=== PATIENT | male | born 1950 | race Caucasian/White ===

== ENCOUNTER 2018-09-05 06:10 | Observation (INO) | payer MEDICARE ==
[~2018-09-05] VITALS: Ht 180.3 cm; Wt 93.9 kg
--- NOTE | 2018-09-05 06:23 | ERD ---
ER Documentation Chief Complaint Chief Complaint BIB RA FROM HOME FOR CP AND HYPERTENSION HPI 67-year-old male with history of diabetes, hypertension, hyperlipidemia, anemia and anxiety but noncompliant with medical follow-up or medications presents the ED via rescue ambulance complaining of generalized weakness and chest pain. Patient states that over the last month he has been experiencing worsening, generalized weakness to the point where he has difficulty getting out of bed or even walking as well as episodes of unprovoked, moderate, achy left-sided chest pain that radiates to his neck and left arm accompanied by shortness of breath and nausea nausea but no vomiting or diaphoresis. This morning after awakening had an episode of chest pain and activated 911. Paramedics administered aspirin and sublingual and the pain resolved. Denies headache, visual changes, focal weakness or numbness. Denies URI symptoms, cough or hemoptysis. No leg pain or swelling. No abdominal pain or low back pain. Admits to sniffing and emotional stress recently and anxiety but denies depression SI/HI. Also reports recent unintentional weight loss of approximately 50 pounds over the last year and a half. Denies night sweats, fevers or chills. ROS All systems reviewed and are negative except as per history of present illness. Allergies Allergies: Coded Allergies: No Known Allergy (Unverified , 09/05/18) PMhx/Soc Reviewed in chart. As per HPI. History of Surgery: Yes (Knee surgery) Anesthesia Reaction: Yes Hx Neurological Disorder: No Hx Respiratory Disorders: No Hx Cardiac Disorders: No Hx Psychiatric Problems: Yes Hx Miscellaneous Medical Probl: Yes (Diabetes, hyperlipidemia) Hx Alcohol Use: No Hx Substance Use: No Hx Tobacco Use: No FmHx Father: Prostate cancer. Mother: "Heart problems". Physical Exam Vitals Vital Signs Date Temp Pulse Resp B/P (MAP) Pulse Ox O2 O2 Flow FiO2 Time Delivery Rate 09/05/18 78 16 176/98 100 Room Air 07:56 (124) 09/05/18 98.7 85 20 227/116 100 06:17 (153) Physical Exam Const: Alert, anxious, moderate distress Head: Atraumatic Eyes: Pupils equal react to light, extraocular movements are intact. Normal Conjunctiva ENT: Normal External Ears, Nose and Mouth. Neck: Full range of motion. No JVD. Carotids are 2+ bilateral without bruits. No thyroid goiter. No meningismus. Resp: Breath sounds are equal and clear to auscultation bilaterally. No rales rhonchi or wheezes. Cardio: Regular rate and rhythm, no murmurs Chest Wall: No tenderness, ecchymosis or bruising. Abd: Soft, non tender, non distended. No rebound or guarding. No masses. Normal bowel sounds Skin: No petechiae or rashes Back: No midline or flank tenderness Ext: No cyanosis, or edema Neur: Awake and alert. Cranial nerves II through XII are grossly intact. Motor and sensory equal bilaterally. Plantar reflexes are downgoing. Unable to stand or ambulate without assistance. Psych: Patient appears anxious and depressed. Denies SI/HI. Result Diagram: 09/05/1864609/05/1847 Results 24 hrs Laboratory Tests Test 09/05/18 06:40 09/05/18 06:47 09/05/18 07:39 Bedside Glucose 145 mg/dL White Blood Count 6.2 10^3/ul Red Blood Count 5.34 10^6/ul Hemoglobin 12.4 g/dl Hematocrit 41.0 % Mean Corpuscular Volume 76.8 fl Mean Corpuscular Hemoglobin 23.2 pg Mean Corpuscular 30.2 g/dl Hemoglobin Concent Red Cell Distribution Width 20.4 % Platelet Count 280 10^3/UL Mean Platelet Volume 10.5 fl Immature Granulocytes % 0.500 % Neutrophils % 66.1 % Lymphocytes % 20.5 % Monocytes % 8.9 % Eosinophils % 3.2 % Basophils % 0.8 % Nucleated Red Blood Cells % 0.0 /100WBC Immature Granulocytes # 0.030 10^3/ul Neutrophils # 4.1 10^3/ul Lymphocytes # 1.3 10^3/ul Monocytes # 0.6 10^3/ul Eosinophils # 0.2 10^3/ul Basophils # 0.1 10^3/ul Nucleated Red Blood Cells # 0.0 10^3/ul Sodium Level 144 mmol/L Potassium Level 3.7 mmol/L Chloride Level 106 mmol/L Carbon Dioxide Level 28 mmol/L Anion Gap 10 Blood Urea Nitrogen 24 mg/dl Creatinine 1.07 mg/dl Est Glomerular Filtrat > 60 mL/min Rate mL/min Glucose Level 111 mg/dl Calcium Level 9.1 mg/dl Troponin I 0.015 ng/ml Urine Color STRAW Urine Clarity CLEAR Urine pH 7.0 Urine Specific [place] 1.013 Urine Ketones NEGATIVE mg/dL Urine Nitrite NEGATIVE mg/dL Urine Bilirubin NEGATIVE mg/dL Urine Urobilinogen NEGATIVE mg/dL Urine Leukocyte Esterase NEGATIVE Antony/ul Urine Microscopic RBC 1 /HPF Urine Microscopic WBC 0 /HPF Urine Bacteria FEW /HPF Urine Hemoglobin NEGATIVE mg/dL Urine Glucose NEGATIVE mg/dL Urine Total Protein 2+ mg/dl Current Medications Medications Dose Sig/Allison Start Time Status Last (Trade) Ordered Route PRN Stop Time Admin Dose Reason Admin 1 inch ONCE STAT 09/05/18 DC 09/05/18 Nitroglycerin TD 06:37 09/05/18 07:02 06:39 (Nitroglyceri n 2% Oint) 650 mg ONCE ONCE 09/05/18 DC 09/05/18 Acetaminophen PO 08:00 09/05/18 07:48 (Tylenol 08:01 Tab) Procedures/MDM DOCUMENTS REVIEWED: ED nurse, no prior records LAB INTERPRETATION: Mild anemia. Elevated BUN normal creatinine. Troponin: 0.015 EKG: Time: 06:38. This rhythm. Ventricular rate 70. No ectopy. Normal TN and QRS. T wave inversions in 2, 3, aVF, 1, V5 and V6. No acute ST elevation or depression. My Interpretation IMAGING: PROCEDURE: XR Chest. CLINICAL INDICATION: Chest pain TECHNIQUE: Single portable view of the chest was obtained COMPARISON: None FINDINGS: The heart is enlarged. The lungs are clear. There is mild elevation of the right diaphragm. There is no pleural effusion or pneumothorax. RPTAT: AA IMPRESSION: Mild Cardiomegaly. .Narendra Sahni MD, MD Date Time Electronically viewed and signed by .Narendra Sahni MD, on 09/05/2018 07:26 .S/ MEDICAL DECISION MAKIN-year-old male with history of diabetes, hypertension, hyperlipidemia, anemia and anxiety but noncompliant with medical follow-up or medications presents the ED via rescue ambulance complaining of generalized weakness and chest pain. CBC to evaluate for anemia, leukocytosis and thrombocytopenia reveals borderline anemia. Chemistry significant for mildly elevated BUN with normal creatinine consistent with dehydration but no electrolyte abnormalities, acidosis or significant hyperglycemia. EKG is unremarkable for acute ischemic changes or dysrhythmia. Chest x-ray reveals cardiomegaly but no congestive heart failure or pneumonia. CT of the brain to evaluate for ischemia, hemorrhage, hydrocephalus and mass [ ]. Accelerated hypertension improved with transdermal nitroglycerin. Heart score: 5. Gen eralized weakness of uncertain etiology in a broad differential is considered. An underlying supratentorial process is considered. Admit to telemetry for further evaluation and management. PATIENT CARE TRANSITIONED: Time: 08:25, [ ]. Counseled patient regarding diagnosis, diagnostic results and plan for admission. Departure Diagnosis: Primary Impression: Chest pain with moderate risk for cardiac etiology Additional Impressions: Weakness Accelerated hypertension Condition: Serious TRINIDAD MONTELONGO MD September 05, 2018 06:23
[2018-09-05] MEDS ORDERED: NITROGLYCERIN 2% 1 GM OINT PKT TD STA (06:37)
[2018-09-05] MEDS ORDERED: ACETAMINOPHEN 325 MG TAB PO ONE (08:00)
[2018-09-05] MEDS ORDERED: LACTATED RINGER'S 500 ML IV ONE (08:20)
[2018-09-05] MEDS ORDERED: ONDANSETRON 4 MG INJ IV PRN ×2 (09:00→12:00)
[2018-09-05] MEDS ORDERED: ACETAMINOPHEN 325 MG TAB PO PRN ×2 (09:00→12:00)
[2018-09-05] MEDS ORDERED: LORAZEPAM 2 MG INJ IV ONE ×2 (09:30→12:30)
[2018-09-05] MEDS ORDERED: NACL 0.9% 3 ML SYG IV SCH (12:00)
[2018-09-05] MEDS: INSULIN ASPART [NOVOLOG] 3 ML PEN SC SCH ×3 (12:00→20:21)
[2018-09-05] MEDS ORDERED: NITROGLYCERIN (SL) 0.4 MG TAB SL PRN (12:00)
--- NOTE | 2018-09-05 12:26 | HP ---
Date/Time of Note Date/Time of Note DATE: 09/05/18 TIME: 12:10 Assessment/Plan VTE Prophylaxis SCD applied (from Nsg): Yes Pharmacological prophylaxis: LMWH Lines/Catheters IV Catheter Type (from Nrsg): Saline Lock Assessment/Plan Hospital Course SUBJECTIVE: Seen and evaluated patient in ER room 6. Currently no chest pain. OBJECTIVE: Vital signs-see below PHYSICAL EXAM: Constitutional: Adequately built,not in acute distress. HEENT: Head atraumatic and normocephalic. Eyes: Extraocular muscles intact. Anicteric sclerae. Pupils equal bilaterally, reactive to light. NECK: Supple without lymph node. CHEST: Clear and good breath sounds equally. No wheezing. No rhonchi. HEART: S1, S2. Regular rate and rhythm. ABDOMEN: Soft/non tender with no rebound tenderness. Bowel sounds were present. EXTREMITIES: No cyanosis, clubbing or edema. NEUROLOGIC: Alert and oriented x3. No focal deficit. No sensory deficit. PSYCHOSOCIAL: +Anxious. good mood. INTEGUMENTARY: No open wounds. ASSESSMENT AND PLAN: 67-year-old male with hx of depression,htn,dm2,hyperlipidemia, her w/chest pain, who has been feeling depressed lately and took him off antidepressants himself, stopped taking his medications, under tremendous work-related stress, here with chest pain also noted to have poorly managed blood pressure... Chest pain, rule out acute coronary syndrome. -Serial cardiac markers, EKG, cardiology consult in light of high risk com orbidities -Aspirin, PRN NTG, PRN morphine -Telemetry Hypertensive emergency 2/2 poorly managed blood pressure -Now stable -Start beta-blockers -TTE History of dm2 -off tx -Obtain A1c and treat accordingly -Carbohydrate controlled diet Dyslipidemia -Obtain lipid panel. -Start Lipitor Mild anemia with microcytic indicis -Stable H&H. Obtain iron panel and treat accordingly Depression -Patient himself took him off abruptly from antidepressant which he does not remember the name. -Inpatient psychiatric consult in a.m. as his depression needs to be attended seriously to get him back on track with his compliance/mood instability. Obesity with BMI 30.9 -Lifestyle changes/modification advised. Obtain A1c and lipid panel in a.m. DVT prophylaxis: Lovenox PUD prophylaxis: Pepcid CODE STATUS: Full code Diet: Carbohydrate controlled/low-cholesterol diet. Rest of the management depend on hospital course. Approximately 60 m spent on this history and physical. Patient was seen in collaboration with Dr. Bolanos. Result Diagram: 09/05/18 0647 09/05/18 0647 Results 24hrs Laboratory Tests Test 09/05/18 06:40 09/05/18 06:47 09/05/18 07:39 Bedside Glucose 145 White Blood Count 6.2 Red Blood Count 5.34 Hemoglobin 12.4 L Hematocrit 41.0 L Mean Corpuscular Volume 76.8 L Mean Corpuscular Hemoglobin 23.2 L Mean Corpuscular Hemoglobin Concent 30.2 L Red Cell Distribution Width 20.4 H Platelet Count 280 Mean Platelet Volume 10.5 H Immature Granulocytes % 0.500 H Neutrophils % 66.1 Lymphocytes % 20.5 Monocytes % 8.9 Eosinophils % 3.2 Basophils % 0.8 Nucleated Red Blood Cells % 0.0 Immature Granulocytes # 0.030 Neutrophils # 4.1 Lymphocytes # 1.3 Monocytes # 0.6 Eosinophils # 0.2 Basophils # 0.1 Nucleated Red Blood Cells # 0.0 Sodium Level 144 Potassium Level 3.7 Chloride Level 106 Carbon Dioxide Level 28 Anion Gap 10 Blood Urea Nitrogen 24 H Creatinine 1.07 Est Glomerular Filtrat Rate mL/min > 60 Glucose Level 111 Calcium Level 9.1 Troponin I 0.015 Urine Color STRAW Urine Clarity CLEAR Urine pH 7.0 Urine Specific [place] 1.013 Urine Ketones NEGATIVE Urine Nitrite NEGATIVE Urine Bilirubin NEGATIVE Urine Urobilinogen NEGATIVE Urine Leukocyte Esterase NEGATIVE Urine Microscopic RBC 1 Urine Microscopic WBC 0 Urine Bacteria FEW A Urine Hemoglobin NEGATIVE Urine Glucose NEGATIVE Urine Total Protein 2+ H HPI/ROS Admit Date/Time Admit Date/Time Hx of Present Illness This is a very pleasant 67-year-old male who was previously diagnosed with hypertension, depression,dm2, hyperlipidemia, was brought in by ambulance for chest pain with radiation to left arm followed by shortness of breath, nausea, diaphoresis started this morning after he woke up from bed. Apparently, patient has been under tremendous work-related stress and has been feeling depressed lately and took him off antidepressants himself, also stopped seeing his pcp and taking his medications for underlying hypertension. According to patient, he was taken off diabetes medication as his blood sugar was controlled with latest test. Patient denied palpitation, loss of consciousness, dizziness, fever, chills, vomiting, diarrhea, numbness, tingling, speech difficulties, vision changes, or other constitutional symptoms. Patient has been under tremendous stress and he also abruptly stopped taking his depression medication and he is also unsure the name of the medication. In the emergency room, initial labs unremarkable except for mild microcytic indicis. EKG showed normal sinus rhythm with T wave inversion in multiple leads. There was no acute ST elevation or depression. Patient was given aspirin by ambulance. In the ER, he received a dose of IV Ativan as patient was anxious. ROS A 12 point review of system was assessed and is negative other than what is mentioned in HPI. PMH/Family/Social Past Medical History See HPI Medications Current Medications Ondansetron HCl (Zofran Inj) 4 mg ER BRIDGE PRN IV NAUSEA/VOMITING; Start 09/05/18 at 09:00; Stop 09/06/18 at 08:59 Acetaminophen (Tylenol Tab) 650 mg ER BRIDGE PRN PO .MILD PAIN 1-3 OR TEMP; Start 09/05/18 at 09:00; Stop 09/06/18 at 08:59 Coded Allergies: No Known Allergy (Unverified , 09/05/18) Past Surgical History See HPI Social History Denied history of alcohol, smoking or illicit drug use. Smoking Status: Never smoker Exam/Review of Systems Vital Signs Vitals Vital Signs Date Temp Pulse Resp B/P (MAP) Pulse Ox O2 O2 Flow FiO2 Time Delivery Rate 09/05/18 78 16 176/98 100 Room Air 07:56 (124) 09/05/18 98.7 06:17 CHETNA RAMÍREZ NP September 05, 2018 12:20
[2018-09-05] MEDS: METOPROLOL 25 MG TAB PO SCH ×2 (12:51→20:16)
[2018-09-05] MEDS ORDERED: DEXTROSE 50% 50 ML SYRINGE IV PRN ×2 (13:00)
[2018-09-05] MEDS ORDERED: GLUCOSE GEL 15 GRAM TUBE BUCCAL PRN (13:00)
[2018-09-05] MEDS ORDERED: GLUCAGON 1 MG INJ IM PRN (13:00)
[2018-09-05] MEDS ORDERED: GLUCOSE GEL 15 GRAM TUBE PO PRN ×2 (13:00)
[2018-09-05] MEDS: HYDROCODONE/APAP (5/325) TAB PO PRN ×2 (16:15→21:19)
[2018-09-05 18:50] VITALS: BP 183/88; PULSE 58; RESP 20
[2018-09-05 18:51] VITALS: PULSE 59
[2018-09-05] MEDS: hydrALAzine 20 MG INJ IV PRN (19:04)
[2018-09-05 19:30] VITALS: Ht 180.3 cm; Wt 93.9 kg
[2018-09-05 20:00] VITALS: BP 168/82; PULSE 60; RESP 20
[2018-09-05 20:04] VITALS: PULSE 67
[2018-09-05] MEDS: BENAZEPRIL 10 MG TAB PO SCH (20:13)
[2018-09-05] MEDS: FAMOTIDINE 20 MG TAB PO SCH (20:14)
[2018-09-05] MEDS: ATORVASTATIN 80 MG TAB PO SCH (20:15)
--- NOTE | 2018-09-05 20:41 | CONS ---
DATE OF ADMISSION: 09/05/2018 DATE OF CONSULTATION: 09/05/2018 TYPE OF CONSULTATION: Cardiology. REASON FOR CONSULTATION: Chest pain, assess for acute coronary syndrome. REQUESTING PHYSICIAN: Yue Ramírez NP, from the hospitalist service. HISTORY OF PRESENT ILLNESS: Mr. Fang is a very pleasant 67-year-old male with a history of hyperte nsion, diabetes mellitus, dyslipidemia, depression, who states he was at home, sitting on his bed, be miguel to notice chest tightness with diaphoresis and mild shortness of breath. The patient subsequentl y called paramedics. The patient was brought here to the emergency department. Upon arrival, temper ature was 98.7, blood pressure was markedly elevated at 227/116, pulse 85, respiratory rate 20, satti ng 100%. The patient's labs were notable for a sodium of 144, potassium 3.7, creatinine 1.0, BUN of 24, troponin negative, UA negative. The patient underwent a chest x-ray revealing mild cardiomegaly but clear lungs and head CT revealing no intracranial hemorrhage, mass effect or midline shift with m ild generalized atrophy. The patient's electrocardiogram revealed normal sinus rhythm, rate of 70, n ormal axis, normal intervals with inferolateral T-wave inversions. The patient subsequently has been treated with dose of Ativan, sublingual nitroglycerin, Tylenol and now awaits admit to the floor. PAST MEDICAL HISTORY: As above in HPI. MEDICATIONS CURRENTLY IN HOSPITAL: 1. Lovenox 40 mg subcutaneously daily. 2. Aspirin 81 mg daily. 3. Pepcid 20 mg q.12. 4. Lipitor 80 mg at bedtime. 5. Metoprolol 25 mg p.o. b.i.d. 6. Zofran p.r.n. 7. Tylenol p.r.n. 8. Dorothy p.r.n. 9. Insulin sliding scale. ALLERGIES: NO KNOWN DRUG ALLERGIES. SOCIAL HISTORY: No current tobacco, EtOH or illicit drug use. FAMILY HISTORY: No history of sudden cardiac or early CAD. REVIEW OF SYSTEMS: As above in HPI. CONSTITUTIONAL: No fevers, chills. PULMONARY: No current shortness of breath. CARDIOVASCULAR: Chest pain. GASTROINTESTINAL: No vomiting. GENITOURINARY: No hematuria. MUSCULOSKELETAL: Degenerative joint disease. PSYCHIATRIC: Positive for depression. NEUROLOGIC: No documented history of CVA. ENDOCRINE: Diabetes mellitus. PHYSICAL EXAMINATION: VITAL SIGNS: Temperature of 98.7, blood pressure 145/84, pulse 77, respiratory rate 18, satting 96%. GENERAL: The patient is alert, awake, in no acute distress. NECK: JVP approximately is 8 to 9 cm of water. CHEST: Fair air movement throughout. HEART: Bradycardic, regular rhythm, normal S1, S2, I/ systolic murmur, nondisplaced PMI. ABDOMEN: Positive bowel sounds, soft. EXTREMITIES: No significant pitting edema, 1+ pulses bilateral posterior tibial. LABORATORIES: As above in HPI. Since admit the patient's second troponin is negative with 2 negativ e troponins. IMAGING STUDIES: As above in HPI. No further imaging studies for my review at this time. ELECTROCARDIOGRAM: As above in HPI. No further electrocardiograms for my review at this time. IMPRESSION: 1. Chest pain, assess for acute coronary syndrome. 2. Abnormal electrocardiogram with inferior and lateral T-wave inversions. 3. Hypertension. 4. Dyslipidemia. 5. Diabetes mellitus. 6. Depression. RECOMMENDATIONS: 1. At this time, we would admit the patient to telemetry monitoring to follow rhythm and rate contro l closely. 2. Continue the patient's aspirin for prophylaxis against cardiovascular events. 3. We would continue the patient's current statin, check fasting lipid panel and adjust accordingly. 4. Continue patient's beta suri at this time with possible need for additional antihypertensives. 5. We will give the patient sublingual nitroglycerin for recurrent episodes of chest pain. 6. Complete the patient's rule out for myocardial infarction to ensure the patient's chest pains wer e not due to acute coronary syndrome such as acute myocardial infarction. 7. Check a 2D echo for this patient's ejection fraction, wall motion, rule any major valve abnormali ties and if patient does rule out for myocardial infarction given the patient's cardiac risk factors and EKG abnormalities, I believe the patient will benefit from further inpatient risk stratification with cardiac stress test which can be scheduled to take place in the morning. Thank you for allowing me to take part in the care of this patient. I will continue to follow him al lidia very closely with you with further recommendations to be made as the patient progresses through h is inpatient hospital clinical course. Dictated By: RODDY POZO/NTS Conf#: [id number] DID#: [id number] CC: TOSIN KAY MD; YUE RAMÍREZ NP;*End*
[2018-09-05 22:00] VITALS: BP 145/60; PULSE 69
[2018-09-06] VITALS (12 sets, daily range): BP systolic 115–171; BP diastolic 61–92; PULSE 54–72; RESP 16–22
[2018-09-06] MEDS: ACCU-CHEK XX SCH (02:00)
[2018-09-06] MEDS ORDERED: LORAZEPAM 2 MG INJ IV ONE (04:30)
[2018-09-06] MEDS: INSULIN ASPART [NOVOLOG] 3 ML PEN SC SCH ×4 (07:55→21:00)
[2018-09-06] MEDS: ASPIRIN 81 MG TAB PO SCH (08:30)
[2018-09-06] MEDS: METOPROLOL 25 MG TAB PO SCH ×2 (08:30→21:06)
[2018-09-06] MEDS: FAMOTIDINE 20 MG TAB PO SCH ×2 (08:30→21:07)
[2018-09-06] MEDS: BENAZEPRIL 10 MG TAB PO SCH ×2 (08:31→21:07)
[2018-09-06] MEDS: ENOXAPARIN 40 MG/0.4 ML SYG SC SCH (08:32)
--- NOTE | 2018-09-06 10:54 | PSY ---
Date/Time of Note Date/Time of Note DATE: 09/06/18 TIME: 10:49 Psychiatric Subjective Eval Consent Pt consented to telemedicine: No Subjective Evaluation Patient location: inpatient Chief Complaint: BIB RA FROM HOME FOR CP AND HYPERTENSION History of present illness Patient is a 67-year-old male with history of hypertension, hyperlipidemia, and her w/chest pain, on a [id number] evaluation, patient is tearful, states he has been increasingly anxious and depressed since after his divorce, and also lost his mom and dad, states his life has been lonely and hopeless.. Patient however denies suicidal ideation and contracted for safety. He states his only happiness now is that his children are coming around. Discussed risk and be nefits of about 3 different antidepressants and he verbalized understanding. Patient has agreed to take Cymbalta and Klonopin for anxiety. Past psychiatric history Denies Hospitalization: other Medical history Problems Medical Problems: (1) Accelerated hypertension Status: Acute (2) Chest pain with moderate risk for cardiac etiology Status: Acute (3) Weakness Status: Acute Allergies: Coded Allergies: No Known Allergy (Unverified , 09/05/18) Substance Abuse Substance abuse history: No Prior substance abuse treatmen: No Social History Marital status: DPA/Conservatorship: No Psychiatric Objective Eval Review of Systems: Review of Systems: Not Applicable Physical Examination: Sleep: Adequate Appetite: Decreased Energy: Decreased Interest: Decreased Mental Status Examination: Appearance: Groomed Eye Contact: Fair Psychomotor Activity: Normal Behavior: Cooperative Speech: Clear, Soft AFFECT: Flat Mood: Depressed Though Process: Linear Orientation: x4 Insight: Mild Attention Span: Distractible Laboratory Results Laboratory Tests Test 09/05/18 06:40 09/05/18 06:47 09/05/18 07:39 09/05/18 13:42 Bedside Glucose 145 mg/dL White Blood Count 6.2 10^3/ul Red Blood Count 5.34 10^6/ul Hemoglobin 12.4 g/dl Hematocrit 41.0 % Mean Corpuscular 76.8 fl Volume Mean Corpuscular 23.2 pg Hemoglobin Mean Corpuscular 30.2 g/dl Hemoglobin Concen t Red Cell 20.4 % Distribution Width Platelet Count 280 10^3/UL Mean Platelet 10.5 fl Volume Immature 0.500 % Granulocytes % Neutrophils % 66.1 % Lymphocytes % 20.5 % Monocytes % 8.9 % Eosinophils % 3.2 % Basophils % 0.8 % Nucleated Red 0.0 /100WBC Blood Cells % Immature 0.030 10^3/ul Granulocytes # Neutrophils # 4.1 10^3/ul Lymphocytes # 1.3 10^3/ul Monocytes # 0.6 10^3/ul Eosinophils # 0.2 10^3/ul Basophils # 0.1 10^3/ul Nucleated Red 0.0 10^3/ul Blood Cells # Sodium Level 144 mmol/L Potassium Level 3.7 mmol/L Chloride Level 106 mmol/L Carbon Dioxide 28 mmol/L Level Anion Gap 10 Blood Urea 24 mg/dl Nitrogen Creatinine 1.07 mg/dl Est Glomerular > 60 mL/min Filtrat Rate mL/min Glucose Level 111 mg/dl Calcium Level 9.1 mg/dl Troponin I 0.015 ng/ml Urine Color STRAW Urine Clarity CLEAR Urine pH 7.0 Urine Specific 1.013 Max Urine Ketones NEGATIVE mg/dL Urine Nitrite NEGATIVE mg/dL Urine Bilirubin NEGATIVE mg/dL Urine NEGATIVE mg/dL Urobilinogen Urine Leukocyte NEGATIVE Antony/ul Esterase Urine Microscopic 1 /HPF RBC Urine Microscopic 0 /HPF WBC Urine Bacteria FEW /HPF Urine Hemoglobin NEGATIVE mg/dL Urine Glucose NEGATIVE mg/dL Urine Total 2+ mg/dl Protein Ferritin 9.5 ng/ml Test 09/05/18 13:43 09/05/18 13:53 09/05/18 18:46 09/05/18 20:01 Iron Level 31 ug/dl Total Iron 356 ug/dl Binding Capacity Percent Iron 9 % SAT Saturation Creatine Kinase 64 IU/L Creatine Kinase 5.2 Index Creatinine Kinase 3.33 ng/ml MB (Mass) Troponin I 0.013 ng/ml Bedside Glucose 120 mg/dL 124 mg/dL 100 mg/dL Test 09/05/18 21:00 09/06/18 04:02 09/06/18 05:57 09/06/18 08:05 Creatine Kinase 60 IU/L Creatine Kinase 5.2 Index Creatinine Kinase 3.09 ng/ml MB (Mass) Troponin I < 0.012 ng/ml Bedside Glucose 106 mg/dL 107 mg/dL White Blood Count 8.0 10^3/ul Red Blood Count 4.77 10^6/ul Hemoglobin 11.2 g/dl Hematocrit 36.4 % Mean Corpuscular 76.3 fl Volume Mean Corpuscular 23.5 pg Hemoglobin Mean Corpuscular 30.8 g/dl Hemoglobin Concen t Red Cell 20.9 % Distribution Width Platelet Count 253 10^3/UL Mean Platelet 10.2 fl Volume Immature 0.500 % Granulocytes % Neutrophils % 69.0 % Lymphocytes % 17.1 % Monocytes % 8.0 % Eosinophils % 4.6 % Basophils % 0.8 % Nucleated Red 0.0 /100WBC Blood Cells % Immature 0.040 10^3/ul Granulocytes # Neutrophils # 5.5 10^3/ul Lymphocytes # 1.4 10^3/ul Monocytes # 0.6 10^3/ul Eosinophils # 0.4 10^3/ul Basophils # 0.1 10^3/ul Nucleated Red 0.0 10^3/ul Blood Cells # Sodium Level 144 mmol/L Potassium Level 3.9 mmol/L Chloride Level 110 mmol/L Carbon Dioxide 26 mmol/L Level Anion Gap 8 Blood Urea 36 mg/dl Nitrogen Creatinine 1.19 mg/dl Est Glomerular > 60 mL/min Filtrat Rate mL/min Glucose Level 94 mg/dl Hemoglobin A1c 5.6 % Calcium Level 8.7 mg/dl Phosphorus Level 5.0 mg/dl Magnesium Level 1.9 mg/dl Total Bilirubin 0.2 mg/dl Direct Bilirubin 0.00 mg/dl Indirect 0.2 mg/dl Bilirubin Aspartate Amino 16 IU/L Transf (AST/SGOT) Alanine 20 IU/L Aminotransferase (ALT/SGPT) Alkaline 69 IU/L Phosphatase Total Protein 5.7 g/dl Albumin 3.3 g/dl Globulin 2.40 g/dl Albumin/Globulin 1.37 Ratio Triglycerides 84 mg/dl Level Cholesterol Level 123 mg/dl LDL Cholesterol, 77 mg/dl Calculated HDL Cholesterol 29 mg/dl Cholesterol/HDL 4.2 RATIO Ratio Thyroid 2.930 MIU/L Stimulating Hormone (TSH) Assessment and Plan Assessment/Diagnosis Diagnosis Major depressive disorder severe recurrent without psychosis Recommendation/Plan Medication Management Cymbalta 30 mg daily and Klonopin 0.5 mg twice daily as needed Multiple antipsychotics: No Discharge Disposition: Other Legal Status: Voluntary (Does not meet criteria for 5150 hold) BARBARA MELENDREZ NP September 06, 2018 10:54
[2018-09-06] MEDS ORDERED: REGADENOSON 0.4 MG/5 ML SYG ONE (12:17)
--- NOTE | 2018-09-06 12:49 | PN ---
Date/Time of Note Date/Time of Note DATE: 09/06/18 TIME: 12:45 Assessment/Plan VTE Prophylaxis Risk score (from [facility])>0 risk: 2 SCD applied (from [facility]): No SCD contraindicated: low risk/ambulating Pharmacological prophylaxis: heparin Pharm contraindication: low risk/ambulating Lines/Catheters IV Catheter Type (from [facility]): Saline Lock Assessment/Plan Problems: (1) Chest pain with moderate risk for cardiac etiology Status: Acute Comment: He has had negative cardiac enzymes and is being worked up. I concur with taking a more careful approach in him to make sure there is not active coronary disease. See cardiology consult (2) Accelerated hypertension Status: Acute Comment: Much better control using combination beta-blockade, and PATITO inhibitor. (3) Iron deficiency anemia Status: Chronic Comment: Evidence weight loss this will need an outpatient work-up once we got the cardiac issues addressed Qualifiers: Iron deficiency anemia type: unspecified iron deficiency Qualified Codes: D50.9 - Iron deficiency anemia, unspecified (4) Abnormal finding on urinalysis Status: Acute Comment: Repeat urinalysis (5) Diabetes mellitus type 2 in nonobese Status: Chronic Comment: Patient has an A1c of 5.6. I am not sure this is actually a correct diagnosis on the record and as such I believe that this gentleman is not diabetic (6) Hyperlipidemia Status: Chronic Comment: Full dose statin therapy Qualifiers: Hyperlipidemia type: pure hypercholesterolemia Qualified Codes: E78.00 - Pure hypercholesterolemia, unspecified (7) Noncompliance with medications Status: Chronic Comment: Attempt to make sure that he has adequate connection. He is going to need a primary care physician as an outpatient (8) Abnormal weight loss Status: Acute Comment: Will need outpatient work-up (9) Recurrent major depressive disorder Status: Chronic Comment: Please see psychiatric consultation note Qualifiers: Active/Remission status: currently active Major depression episode severity: unspecified Qualified Codes: F33.9 - Major depressive disorder, re current, unspecified Result Diagram: 09/06/18 0557 09/06/18 0557 Results 24hrs Laboratory Tests Test 09/05/18 13:42 09/05/18 13:43 09/05/18 13:53 09/05/18 18:46 Ferritin 9.5 L Iron Level 31 L Total Iron Binding 356 Capacity Percent Iron Saturation 9 L Creatine Kinase 64 Creatine Kinase Index 5.2 Creatinine Kinase MB 3.33 H (Mass) Troponin I 0.013 Bedside Glucose 120 124 Test 09/05/18 20:01 09/05/18 21:00 09/06/18 04:02 09/06/18 05:57 Bedside Glucose 100 106 Creatine Kinase 60 Creatine Kinase Index 5.2 Creatinine Kinase MB 3.09 H (Mass) Troponin I < 0.012 White Blood Count 8.0 # Red Blood Count 4.77 Hemoglobin 11.2 L Hematocrit 36.4 L Mean Corpuscular Volume 76.3 L Mean Corpuscular 23.5 L Hemoglobin Mean Corpuscular 30.8 L Hemoglobin Concent Red Cell Distribution 20.9 H Width Platelet Count 253 Mean Platelet Volume 10.2 Immature Granulocytes % 0.500 H Neutrophils % 69.0 Lymphocytes % 17.1 Monocytes % 8.0 Eosinophils % 4.6 Basophils % 0.8 Nucleated Red Blood 0.0 Cells % Immature Granulocytes # 0.040 H Neutrophils # 5.5 Lymphocytes # 1.4 Monocytes # 0.6 Eosinophils # 0.4 Basophils # 0.1 Nucleated Red Blood 0.0 Cells # Sodium Level 144 Potassium Level 3.9 Chloride Level 110 Carbon Dioxide Level 26 Anion Gap 8 Blood Urea Nitrogen 36 #H Creatinine 1.19 Est Glomerular Filtrat > 60 Rate mL/min Glucose Level 94 Hemoglobin A1c 5.6 Calcium Level 8.7 Phosphorus Level 5.0 H Magnesium Level 1.9 Total Bilirubin 0.2 Direct Bilirubin 0.00 Indirect Bilirubin 0.2 Aspartate Amino 16 Transf (AST/SGOT) Alanine 20 Aminotransferase (ALT/SG PT) Alkaline Phosphatase 69 Total Protein 5.7 L Albumin 3.3 Globulin 2.40 Albumin/Globulin Ratio 1.37 Triglycerides Level 84 Cholesterol Level 123 LDL Cholesterol, 77 Calculated HDL Cholesterol 29 L Cholesterol/HDL Ratio 4.2 Thyroid Stimulating 2.930 Hormone (TSH) Test 09/06/18 08:05 Bedside Glucose 107 Subjective 24 Hr Interval Summary Free Text/Dictation No complaints Constitutional: no complaints Respiratory: no complaints Cardiovascular: no complaints Exam/Review of Systems Exam Vitals Vital Signs Date Temp Pulse Resp B/P (MAP) Pulse Ox O2 O2 Flow FiO2 Time Delivery Rate 09/06/18 61 12:05 09/06/18 98.3 18 152/74 98 Room Air 07:25 (100) Intake and Output 09/05/18 09/05/18 09/06/18 1515:00 23:00 07:00 IntakeIntake Total 500 ml 550 ml OutputOutput Total 700 ml BalanceBalance 500 ml -150 ml Constitutional: alert Respiratory: clear to auscultation, normal air movement Cardiovascular: regular rate and rhythm, nl pulses Results Results 24hrs Laboratory Tests Test 09/05/18 13:42 09/05/18 13:43 09/05/18 13:53 09/05/18 18:46 Ferritin 9.5 L Iron Level 31 L Total Iron Binding 356 Capacity Percent Iron Saturation 9 L Creatine Kinase 64 Creatine Kinase Index 5.2 Creatinine Kinase MB 3.33 H (Mass) Troponin I 0.013 Bedside Glucose 120 124 Test 09/05/18 20:01 09/05/18 21:00 09/06/18 04:02 09/06/18 05:57 Bedside Glucose 100 106 Creatine Kinase 60 Creatine Kinase Index 5.2 Creatinine Kinase MB 3.09 H (Mass) Troponin I < 0.012 White Blood Count 8.0 # Red Blood Count 4.77 Hemoglobin 11.2 L Hematocrit 36.4 L Mean Corpuscular Volume 76.3 L Mean Corpuscular 23.5 L Hemoglobin Mean Corpuscular 30.8 L Hemoglobin Concent Red Cell Distribution 20.9 H Width Platelet Count 253 Mean Platelet Volume 10.2 Immature Granulocytes % 0.500 H Neutrophils % 69.0 Lymphocytes % 17.1 Monocytes % 8.0 Eosinophils % 4.6 Basophils % 0.8 Nucleated Red Blood 0.0 Cells % Immature Granulocytes # 0.040 H Neutrophils # 5.5 Lymphocytes # 1.4 Monocytes # 0.6 Eosinophils # 0.4 Basophils # 0.1 Nucleated Red Blood 0.0 Cells # Sodium Level 144 Potassium Level 3.9 Chloride Level 110 Carbon Dioxide Level 26 Anion Gap 8 Blood Urea Nitrogen 36 #H Creatinine 1.19 Est Glomerular Filtrat > 60 Rate mL/min Glucose Level 94 Hemoglobin A1c 5.6 Calcium Level 8.7 Phosphorus Level 5.0 H Magnesium Level 1.9 Total Bilirubin 0.2 Direct Bilirubin 0.00 Indirect Bilirubin 0.2 Aspartate Amino 16 Transf (AST/SGOT) Alanine 20 Aminotransferase (ALT/SG PT) Alkaline Phosphatase 69 Total Protein 5.7 L Albumin 3.3 Globulin 2.40 Albumin/Globulin Ratio 1.37 Triglycerides Level 84 Cholesterol Level 123 LDL Cholesterol, 77 Calculated HDL Cholesterol 29 L Cholesterol/HDL Ratio 4.2 Thyroid Stimulating 2.930 Hormone (TSH) Test 09/06/18 08:05 Bedside Glucose 107 Medications Medication Current Medications IV Flush (NS 3 ml) 3 ml PER PROTOCOL IV ; Start 09/05/18 at 12:00 Ondansetron HCl (Zofran Inj) 4 mg Q6H PRN IV NAUSEA/VOMITING; Start 09/05/18 at 12:00 Acetaminophen (Tylenol Tab) 650 mg Q6H PRN PO .PAIN 1-3 OR TEMP Last administered on 09/05/18 20:15; Admin Dose 650 MG; Start 09/05/18 at 12:00 Acetaminophen/ Hydrocodone Bitart ([place] (5/325)) 1 tab Q6H PRN PO .MOD PAIN 4- 6 Last administered on 09/05/18 21:19; Admin Dose 1 TAB; Start 09/05/18 at 12:00 Famotidine (Pepcid) 20 mg Q12 PO Last administered on 09/06/18 08:30; Admin Dose 20 MG; Start 09/05/18 at 21:00 Enoxaparin Sodium (Lovenox) 40 mg DAILY SC Last administered on 09/06/18 08:32; Admin Dose 40 MG; Start 09/06/18 at 09:00 Diagnostic Test (Pha) (Accu-Chek) 1 ea 02 XX ; Start 09/06/18 at 02:00 Insulin Aspart (Novolog Insulin Pen) NOVOLOG *MILD* ALGORITHM WITH MEALS BEDTIME SC ; Start 09/05/18 at 12:00 Aspirin (Aspirin) 81 mg DAILY PO Last administered on 09/06/18 08:30; Admin Dose 81 MG; Start 09/06/18 at 09:00 Atorvastatin Calcium (Lipitor) 80 mg HS PO Last administered on 09/05/18 20:15; Admin Dose 80 MG; Start 09/05/18 at 21:00 Metoprolol Tartrate (Lopressor) 25 mg BID PO Last administered on 09/06/18 08:30; Admin Dose 25 MG; Start 09/05/18 at 12:30 Hydralazine HCl (Apresoline) 10 mg Q6H PRN IV sbp>160 Last administered on 09/05/18at 19:04; Admin Dose 10 MG; Start 09/05/18 at 12:00 Nitroglycerin (Nitroglycerin (Sl Tab) 0.4 Mg) 1 tab Q5M PRN SL ANGINA; Start 09/05/18 at 12:00 Miscellaneous Information 1 ea NOTE XX ; Start 09/05/18 at 13:00 Glucose (Glutose) 15 gm Q15M PRN PO DECREASED GLUCOSE; Start 09/05/18 at 13:00 Glucose (Glutose) 22.5 gm Q15M PRN PO DECREASED GLUCOSE; Start 09/05/18 at 13:00 Dextrose (D50w Syringe) 25 ml Q15M PRN IV DECREASED GLUCOSE; Start 09/05/18 at 13:00 Dextrose (D50w Syringe) 50 ml Q15M PRN IV DECREASED GLUCOSE; Start 09/05/18 at 13:00 Glucagon (Glucagen) 1 mg Q15M PRN IM DECREASED GLUCOSE; Start 09/05/18 at 13:00 Glucose (Glutose) 15 gm Q15M PRN BUCCAL DECREASED GLUCOSE; Start 09/05/18 at 13:00 Benazepril HCl (Lotensin) 10 mg BID PO Last administered on 09/06/18at 08:31; Admin Dose 10 MG; Start 09/05/18 at 21:00 Duloxetine HCl (Cymbalta) 30 mg DAILY PO ; Start 09/06/18 at 11:00 Docusate Sodium/ Ferrous Fumarate (Dino-Sequels) 1 tab DAILY PO ; Start 09/06/18 at 13:00; Stop 10/06/18 at 12:59; Status UNV Ascorbic Acid (Vitamin C) 500 mg DAILY PO ; Start 09/06/18 at 13:00; Stop 10/06/18 at 12:59; Status UNV REBECCA POTTS MD September 06, 2018 12:49
--- NOTE | 2018-09-06 13:09 | CONS ---
Assessment/Plan Assessment/Plan Hospital Course (Demo Recall) IMPRESSION: 1. Chest pain, assess for acute coronary syndrome.-neg trop x 3. 2. Abnormal electrocardiogram with inferior and lateral T-wave inversions. 3. Hypertension. 4. Dyslipidemia. 5. Diabetes mellitus. 6. Depression. Recc; -Tele -Contineu BB/ACEI and f/u BP after taking -Continue asa/statin -Will f/u echo -lexiscan stress test today Consultation Date/Type/Reason Admit Date/Time September 05, 2018 at 11:13 Initial Consult Date 09/05/18 Type of Consult Cardiology Reason for Consultation chest pain Requesting Provider: TOSIN KAY Date/Time of Note DATE: 09/06/18 TIME: 13:06 Exam/Review of Systems Vital Signs Vitals Vital Signs Date Temp Pulse Resp B/P (MAP) Pulse Ox O2 O2 Flow FiO2 Time Delivery Rate 09/06/18 61 12:05 09/06/18 98.3 18 152/74 98 Room Air 07:25 (100) Intake and Output 09/05/18 09/05/18 09/06/18 1515:00 23:00 07:00 IntakeIntake Total 500 ml 550 ml OutputOutput Total 700 ml BalanceBalance 500 ml -150 ml Exam Exam Review of Systems: CONSTITUTIONAL: No fevers, chills. PULMONARY: No sob CARDIOVASCULAR: No chest pain/palpitations GASTROINTESTINAL: No nausea/vomiting. GENITOURINARY: No hematuria/dysuria. MUSCULOSKELETAL: No myagias/arthalgias. PSYCHIATRIC: The patient denies depression. NEUROLOGIC: No weakness Constitutional: alert Psych: no complaints Head: normocephalic ENMT: mucosa pink and moist Neck: supple, jvd (9 cm water) Respiratory: clear to auscultation Cardiovascular: regular rate and rhythm Gastrointestinal: soft, non-tender Musculoskeletal: muscle tone (normal) Extremities: edema (none) Neurological: other (No focal deficits) Labs Result Diagram: 09/06/18 0557 09/06/18 0557 Results 24hrs Laboratory Tests Test 09/05/18 13:42 09/05/18 13:43 09/05/18 13:53 09/05/18 18:46 Ferritin 9.5 L Iron Level 31 L Total Iron Binding 356 Capacity Percent Iron Saturation 9 L Creatine Kinase 64 Creatine Kinase Index 5.2 Creatinine Kinase MB 3.33 H (Mass) Troponin I 0.013 Bedside Glucose 120 124 Test 09/05/18 20:01 09/05/18 21:00 09/06/18 04:02 09/06/18 05:57 Bedside Glucose 100 106 Creatine Kinase 60 Creatine Kinase Index 5.2 Creatinine Kinase MB 3.09 H (Mass) Troponin I < 0.012 White Blood Count 8.0 # Red Blood Count 4.77 Hemoglobin 11.2 L Hematocrit 36.4 L Mean Corpuscular Volume 76.3 L Mean Corpuscular 23.5 L Hemoglobin Mean Corpuscular 30.8 L Hemoglobin Concent Red Cell Distribution 20.9 H Width Platelet Count 253 Mean Platelet Volume 10.2 Immature Granulocytes % 0.500 H Neutrophils % 69.0 Lymphocytes % 17.1 Monocytes % 8.0 Eosinophils % 4.6 Basophils % 0.8 Nucleated Red Blood 0.0 Cells % Immature Granulocytes # 0.040 H Neutrophils # 5.5 Lymphocytes # 1.4 Monocytes # 0.6 Eosinophils # 0.4 Basophils # 0.1 Nucleated Red Blood 0.0 Cells # Sodium Level 144 Potassium Level 3.9 Chloride Level 110 Carbon Dioxide Level 26 Anion Gap 8 Blood Urea Nitrogen 36 #H Creatinine 1.19 Est Glomerular Filtrat > 60 Rate mL/min Glucose Level 94 Hemoglobin A1c 5.6 Calcium Level 8.7 Phosphorus Level 5.0 H Magnesium Level 1.9 Total Bilirubin 0.2 Direct Bilirubin 0.00 Indirect Bilirubin 0.2 Aspartate Amino 16 Transf (AST/SGOT) Alanine 20 Aminotransferase (ALT/SG PT) Alkaline Phosphatase 69 Total Protein 5.7 L Albumin 3.3 Globulin 2.40 Albumin/Globulin Ratio 1.37 Triglycerides Level 84 Cholesterol Level 123 LDL Cholesterol, 77 Calculated HDL Cholesterol 29 L Cholesterol/HDL Ratio 4.2 Thyroid Stimulating 2.930 Hormone (TSH) Test 09/06/18 08:05 Bedside Glucose 107 Medications Medications Current Medications IV Flush (NS 3 ml) 3 ml PER PROTOCOL IV ; Start 09/05/18 at 12:00 Ondansetron HCl (Zofran Inj) 4 mg Q6H PRN IV NAUSEA/VOMITING; Start 09/05/18 at 12:00 Acetaminophen (Tylenol Tab) 650 mg Q6H PRN PO .PAIN 1-3 OR TEMP Last administered on 09/05/18at 20:15; Admin Dose 650 MG; Start 09/05/18 at 12:00 Acetaminophen/ Hydrocodone Bitart ([place] (5/325)) 1 tab Q6H PRN PO .MOD PAIN 4- 6 Last administered on 09/05/18at 21:19; Admin Dose 1 TAB; Start 09/05/18 at 12:00 Famotidine (Pepcid) 20 mg Q12 PO Last administered on 09/06/18at 08:30; Admin Dose 20 MG; Start 09/05/18 at 21:00 Enoxaparin Sodium (Lovenox) 40 mg DAILY SC Last administered on 09/06/18at 08:32; Admin Dose 40 MG; Start 09/06/18 at 09:00 Diagnostic Test (Pha) (Accu-Chek) 1 ea 02 XX ; Start 09/06/18 at 02:00 Insulin Aspart (Novolog Insulin Pen) NOVOLOG *MILD* ALGORITHM WITH MEALS BEDTIME SC ; Start 09/05/18 at 12:00 Aspirin (Aspirin) 81 mg DAILY PO Last administered on 09/06/18at 08:30; Admin Dose 81 MG; Start 09/06/18 at 09:00 Atorvastatin Calcium (Lipitor) 80 mg HS PO Last administered on 09/05/18at 20:15; Admin Dose 80 MG; Start 09/05/18 at 21:00 Hydralazine HCl (Apresoline) 10 mg Q6H PRN IV sbp>160 Last administered on 09/05/18at 19:04; Admin Dose 10 MG; Start 09/05/18 at 12:00 Nitroglycerin (Nitroglycerin (Sl Tab) 0.4 Mg) 1 tab Q5M PRN SL ANGINA; Start 09/05/18 at 12:00 Miscellaneous Information 1 ea NOTE XX ; Start 09/05/18 at 13:00 Glucose (Glutose) 15 gm Q15M PRN PO DECREASED GLUCOSE; Start 09/05/18 at 13:00 Glucose (Glutose) 22.5 gm Q15M PRN PO DECREASED GLUCOSE; Start 09/05/18 at 13:00 Dextrose (D50w Syringe) 25 ml Q15M PRN IV DECREASED GLUCOSE; Start 09/05/18 at 13:00 Dextrose (D50w Syringe) 50 ml Q15M PRN IV DECREASED GLUCOSE; Start 09/05/18 at 13:00 Glucagon (Glucagen) 1 mg Q15M PRN IM DECREASED GLUCOSE; Start 09/05/18 at 13:00 Glucose (Glutose) 15 gm Q15M PRN BUCCAL DECREASED GLUCOSE; Start 09/05/18 at 13:00 Duloxetine HCl (Cymbalta) 30 mg DAILY PO ; Start 09/06/18 at 11:00 Docusate Sodium/ Ferrous Fumarate (Dino-Sequels) 1 tab DAILY PO ; Start 09/06/18 at 13:00; Stop 10/06/18 at 12:59 Ascorbic Acid (Vitamin C) 500 mg DAILY PO ; Start 09/06/18 at 13:00; Stop 10/06/18 at 12:59 Benazepril HCl (Lotensin) 20 mg BID PO ; Start 09/06/18 at 21:00 Metoprolol Tartrate (Lopressor) 50 mg BID PO ; Start 09/06/18 at 21:00 Iohexol ((Gastrografin therapeutic equivalent)) 900 ml GIVE PRIOR TO CT ONCE PO ; Start 09/06/18 at 15:00; Stop 09/06/18 at 15:01 RODDY OLSEN September 06, 2018 13:09
[2018-09-06] MEDS: HYDROCODONE/APAP (5/325) TAB PO PRN ×2 (14:22→16:13)
[2018-09-06] MEDS: DULOXETINE 30 MG CAP DR PO SCH (14:44)
[2018-09-06] MEDS ORDERED: IOHEXOL 14.3 MG(I)/ML (ADULT) BTL PO ONE (15:00)
--- NOTE | 2018-09-06 15:57 | CONS ---
DATE OF ADMISSION: 09/05/2018 DATE OF CONSULTATION: 09/06/2018 LEXISCAN CARDIOLITE STRESS TEST TYPE OF CONSULTATION: Pulmonary. REASON FOR STRESS TESTING: Chest pain, assess for ischemia. BASELINE VITAL SIGNS ON ELECTROCARDIOGRAM: Pulse 59, blood pressure 203/95. Electrocardiogram revea led sinus rhythm at a rate of 63 with normal axis, normal intervals with inferior and lateral T-wave inversions. PROCEDURE: The patient underwent standard Lexiscan infusion protocol for 10 seconds followed by radi otracer. The patient's test was stopped to completion of protocol. Maximal achieved blood pressure during the test 171/85. Maximum heart rate during the test 83. ECG FINDINGS: The patient did not develop any new Lexiscan-induced ST or T-wave changes from baselin e abnormalities, no documented PVCs. SYMPTOMS: The patient had no chest pain or shortness breath during stress testing. IMPRESSION: 1. No Lexiscan-induced ST or T-wave changes from baseline abnormalities diagnostic of ischemia. 2. No complaints of chest pain or shortness of breath during stress testing. 3. No documented premature ventricular contractions during stress test. 4. Report of nuclear images to follow in separate dictation. Dictated By: RODDY POZO/ELDON Conf#: [id number] DID#: [id number] CC: TOSIN KAY MD;*EndCC*
[2018-09-06] MEDS: FERROUS FUMARATE (SR) TAB PO SCH (17:05)
[2018-09-06] MEDS: ASCORBIC ACID 500 MG TAB PO SCH (17:05)
--- NOTE | 2018-09-06 18:42 | RADRPT ---
Echocardiogram Report Patient Name: Morro OLSON ID: [id number] : 1950 (67y 9m)Study Date: 09/05/2018 12:23:16 PM Gender: MAccession #: [id number] Tech: Damon Francisco [facility] Location: [facility]- Ref.Physician: CHETNA RAMÍREZ Height(Cm): BSA: Weight(Kg): Quality: AdequateAccount #: Procedures: Echocardiographic Report: Transthoracic echocardiogram with complete 2D, M-Mode, and doppler examination. Indications: Chest Pain, and Hypertension. Measurements: 2D/M Mode Doppler Measurement Value Normal Range Measurement Value Normal Range LVIDd 2D 5.2 [ 4.2 - 5.8 ] cm AV Mean Micky 1.2 [ 70.0 - 90.0 ] cm/sec LVIDs 2D 3.5 [ 2.5 - 4.0 ] cm AV Mean PG 6.0 [ 2.0 - 4.0 ] mmHg LVPWd 2D 1.4 [ 0.6 - 1.0 ] cm AV Peak Micky 1.5 [ 100.0 - 170.0 ] cm/sec IVSd 2D 1.8 [ 0.6 - 1.0 ] cm AV Peak PG 9.0 [ 2.0 - 9.0 ] mmHg EDV 2D 131.0 [ 62.0 - 150.0 ] ml AV VTI 27.9 cm ESV 2D 49.5 [ 21.0 - 61.0 ] ml LVOT Peak Micky 1.1 [ 70.0 - 110.0 ] cm/sec EF 2D 62.2 [ 52.0 - 72.0 ] percent LVOT Peak PG 5.0 [ 2.0 - 6.0 ] mmHg LVOT Diam 2.1 [ 2.3 - 2.9 ] cm MV E Peak Micky 0.5 [ 60.0 - 130.0 ] cm/sec MV A Peak Micky 1.1 [ 100.0 - 120.0 ] cm/sec MV E/A 0.5 [ 0.8 - 1.5 ] ratio MV Decel Time 208 [ 104 - 258 ] msec Lat E` Micky 0.0 [ 10.0 - 15.0 ] cm/sec Lateral E/E` 11.8 [ 1.0 - 2.0 ] ratio Med E` Micky 0.0 cm/sec MV E/A 0.5 [ 0.8 - 1.5 ] ratio PV Peak Micky 0.8 [ 40.0 - 80.0 ] cm/sec PV Peak PG 3.0 mmHg RA Pressure 3.0 mmHg Findings: Left Ventricle: Normal left ventricular systolic function. Normal left ventricular cavity size. Moderate asymmetric septal hypertrophy. Ejection fraction is visually estimated at 55-60 %. Tissue Doppler/Mitral Doppler indices are consistent with impaired relaxation (Stage I diastolic dysfunction). Right Ventricle: Normal right ventricular size. Normal right ventricular systolic function. Left Atrium: There is mild enlargement of left atrium. Right Atrium: The right atrium is normal in size. Mitral Valve: Mild mitral leaflet calcification. Mild mitral annular calcification. Trace mitral regurgitation. Aortic Valve: Mild aortic stenosis. Aortic valve Max velocity 2.32 m/sec. Max PG 21.60 mmHg. Mean PG 11.00 mmHg. Aortic valve area 1.72 cm2. Aortic cusps appear moderately calcified. Tricuspid Valve: Normal appearance of the tricuspid valve. There is trace tricuspid regurgitation. Pulmonic Valve: Normal pulmonic valve appearance. There is trace pulmonic regurgitation. Pericardium: Normal pericardium with no significant pericardial effusion. Aorta: Normal aortic root. IVC: Normal size and normal respiratory collapse consistent with normal right atrial pressure. Conclusions: Normal left ventricular systolic function. Normal left ventricular cavity size. Moderate asymmetric septal hypertrophy. Ejection fraction is visually estimated at 55-60 %. Tissue Doppler/Mitral Doppler indices are consistent with impaired relaxation (Stage I diastolic dysfunction). ). There is mild enlargement of left atrium. Mild mitral leaflet calcification. Mild mitral annular calcification. Trace mitral regurgitation. Mild aortic stenosis. Aortic valve Max velocity 2.32 m/sec. Max PG 21.60 mmHg. Mean PG 11.00 mmHg. Aortic valve area 1.72 cm2. Aortic cusps appear moderately calcified. Normal appearance of the tricuspid valve. There is trace tricuspid regurgitation. Electronically Signed By: Teodoro Lujan 2018-09-06 18:41:14 PDT
[2018-09-06] MEDS: ATORVASTATIN 80 MG TAB PO SCH (21:06)
[2018-09-07] VITALS (8 sets, daily range): BP systolic 135–171; BP diastolic 65–89; PULSE 55–70; RESP 16–18
[2018-09-07] MEDS: ACCU-CHEK XX SCH (02:00)
[2018-09-07] MEDS: hydrALAzine 20 MG INJ IV PRN (02:13)
[2018-09-07] MEDS: INSULIN ASPART [NOVOLOG] 3 ML PEN SC SCH ×2 (07:55→11:47)
[2018-09-07] MEDS: DULOXETINE 30 MG CAP DR PO SCH (08:32)
[2018-09-07] MEDS: ASCORBIC ACID 500 MG TAB PO SCH (08:32)
[2018-09-07] MEDS: FAMOTIDINE 20 MG TAB PO SCH (08:32)
[2018-09-07] MEDS: ASPIRIN 81 MG TAB PO SCH (08:32)
[2018-09-07] MEDS: METOPROLOL 25 MG TAB PO SCH (08:32)
[2018-09-07] MEDS: BENAZEPRIL 10 MG TAB PO SCH (08:33)
[2018-09-07] MEDS: HYDROCODONE/APAP (5/325) TAB PO PRN (08:36)
[2018-09-07] MEDS: FERROUS FUMARATE (SR) TAB PO SCH (08:59)
[2018-09-07] MEDS: ENOXAPARIN 40 MG/0.4 ML SYG SC SCH (08:59)
--- NOTE | 2018-09-07 12:08 | DS ---
Date/Time of Note Date/Time of Note DATE: 09/07/18 TIME: 12:04 Discharge Summary Admission/Discharge Info Admit Date/Time September 05, 2018 at 11:13 Discharge Date/Time September 07, 2018 Discharge Diagnosis Chest pain; diabetes mellitus type 2; essential hypertension; hyperlipidemia; abnormal urinalysis; iron deficiency anemia; recurrent major depressive disorder; diastolic dysfunction grade 1 Patient Condition: Good Consults Cardiology-Dr. Lujan Procedures Nuclear medicine Lexiscan IMPRESSION: 1. The type and distribution of the scintigraphic abnormalities are most consistent with a small size partially reversible perfusion defect in the inferolateral wall. 2. Mild hypokinesis of the left ventricle. 3. The left ventricle ejection fraction at stress is 49%. Echocardiogram Conclusions: Normal left ventricular systolic function. Normal left ventricular cavity size. Moderate asymmetric septal hypertrophy. Ejection fraction is visually estimated at 55-60 %. Tissue Doppler/Mitral Doppler indices are consistent with impaired relaxation (Stage I diastolic dysfunction). ). There is mild enlargement of left atrium. Mild mitral leaflet calcification. Mild mitral annular calcification. Trace mitral regurgitation. Mild aortic stenosis. Aortic valve Max velocity 2.32 m/sec. Max PG 21.60 mmHg. Mean PG 11.00 mmHg. Aortic valve area 1.72 cm2. Aortic cusps appear moderately calcified. Normal appearance of the tricuspid valve. There is trace tricuspid regurgitation. Hx of Present Illness HPI 67-year-old male with history of diabetes, hypertension, hyperlipidemia, anemia and anxiety but noncompliant with medical follow-up or medications presents the ED via rescue ambulance complaining of generalized weakness and chest pain. Patient states that over the last month he has been experiencing worsening, generalized weakness to the point where he has difficulty getting out of bed or even walking as well as episodes of unprovoked, moderate, achy left-sided chest pain that radiates to his neck and left arm accompanied by shortness of breath and nausea nausea but no vomiting or diaphoresis. This morning after awakening had an episode of chest pain and activated 911. Paramedics administered aspirin and sublingual and the pain resolved. Denies headache, visual changes, focal weakness or numbness. Denies URI symptoms, cough or hemoptysis. No leg pain or swelling. No abdominal pain or low back pain. Admits to sniffing and emotional stress recently and anxiety but denies depression SI/HI. Also reports recent unintentional weight loss of approximately 50 pounds over the last year and a half. Denies night sweats, fevers or chills. Hx of Present Illness This is a very pleasant 67-year-old male who was previously diagnosed with hypertension, depression,dm2, hyperlipidemia, was brought in by ambulance for chest pain with radiation to left arm followed by shortness of breath, nausea, diaphoresis started this morning after he woke up from bed. Apparently, patient has been under tremendous work-related stress and has been feeling depressed lately and took him off antidepressants himself, also stopped seeing his pcp and taking his medications for underlying hypertension. According to patient, he was taken off diabetes medication as his blood sugar was controlled with latest test. Patient denied palpitation, loss of consciousness, dizziness, fever, chills, vomiting, diarrhea, numbness, tingling, speech difficulties, vision changes, or other constitutional symptoms. Patient has been under tremendous stress and he also abruptly stopped taking his depression medication and he is also unsure the name of the medication. In the emergency room, initial labs unremarkable except for mild microcytic indicis. EKG showed normal sinus rhythm with T wave inversion in multiple leads. There was no acute ST elevation or depression. Patient was given aspirin by ambulance. In the ER, he received a dose of IV Ativan as patient was anxious. HISTORY OF PRESENT ILLNESS: Mr. Fang is a very pleasant 67-year-old male with a history of hypertension, diabetes mellitus, dyslipidemia, depression, who states he was at home, sitting on his bed, began to notice chest tightness with diaphoresis and mild shortness of breath. The patient subsequently called paramedics. The patient was brought here to the emergency department. Upon arrival, temperature was 98.7, blood pressure was markedly elevated at 227/116, pulse 85, respiratory rate 20, satting 100%. The patient's labs were notable for a sodium of 144, potassium 3.7, creatinine 1.0, BUN of 24, troponin ne gative, UA negative. The patient underwent a chest x-ray revealing mild cardiomegaly but clear lungs and head CT revealing no intracranial hemorrhage, mass effect or midline shift with mild generalized atrophy. The patient's electrocardiogram revealed normal sinus rhythm, rate of 70, normal axis, normal intervals with inferolateral T-wave inversions. The patient subsequently has been treated with dose of Ativan, sublingual nitroglycerin, Tylenol and now awaits admit to the floor. Hospital Course Sean 67-year-old male admitted with chest pain. His troponins were negative and he underwent cardiac stress testing with Lexiscan which was fortunately unrevealing. As such he is now in a position where he is stable for discharge. He will need to follow-up with his repeat urinalysis because of the low-grade proteinuria, and also for evaluation of the iron deficiency anemia plus ongoing medical care for diabetes hypertension hyperlipidemia. Home Meds No Active Prescriptions or Reported Meds Follow-up Plan Primary care physician within 2 to 3 weeks Primary Care Provider Care Physician No Primary Time spent on discharge: > 30 minutes Pending Labs Laboratory Tests Test 09/06/18 14:32 09/06/18 17:08 09/06/18 21:09 09/07/18 08:12 Bedside 89 99 109 141 Glucose mg/dL (70-220) mg/dL (70-220) mg/dL (70-220) mg/dL (70-220) Test 09/07/18 11:39 Bedside 105 Glucose mg/dL (70-220) REBECCA POTTS MD September 07, 2018 12:08
--- NOTE | 2018-09-07 12:09 | PDOCDIS ---
Discharge Instructions DIAGNOSIS Discharge Diagnosis Chest pain; diabetes mellitus type 2; essential hypertension; hyperlipidemia; abnormal urinalysis; iron deficiency anemia; recurrent major depressive disorder; diastolic dysfunction grade 1 CONDITION [id number] Patient Condition: [id number] Good HOME CARE INSTRUCTIONS: Lu Special Diet: [id number] Diabetic diet ACTIVITY: [id number] Activity Restrictions: [id number] No Restrictions FOLLOW UP/APPOINTMENTS Follow-up Plan Primary care physician within 2 to 3 weeks REBECCA POTTS MD September 07, 2018 12:09
[2018-09-07] MEDS ORDERED: ASPI-831 PO (12:11)
[2018-09-07] MEDS ORDERED: ATOR-2 PO (12:11)
[2018-09-07] MEDS ORDERED: FERR1TAB14 PO (12:11)
[2018-09-07] MEDS ORDERED: METO-448 PO (12:11)
[2018-09-07] MEDS ORDERED: DULO30CA45 PO (12:11)
[2018-09-07] MEDS ORDERED: BENA10TA4 PO (12:11)
== END 2018-09-07 14:30 | disposition home or self-care (01) ==
LOC: E/R 06:10 → TEL 11:13
PROVIDERS: ADMIT Family Medicine; ATTEND Family Medicine
DX: R07.9 Chest pain, unspecified (principal); E11.9 Type 2 diabetes mellitus without complications; I10 Essential (primary) hypertension; E78.5 Hyperlipidemia, unspecified; D50.9 Iron deficiency anemia, unspecified; F33.9 Major depressive disorder, recurrent, unspecified; R94.31 Abnormal electrocardiogram [ECG] [EKG]; Z91.14 Patient's other noncompliance with medication regimen; E66.9 Obesity, unspecified; Z68.30 Body mass index [BMI] 30.0-30.9, adult
CPT/HCPCS: 36415; 70450; 71045; 78452; 80048; 80053; 80061; 81001; 82550; 82553; 82728; 82962; 83036; 83540; 83735; 84100; 84443; 84484; 85025; 86803; 87340; 93005; 93017; 93306; 99285; A9500; A9505; G0378; J0360; J1650; J2060; J2405; J2785; J7120; Q9967; J1815

== ENCOUNTER 2018-09-16 05:39 | Inpatient (IN) | payer MEDICARE ==
[~2018-09-16] VITALS: Ht 172.7 cm; Wt 84.5 kg
[~2018-09-16 05:39] MED LIST: ASPI-831 PO; ATOR-2 PO; BENA10TA4 PO; DULO30CA45 PO; FERR1TAB14 PO; METO-448 PO
[2018-09-16] MEDS ORDERED: BENA20TA4 PO (06:40)
[2018-09-16] MEDS ORDERED: NITR0.4T39 SL (06:41)
[2018-09-16] MEDS ORDERED: BACL10TA PO (06:41)
[2018-09-16] MEDS ORDERED: BUSP10TA2 PO (06:42)
[2018-09-16] MEDS ORDERED: BENAZEPRIL 20 MG TAB PO ONE (10:00)
--- NOTE | 2018-09-16 10:38 | ERD ---
ER Documentation Chief Complaint Chief Complaint BIB RA FOR CP, GIVEN 2 NITROS, TOOK 3 NITRO AT HOME, NO CP UPON ARRIVAL HPI This is a 67-year-old male who is here for chest pain. He is just admitted to the hospital on September 05 of this year for chest pain and underwent a nuclear medicine Lexiscan stress test which showed: The type and distribution of the scintigraphic abnormalities are most consistent with a small size partially re versible perfusion defect in the inferolateral wall. The patient says he woke up this morning around 1 AM and took 2 nitroglycerin without any relief and he waited to see if his pain would get better and did not so he called EMS and came in with them. Currently has no pain. He said he has some chest pressure with some shortness of breath. Says he does have anxiety and is not sure if it is that or not. Currently is pain-free ROS All systems reviewed and are negative except as per history of present illness. Medications Home Meds Active Scripts Duloxetine Hcl* (Cymbalta*) 30 Mg Capsule.dr, 30 MG PO DAILY for 30 Days, #30 CAP Prov:REBECCA POTTS MD 09/07/18 Aspirin (Aspirin) 81 Mg Chew, 81 MG PO DAILY for 30 Days, #30 TAB 1 Refill Prov:REBECCA POTTS MD 09/07/18 Metoprolol Tartrate* (Lopressor*) 25 Mg Tab, 50 MG PO BID for 30 Days, #60 TAB 1 Refill Prov:REBECCA POTTS MD 09/07/18 Atorvastatin* (Atorvastatin*) 80 Mg Tablet, 80 MG PO HS for 30 Days, #30 TAB 1 Refill Prov:REBECCA POTTS MD 09/07/18 Ferrous Fumarate/Ascorbic Acid (Dino-Sequels 65-25 mg Caplet) 1 Each Tablet.er, 1 TAB PO DAILY for 30 Days, #30 TAB Prov:REBECCA POTTS MD 09/07/18 Reported Medications Buspirone Hcl* (Buspirone Hcl*) 10 Mg Tab, 10 MG PO BID, TAB 09/16/18 Baclofen* (Baclofen*) 10 Mg Tablet, 10 MG PO TID, TAB 09/16/18 Nitroglycerin* (Nitrostat*) 0.4 Mg Tab.subl, 0.4 MG SL Q5MIN PRN for CHEST PAIN, BOTTLE 09/16/18 Benazepril Hcl* (Benazepril Hcl*) 20 Mg Tablet, 20 MG PO DAILY, #30 TAB 09/16/18 Discontinued Scripts Benazepril Hcl* (Benazepril Hcl*) 10 Mg Tablet, 20 MG PO BID for 30 Days, #30 TAB 1 Refill Prov:REBECCA POTTS MD 09/07/18 Allergies Allergies: Coded Allergies: No Known Allergy (Unverified , 09/16/18) PMhx/Soc History of Surgery: Yes (KNEE SX) Anesthesia Reaction: No Hx Neurological Disorder: No Hx Respiratory Disorders: No Hx Cardiac Disorders: Yes (HTN, HLD) Hx Psychiatric Problems: Yes (DEPRESSION) Hx Miscellaneous Medical Probl: Yes (DM) Hx Alcohol Use: No Hx Substance Use: No Hx Tobacco Use: No Smoking Status: Never smoker FmHx Family History: No coronary disease Physical Exam Vitals Vital Signs Date Temp Pulse Resp B/P (MAP) Pulse Ox O2 O2 Flow FiO2 Time Delivery Rate 09/16/18 75 18 158/71 100 Room Air 07:35 (100) 09/16/18 98.7 60 19 156/82 100 05:41 (106) Physical Exam Const: Well-developed, well-nourished Head: Atraumatic, normocephalic Eyes: Normal Conjunctiva, PERRLA, EOMI, normal sclera, no nystagmus ENT: Normal External Ears, Nose and Mouth, moist mucus membranes. Neck: Full range of motion. No meningismus, no lymphadenopathy. Resp: Clear to auscultation bilaterally, no wheezing, rhonchi, rales Cardio: Regular rate and rhythm, no murmurs, S1 S2 present Abd: Soft, non tender x 4, non distended. Normal bowel sounds, no guarding or rebound, no pulsitile abdominal masses or bruits Skin: No petechiae or rashes, no ecchymosis , no maculopapular rash Back: No midline or flank tenderness Ext: No cyanosis, or edema, FROM x 4, normal inspection, neurovascularly intact x 4 Neur: Awake and alert, STR 5/5 x 4, sensation intact x 4, no focal findings, cerebellum intact Psych: Normal Mood and Affect Result Diagram: 09/16/18 0546 09/16/18 0546 Results 24 hrs Laboratory Tests Test 09/16/18 05:46 09/16/18 08:19 09/16/18 08:45 White Blood Count 7.7 10^3/ul Red Blood Count 4.77 10^6/ul Hemoglobin 11.4 g/dl Hematocrit 36.7 % Mean Corpuscular Volume 76.9 fl Mean Corpuscular Hemoglobin 23.9 pg Mean Corpuscular 31.1 g/dl Hemoglobin Concent Red Cell Distribution Width 18.9 % Platelet Count 229 10^3/UL Mean Platelet Volume 11.3 fl Immature Granulocytes % 0.400 % Neutrophils % 73.6 % Lymphocytes % 13.9 % Monocytes % 9.5 % Eosinophils % 2.2 % Basophils % 0.4 % Nucleated Red Blood Cells % 0.0 /100WBC Immature Granulocytes # 0.030 10^3/ul Neutrophils # 5.6 10^3/ul Lymphocytes # 1.1 10^3/ul Monocytes # 0.7 10^3/ul Eosinophils # 0.2 10^3/ul Basophils # 0.0 10^3/ul Nucleated Red Blood Cells # 0.0 10^3/ul Sodium Level 141 mmol/L Potassium Level 3.7 mmol/L Chloride Level 107 mmol/L Carbon Dioxide Level 25 mmol/L Anion Gap 9 Blood Urea Nitrogen 24 mg/dl Creatinine 1.14 mg/dl Est Glomerular Filtrat > 60 mL/min Rate mL/min Glucose Level 104 mg/dl Calcium Level 9.0 mg/dl Total Bilirubin 0.4 mg/dl Direct Bilirubin 0.00 mg/dl Indirect Bilirubin 0.4 mg/dl Aspartate Amino 17 IU/L Transf (AST/SGOT) Alanine 26 IU/L Aminotransferase (ALT/SGPT) Alkaline Phosphatase 105 IU/L Total Protein 6.2 g/dl Albumin 3.6 g/dl Globulin 2.60 g/dl Albumin/Globulin Ratio 1.38 Troponin I 0.015 ng/ml Urine Color YELLOW Urine Clarity CLEAR Urine pH 5.0 Urine Specific [place] 1.015 Urine Ketones TRACE mg/dL Urine Nitrite NEGATIVE mg/dL Urine Bilirubin NEGATIVE mg/dL Urine Urobilinogen NEGATIVE mg/dL Urine Leukocyte Esterase NEGATIVE Antony/ul Urine Microscopic RBC 0 /HPF Urine Microscopic WBC 1 /HPF Urine Hemoglobin NEGATIVE mg/dL Urine Glucose NEGATIVE mg/dL Urine Total Protein 2+ mg/dl Current Medications Medications Dose Sig/Allison Start Time Status Last (Trade) Ordered Route PRN Stop Time Admin Dose Reason Admin Benazepril 20 mg ONCE ONCE 09/16/18 DC 09/16/18 HCl PO 10:00 09:57 (Lotensin) 09/16/18 10:01 Procedures/MDM Patient: TENISHA OLSON : 1950 Age: 67 Sex: M MR #: [id number] DOS: 09/16/18 0640 Ordering MD: ROSA DESHPANDE DO Location: E/R Room/Bed: PROCEDURE: XR Chest. CLINICAL INDICATION: Chest pain TECHNIQUE: A single AP view of the chest was obtained. COMPARISON: DR NG 09/05/2018 FINDINGS: Lung volumes are low with compressive changes and crowding of the central pulmonary vascular markings with bibasilar atelectasis . No focal airspace opacity, pleural effusion or pneumothorax is seen. The cardiomediastinal silhouette is mildly enlarged. Calcifications are seen within the aortic arch. The osseous structures are unremarkable. IMPRESSION: 1. Low lung volumes with compressive changes. No significant interval change. 2. Mild cardiomegaly and aortic atherosclerosis. RPTAT: HH .Mackenzie Stevenson MD, MD Date Time Electronically viewed and signed by .Mackenzie Stevenson MD, MD on 09/16/2018 07:43 .G/ CC: ROSA DESHPANDE DO [id number] EKG: Rate/Rhythm: Sinus bradycardia with inverted lateral T waves QRS, ST, QT: NORMAL [place], QRS, QT] Impression: [Abnormal EKG Spoke with Dr. Lujan of cardiology. The patient has some evidence of small vessel disease in the coronaries so he will need to get an angiogram to rule out the need for a stent or not. Will admit to panel Departure Diagnosis: Primary Impression: Chest pain Chest pain type: unspecified Qualified Codes: R07.9 - Chest pain, unspecified Condition: Stable ROSA DESHPANDE DO September 16, 2018 10:38
[2018-09-16] MEDS ORDERED: SOD CHLORIDE 0.9% 1,000 ML IV SCH (11:02)
[2018-09-16] MEDS ORDERED: ONDANSETRON 4 MG INJ IV PRN (11:30)
[2018-09-16] MEDS ORDERED: ACETAMINOPHEN 325 MG TAB PO PRN (11:30)
[2018-09-16] MEDS ORDERED: NITROGLYCERIN (SL) 0.4 MG TAB SL PRN (14:00)
[2018-09-16] MEDS ORDERED: NACL 0.9% 3 ML SYG IV SCH (15:00)
--- NOTE | 2018-09-16 15:35 | CONS ---
DATE OF ADMISSION: 09/16/2018 DATE OF CONSULTATION: 09/16/2018 TYPE OF CONSULTATION: Cardiology. REASON FOR CONSULTATION: Chest pain, assess for acute coronary syndrome. REQUESTING PHYSICIAN: Jessica Yap DO, from emergency department. HISTORY OF PRESENT ILLNESS: Mr. Fang is a very pleasant 67-year-old male with history of hypertens ion, diabetes mellitus, dyslipidemia, depression, who was recently admitted to [facility] for substernal chest pain on 09/05/2018. During that time, the patient underwent troponin ser ially assessed which was negative x3, ruling him out for acute myocardial infarction and then a 2D ec ho that revealed an EF preserved at 55%. The patient underwent a cardiac stress test which revealed EF of 49% with partially reversible defect in inferior and lateral martin. The patient was placed on medical therapy and discharged to outpatient followup. The patient now represents with complaints of substernal chest once again pressure-like, occurring at rest and radiating to his arm. The patient states that he has been under significant stress. PAST MEDICAL HISTORY: As above in HPI. MEDICATIONS PRIOR TO ADMIT: 1. Atorvastatin 80 mg at bedtime. 2. Benazepril 10 mg daily. 3. Metoprolol 50 mg p.o. b.i.d. 4. Sublingual nitroglycerin p.r.n. 5. Aspirin 81 mg daily. 6. Buspirone 10 mg b.i.d. 7. Cymbalta 30 mg daily. 8. Baclofen 10 mg t.i.d. ALLERGIES: NO KNOWN DRUG ALLERGIES. SOCIAL HISTORY: No current tobacco, ETOH or illicit drug use. FAMILY HISTORY: No history of sudden cardiac or early CAD. REVIEW OF SYSTEMS: As above in HPI. CONSTITUTIONAL: No fevers, chills. PULMONARY: No current shortness of breath. CARDIOVASCULAR: Intermittent chest pain. GASTROINTESTINAL: No vomiting. GENITOURINARY: No hematuria. MUSCULOSKELETAL: Degenerative joint disease. PSYCHIATRIC: Positive depression. NEUROLOGIC: No documented history of CVA. ENDOCRINE: Diabetes mellitus. PHYSICAL EXAMINATION: VITAL SIGNS: Temperature of 98.7, blood pressure most recently 135/65, pulse 58, respiratory rate 16 , satting 98%. GENERAL: The patient is alert, awake, complaining intermittent chest pain. NECK: JVP is approximately 8 to 9 cm of water. CHEST: Fair air movement throughout. HEART: Bradycardic, regular rhythm, normal S1, S2, I/ systolic murmur, nondisplaced PMI. ABDOMEN: Positive bowel sounds, soft. EXTREMITIES: No edema, 1+ pulses bilateral posterior tibial. LABORATORY DATA: As above in HPI with most recently from today, white blood cell count 7.7, hemoglob in 11.4, platelet count 229. Sodium 141, potassium 3.7, creatinine 1.1, BUN 24. Troponin negative. IMAGING STUDIES: Chest x-ray from today revealing low lung volumes, compressive changes. IMPRESSION: 1. Chest pain, assess for acute coronary syndrome. 2. Hypertension, elevated. 3. Dyslipidemia. 4. Diabetes mellitus. 5. Depression. 6. History of abnormal cardiac stress test with partially reversible inferolateral defect. RECOMMENDATIONS: 1. At this time, we would admit the patient to telemetry monitoring to follow rhythm and rate contro l closely. 2. We would complete the patient's rule out for myocardial infarction to ensure the patient's chest pain was not due to acute coronary syndrome such as acute myocardial infarction. 3. We would resume the patient's baseline atorvastatin and benazepril following blood pressure close ly as well as beta suri as tolerated. 4. We will give patient sublingual nitroglycerin for recurrent episodes of chest pain. 5. Check a fasting lipid panel and adjust statin as necessary. 6. We would check serial EKGs, assess for ongoing changes, EKG in the morning, EKG for any complaint s of chest pain or change in rhythm and given the patient's recently abnormal stress test and now rec urrent, admit to hospital for chest pain. We will consider a direct cardiac catheterization during t his hospitalization for ongoing chest pain. Thank you for allowing me to take part in the care of this patient. I will continue to follow him ve ry closely with you with further recommendations to be made as the patient progresses through his [facility] clinical course. Dictated By: RODDY POZO/ELDON Conf#: [id number] DID#: [id number] CC: BARTOLO STREETER MD;*EndCC*
[2018-09-16] MEDS: METOPROLOL 25 MG TAB PO SCH (15:54)
[2018-09-16] MEDS: AMLODIPINE 5 MG TAB PO SCH (17:06)
--- NOTE | 2018-09-16 17:07 | HP ---
Date/Time of Note Date/Time of Note DATE: 09/16/18 TIME: 17:04 Assessment/Plan VTE Prophylaxis Pharmacological prophylaxis: heparin Assessment/Plan Hospital Course 67 yo male with hypertension presents with chest pain syndrome - Cycle troponins to rule out TX - consideration of LHC per Dr Lujan - Aspirin, statin, BB, PATITO-I Hypertension; - Add amlodipine Result Diagram: 09/16/18 0546 09/16/18 0546 Results 24hrs Laboratory Tests Test 09/16/18 05:46 09/16/18 08:19 09/16/18 08:45 White Blood Count 7.7 Red Blood Count 4.77 Hemoglobin 11.4 L Hematocrit 36.7 L Mean Corpuscular Volume 76.9 L Mean Corpuscular Hemoglobin 23.9 L Mean Corpuscular Hemoglobin Concent 31.1 L Red Cell Distribution Width 18.9 H Platelet Count 229 Mean Platelet Volume 11.3 H Immature Granulocytes % 0.400 Neutrophils % 73.6 Lymphocytes % 13.9 L Monocytes % 9.5 Eosinophils % 2.2 Basophils % 0.4 Nucleated Red Blood Cells % 0.0 Immature Granulocytes # 0.030 Neutrophils # 5.6 Lymphocytes # 1.1 Monocytes # 0.7 Eosinophils # 0.2 Basophils # 0.0 Nucleated Red Blood Cells # 0.0 Sodium Level 141 Potassium Level 3.7 Chloride Level 107 Carbon Dioxide Level 25 Anion Gap 9 Blood Urea Nitrogen 24 H Creatinine 1.14 Est Glomerular Filtrat Rate mL/min > 60 Glucose Level 104 Calcium Level 9.0 Total Bilirubin 0.4 Direct Bilirubin 0.00 Indirect Bilirubin 0.4 Aspartate Amino Transf (AST/SGOT) 17 Alanine Aminotransferase (ALT/SGPT) 26 Alkaline Phosphatase 105 Total Protein 6.2 Albumin 3.6 Globulin 2.60 Albumin/Globulin Ratio 1.38 Troponin I 0.015 Urine Color YELLOW Urine Clarity CLEAR Urine pH 5.0 Urine Specific [place] 1.015 Urine Ketones TRACE A Urine Nitrite NEGATIVE Urine Bilirubin NEGATIVE Urine Urobilinogen NEGATIVE Urine Leukocyte Esterase NEGATIVE Urine Microscopic RBC 0 Urine Microscopic WBC 1 Urine Hemoglobin NEGATIVE Urine Glucose NEGATIVE Urine Total Protein 2+ H HPI/ROS Admit Date/Time Admit Date/Time Hx of Present Illness 67 yo male with hypertension who presents with CP Recently presented with same complaint a few days ago. Had NST with mildly reversible perfusion defect. Conservative management pursued and patient was discharged on medical therapy. Unable to get pills. Today had episode of CP and SOB. Symptoms resolved after a few minutes. Currently feels very well. Lots of stress in his life he says ROS Constitutional: no complaints, improved Eyes: no complaints ENT: no complaints Respiratory: no complaints Cardiovascular: no complaints Gastrointestinal: no complaints Genitourinary: no complaints Musculoskeletal: no complaints Skin: no complaints Neurologic: no complaints Endocrine: no complaints Lymphatic: no complaints Psychological: no complaints, nl mood/affect Immunologic: no complaints PMH/Family/Social Past Medical History Medical History: no pertinent history Medications Current Medications Ondansetron HCl (Zofran Inj) 4 mg ER BRIDGE PRN IV NAUSEA/VOMITING; Start 09/16/18 at 11:30; Stop 09/17/18 at 11:29 Acetaminophen (Tylenol Tab) 650 mg ER BRIDGE PRN PO .MILD PAIN 1-3 OR TEMP; Start 09/16/18 at 11:30; Stop 09/17/18 at 11:29 Atorvastatin Calcium (Lipitor) 80 mg HS PO ; Start 09/16/18 at 21:00 Benazepril HCl (Lotensin) 20 mg DAILY PO ; Start 09/17/18 at 09:00 Metoprolol Tartrate (Lopressor) 50 mg BID PO Last administered on 09/16/18at 15:54; Admin Dose 50 MG; Start 09/16/18 at 16:00 Nitroglycerin (Nitroglycerin (Sl Tab) 0.4 Mg) 1 tab Q5M PRN SL ANGINA; Start 09/16/18 at 14:00 Diazepam (Valium) 5 mg OC ONCE PO ; Start 09/17/18 at 08:00; Stop 09/17/18 at 08:01 Diphenhydramine HCl (Benadryl) 50 mg OC ONCE PO ; Start 09/17/18 at 08:00; Stop 09/17/18 at 08:01 IV Flush (NS 3 ml) 3 ml PER PROTOCOL IV ; Start 09/16/18 at 15:00 Acetaminophen/ Hydrocodone Bitart ([place] (5/325)) 2 tab Q6H PRN PO .SEVERE PAIN 7-10; Start 09/16/18 at 15:00 Heparin Sodium (Porcine) (Heparin (5000 Units/1ml)) 5,000 unit Q12 SC ; Start 09/16/18 at 21:00 Aspirin (Aspirin) 81 mg DAILY PO ; Start 09/17/18 at 09:00 Amlodipine Besylate (Norvasc) 5 mg DAILY PO ; Start 09/16/18 at 16:30 Coded Allergies: No Known Allergy (Unverified , 09/16/18) Past Surgical History Past Surgical Hx: no surgical history Family History Significant Family History: no pertinent family hx Social History Alcohol Use: none Smoking Status: Never smoker Drug Use: none Exam/Review of Systems Vital Signs Vitals Vital Signs Date Temp Pulse Resp B/P (MAP) Pulse Ox O2 O2 Flow FiO2 Time Delivery Rate 09/16/18 83 20 184/93 100 Room Air 15:22 (123) 09/16/18 98.7 05:41 Exam Constitutional: alert, oriented, well developed Psych: no complaints, nl mood/affect Head: normocephalic, atraumatic Eyes: nl conjunctiva, EOMI, nl lids, nl sclera, PERRL ENMT: nl external ears & nose, nl lips & teeth, nl nasal mucosa & septum Neck: supple, non-tender Respiratory: clear to auscultation, normal air movement Cardiovascular: regular rate and rhythm, nl pulses Gastrointestinal: soft, nl liver, spleen, non-tender Musculoskeletal: nl extremities to inspection Extremities: normal pulses Neurological: RN HEDIS II-XII intact, nl mental status, nl speech, nl strength Skin: nl turgor; No rash or lesions Lymph: nl lymph nodes BARTOLO STREETER MD September 16, 2018 17:07
[2018-09-16 19:56] VITALS: Ht 172.7 cm; Wt 84.5 kg
[2018-09-16 20:00] VITALS: PULSE 57
[2018-09-16 20:30] VITALS: BP 166/77; PULSE 54; RESP 20
[2018-09-16] MEDS: ATORVASTATIN 80 MG TAB PO SCH (20:51)
[2018-09-16] MEDS: HEPARIN 5,000 UNIT/1 ML VIAL SC SCH (20:57)
[2018-09-16 21:47] VITALS: BP 157/67; PULSE 58
[2018-09-16] MEDS: HYDROCODONE/APAP (5/325) TAB PO PRN (22:02)
[2018-09-16] MEDS ORDERED: hydrALAzine 20 MG INJ IV PRN (22:30)
[2018-09-16 23:33] VITALS: BP 123/59; PULSE 55; RESP 18
[2018-09-17] VITALS (35 sets, daily range): BP systolic 129–176; BP diastolic 61–89; PULSE 42–60; RESP 9–25
[2018-09-17] MEDS: METOPROLOL 25 MG TAB PO SCH ×3 (00:30→21:00)
[2018-09-17] MEDS ORDERED: ONDANSETRON 4 MG INJ IV PRN ×2 (03:00→12:00)
[2018-09-17] MEDS ORDERED: LORAZEPAM 1 MG TAB PO ONE (03:00)
[2018-09-17] MEDS: HYDROCODONE/APAP (5/325) TAB PO PRN (05:39)
[2018-09-17] MEDS ORDERED: DIAZEPAM 5 MG TAB PO ONE (08:00)
[2018-09-17] MEDS ORDERED: DIPHENHYDRAMINE 50 MG CAP PO ONE (08:00)
[2018-09-17] MEDS: HEPARIN 5,000 UNIT/1 ML VIAL SC SCH ×2 (09:00→21:00)
[2018-09-17] MEDS: ASPIRIN 81 MG TAB PO SCH (09:07)
[2018-09-17] MEDS: BENAZEPRIL 20 MG TAB PO SCH (09:07)
[2018-09-17] MEDS: AMLODIPINE 5 MG TAB PO SCH (09:08)
[2018-09-17] MEDS ORDERED: DIPHENHYDRAMINE 50 MG INJ ONE (10:34)
[2018-09-17] MEDS ORDERED: IODIXANOL LOCM 100 ML BTL ONE ×4 (10:35→11:37)
[2018-09-17] MEDS ORDERED: NITROGLYCERIN (IC) 100 MCG/ML INJ ONE (10:35)
[2018-09-17] MEDS ORDERED: VERAPAMIL 5 MG INJ ONE (10:35)
[2018-09-17] MEDS ORDERED: HEPARIN 1000 UNITS/ML 10 ML INJ ONE (10:35)
[2018-09-17] MEDS ORDERED: LIDOCAINE 1% (MDV) 20 ML INJ ONE (10:36)
[2018-09-17] MEDS ORDERED: FENTAnyl 50 MCG/ML VIAL ONE (10:38)
[2018-09-17] MEDS ORDERED: SOD CHLORIDE 0.9% 500 ML ONE (10:41)
[2018-09-17] MEDS ORDERED: IOHEXOL 350MG/ML 50 ML BTL ONE (10:59)
[2018-09-17] MEDS ORDERED: BIVALIRUDIN 250MG /NS 50 ML 50 ML IVPB ONE (11:10)
[2018-09-17] MEDS ORDERED: TICAGRELOR 90 MG TABLET ONE (11:44)
[2018-09-17] MEDS ORDERED: SOD CHLORIDE 0.9% 1,000 ML IV SCH (11:59)
--- NOTE | 2018-09-17 11:59 | SIPON ---
Date/Time of Note Date/Time of Note DATE: 09/17/18 TIME: 11:58 Operative Report Preoperative Diagnosis 1.angina Postoperative Diagnosis 1.obstructive cad s/p stent x 3 Operation/Procedure Performed 1/[facility] 2.PTCA/stent x 1 to LAD, x 1 to OM, x1 to LCX Surgeon see signature line engineering inspection assistant 1.Saurabh Anesthesia: moderate sedation Estimated blood loss: minimal Transfusion Required none Specimen none Grafts/Implants none Complications none RODDY OLSEN September 17, 2018 11:59
[2018-09-17] MEDS ORDERED: ZOLPIDEM 5 MG TAB PO PRN (12:00)
[2018-09-17] MEDS ORDERED: AL HYDROX/MG HYDROX/SIMETH 30 ML CUP PO PRN (12:00)
--- NOTE | 2018-09-17 12:06 | CONS ---
Assessment/Plan Assessment/Plan Hospital Course (Demo Recall) IMPRESSION: 1. Chest pain, assess for acute coronary syndrome. 2. Hypertension, elevated. 3. Dyslipidemia. 4. Diabetes mellitus. 5. Depression. 6. History of abnormal cardiac stress test with partially reversible inferolateral defect. Recc: -Tele -continue asa/statin -Continue BB/NOrvasc/ACEI -LHC with possible PTCA/stent today Consultation Date/Type/Reason Admit Date/Time September 16, 2018 at 11:02 Initial Consult Date 09/16/18 Type of Consult Cardiology Reason for Consultation angina Requesting Provider: BARTOLO STREETER MD Date/Time of Note DATE: 09/17/18 TIME: 12:04 Exam/Review of Systems Vital Signs Vitals Vital Signs Date Temp Pulse Resp B/P (MAP) Pulse Ox O2 O2 Flow FiO2 Time Delivery Rate 09/17/18 56 08:16 09/17/18 98.7 18 163/77 96 07:21 (105) 09/16/18 Room Air 19:27 Intake and Output 09/16/18 09/16/18 09/17/18 1515:00 23:00 07:00 IntakeIntake Total 400 ml OutputOutput Total 500 ml BalanceBalance -100 ml Exam Exam Review of Systems: CONSTITUTIONAL: No fevers, chills. PULMONARY: No sob CARDIOVASCULAR:ongoing chest pain GASTROINTESTINAL: No nausea/vomiting. GENITOURINARY: No hematuria/dysuria. MUSCULOSKELETAL: No myagias/arthalgias. PSYCHIATRIC: The patient denies depression. NEUROLOGIC: No weakness Constitutional: alert Psych: no complaints Head: normocephalic ENMT: mucosa pink and moist Neck: supple, jvd (9 cm water) Respiratory: diminished breath sounds Cardiovascular: regular rate and rhythm Gastrointestinal: soft, non-tender Musculoskeletal: muscle tone (normal) Extremities: edema (none) Neurological: other (No focal deficits) Labs Result Diagram: 09/17/18 0557 09/17/18 0557 Results 24hrs Laboratory Tests Test 09/16/18 17:12 09/17/18 05:57 Troponin I < 0.012 0.013 White Blood Count 6.8 Red Blood Count 4.57 L Hemoglobin 10.9 L Hematocrit 35.7 L Mean Corpuscular Volume 78.1 L Mean Corpuscular Hemoglobin 23.9 L Mean Corpuscular Hemoglobin Concent 30.5 L Red Cell Distribution Width 19.7 H Platelet Count 248 Mean Platelet Volume 11.5 H Immature Granulocytes % 0.400 Neutrophils % 64.4 Lymphocytes % 22.1 Monocytes % 9.1 Eosinophils % 3.4 Basophils % 0.6 Nucleated Red Blood Cells % 0.0 Immature Granulocytes # 0.030 Neutrophils # 4.4 Lymphocytes # 1.5 Monocytes # 0.6 Eosinophils # 0.2 Basophils # 0.0 Nucleated Red Blood Cells # 0.0 Prothrombin Time 13.7 Prothrombin Time Ratio 1.1 INR International Normalized Ratio 1.04 Sodium Level 145 H Potassium Level 3.9 Chloride Level 112 H Carbon Dioxide Level 24 Anion Gap 9 Blood Urea Nitrogen 31 H Creatinine 1.18 Est Glomerular Filtrat Rate mL/min > 60 Glucose Level 100 Hemoglobin A1c 5.5 Calcium Level 8.4 Iron Level 14 L Total Iron Binding Capacity 307 Percent Iron Saturation 5 L Ferritin 12.4 Total Bilirubin 0.3 Direct Bilirubin 0.00 Indirect Bilirubin 0.3 Aspartate Amino Transf (AST/SGOT) 15 Alanine Aminotransferase (ALT/SGPT) 25 Alkaline Phosphatase 103 Total Protein 6.3 Albumin 3.4 Globulin 2.90 Albumin/Globulin Ratio 1.17 Triglycerides Level 66 Cholesterol Level 80 L LDL Cholesterol, Calculated 35 HDL Cholesterol 32 Cholesterol/HDL Ratio 2.5 Medications Medications Current Medications Atorvastatin Calcium (Lipitor) 80 mg HS PO Last administered on 09/16/18at 20:51; Admin Dose 80 MG; Start 09/16/18 at 21:00 Benazepril HCl (Lotensin) 20 mg DAILY PO Last administered on 09/17/18at 09:07; Admin Dose 20 MG; Start 09/17/18 at 09:00 Metoprolol Tartrate (Lopressor) 50 mg BID PO Last administered on 09/17/18at 09:10; Admin Dose 50 MG; Start 09/16/18 at 16:00 Nitroglycerin (Nitroglycerin (Sl Tab) 0.4 Mg) 1 tab Q5M PRN SL ANGINA; Start 09/16/18 at 14:00 IV Flush (NS 3 ml) 3 ml PER PROTOCOL IV ; Start 09/16/18 at 15:00 Acetaminophen/ Hydrocodone Bitart ([place] (5/325)) 2 tab Q6H PRN PO .SEVERE PAIN 7-10 Last administered on 09/17/18at 05:39; Admin Dose 2 TAB; Start 09/16/18 at 15:00 Heparin Sodium (Porcine) (Heparin (5000 Units/1ml)) 5,000 unit Q12 SC Last administered on 09/16/18at 20:57; Admin Dose 5,000 UNIT; Start 09/16/18 at 21:00 Aspirin (Aspirin) 81 mg DAILY PO Last administered on 09/17/18at 09:07; Admin Dose 81 MG; Start 09/17/18 at 09:00 Amlodipine Besylate (Norvasc) 5 mg DAILY PO Last administered on 09/17/18at 09: 08; Admin Dose 5 MG; Start 09/16/18 at 16:30 Hydralazine HCl (Apresoline) 10 mg Q4H PRN IV ELEVATED BLOOD PRESSURE; Start 09/16/18 at 22:30 Ondansetron HCl (Zofran Inj) 4 mg Q4H PRN IV NAUSEA AND/OR VOMITING; Start 09/17/18 at 03:00 RODDY OLSEN September 17, 2018 12:06
--- NOTE | 2018-09-17 13:19 | PN ---
Date/Time of Note Date/Time of Note DATE: 09/17/18 TIME: 13:14 Assessment/Plan VTE Prophylaxis Risk score (from Ns)>0 risk: 3 SCD applied (from Ns): Yes Pharmacological prophylaxis: heparin Lines/Catheters IV Catheter Type (from [facility] [place] Assessment/Plan Assessment/Plan 1. CAD, s/p PTCA/stents at LAD, OM, and LCX on 09/17/2018, follow up with cardiology. 2. Hypertension, uncontrolled, increase norvasc 3. Dyslipidemia. on lipitor 4. Microcytic anemia, iron deficiency, iron supplement 5. DVT prophylaxis: heparin Result Diagram: 09/17/18 0557 09/17/18 0557 Results 24hrs Laboratory Tests Test 09/16/18 17:12 09/17/18 05:57 Troponin I < 0.012 0.013 White Blood Count 6.8 Red Blood Count 4.57 L Hemoglobin 10.9 L Hematocrit 35.7 L Mean Corpuscular Volume 78.1 L Mean Corpuscular Hemoglobin 23.9 L Mean Corpuscular Hemoglobin Concent 30.5 L Red Cell Distribution Width 19.7 H Platelet Count 248 Mean Platelet Volume 11.5 H Immature Granulocytes % 0.400 Neutrophils % 64.4 Lymphocytes % 22.1 Monocytes % 9.1 Eosinophils % 3.4 Basophils % 0.6 Nucleated Red Blood Cells % 0.0 Immature Granulocytes # 0.030 Neutrophils # 4.4 Lymphocytes # 1.5 Monocytes # 0.6 Eosinophils # 0.2 Basophils # 0.0 Nucleated Red Blood Cells # 0.0 Prothrombin Time 13.7 Prothrombin Time Ratio 1.1 INR International Normalized Ratio 1.04 Sodium Level 145 H Potassium Level 3.9 Chloride Level 112 H Carbon Dioxide Level 24 Anion Gap 9 Blood Urea Nitrogen 31 H Creatinine 1.18 Est Glomerular Filtrat Rate mL/min > 60 Glucose Level 100 Hemoglobin A1c 5.5 Calcium Level 8.4 Iron Level 14 L Total Iron Binding Capacity 307 Percent Iron Saturation 5 L Ferritin 12.4 Total Bilirubin 0.3 Direct Bilirubin 0.00 Indirect Bilirubin 0.3 Aspartate Amino Transf (AST/SGOT) 15 Alanine Aminotransferase (ALT/SGPT) 25 Alkaline Phosphatase 103 Total Protein 6.3 Albumin 3.4 Globulin 2.90 Albumin/Globulin Ratio 1.17 Triglycerides Level 66 Cholesterol Level 80 L LDL Cholesterol, Calculated 35 HDL Cholesterol 32 Cholesterol/HDL Ratio 2.5 Subjective 24 Hr Interval Summary Free Text/Dictation seen in recovery no chest pain or shortness of breath Exam/Review of Systems Exam Vitals Vital Signs Date Temp Pulse Resp B/P (MAP) Pulse Ox O2 O2 Flow FiO2 Time Delivery Rate 09/17/18 56 08:16 09/17/18 98.7 18 163/77 96 07:21 (105) 09/16/18 Room Air 19:27 Intake and Output 09/16/18 09/16/18 09/17/18 1515:00 23:00 07:00 IntakeIntake Total 400 ml OutputOutput Total 500 ml BalanceBalance -100 ml Constitutional: alert, oriented, well developed Psych: no complaints, nl mood/affect Head: normocephalic, atraumatic Eyes: nl conjunctiva, EOMI, nl lids ENMT: nl external ears & nose, nl lips & teeth, nl nasal mucosa & septum Neck: supple, non-tender Respiratory: clear to auscultation, normal air movement; No congested cough, No crackles/rales, No diminished breath sounds, No intercostal retraction, No labored breathing, No respirations, No tactile fremitus, No wheezing, No other Cardiovascular: regular rate and rhythm, nl pulses; No bruits, No diastolic murmur, No edema, No gallop, No irregular rhythm, No jugular venous distention (JVD), No murmurs/extra sounds, No rub, No systolic murmur, No S3, No S4, No other Gastrointestinal: soft, nl liver, spleen, non-tender Musculoskeletal: nl extremities to inspection Extremities: normal pulses; No calf tenderness, No cyanosis, No clubbing, No edema, No pitting pedal edema, No palpable cord, No tenderness, No other Neurological: IP LITIGATION PARALEGAL II-XII intact, nl mental status, nl speech, nl strength Results Results 24hrs Laboratory Tests Test 09/16/18 17:12 09/17/18 05:57 Troponin I < 0.012 0.013 White Blood Count 6.8 Red Blood Count 4.57 L Hemoglobin 10.9 L Hematocrit 35.7 L Mean Corpuscular Volume 78.1 L Mean Corpuscular Hemoglobin 23.9 L Mean Corpuscular Hemoglobin Concent 30.5 L Red Cell Distribution Width 19.7 H Platelet Count 248 Mean Platelet Volume 11.5 H Immature Granulocytes % 0.400 Neutrophils % 64.4 Lymphocytes % 22.1 Monocytes % 9.1 Eosinophils % 3.4 Basophils % 0.6 Nucleated Red Blood Cells % 0.0 Immature Granulocytes # 0.030 Neutrophils # 4.4 Lymphocytes # 1.5 Monocytes # 0.6 Eosinophils # 0.2 Basophils # 0.0 Nucleated Red Blood Cells # 0.0 Prothrombin Time 13.7 Prothrombin Time Ratio 1.1 INR International Normalized Ratio 1.04 Sodium Level 145 H Potassium Level 3.9 Chloride Level 112 H Carbon Dioxide Level 24 Anion Gap 9 Blood Urea Nitrogen 31 H Creatinine 1.18 Est Glomerular Filtrat Rate mL/min > 60 Glucose Level 100 Hemoglobin A1c 5.5 Calcium Level 8.4 Iron Level 14 L Total Iron Binding Capacity 307 Percent Iron Saturation 5 L Ferritin 12.4 Total Bilirubin 0.3 Direct Bilirubin 0.00 Indirect Bilirubin 0.3 Aspartate Amino Transf (AST/SGOT) 15 Alanine Aminotransferase (ALT/SGPT) 25 Alkaline Phosphatase 103 Total Protein 6.3 Albumin 3.4 Globulin 2.90 Albumin/Globulin Ratio 1.17 Triglycerides Level 66 Cholesterol Level 80 L LDL Cholesterol, Calculated 35 HDL Cholesterol 32 Cholesterol/HDL Ratio 2.5 Medications Medication Current Medications Atorvastatin Calcium (Lipitor) 80 mg HS PO Last administered on 09/16/18at 20:51; Admin Dose 80 MG; Start 09/16/18 at 21:00 Benazepril HCl (Lotensin) 20 mg DAILY PO Last administered on 09/17/18at 09:07; Admin Dose 20 MG; Start 09/17/18 at 09:00 Metoprolol Tartrate (Lopressor) 50 mg BID PO Last administered on 09/17/18at 09:10; Admin Dose 50 MG; Start 09/16/18 at 16:00 Nitroglycerin (Nitroglycerin (Sl Tab) 0.4 Mg) 1 tab Q5M PRN SL ANGINA; Start 09/16/18 at 14:00 IV Flush (NS 3 ml) 3 ml PER PROTOCOL IV ; Start 09/16/18 at 15:00 Acetaminophen/ Hydrocodone Bitart ([place] (5/325)) 2 tab Q6H PRN PO .SEVERE PAIN 7-10 Last administered on 09/17/18at 05:39; Admin Dose 2 TAB; Start 09/16/18 at 15:00 Heparin Sodium (Porcine) (Heparin (5000 Units/1ml)) 5,000 unit Q12 SC Last administered on 09/16/18at 20:57; Admin Dose 5,000 UNIT; Start 09/16/18 at 21:00 Aspirin (Aspirin) 81 mg DAILY PO Last administered on 09/17/18at 09:07; Admin Dose 81 MG; Start 09/17/18 at 09:00 Amlodipine Besylate (Norvasc) 5 mg DAILY PO Last administered on 09/17/18at 09 :08; Admin Dose 5 MG; Start 09/16/18 at 16:30 Hydralazine HCl (Apresoline) 10 mg Q4H PRN IV ELEVATED BLOOD PRESSURE; Start 09/16/18 at 22:30 Ondansetron HCl (Zofran Inj) 4 mg Q4H PRN IV NAUSEA AND/OR VOMITING; Start 09/17/18 at 03:00 Miscellaneous Information (* Miscellaneous Pharmacy Order) Hold all Metformin ... ONCE XX ; Start 09/17/18 at 12:00; Stop 09/19/18 at 11:59 Acetaminophen (Tylenol Tab) 650 mg Q4H PRN PO PAIN; Start 09/17/18 at 12:00 Oxycodone/ Acetaminophen (Percocet (5/ 325)) 1 tab Q4H PRN PO PAIN; Start 09/17/18 at 12:00 Zolpidem Tartrate (Ambien) 5 mg HS MAY REPEAT X 1 PRN PO INSOMNIA; Start 09/17/18 at 12:00 Al Hydrox/Mg Hydrox/Simethicone (Mag-Al Plus) 30 ml Q4H PRN PO GASTROINTESTINAL UPSET; Start 09/17/18 at 12:00 Ondansetron HCl (Zofran Inj) 4 mg Q4H PRN IV NAUSEA AND/OR VOMITING; Start 09/17/18 at 12:00 Sodium Chloride 1,000 ml @ 75 mls/hr [id number] IV Last administered on 09/17/18at 12:37; Admin Dose 75 MLS/HR; Start 09/17/18 at 11:59; Stop 09/18/18 at 01:18 FINN ACUÑA MD September 17, 2018 13:18
--- NOTE | 2018-09-17 17:23 | RADRPT ---
Echocardiogram Report Patient Name: Morro OLSON ID: [id number] : 1950 (67y 9m)Study Date: 09/17/2018 7:42:48 AM Gender: MAccession #: [id number] Tech: Justin Lopez [facility] Location: 51 Ref.Physician: BARTOLO STREETER Height(Cm): BSA: Weight(Kg): Quality: AdequateOrder Physician: BARTOLO STREETER Account #: Procedures: Echocardiographic Report: Transthoracic echocardiogram with complete 2D, M-Mode, and doppler examination. Indications: NSTEMI. Measurements: 2D/M Mode Doppler Measurement Value Normal Range Measurement Value Normal Range LVIDd 2D 5.0 [ 4.2 - 5.8 ] cm AV Mean Micky 1.4 [ 70.0 - 90.0 ] cm/sec LVIDs 2D 3.1 [ 2.5 - 4.0 ] cm AV Mean PG 11.0 [ 2.0 - 4.0 ] mmHg LVPWd 2D 1.8 [ 0.6 - 1.0 ] cm AV VTI 45.9 cm IVSd 2D 1.6 [ 0.6 - 1.0 ] cm LVOT Mean Micky 0.9 [ 60.0 - 80.0 ] cm/sec AoR Diam 2D 3.3 [ 2.6 - 3.4 ] cm LVOT Mean PG 4.0 [ 1.0 - 3.0 ] mmHg EDV 2D 118.0 [ 62.0 - 150.0 ] ml LVOT Peak Micky 1.4 [ 70.0 - 110.0 ] cm/sec ESV 2D 37.3 [ 21.0 - 61.0 ] ml LVOT Peak PG 8.0 [ 2.0 - 6.0 ] mmHg EF 2D 68.4 [ 52.0 - 72.0 ] percent LVOT VTI 29.5 [ 20.0 - 30.0 ] cm LA Dimen 2D 4.5 [ 3.0 - 4.0 ] cm MV E Peak Micky 0.5 [ 60.0 - 130.0 ] cm/sec MV A Peak Micky 1.1 [ 100.0 - 120.0 ] cm/sec MV E/A 0.5 [ 0.8 - 1.5 ] ratio MV Decel Time 250 [ 104 - 258 ] msec Lat E` Micky 0.1 [ 10.0 - 15.0 ] cm/sec Lateral E/E` 8.6 [ 1.0 - 2.0 ] ratio MV E/A 0.5 [ 0.8 - 1.5 ] ratio TR Peak Micky 2.1 [ 100.0 - 280.0 ] cm/sec TR Peak PG 18.0 mmHg RVSP 21.0 [ 10.0 - 36.0 ] mmHg RA Pressure 3.0 mmHg Findings: Left Ventricle: Normal left ventricular systolic function. Normal left ventricular cavity size. Severe concentric left ventricular hypertrophy. Ejection fraction is visually estimated at 45-50 %. Tissue Doppler/Mitral Doppler indices are consistent with impaired relaxation (Stage I diastolic dysfunction). Right Ventricle: Normal right ventricular size. Normal right ventricular systolic function. Left Atrium: The left atrium is normal in size. Right Atrium: The right atrium is normal in size. Mitral Valve: Normal appearance and function of the mitral valve with trace physiologic regurgitation. Aortic Valve: Normal appearance of the aortic valve. No significant aortic stenosis or insufficiency. Aortic valve Max velocity 2.28 m/sec. Max PG 21.00 mmHg. Mean PG 11.00 mmHg. No aortic regurgitation. Tricuspid Valve: Normal appearance of the tricuspid valve. Estimated peak PA systolic pressure 21 mmHg. There is trace tricuspid regurgitation. Pulmonic Valve: Normal pulmonic valve appearance. Pericardium: Normal pericardium with no significant pericardial effusion. Aorta: Normal aortic root. IVC: Normal size and normal respiratory collapse consistent with normal right atrial pressure. Conclusions: Normal left ventricular systolic function. Normal left ventricular cavity size. Severe concentric left ventricular hypertrophy. Ejection fraction is visually estimated at 45-50 %. Tissue Doppler/Mitral Doppler indices are consistent with impaired relaxation (Stage I diastolic dysfunction). Normal appearance and function of the mitral valve with trace physiologic regurgitation. Normal appearance of the aortic valve. No significant aortic stenosis or insufficiency. Aortic valve Max velocity 2.28 m/sec. Max PG 21.00 mmHg. Mean PG 11.00 mmHg. No aortic regurgitation. Normal appearance of the tricuspid valve. Estimated peak PA systolic pressure 21 mmHg. There is trace tricuspid regurgitation. Electronically Signed By: Teodoro Lujan 2018-09-17 17:23:08 PDT
--- NOTE | 2018-09-17 17:42 | RADRPT ---
Vent Rate: 45 bpm RR Interval: 1348 msec SC Interval: 157 msec QRS Duration: 107 msec QT Interval: 534 msec QTC Interval: 460 msec P-R-T [place]: 32 - -17 - 167 degrees Sinus bradycardia...rate< 50 Probable left atrial enlargement...P >50mS, <-0.10mV V1 LVH with secondary repolarization abnormality vs anterolateral ischemia Electronically Signed By: Tam Luna
--- NOTE | 2018-09-17 17:47 | RADRPT ---
Vent Rate: 57 bpm RR Interval: 1060 msec [place] Interval: 141 msec QRS Duration: 107 msec QT Interval: 473 msec QTC Interval: 459 msec P-R-T [place]: 54 - -18 - 155 degrees Sinus rhythm...normal P axis, V-rate 50- 99 LVH with secondary repolarization abnormality vs anterolateral ischemia Electronically Signed By: Tam Luna
[2018-09-17] MEDS: ACETAMINOPHEN 325 MG TAB PO PRN (17:56)
--- NOTE | 2018-09-17 18:10 | CARRPT ---
DATE OF PROCEDURE: 09/17/2018 TYPE OF PROCEDURES: 1. Left heart catheterization. 2. Coronary angiography. 3. Percutaneous transluminal coronary angioplasty with placement of Synergy drug-eluting stent x1 to obtuse marginal 3.5 x 12 mm. 4. Percutaneous transluminal coronary angioplasty with placement of Synergy drug-eluting stent x1 to the circumflex continuation in the AV groove, 2.5 x 12 mm. 5. Percutaneous transluminal coronary angioplasty with placement of drug-eluting stent x1 to mid dis brad LAD, 3.0 x 12 mm. 6. Moderate conscious sedation. 7. Measurement of left ventricular end diastolic pressure. ATTENDING PHYSICIAN: Roddy Lujan MD REFERRING PHYSICIAN: Jann Michaud MD, from the hospitalist service. INDICATION: Unstable angina. TYPE OF ANESTHESIA: Conscious and local. BRIEF HISTORY AND HOSPITAL COURSE: Mr. Fang is a 67-year-old male with history of hypertension, dy slipidemia, who initially presented with complaints of substernal chest pain. The patient had previo usly undergone a cardiac stress test revealing possible inferolateral ischemia. The patient now repr esents with chest pain and therefore was brought to cardiac catheterization lab in order to assess fo r the possibility of significant obstructive coronary artery disease lending to symptoms of chest ronald n and positive stress test findings. PROCEDURE IN DETAILS: After informed consent was obtained, the patient was brought to the [facility] cardiac catheterization lab where his right radial area was prepped and draped in the usual sterile fashion. A 2% lidocaine was infiltrated to the right radial area in order to achie ve adequate anesthesia. Using the modified Seldinger technique, the radial artery was cannulated and a 6-[place]ib[place] arterial sheath was placed. A 6-[place] JL3.5 catheter was used to cannulate the left shanta n coronary ostium. With contrast injection, multiple views of left coronary arterial system were obt ained. A JL3.5 was removed over a guidewire and JR4 was used to cannulate the right coronary arteria l ostium. With contrast injection, multiple views of the right coronary arterial system were obtaine d. JR4 was removed over a guidewire after additionally used to measure LVEDP and pullback across the aortic valve to assess for significant gradient, which there was not. Subsequently at this time, we moved directly into an interventional procedure. The patient had an ACT checked to assure that the ACT was not after receiving 3000 units of heparin or radial cocktail which was not. The patient ther efore received Angiomax bolus continuous infusion. A Q3 guide was used to cannulate the left main co ronary ostium. A 0.014 balanced weight guidewire was passed distal to the lesion in the obtuse jocelyn nal. The lesion was pretreated with 2.5 x 12 mm balloon up to 14 to 16 atmospheres and then it was s ubsequently stented with 3.0 x 12 mm drug-eluting stent deployed at 12 atmospheres, postdilated with the stent delivery system up to 14 atmospheres and then to 16 atmospheres. Stent delivery system was removed. Followup angiogram was obtained revealing a mild step down distally in-stent, ADRIENNE 3 flow throughout the vessel, no signs of complication including perforation or dissection. Subsequently at this time, the wire was repositioned to be distally down the circumflex vessel, circumflex AV groove and the lesion was pretreated up to 12 atmospheres x2 and was removed, then lesion was stented with a 2.5 x 12 mm drug-eluting stent deployed at 12 atmospheres, postdilated with the stent delivery syst em up to 14 atmospheres. Followup angiogram was obtained revealing excellent deployment of the stent , ADRIENNE 3 flow throughout the vessel, no signs of complication including perforation or dissection. S ubsequently, wire was now pulled back and now repositioned distally in the LAD where the LAD lesion w as pretreated with a 2.0 x 12 balloon and then stented with a 2.5 x 12 mm balloon up to 12 to 14 atmo spheres and then was removed then stented with 3.0 x 12 mm stent and then postdilated with 3.25 x 8 mm Noncompliant balloon up to 16 atmospheres x2. Followup angiogram was obtained revealing excellent deployment of stent, ADRIENNE 3 flow throughout the vessel, no signs of complication including perforati on or dissection. Subsequently at this time, the interventional guide was removed and guidewires wer e removed. The patient was given 180 mg of Brilinta and 325 mg of aspirin. This completed the proce dure. There were no noted complications. FINDINGS: Coronary angiography: Left main is 4 mm, no significant focal stenoses. The circumflex p roximally is a 3.5 mm vessel and then just at the bifurcation with obtuse marginal circumflex AV groo ve, there is a 90% to 95% stenosis. The obtuse marginal bifurcates half way to the circumflex and si zable vessel 3.5 mm with a mid body focal 80% to 90% stenosis. The LAD proximally is a 3 mm vessel a nd in its proximal portion has a tubular stenosis of approximately 40% to 50% and it is free of focal stenosis until it reaches the mid distal portion where there is a focal 90% stenosis. There is a pr oximal branching diagonal, 2 mm vessel with a tubular 50% stenosis in the proximal portion. There ex ists a ramus branch, sub 2 mm vessel with no significant focal stenoses. The right coronary artery p roximally is a 3.5 mm vessel and free of any significant focal stenoses until reach the posterolatera l branch which then has a hazy appearing 80% stenosis and there is a PDA which is a 2.5 mm vessel has mild luminal irregularities up to 20% to 30%. Measurement of left ventricular end-diastolic pressure of 12. No significant aortic stenosis by grad ient. TOTAL FLUOROSCOPY TIME: 12.8 minutes. TOTAL CONTRAST: 330 mL. IMPRESSION: 1. Multivessel obstructive coronary artery disease status post successful PTCA and stent placement x 3 (x1 to obtuse marginal, x1 to the circumflex continuation AV groove and x1 to mid distal LAD) all s uccessfully. 2. Normal left heart filling pressures. 3. No significant aortic stenosis by gradient. RECOMMENDATIONS: In light of procedure findings at this time, we would: 1. Maintain patient on aspirin 81 mg 1 tab p.o. daily indefinitely. 2. Maintain patient on Brilinta 90 mg 1 tab p.o. b.i.d. for at least 6 months. 3. The patient will be brought back for a staged procedure to intervene upon the posterolateral bran ch and right coronary artery. 4. The patient will be admitted to telemetry for post-cath observation and continued management of h is presenting symptoms. Dictated By: RODDY POZO/ELDON Conf#: [id number] DID#: [id number] CC: FINN ACUÑA MD; JANN MICHAUD MD;*EndCC*
[2018-09-17] MEDS: ATORVASTATIN 80 MG TAB PO SCH (21:59)
[2018-09-18] VITALS (28 sets, daily range): BP systolic 110–178; BP diastolic 56–116; PULSE 46–81; RESP 16–29
[2018-09-18] MEDS: LORAZEPAM 0.5 MG TAB PO PRN ×2 (01:50→20:48)
[2018-09-18] MEDS: ACETAMINOPHEN 325 MG TAB PO PRN (01:53)
[2018-09-18] MEDS: METOPROLOL 25 MG TAB PO SCH ×2 (04:13→20:47)
[2018-09-18] MEDS ORDERED: IODIXANOL LOCM 100 ML BTL ONE ×2 (09:06→10:36)
[2018-09-18] MEDS ORDERED: IOHEXOL 350MG/ML 50 ML BTL ONE (09:06)
[2018-09-18] MEDS ORDERED: LIDOCAINE 1% (MDV) 20 ML INJ ONE (09:06)
[2018-09-18] MEDS ORDERED: NITROGLYCERIN (IC) 100 MCG/ML INJ ONE (09:07)
[2018-09-18] MEDS ORDERED: VERAPAMIL 5 MG INJ ONE (09:07)
[2018-09-18] MEDS ORDERED: DIPHENHYDRAMINE 50 MG INJ ONE (09:10)
[2018-09-18] MEDS ORDERED: FENTAnyl 50 MCG/ML VIAL ONE (09:33)
[2018-09-18] MEDS ORDERED: MIDAZOLAM 1 MG/ML 2 ML INJ ONE (09:33)
[2018-09-18] MEDS ORDERED: BIVALIRUDIN 250MG /NS 50 ML 50 ML IVPB ONE (10:36)
[2018-09-18] MEDS ORDERED: TICAGRELOR 90 MG TABLET ONE (10:46)
[2018-09-18] MEDS ORDERED: ASPIRIN 81 MG TAB ONE (10:46)
--- NOTE | 2018-09-18 10:53 | CONS ---
Assessment/Plan Assessment/Plan Hospital Course (Demo Recall) IMPRESSION: 1. Chest pain, assess for acute coronary syndrome. POD#1 s/p PTCA stent x 2 to LCX and x1 to LAD 2. Hypertension, elevated. 3. Dyslipidemia. 4. Diabetes mellitus. 5. Depression. 6. History of abnormal cardiac stress test with partially reversible inferolateral defect. Recc: -Tele -continue asa/statin -Continue BB/NOrvasc/ACEI -Continue asa/brilnta -Staged procedure today to intervene upon RCA/PLB Consultation Date/Type/Reason Admit Date/Time September 18, 2018 at 07:47 Initial Consult Date 09/16/18 Type of Consult Cardiology Reason for Consultation chest pain Requesting Provider: BARTOLO STREETER MD Date/Time of Note DATE: 09/18/18 TIME: 10:51 Exam/Review of Systems Vital Signs Vitals Vital Signs Date Temp Pulse Resp B/P (MAP) Pulse Ox O2 O2 Flow FiO2 Time Delivery Rate 09/18/18 98.6 57 22 164/79 96 Room Air 08:14 (107) Intake and Output 09/17/18 09/17/18 09/18/18 1414:59 22:59 06:59 IntakeIntake Total 400 ml OutputOutput Total 175 ml 275 ml BalanceBalance -175 ml 125 ml Exam Exam Review of Systems: CONSTITUTIONAL: No fevers, chills. PULMONARY: No sob CARDIOVASCULAR:intermittent chest pain GASTROINTESTINAL: No nausea/vomiting. GENITOURINARY: No hematuria/dysuria. MUSCULOSKELETAL: No myagias/arthalgias. PSYCHIATRIC: The patient denies depression. NEUROLOGIC: No weakness Constitutional: alert Psych: no complaints Head: normocephalic ENMT: mucosa pink and moist Neck: supple, jvd (9 cm water) Respiratory: clear to auscultation Cardiovascular: regular rate and rhythm Gastrointestinal: soft, non-tender Musculoskeletal: muscle tone (normal) Extremities: edema (none) Neurological: other (No focal deficits) Labs Result Diagram: 09/18/18 0643 09/18/18 0643 Results 24hrs Laboratory Tests Test 09/18/18 06:43 White Blood Count 9.1 # Red Blood Count 4.38 L Hemoglobin 10.8 L Hematocrit 34.7 L Mean Corpuscular Volume 79.2 L Mean Corpuscular Hemoglobin 24.7 L Mean Corpuscular Hemoglobin Concent 31.1 L Red Cell Distribution Width 19.6 H Platelet Count 233 Mean Platelet Volume 11.8 H Immature Granulocytes % 0.300 Neutrophils % 71.9 Lymphocytes % 15.1 Monocytes % 8.6 Eosinophils % 3.6 Basophils % 0.5 Nucleated Red Blood Cells % 0.0 Immature Granulocytes # 0.030 Neutrophils # 6.6 Lymphocytes # 1.4 Monocytes # 0.8 Eosinophils # 0.3 Basophils # 0.1 Nucleated Red Blood Cells # 0.0 Sodium Level 144 Potassium Level 3.8 Chloride Level 112 H Carbon Dioxide Level 24 Anion Gap 8 Blood Urea Nitrogen 31 H Creatinine 1.12 Est Glomerular Filtrat Rate mL/min > 60 Glucose Level 91 Calcium Level 8.5 Medications Medications Current Medications Atorvastatin Calcium (Lipitor) 80 mg HS PO Last administered on 09/17/18 21:59; Admin Dose 80 MG; Start 09/16/18 at 21:00 Benazepril HCl (Lotensin) 20 mg DAILY PO Last administered on 09/17/18 09:07; Admin Dose 20 MG; Start 09/17/18 at 09:00 Metoprolol Tartrate (Lopressor) 50 mg BID PO Last administered on 09/18/18 04:13; Admin Dose 50 MG; Start 09/16/18 at 16:00 Nitroglycerin (Nitroglycerin (Sl Tab) 0.4 Mg) 1 tab Q5M PRN SL ANGINA; Start 09/16/18 at 14:00 IV Flush (NS 3 ml) 3 ml PER PROTOCOL IV ; Start 09/16/18 at 15:00 Acetaminophen/ Hydrocodone Bitart ([place] (5/325)) 2 tab Q6H PRN PO .SEVERE PAIN 7-10 Last administered on 09/17/18 05:39; Admin Dose 2 TAB; Start 09/16/18 at 15:00 Heparin Sodium (Porcine) (Heparin (5000 Units/1ml)) 5,000 unit Q12 SC Last administered on 09/16/18 20:57; Admin Dose 5,000 UNIT; Start 09/16/18 at 21:00 Aspirin (Aspirin) 81 mg DAILY PO Last administered on 09/17/18 09:07; Admin Dose 81 MG; Start 09/17/18 at 09:00 Hydralazine HCl (Apresoline) 10 mg Q4H PRN IV ELEVATED BLOOD PRESSURE; Start 09/16/18 at 22:30 Ondansetron HCl (Zofran Inj) 4 mg Q4H PRN IV NAUSEA AND/OR VOMITING; Start 09/17/18 at 03:00 Miscellaneous Information (* Miscellaneous Pharmacy Order) Hold all Metformin ... ONCE XX ; Start 09/17/18 at 12:00; Stop 09/19/18 at 11:59 Acetaminophen (Tylenol Tab) 650 mg Q4H PRN PO PAIN Last administered on 09/18/18at 01:53; Admin Dose 650 MG; Start 09/17/18 at 12:00 Oxycodone/ Acetaminophen (Percocet (5/ 325)) 1 tab Q4H PRN PO PAIN; Start 09/17/18 at 12:00 Zolpidem Tartrate (Ambien) 5 mg HS MAY REPEAT X 1 PRN PO INSOMNIA; Start 09/17/18 at 12:00 Al Hydrox/Mg Hydrox/Simethicone (Mag-Al Plus) 30 ml Q4H PRN PO GASTROINTESTINAL UPSET; Start 09/17/18 at 12:00 Ondansetron HCl (Zofran Inj) 4 mg Q4H PRN IV NAUSEA AND/OR VOMITING; Start 09/17/18 at 12:00 Amlodipine Besylate (Norvasc) 10 mg DAILY PO ; Start 09/18/18 at 09:00 Lorazepam (Ativan) 0.5 mg HS PRN PO ANXIETY Last administered on 09/18/18at 01:50; Admin Dose 0.5 MG; Start 09/18/18 at 01:45 RODDY OLSEN September 18, 2018 10:53
--- NOTE | 2018-09-18 10:57 | SIPON ---
Date/Time of Note Date/Time of Note DATE: 09/18/18 TIME: 10:54 Operative Report Preoperative Diagnosis 1.chest pain 2.abnl mpi Postoperative Diagnosis 1.obstructive cad s/p stent x 3 to PLB/RCA Operation/Procedure Performed 1.LHC 2.PTCA/stent x 3 to PLB/RCA Surgeon see signature line physical therapist assistant 1.Saurabh Anesthesia: moderate sedation Estimated blood loss: minimal Transfusion Required none Specimen none Grafts/Implants none Complications none RODDY OLSEN September 18, 2018 10:57
[2018-09-18] MEDS ORDERED: AL HYDROX/MG HYDROX/SIMETH 30 ML CUP PO PRN (11:00)
[2018-09-18] MEDS ORDERED: ONDANSETRON 4 MG INJ IV PRN (11:00)
[2018-09-18] MEDS ORDERED: ACETAMINOPHEN 325 MG TAB PO PRN (11:00)
[2018-09-18] MEDS ORDERED: OXYCODONE/ACETAMINOPHEN (5/325) TAB PO PRN (11:00)
[2018-09-18] MEDS ORDERED: ZOLPIDEM 5 MG TAB PO PRN (11:00)
[2018-09-18] MEDS: HEPARIN 5,000 UNIT/1 ML VIAL SC SCH ×2 (11:50→20:51)
--- NOTE | 2018-09-18 12:53 | PN ---
Date/Time of Note Date/Time of Note DATE: 09/18/18 TIME: 12:48 Assessment/Plan VTE Prophylaxis Risk score (from Ns)>0 risk: 4 SCD applied (from Ns): Yes Pharmacological prophylaxis: heparin Lines/Catheters IV C[facility]ter Type (from [facility] Peripheral IV Urinary Cath still in place: No Assessment/Plan Assessment/Plan 1. CAD, s/p PTCA/stents at LAD, OM, and LCX on 09/17/2018, s/p RCA stentx3 on 09/18/2018, stable, follow up with cardiology. 2. Hypertension, uncontrolled, increase norvasc 3. Dyslipidemia. on lipitor 4. Microcytic anemia, iron deficiency, iron supplement, outpatient work up 5. DVT prophylaxis: heparin Result Diagram: 09/18/18 0643 09/18/18 0643 Results 24hrs Laboratory Tests Test 09/18/18 06:43 White Blood Count 9.1 # Red Blood Count 4.38 L Hemoglobin 10.8 L Hematocrit 34.7 L Mean Corpuscular Volume 79.2 L Mean Corpuscular Hemoglobin 24.7 L Mean Corpuscular Hemoglobin Concent 31.1 L Red Cell Distribution Width 19.6 H Platelet Count 233 Mean Platelet Volume 11.8 H Immature Granulocytes % 0.300 Neutrophils % 71.9 Lymphocytes % 15.1 Monocytes % 8.6 Eosinophils % 3.6 Basophils % 0.5 Nucleated Red Blood Cells % 0.0 Immature Granulocytes # 0.030 Neutrophils # 6.6 Lymphocytes # 1.4 Monocytes # 0.8 Eosinophils # 0.3 Basophils # 0.1 Nucleated Red Blood Cells # 0.0 Sodium Level 144 Potassium Level 3.8 Chloride Level 112 H Carbon Dioxide Level 24 Anion Gap 8 Blood Urea Nitrogen 31 H Creatinine 1.12 Est Glomerular Filtrat Rate mL/min > 60 Glucose Level 91 Calcium Level 8.5 Subjective 24 Hr Interval Summary Free Text/Dictation no chest pain or shortness of breath Exam/Review of Systems Exam Vitals Vital Signs Date Temp Pulse Resp B/P (MAP) Pulse Ox O2 O2 Flow FiO2 Time Delivery Rate 09/18/18 68 12:24 09/18/18 167/75 99 Room Air 12:19 (105) 09/18/18 98.6 08:14 Intake and Output 09/17/18 09/17/18 09/18/18 1414:59 22:59 06:59 IntakeIntake Total 400 ml OutputOutput Total 175 ml 275 ml BalanceBalance -175 ml 125 ml Constitutional: alert, oriented, well developed Psych: no complaints, nl mood/affect Head: normocephalic, atraumatic Eyes: nl conjunctiva, EOMI, nl lids ENMT: nl external ears & nose, nl lips & teeth, nl nasal mucosa & septum Neck: supple, non-tender Respiratory: clear to auscultation, normal air movement; No congested cough, No crackles/rales, No diminished breath sounds, No intercostal retraction, No labored breathing, No respirations, No tactile fremitus, No wheezing, No other Cardiovascular: regular rate and rhythm, nl pulses; No bruits, No diastolic murmur, No edema, No gallop, No irregular rhythm, No jugular venous distention (JVD), No murmurs/extra sounds, No rub, No systolic murmur, No S3, No S4, No other Gastrointestinal: soft, nl liver, spleen, non-tender Musculoskeletal: nl extremities to inspection Extremities: normal pulses; No calf tenderness, No cyanosis, No clubbing, No edema, No pitting pedal edema, No palpable cord, No tenderness, No other 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, nl mental status, nl speech, nl strength Skin: nl turgor Results Results 24hrs Laboratory Tests Test 09/18/18 06:43 White Blood Count 9.1 # Red Blood Count 4.38 L Hemoglobin 10.8 L Hematocrit 34.7 L Mean Corpuscular Volume 79.2 L Mean Corpuscular Hemoglobin 24.7 L Mean Corpuscular Hemoglobin Concent 31.1 L Red Cell Distribution Width 19.6 H Platelet Count 233 Mean Platelet Volume 11.8 H Immature Granulocytes % 0.300 Neutrophils % 71.9 Lymphocytes % 15.1 Monocytes % 8.6 Eosinophils % 3.6 Basophils % 0.5 Nucleated Red Blood Cells % 0.0 Immature Granulocytes # 0.030 Neutrophils # 6.6 Lymphocytes # 1.4 Monocytes # 0.8 Eosinophils # 0.3 Basophils # 0.1 Nucleated Red Blood Cells # 0.0 Sodium Level 144 Potassium Level 3.8 Chloride Level 112 H Carbon Dioxide Level 24 Anion Gap 8 Blood Urea Nitrogen 31 H Creatinine 1.12 Est Glomerular Filtrat Rate mL/min > 60 Glucose Level 91 Calcium Level 8.5 Medications Medication Current Medications Atorvastatin Calcium (Lipitor) 80 mg HS PO Last administered on 09/17/18at 21:59; Admin Dose 80 MG; Start 09/16/18 at 21:00 Benazepril HCl (Lotensin) 20 mg DAILY PO Last administered on 09/17/18at 09:07; Admin Dose 20 MG; Start 09/17/18 at 09:00 Metoprolol Tartrate (Lopressor) 50 mg BID PO Last administered on 09/18/18at 04:13; Admin Dose 50 MG; Start 09/16/18 at 16:00 Nitroglycerin (Nitroglycerin (Sl Tab) 0.4 Mg) 1 tab Q5M PRN SL ANGINA; Start 09/16/18 at 14:00 IV Flush (NS 3 ml) 3 ml PER PROTOCOL IV ; Start 09/16/18 at 15:00 Acetaminophen/ Hydrocodone Bitart ([place] (5/325)) 2 tab Q6H PRN PO .SEVERE PAIN 7-10 Last administered on 09/17/18at 05:39; Admin Dose 2 TAB; Start 09/16/18 at 15:00 Heparin Sodium (Porcine) (Heparin (5000 Units/1ml)) 5,000 unit Q12 SC Last administered on 09/16/18at 20:57; Admin Dose 5,000 UNIT; Start 09/16/18 at 21:00 Aspirin (Aspirin) 81 mg DAILY PO Last administered on 09/17/18at 09:07; Admin Dose 81 MG; Start 09/17/18 at 09:00 Hydralazine HCl (Apresoline) 10 mg Q4H PRN IV ELEVATED BLOOD PRESSURE; Start 09/16/18 at 22:30 Acetaminophen (Tylenol Tab) 650 mg Q4H PRN PO PAIN Last administered on 09/18/18at 01:53; Admin Dose 650 MG; Start 09/17/18 at 12:00 Oxycodone/ Acetaminophen (Percocet (5/ 325)) 1 tab Q4H PRN PO PAIN; Start 09/17/18 at 12:00 Zolpidem Tartrate (Ambien) 5 mg HS MAY REPEAT X 1 PRN PO INSOMNIA; Start 09/17/18 at 12:00 Al Hydrox/Mg Hydrox/Simethicone (Mag-Al Plus) 30 ml Q4H PRN PO GASTROINTESTINAL UPSET; Start 09/17/18 at 12:00 Ondansetron HCl (Zofran Inj) 4 mg Q4H PRN IV NAUSEA AND/OR VOMITING; Start 09/17/18 at 12:00 Amlodipine Besylate (Norvasc) 10 mg DAILY PO ; Start 09/18/18 at 09:00 Lorazepam (Ativan) 0.5 mg HS PRN PO ANXIETY Last administered on 09/18/18at 01:50; Admin Dose 0.5 MG; Start 09/18/18 at 01:45 Miscellaneous Information (* Miscellaneous Pharmacy Order) Hold all Metformin ... ONCE XX ; Start 09/18/18 at 11:00; Stop 09/20/18 at 10:59 Sodium Chloride 1,000 ml @ 75 mls/hr [id number] IV ; Start 09/18/18 at 10:48; Stop 09/19/18 at 00:07 Ticagrelor (Brilinta) 90 mg BID PO ; Start 09/18/18 at 21:00 FINN ACUÑA MD September 18, 2018 12:53
[2018-09-18] MEDS: BENAZEPRIL 20 MG TAB PO SCH (13:07)
[2018-09-18] MEDS: AMLODIPINE 10 MG TAB PO SCH (13:07)
[2018-09-18] MEDS: ASPIRIN 81 MG TAB PO SCH (13:07)
[2018-09-18] MEDS: SOD CHLORIDE 0.9% 1,000 ML IV SCH ×2 (13:14→16:26)
[2018-09-18] MEDS: HYDROCODONE/APAP (5/325) TAB PO PRN ×2 (13:26→20:49)
--- NOTE | 2018-09-18 15:23 | CARRPT ---
DATE OF PROCEDURE: 09/18/2018 TYPE OF PROCEDURES: 1. Left heart catheterization. 2. Coronary angiography. 3. Percutaneous transluminal coronary angioplasty and replacement of Synergy drug-eluting stents x3 to the right coronary artery posterolateral branch, a 2.5 x 24 mm, 2.5 x 16 mm and 3.0 x 16 mm. 4. Moderate conscious sedation. ATTENDING PHYSICIAN: Roddy Lujan MD REFERRING PHYSICIAN: Jann Michaud MD INDICATION: Chest pain refractory to medical therapy, positive stress test. TYPE OF ANESTHESIA: Conscious and local. BRIEF HISTORY: Mr. Fang is 67-year-old male with history of hypertension, dyslipidemia, coronary a rtery disease, status post RODEO CLOWN and stent placement to LAD and circumflex day prior after finding mult ivessel obstructive coronary artery disease. He now represents for a staged procedure to intervene u reginaldo his right coronary artery. PROCEDURE: After informed consent was obtained, the patient was sent to [facility] cardiac catheterization lab where his right radial area was prepped and draped in sterile fashion, 2% lidocai ne was infiltrated into right radial area to achieve adequate anesthesia. Using the modified [place] er technique, the radial artery was cannulated and a 6-Afghan arterial sheath was placed. A 6-Afghan JL3.5 catheter used to cannulate the right coronary arterial ostium. At this time, the patient recei sepideh Angiomax bolus continuous infusion and had already received a radial cocktail that had verapamil and nitroglycerin, 2.5 and 200 mcg respectively. He also received an Angiomax bolus continuous infus ion, a right guide were used to cannulate the right coronary ostium. A 0.014 balance guidewire was p assed distal into the posterolateral branch. I am not able to pass the significant lesion and left i n place to use as a malina wire, a second Music Critic 50 guidewire was able to be passed distal to the lesio n. So at this time, a 2.0 x 12 mm balloon was used to predilate the high-grade stenoses within the p osterolateral branch up to 12 to 14 atmospheres and removed, and subsequently at this time, a most di stal lesion was stented with a 2.5 x 22 mm drug-eluting stent deployed at 12 atmospheres, postdilated with the stent delivery system at 14 atmospheres. At this time a second stent was added starting ju st proximal to this previously placed stent in the area of high grade stenosis. Once again a 3.0 x 1 6 mm drug-eluting stent was deployed at 12 atmospheres, postdilated with the stent delivery system at 14 atmospheres. Stent balloon was removed. Followup angiogram was obtained revealing excellent dep loyment of the second stent, but there existed disease in between the stent. Subsequently, a third s tent, a 2.5 x 16 mm drug-eluting stent was then overlapped with the distal stent by 1 mm proximal and inflated at 14 atmospheres. Stent balloon was removed to the area and deployed to 14 atmosphe res. Stent delivery balloon was removed. Followup angiogram was obtained revealing excellent result deployment of all 3 stents, ADRIENNE 3 flow throughout the vessel, no signs of complication including pe rforation or dissection. Subsequently, at this time, interventional guide and guidewires were remove d and patient's sheath was removed, a TR band was applied and completed the procedure. There were no noted complications. FINDINGS: Coronary angiography. Right coronary artery proximally is a 3.5 mm vessel and free of sig nificant focal stenoses, until you get to the posterolateral branch just as it bifurcates, has a foca l 80% stenosis and then in its midportion has a 90% stenosis. PTCA AND STENT PLACEMENT: Prior to PTCA and stent placement, the patient had an 80% stenosis followe d by 90% stenosis. Post-PTCA and stent placement, the patient had no residual stenosis, ADRIENNE 3 flow throughout the vessel and no signs of complication including perforation or dissection. TOTAL FLUOROSCOPY TIME: 12.1 minutes. TOTAL CONTRAST: 200 mL. IMPRESSION: Obstructive coronary artery disease involving multiple stents placed in the posterolater al branch, status post successful RODEO CLOWN and stent placement x3 with drug-eluting stent with excellent r esult. RECOMMENDATIONS: In light of procedure findings at this time would: 1. Maintain patient now on a baseline Brilinta 90 mg 1 tab p.o. b.i.d. 2. Continue aspirin 81 mg indefinitely. 3. Maximize medical management. 4. Aggressive risk factor reduction. 5. The patient will be readmitted to the telemetry floor for post-catheterization, T-max consistent with probable discharge the following day. Dictated By: RODDY POZO/ELDON Conf#: [id number] DID#: [id number] CC: JANN MICHAUD MD;*[facility]*
[2018-09-18] MEDS: ATORVASTATIN 80 MG TAB PO SCH (20:41)
[2018-09-18] MEDS: TICAGRELOR 90 MG TABLET PO SCH (21:01)
[2018-09-19] VITALS (14 sets, daily range): BP systolic 134–168; BP diastolic 68–80; PULSE 49–71; RESP 18–22
[2018-09-19] MEDS: ACETAMINOPHEN 325 MG TAB PO PRN ×2 (00:17→05:36)
[2018-09-19] MEDS: LORAZEPAM 0.5 MG TAB PO PRN ×2 (05:47→20:29)
[2018-09-19] MEDS: HYDROCODONE/APAP (5/325) TAB PO PRN ×2 (05:47→17:20)
[2018-09-19] MEDS: AMLODIPINE 10 MG TAB PO SCH (08:20)
[2018-09-19] MEDS: BENAZEPRIL 20 MG TAB PO SCH (08:21)
[2018-09-19] MEDS: ASPIRIN 81 MG TAB PO SCH (08:21)
[2018-09-19] MEDS: FERROUS SULFATE (EC) 325 MG TAB PO SCH (08:31)
[2018-09-19] MEDS: TICAGRELOR 90 MG TABLET PO SCH ×2 (08:44→20:33)
[2018-09-19] MEDS: HEPARIN 5,000 UNIT/1 ML VIAL SC SCH ×2 (08:44→20:55)
[2018-09-19] MEDS: METOPROLOL 25 MG TAB PO SCH ×2 (09:00→20:32)
--- NOTE | 2018-09-19 12:43 | RADRPT ---
Vent Rate: 53 bpm RR Interval: 1136 msec [place] Interval: 142 msec QRS Duration: 102 msec QT Interval: 481 msec QTC Interval: 451 msec P-R-T [place]: 22 - -17 - 175 degrees Sinus rhythm...normal P axis, V-rate 50- 99 Probable LVH with secondary repol abnrm...multiple LVH criteria Electronically Signed By: Tam Luna
--- NOTE | 2018-09-19 12:46 | RADRPT ---
Vent Rate: 54 bpm RR Interval: 1108 msec [place] Interval: 145 msec QRS Duration: 108 msec QT Interval: 465 msec QTC Interval: 442 msec P-R-T [place]: 27 - -16 - 193 degrees Sinus rhythm...normal P axis, V-rate 50- 99 Probable LVH with secondary repol abnrm...multiple LVH criteria Electronically Signed By: Tam Luna
--- NOTE | 2018-09-19 13:13 | CONS ---
Assessment/Plan Assessment/Plan Hospital Course (Demo Recall) IMPRESSION: 1. Chest pain, assess for acute coronary syndrome.Now post-op s/p PTCA stent x 2 to LCX and x1 to LAD and X 3 to RCA all with excellent result 2. Hypertension, elevated. 3. Dyslipidemia. 4. Diabetes mellitus. 5. Depression. 6. History of abnormal cardiac stress test with partially reversible inferolateral defect. Recc: -Tele -continue statin -Continue BB/NOrvasc/ACEI -Continue asa/brilnta -ok for d/c planning today with outoatient f/u 2-3 weeks with myself and given card for info to contact me Consultation Date/Type/Reason Admit Date/Time September 18, 2018 at 07:47 Initial Consult Date 09/16/18 Type of Consult Cardiology Reason for Consultation angina Requesting Provider: BARTOLO STREETER MD Date/Time of Note DATE: 09/19/18 TIME: 13:09 Exam/Review of Systems Vital Signs Vitals Vital Signs Date Temp Pulse Resp B/P (MAP) Pulse Ox O2 O2 Flow FiO2 Time Delivery Rate 09/19/18 98.5 64 22 145/68 96 Room Air 12:12 (93) Intake and Output 09/18/18 09/18/18 09/19/18 1515:00 23:00 07:00 IntakeIntake Total 840 ml OutputOutput Total 350 ml BalanceBalance 490 ml Exam Exam Review of Systems: CONSTITUTIONAL: No fevers, chills. PULMONARY: No sob CARDIOVASCULAR:no chest pain/palpitations GASTROINTESTINAL: No nausea/vomiting. GENITOURINARY: No hematuria/dysuria. MUSCULOSKELETAL: No myagias/arthalgias. PSYCHIATRIC: The patient denies depression. NEUROLOGIC: No weakness Constitutional: alert Psych: no complaints Head: normocephalic ENMT: mucosa pink and moist Neck: supple, jvd (9 cm water) Respiratory: diminished breath sounds (at bases/B) Cardiovascular: regular rate and rhythm Gastrointestinal: soft, non-tender Musculoskeletal: muscle tone Extremities: edema (none) Neurological: other (No focal deficits) Labs Result Diagram: 09/19/18 0538 09/19/18 0538 Results 24hrs Laboratory Tests Test 09/18/18 20:58 09/19/18 05:38 Bedside Glucose 160 White Blood Count 9.5 Red Blood Count 4.30 L Hemoglobin 10.6 L Hematocrit 33.8 L Mean Corpuscular Volume 78.6 L Mean Corpuscular Hemoglobin 24.7 L Mean Corpuscular Hemoglobin Concent 31.4 L Red Cell Distribution Width 19.4 H Platelet Count 229 Mean Platelet Volume 11.4 H Immature Granulocytes % 0.300 Neutrophils % 70.8 Lymphocytes % 13.2 L Monocytes % 9.8 Eosinophils % 5.5 Basophils % 0.4 Nucleated Red Blood Cells % 0.0 Immature Granulocytes # 0.030 Neutrophils # 6.7 Lymphocytes # 1.3 Monocytes # 0.9 Eosinophils # 0.5 Basophils # 0.0 Nucleated Red Blood Cells # 0.0 Sodium Level 142 Potassium Level 3.7 Chloride Level 111 H Carbon Dioxide Level 24 Anion Gap 7 Blood Urea Nitrogen 31 H Creatinine 1.19 Est Glomerular Filtrat Rate mL/min > 60 Glucose Level 100 Calcium Level 8.6 Medications Medications Current Medications Atorvastatin Calcium (Lipitor) 80 mg HS PO Last administered on 09/18/18 20:41; Admin Dose 80 MG; Start 09/16/18 at 21:00 Benazepril HCl (Lotensin) 20 mg DAILY PO Last administered on 09/19/18 08:21; Admin Dose 20 MG; Start 09/17/18 at 09:00 Metoprolol Tartrate (Lopressor) 50 mg BID PO Last administered on 09/18/18 20:47; Admin Dose 50 MG; Start 09/16/18 at 16:00 Nitroglycerin (Nitroglycerin (Sl Tab) 0.4 Mg) 1 tab Q5M PRN SL ANGINA; Start 09/16/18 at 14:00 IV Flush (NS 3 ml) 3 ml PER PROTOCOL IV ; Start 09/16/18 at 15:00 Acetaminophen/ Hydrocodone Bitart ([place] (5/325)) 2 tab Q6H PRN PO .SEVERE PAIN 7-10 Last administered on 09/19/18 05:47; Admin Dose 2 TAB; Start 09/16/18 at 15:00 Heparin Sodium (Porcine) (Heparin (5000 Units/1ml)) 5,000 unit Q12 SC Last administered on 09/19/18 08:44; Admin Dose 5,000 UNIT; Start 09/16/18 at 21:00 Aspirin (Aspirin) 81 mg DAILY PO Last administered on 5/17/19at 08:21; Admin Dose 81 MG; Start 09/17/18 at 09:00 Hydralazine HCl (Apresoline) 10 mg Q4H PRN IV ELEVATED BLOOD PRESSURE; Start 09/16/18 at 22:30 Acetaminophen (Tylenol Tab) 650 mg Q4H PRN PO PAIN Last administered on 09/19/18at 00:17; Admin Dose 650 MG; Start 09/17/18 at 12:00 Oxycodone/ Acetaminophen (Percocet (5/ 325)) 1 tab Q4H PRN PO PAIN; Start 09/17/18 at 12:00 Zolpidem Tartrate (Ambien) 5 mg HS MAY REPEAT X 1 PRN PO INSOMNIA; Start 09/17/18 at 12:00 Al Hydrox/Mg Hydrox/Simethicone (Mag-Al Plus) 30 ml Q4H PRN PO GASTROINTESTINAL UPSET; Start 09/17/18 at 12:00 Ondansetron HCl (Zofran Inj) 4 mg Q4H PRN IV NAUSEA AND/OR VOMITING; Start 09/17/18 at 12:00 Amlodipine Besylate (Norvasc) 10 mg DAILY PO Last administered on 09/19/18at 08:20; Admin Dose 10 MG; Start 09/18/18 at 09:00 Lorazepam (Ativan) 0.5 mg HS PRN PO ANXIETY Last administered on 09/19/18at 05:47; Admin Dose 0.5 MG; Start 09/18/18 at 01:45 Miscellaneous Information (* Miscellaneous Pharmacy Order) Hold all Metformin ... ONCE XX ; Start 09/18/18 at 11:00; Stop 09/20/18 at 10:59 Ticagrelor (Brilinta) 90 mg BID PO Last administered on 09/19/18at 08:44; Admin Dose 90 MG; Start 09/18/18 at 21:00 Ferrous Sulfate (Ferrous Sulfate (Ec)) 325 mg DAILY PO Last administered on 09/19/18at 08:31; Admin Dose 325 MG; Start 09/19/18 at 09:00 RODDY OLSEN September 19, 2018 13:13
--- NOTE | 2018-09-19 14:52 | RADRPT ---
Vent Rate: 57 bpm RR Interval: 0 msec [place] Interval: 134 msec QRS Duration: 94 msec QT Interval: 466 msec QTC Interval: 453 msec P-R-T [place]: 26 - -15 - 147 degrees Sinus bradycardia Minimal voltage criteria for LVH, may be normal variant T wave abnormality, consider inferolateral ischemia Abnormal ECG Electronically Signed By: [facility]
--- NOTE | 2018-09-19 14:52 | RADRPT ---
Vent Rate: 55 bpm RR Interval: 0 msec [place] Interval: 134 msec QRS Duration: 96 msec QT Interval: 480 msec QTC Interval: 459 msec P-R-T [place]: 57 - -17 - [address] & T wave abnormality, consider inferolateral ischemia Abnormal ECG Electronically Signed By: [facility]
--- NOTE | 2018-09-19 17:04 | PN ---
Date/Time of Note Date/Time of Note DATE: 09/19/18 TIME: 16:59 Assessment/Plan VTE Prophylaxis Risk score (from Ns)>0 risk: 4 SCD applied (from Ns): Yes Pharmacological prophylaxis: other Lines/Catheters IV Catheter Type (from Nrs): Peripheral IV Urinary Cath still in place: No Assessment/Plan Assessment/Plan 1. CAD, s/p PTCA/stents at LAD, OM, and LCX on 09/17/2018, s/p RCA stentx3 on 09/18/2018 - patient is doing well and states hes feeling significantly better - feeling unsteady on his feet and discussed working with PT prior to discharge home 2. Hypertension - continue current medications 3. Dyslipidemia - continue on lipitor 4. Microcytic anemia - iron deficient. will need to continue iron supplements as outpatient 5. Disposition - Cleared by Cardiology for discharge - Awaiting physical therapy recommendations to assess for any home needs Result Diagram: 09/19/18 0538 09/19/18 0538 Results 24hrs Laboratory Tests Test 09/18/18 20:58 09/19/18 05:38 Bedside Glucose 160 White Blood Count 9.5 Red Blood Count 4.30 L Hemoglobin 10.6 L Hematocrit 33.8 L Mean Corpuscular Volume 78.6 L Mean Corpuscular Hemoglobin 24.7 L Mean Corpuscular Hemoglobin Concent 31.4 L Red Cell Distribution Width 19.4 H Platelet Count 229 Mean Platelet Volume 11.4 H Immature Granulocytes % 0.300 Neutrophils % 70.8 Lymphocytes % 13.2 L Monocytes % 9.8 Eosinophils % 5.5 Basophils % 0.4 Nucleated Red Blood Cells % 0.0 Immature Granulocytes # 0.030 Neutrophils # 6.7 Lymphocytes # 1.3 Monocytes # 0.9 Eosinophils # 0.5 Basophils # 0.0 Nucleated Red Blood Cells # 0.0 Sodium Level 142 Potassium Level 3.7 Chloride Level 111 H Carbon Dioxide Level 24 Anion Gap 7 Blood Urea Nitrogen 31 H Creatinine 1.19 Est Glomerular Filtrat Rate mL/min > 60 Glucose Level 100 Calcium Level 8.6 Subjective 24 Hr Interval Summary Free Text/Dictation Patient denies any acute issues but does admit to feeling unsteady with ambula tion. No acute overnight events. Exam/Review of Systems Exam Vitals Vital Signs Date Temp Pulse Resp B/P (MAP) Pulse Ox O2 O2 Flow FiO2 Time Delivery Rate 09/19/18 71 16:16 09/19/18 96.2 22 168/76 96 Room Air 15:44 (106) Intake and Output 09/18/18 09/18/18 09/19/18 1414:59 22:59 06:59 IntakeIntake Total 840 ml OutputOutput Total 350 ml BalanceBalance 490 ml Exam General: Patient is a pleasant male, no acute distress Neck: Supple Lungs: Clear breath sounds bilaterally, no wheezing or rhonchi Heart: Normal S1-S2, Regular rhythm and rate. No murmur, S3, or S4 Abdomen: Soft , nontender, nondistended , bowel sounds are present. No guarding no rebound tenderness Extremities: Normal to inspection, no edema no cyanosis. Neurologic: Normal mental status, speech normal, cranial nerves II through XII are intact, motor and sensory are intact, no focal weakness Skin: no rashes or lesions appreciated Results Results 24hrs Laboratory Tests Test 09/18/18 20:58 09/19/18 05:38 Bedside Glucose 160 White Blood Count 9.5 Red Blood Count 4.30 L Hemoglobin 10.6 L Hematocrit 33.8 L Mean Corpuscular Volume 78.6 L Mean Corpuscular Hemoglobin 24.7 L Mean Corpuscular Hemoglobin Concent 31.4 L Red Cell Distribution Width 19.4 H Platelet Count 229 Mean Platelet Volume 11.4 H Immature Granulocytes % 0.300 Neutrophils % 70.8 Lymphocytes % 13.2 L Monocytes % 9.8 Eosinophils % 5.5 Basophils % 0.4 Nucleated Red Blood Cells % 0.0 Immature Granulocytes # 0.030 Neutrophils # 6.7 Lymphocytes # 1.3 Monocytes # 0.9 Eosinophils # 0.5 Basophils # 0.0 Nucleated Red Blood Cells # 0.0 Sodium Level 142 Potassium Level 3.7 Chloride Level 111 H Carbon Dioxide Level 24 Anion Gap 7 Blood Urea Nitrogen 31 H Creatinine 1.19 Est Glomerular Filtrat Rate mL/min > 60 Glucose Level 100 Calcium Level 8.6 Medications Medication Current Medications Atorvastatin Calcium (Lipitor) 80 mg HS PO Last administered on 09/18/18at 20:41; Admin Dose 80 MG; Start 09/16/18 at 21:00 Benazepril HCl (Lotensin) 20 mg DAILY PO Last administered on 09/19/18at 08:21; Admin Dose 20 MG; Start 09/17/18 at 09:00 Metoprolol Tartrate (Lopressor) 50 mg BID PO Last administered on 09/19/18at 09:00; Admin Dose 50 MG; Start 09/16/18 at 16:00 Nitroglycerin (Nitroglycerin (Sl Tab) 0.4 Mg) 1 tab Q5M PRN SL ANGINA; Start 09/16/18 at 14:00 IV Flush (NS 3 ml) 3 ml PER PROTOCOL IV ; Start 09/16/18 at 15:00 Acetaminophen/ Hydrocodone Bitart ([place] (5/325)) 2 tab Q6H PRN PO .SEVERE PAIN 7-10 Last administered on 09/19/18at 05:47; Admin Dose 2 TAB; Start 09/16/18 at 15:00 Heparin Sodium (Porcine) (Heparin (5000 Units/1ml)) 5,000 unit Q12 SC Last administered on 09/19/18at 08:44; Admin Dose 5,000 UNIT; Start 09/16/18 at 21:00 Aspirin (Aspirin) 81 mg DAILY PO Last administered on 09/19/18at 08:21; Admin Dose 81 MG; Start 09/17/18 at 09:00 Hydralazine HCl (Apresoline) 10 mg Q4H PRN IV ELEVATED BLOOD PRESSURE; Start 09/16/18 at 22:30 Acetaminophen (Tylenol Tab) 650 mg Q4H PRN PO PAIN Last administered on 09/19at 00:17; Admin Dose 650 MG; Start 09/17/18 at 12:00 Oxycodone/ Acetaminophen (Percocet (5/ 325)) 1 tab Q4H PRN PO PAIN; Start 09/17/18 at 12:00 Zolpidem Tartrate (Ambien) 5 mg HS MAY REPEAT X 1 PRN PO INSOMNIA; Start 09/17/18 at 12:00 Al Hydrox/Mg Hydrox/Simethicone (Mag-Al Plus) 30 ml Q4H PRN PO GASTROINTESTINAL UPSET; Start 09/17/18 at 12:00 Ondansetron HCl (Zofran Inj) 4 mg Q4H PRN IV NAUSEA AND/OR VOMITING; Start 09/17/18 at 12:00 Amlodipine Besylate (Norvasc) 10 mg DAILY PO Last administered on 09/19/18at 08:20; Admin Dose 10 MG; Start 09/18/18 at 09:00 Lorazepam (Ativan) 0.5 mg HS PRN PO ANXIETY Last administered on 09/19/18at 05:47; Admin Dose 0.5 MG; Start 09/18/18 at 01:45 Miscellaneous Information (* Miscellaneous Pharmacy Order) Hold all Metformin ... ONCE XX ; Start 09/18/18 at 11:00; Stop 09/20/18 at 10:59 Ticagrelor (Brilinta) 90 mg BID PO Last administered on 09/19/18at 08:44; Admin Dose 90 MG; Start 09/18/18 at 21:00 Ferrous Sulfate (Ferrous Sulfate (Ec)) 325 mg DAILY PO Last administered on 09/19/18at 08:31; Admin Dose 325 MG; Start 09/19/18 at 09:00 CHRISTINE HERRERA MD September 19, 2018 17:04
[2018-09-19] MEDS: ATORVASTATIN 80 MG TAB PO SCH (20:27)
[2018-09-19] MEDS: OXYCODONE/ACETAMINOPHEN (5/325) TAB PO PRN (20:53)
[2018-09-20] VITALS (15 sets, daily range): BP systolic 126–208; BP diastolic 60–96; PULSE 47–92; RESP 16–18
[2018-09-20] MEDS: HYDROCODONE/APAP (5/325) TAB PO PRN (02:07)
[2018-09-20] MEDS: OXYCODONE/ACETAMINOPHEN (5/325) TAB PO PRN (04:04)
[2018-09-20] MEDS ORDERED: LORAZEPAM 0.5 MG TAB PO ONE (06:30)
[2018-09-20] MEDS: FERROUS SULFATE (EC) 325 MG TAB PO SCH (09:16)
[2018-09-20] MEDS: ASPIRIN 81 MG TAB PO SCH (09:17)
[2018-09-20] MEDS: METOPROLOL 25 MG TAB PO SCH ×2 (09:18→21:18)
[2018-09-20] MEDS: BENAZEPRIL 20 MG TAB PO SCH (09:19)
[2018-09-20] MEDS: AMLODIPINE 10 MG TAB PO SCH (09:19)
[2018-09-20] MEDS: HEPARIN 5,000 UNIT/1 ML VIAL SC SCH ×2 (09:45→21:29)
[2018-09-20] MEDS: TICAGRELOR 90 MG TABLET PO SCH ×2 (09:45→21:29)
[2018-09-20] MEDS ORDERED: TICA90TA PO (10:07)
[2018-09-20] MEDS ORDERED: DULO30CA45 PO (10:07)
[2018-09-20] MEDS ORDERED: ATOR-2 PO (10:07)
[2018-09-20] MEDS ORDERED: METO-448 PO (10:07)
[2018-09-20] MEDS ORDERED: AMLO-147 PO (10:07)
[2018-09-20] MEDS ORDERED: ASPI-831 PO (10:07)
[2018-09-20] MEDS ORDERED: BENA20TA4 PO (10:07)
--- NOTE | 2018-09-20 10:24 | PN ---
Date/Time of Note Date/Time of Note DATE: 09/20/18 TIME: 10:22 Assessment/Plan VTE Prophylaxis Risk score (from Ns)>0 risk: 4 SCD applied (from Ns): Yes Pharmacological prophylaxis: NA/contraindicated Pharm contraindication: low risk/ambulating Lines/Catheters IV Catheter Type (from [facility]): Peripheral IV Urinary Cath still in place: No Assessment/Plan Assessment/Plan 1. CAD, s/p PTCA/stents at LAD, OM, and LCX on 09/17/2018, s/p RCA stentx3 on 09/18/2018 - patient is doing well and discussed following up with Cardiology in 2-3 weeks. Continue current medications 2. Hypertension - continue current medications 3. Dyslipidemia - continue on lipitor 4. Microcytic anemia - iron deficient. will need to continue iron supplements as outpatient 5. Disposition - Medically stable for discharge home Result Diagram: 09/19/1853709/19/18537 Subjective 24 Hr Interval Summary Free Text/Dictation Patient is doing well and denies any acute issues. No overnight events. Denies any chest pain or shortness of breath. Exam/Review of Systems Exam Vitals Vital Signs Date Temp Pulse Resp B/P (MAP) Pulse Ox O2 O2 Flow FiO2 Time Delivery Rate 09/20/18 61 08:34 09/20/18 98.7 18 168/79 Room Air 07:39 (108) 09/20/18 94 04:44 Intake and Output 09/19/18 09/19/18 09/20/18 1414:59 22:59 06:59 IntakeIntake Total 240 ml 800 ml 300 ml OutputOutput Total 250 ml 800 ml 525 ml BalanceBalance -10 ml 0 ml -225 ml Exam General: Patient is a pleasant male, no acute distress Neck: Supple Lungs: Clear breath sounds bilaterally, no wheezing or rhonchi Heart: Normal S1-S2, Regular rhythm and rate. No murmur, S3, or S4 Abdomen: Soft , nontender, nondistended , bowel sounds are present. No guarding no rebound tenderness Extremities: Normal to inspection, no edema no cyanosis. Skin: no rashes or lesions appreciated Medications Medication Current Medications Atorvastatin Calcium (Lipitor) 80 mg HS PO Last administered on 09/19/18at 20:27; Admin Dose 80 MG; Start 09/16/18 at 21:00 Benazepril HCl (Lotensin) 20 mg DAILY PO Last administered on 09/20/18 09:19; Admin Dose 20 MG; Start 09/17/18 at 09:00 Metoprolol Tartrate (Lopressor) 50 mg BID PO Last administered on 09/20/18at 09:18; Admin Dose 50 MG; Start 09/16/18 at 16:00 Nitroglycerin (Nitroglycerin (Sl Tab) 0.4 Mg) 1 tab Q5M PRN SL ANGINA; Start 09/16/18 at 14:00 IV Flush (NS 3 ml) 3 ml PER PROTOCOL IV ; Start 09/16/18 at 15:00 Acetaminophen/ Hydrocodone Bitart ([place] (5/325)) 2 tab Q6H PRN PO .SEVERE PAIN 7-10 Last administered on 09/20/18at 02:07; Admin Dose 2 TAB; Start 09/16/18 at 15:00 Heparin Sodium (Porcine) (Heparin (5000 Units/1ml)) 5,000 unit Q12 SC Last administered on 09/20/18at 09:45; Admin Dose 5,000 UNIT; Start 09/16/18 at 21:00 Aspirin (Aspirin) 81 mg DAILY PO Last administered on 09/20/18at 09:17; Admin Dose 81 MG; Start 09/17/18 at 09:00 Hydralazine HCl (Apresoline) 10 mg Q4H PRN IV ELEVATED BLOOD PRESSURE; Start 09/16/18 at 22:30 Acetaminophen (Tylenol Tab) 650 mg Q4H PRN PO PAIN Last administered on 09/19/18at 00:17; Admin Dose 650 MG; Start 09/17/18 at 12:00 Oxycodone/ Acetaminophen (Percocet (5/ 325)) 1 tab Q4H PRN PO PAIN Last administered on 09/20/18at 04:04; Admin Dose 1 TAB; Start 09/17/18 at 12:00 Zolpidem Tartrate (Ambien) 5 mg HS MAY REPEAT X 1 PRN PO INSOMNIA; Start 09/17/18 at 12:00 Al Hydrox/Mg Hydrox/Simethicone (Mag-Al Plus) 30 ml Q4H PRN PO GASTROINTESTINAL UPSET; Start 09/17/18 at 12:00 Ondansetron HCl (Zofran Inj) 4 mg Q4H PRN IV NAUSEA AND/OR VOMITING; Start 09/17/18 at 12:00 Amlodipine Besylate (Norvasc) 10 mg DAILY PO Last administered on 09/20/18at 09:19; Admin Dose 10 MG; Start 09/18/18 at 09:00 Lorazepam (Ativan) 0.5 mg HS PRN PO ANXIETY Last administered on 09/19/18at 20:29; Admin Dose 0.5 MG; Start 09/18/18 at 01:45 Miscellaneous Information (* Miscellaneous Pharmacy Order) Hold all Metformin ... ONCE XX ; Start 09/18/18 at 11:00; Stop 09/20/18 at 10:59 Ticagrelor (Brilinta) 90 mg BID PO Last administered on 09/20/18at 09:45; Admin Dose 90 MG; Start 09/18/18 at 21:00 Ferrous Sulfate (Ferrous Sulfate (Ec)) 325 mg DAILY PO Last administered on 09/20/18at 09:16; Admin Dose 325 MG; Start 09/19/18 at 09:00 Buspirone HCl (Buspar) 10 mg BID PO ; Start 09/20/18 at 11:00 Duloxetine HCl (Cymbalta) 30 mg DAILY PO ; Start 09/20/18 at 10:30 CHRISTINE HERRERA MD September 20, 2018 10:24
--- NOTE | 2018-09-20 10:27 | PDOCDIS ---
Discharge Instructions DIAGNOSIS Discharge Diagnosis 1. CAD, s/p PTCA/stents at LAD, OM, and LCX on 09/17/2018, s/p RCA stentx3 on 09/18/2018 2. Hypertension 3. Dyslipidemia 4. Microcytic anemia CONDITION [id number] Patient Condition: [id number] Stable HOME CARE INSTRUCTIONS: [id number] Diet Instructions: Digag1f Low Fat /Cholesterol ACTIVITY: [id number] Activity Restrictions: [id number] No Restrictions FOLLOW UP/APPOINTMENTS Follow-up Plan 1. Follow up with your primary care physician in 1-2 weeks 2. Follow up with Dr. Lujan in 2-3 weeks and continue all medications as prescribed 3. You will need to continue on 2 blood thinners. If you experiencing any cuts that will not stop bleeding or any head injury, it is important to go to your closest emergency department for evaluation 4. Continue physical therapy as tolerated and healthy diet 5. If experiencing any concerning symptoms, please come back to the emergency department REFERRALS Other Referrals Teodoro Lujan MD Specialty: Interventional Cardiology Office Address [address] [place] [id number] Office CHRISTINE HERRERA MD September 20, 2018 10:26
[2018-09-20] MEDS: DULOXETINE 30 MG CAP DR PO SCH (11:55)
[2018-09-20] MEDS: BUSPIRONE 10 MG TAB PO SCH ×2 (11:55→21:17)
--- NOTE | 2018-09-20 13:53 | CONS ---
Consult Date/Type/Reason Admit Date/Time September 18, 2018 at 07:47 Initial Consult Date Requesting Provider: BARTOLO STREETER MD Date/Time of Note DATE: 09/20/18 TIME: 13:50 Subjective Pt tolerated PCI well -today while ambulating felt dizzy and high BP - no CP now - site looks well - will r/o CA and follow - will monitor for another day for safety. ROS: No fever, no chills, no nausea, no vomiting, no diarrhea/constipation + Dizzy, transient No recent weight changes No chest pain, no PND, no orthopnea No dizziness, blurred vision No thirst, no heat or cold intolerance Objective Vitals Vital Signs Date Temp Pulse Resp B/P (MAP) Pulse Ox O2 O2 Flow FiO2 Time Delivery Rate 09/20/18 65 12:50 09/20/18 98.7 16 160/76 98 Room Air 11:49 (104) Intake and Output 09/19/18 09/19/18 09/20/18 1515:00 23:00 07:00 IntakeIntake Total 240 ml 800 ml 300 ml OutputOutput Total 250 ml 800 ml 525 ml BalanceBalance -10 ml 0 ml -225 ml Exam General: WN/WD/NAD, AOx 3 HEENT: Unicetric/atraumatic/EOMI (follow commands) NECK: JVD elevated, no thyromegaly Lymph: no lymphadenopathy HEART: regular with no S3, II/ systolic murmur at apex LUNGS: Coarse sounds ABD: soft, NT, ND, +BS : Intact Neuro: non focal SKIN: chronic changes EXT: trace edema, R UE site looks well, good pulses Results/Medications Result Diagram: 09/19/18 0538 09/19/18 0538 Home Meds Active Scripts Amlodipine Besylate* (Amlodipine Besylate*) 10 Mg Tablet, 10 MG PO DAILY for 30 Days, #30 TAB Prov:CHRISTINE HERRERA MD 09/20/18 Ticagrelor* (Brilinta*) 90 Mg Tablet, 90 MG PO BID for 30 Days, #60 TAB 1 Refill Prov:CHRISTINE HERRERA MD 09/20/18 Benazepril Hcl* (Benazepril Hcl*) 20 Mg Tablet, 20 MG PO DAILY for 30 Days, #30 TAB Prov:CHRISTINE HERRERA MD 09/20/18 Duloxetine Hcl* (Cymbalta*) 30 Mg Capsule.dr, 30 MG PO DAILY for 30 Days, #30 CAP Prov:CHRISTINE HERRERA MD 09/20/18 Aspirin (Aspirin) 81 Mg Chew, 81 MG PO DAILY for 30 Days, #30 TAB 1 Refill Prov:CHRISTINE HERRERA MD 09/20/18 Metoprolol Tartrate* (Lopressor*) 25 Mg Tab, 50 MG PO BID for 30 Days, #60 TAB 1 Refill Prov:CHRISTINE HERRERA MD 09/20/18 Atorvastatin* (Atorvastatin*) 80 Mg Tablet, 80 MG PO HS for 30 Days, #30 TAB 1 Refill Prov:CHRISTINE HERRERA MD 09/20/18 Ferrous Fumarate/Ascorbic Acid (Dino-Sequels 65-25 mg Caplet) 1 Each Tablet.er, 1 TAB PO DAILY for 30 Days, #30 TAB Prov:REBECCA POTTS MD 09/07/18 Reported Medications Buspirone Hcl* (Buspirone Hcl*) 10 Mg Tab, 10 MG PO BID, TAB 09/16/18 Nitroglycerin* (Nitrostat*) 0.4 Mg Tab.subl, 0.4 MG SL Q5MIN PRN for CHEST PAIN, BOTTLE 09/16/18 Discontinued Reported Medications Baclofen* (Baclofen*) 10 Mg Tablet, 10 MG PO TID, TAB 09/16/18 Discontinued Scripts Benazepril Hcl* (Benazepril Hcl*) 10 Mg Tablet, 20 MG PO BID for 30 Days, #30 TAB 1 Refill Prov:REBECCA POTTS MD 09/07/18 Medications Current Medications Atorvastatin Calcium (Lipitor) 80 mg HS PO Last administered on 09/19/18at 20:27; Admin Dose 80 MG; Start 09/16/18 at 21:00 Benazepril HCl (Lotensin) 20 mg DAILY PO Last administered on 09/20/18at 09:19; Admin Dose 20 MG; Start 09/17/18 at 09:00 Metoprolol Tartrate (Lopressor) 50 mg BID PO Last administered on 09/20/18at 09:18; Admin Dose 50 MG; Start 09/16/18 at 16:00 Nitroglycerin (Nitroglycerin (Sl Tab) 0.4 Mg) 1 tab Q5M PRN SL ANGINA; Start 09/16/18 at 14:00 IV Flush (NS 3 ml) 3 ml PER PROTOCOL IV ; Start 09/16/18 at 15:00 Acetaminophen/ Hydrocodone Bitart ([place] (5/325)) 2 tab Q6H PRN PO .SEVERE PAIN 7-10 Last administered on 09/20/18at 02:07; Admin Dose 2 TAB; Start 09/16/18 at 15:00 Heparin Sodium (Porcine) (Heparin (5000 Units/1ml)) 5,000 unit Q12 SC Last administered on 09/20/18at 09:45; Admin Dose 5,000 UNIT; Start 09/16/18 at 21:00 Aspirin (Aspirin) 81 mg DAILY PO Last administered on 09/20/18 09:17; Admin Dose 81 MG; Start 09/17/18 at 09:00 Hydralazine HCl (Apresoline) 10 mg Q4H PRN IV ELEVATED BLOOD PRESSURE; Start 09/16/18 at 22:30 Acetaminophen (Tylenol Tab) 650 mg Q4H PRN PO PAIN Last administered on at 00:17; Admin Dose 650 MG; Start 09/17/18 at 12:00 Oxycodone/ Acetaminophen (Percocet (5/ 325)) 1 tab Q4H PRN PO PAIN Last administered on 09/20/18at 04:04; Admin Dose 1 TAB; Start 09/17/18 at 12:00 Zolpidem Tartrate (Ambien) 5 mg HS MAY REPEAT X 1 PRN PO INSOMNIA; Start 09/17/18 at 12:00 Al Hydrox/Mg Hydrox/Simethicone (Mag-Al Plus) 30 ml Q4H PRN PO GASTROINTESTINAL UPSET; Start 09/17/18 at 12:00 Ondansetron HCl (Zofran Inj) 4 mg Q4H PRN IV NAUSEA AND/OR VOMITING; Start 09/17/18 at 12:00 Amlodipine Besylate (Norvasc) 10 mg DAILY PO Last administered on 09/20/18at 09:19; Admin Dose 10 MG; Start 09/18/18 at 09:00 Lorazepam (Ativan) 0.5 mg HS PRN PO ANXIETY Last administered on 09/19/18at 20:29; Admin Dose 0.5 MG; Start 09/18/18 at 01:45 Ticagrelor (Brilinta) 90 mg BID PO Last administered on 09/20/18 09:45; Admin Dose 90 MG; Start 09/18/18 at 21:00 Ferrous Sulfate (Ferrous Sulfate (Ec)) 325 mg DAILY PO Last administered on 09/20/18 09:16; Admin Dose 325 MG; Start 09/19/18 at 09:00 Buspirone HCl (Buspar) 10 mg BID PO Last administered on 09/20/18 11:55; Admin Dose 10 MG; Start 09/20/18 at 11:00 Duloxetine HCl (Cymbalta) 30 mg DAILY PO Last administered on 09/20/18 11:55; Admin Dose 30 MG; Start 09/20/18 at 10:30 Assessment/Plan Hospital Course (Demo Recall) 1. Chest pain, assess for acute coronary syndrome.Now post-op s/p PTCA stent x 2 to LCX and x1 to LAD and X 3 to RCA all with excellent result - no CP now - will Rx clinically. 2. Hypertension, elevated - BP was well Rx - after episode of dizziness, BP up - will allow for now. 3. Dyslipidemia. 4. Diabetes mellitus - on meds, keep euglycemic. 5. Depression rx now. 6. History of abnormal cardiac stress test with partially reversible inferolateral defect. 7. Dizziness - transient - con;t o follow tele x 24 hrs and r/o CA. LIV DARLING MD September 20, 2018 13:53
[2018-09-20] MEDS: LORAZEPAM 0.5 MG TAB PO PRN (19:43)
[2018-09-20] MEDS: ATORVASTATIN 80 MG TAB PO SCH (21:17)
[2018-09-21] VITALS (7 sets, daily range): BP systolic 143–158; BP diastolic 67–75; PULSE 54–71; RESP 18–20
[2018-09-21] MEDS: DULOXETINE 30 MG CAP DR PO SCH (08:34)
[2018-09-21] MEDS: ASPIRIN 81 MG TAB PO SCH (08:34)
[2018-09-21] MEDS: BUSPIRONE 10 MG TAB PO SCH (08:34)
[2018-09-21] MEDS: FERROUS SULFATE (EC) 325 MG TAB PO SCH (08:34)
[2018-09-21] MEDS: BENAZEPRIL 20 MG TAB PO SCH (08:34)
[2018-09-21] MEDS: METOPROLOL 25 MG TAB PO SCH (08:35)
[2018-09-21] MEDS: AMLODIPINE 10 MG TAB PO SCH (08:35)
[2018-09-21] MEDS: TICAGRELOR 90 MG TABLET PO SCH (09:21)
[2018-09-21] MEDS: HEPARIN 5,000 UNIT/1 ML VIAL SC SCH (09:22)
[2018-09-21] MEDS ORDERED: BENAZEPRIL 10 MG TAB PO ONE (10:00)
[2018-09-21] MEDS ORDERED: BENA40TA56 PO (11:51)
[2018-09-21] MEDS ORDERED: METO25TA4 PO (11:51)
--- NOTE | 2018-09-21 11:56 | PDOCDIS ---
Discharge Instructions DIAGNOSIS Discharge Diagnosis 1. CAD, s/p PTCA/stents at LAD, OM, and LCX on 09/17/2018, s/p RCA stentx3 on 09/18/2018 2. Hypertension 3. Dyslipidemia 4. Microcytic anemia CONDITION [id number] Patient Condition: [id number] Stable HOME CARE INSTRUCTIONS: [id number] Diet Instructions: [id number] Low Fat /Cholesterol ACTIVITY: [id number] Activity Restrictions: [id number] No Restrictions FOLLOW UP/APPOINTMENTS Follow-up Plan 1. Follow up with your primary care physician in 1-2 weeks 2. Follow up with Dr. Lujan in 2-3 weeks and continue all medications as prescribed. Your Metoprolol dose was decreased to 25 mg twice a day and Benazepril increased to 40mg daily. 3. You will need to continue on 2 blood thinners. If you experiencing any cuts that will not stop bleeding or any head injury, it is important to go to your closest emergency department for evaluation 4. Continue physical therapy as tolerated and healthy diet 5. If experiencing any concerning symptoms, please come back to the emergency department CHRISTINE HERRERA MD September 21, 2018 11:56
--- NOTE | 2018-09-21 11:59 | CONS ---
Consult Date/Type/Reason Admit Date/Time September 18, 2018 at 07:47 Initial Consult Date Requesting Provider: BARTOLO STREETER MD Date/Time of Note DATE: 09/21/18 TIME: 11:58 Subjective No acute events - pt doing better overall- no CP - able to ambulate without symptoms - dispo planned.l ROS: No fever, no chills, no nausea, no vomiting, no diarrhea/constipation No recent weight changes No chest pain, no PND, no orthopnea No dizziness, blurred vision No thirst, no heat or cold intolerance Objective Vitals Vital Signs Date Temp Pulse Resp B/P (MAP) Pulse Ox O2 O2 Flow FiO2 Time Delivery Rate 09/21/18 98.7 62 18 158/75 98 Room Air 11:47 (102) Intake and Output 09/20/18 09/20/18 09/21/18 1515:00 23:00 07:00 IntakeIntake Total 900 ml OutputOutput Total 500 ml BalanceBalance 400 ml Exam General: WN/WD/NAD, AOx 3 HEENT: Unicetric/atraumatic/EOMI (follow commands) NECK: JVD elevated, no thyromegaly Lymph: no lymphadenopathy HEART: regular with no S3, II/ systolic murmur at apex LUNGS: Coarse sounds ABD: soft, NT, ND, +BS : Intact Neuro: non focal SKIN: chronic changes EXT: trace edema, LHC site with good pulse - no hematoma Results/Medications Result Diagram: 09/21/18 0542 09/21/18 0542 Results 24 hrs Laboratory Tests Test 09/20/18 14:54 09/20/18 19:13 09/21/18 01:18 09/21/18 05:42 Creatine Kinase 39 37 40 34 Creatine Kinase 4.4 4.6 3.1 3.9 Index Creatinine Kinase MB 1.73 1.69 1.23 1.33 (Mass) Troponin I 0.470 *H 0.424 *H 0.446 *H 0.408 *H White Blood Count 7.1 # Red Blood Count 4.54 L Hemoglobin 11.1 L Hematocrit 35.3 L Mean Corpuscular 77.8 L Volume Mean Corpuscular 24.4 L Hemoglobin Mean Corpuscular 31.4 L Hemoglobin Concent Red Cell 19.3 H Distribution Width Platelet Count 270 Mean Platelet Volume 11.1 H Immature 0.300 Granulocytes % Neutrophils % 72.5 Lymphocytes % 12.5 L Monocytes % 8.9 Eosinophils % 5.4 Basophils % 0.4 Nucleated Red Blood 0.0 Cells % Immature 0.020 Granulocytes # Neutrophils # 5.1 Lymphocytes # 0.9 Monocytes # 0.6 Eosinophils # 0.4 Basophils # 0.0 Nucleated Red Blood 0.0 Cells # Sodium Level 144 Potassium Level 4.0 Chloride Level 111 H Carbon Dioxide Level 23 Anion Gap 10 Blood Urea Nitrogen 29 H Creatinine 1.00 Glucose Level 116 Calcium Level 8.8 Phosphorus Level 3.5 Magnesium Level 1.9 Albumin 3.2 L Test 09/21/18 11:06 Creatine Kinase 42 Creatine Kinase Pending Index Creatinine Kinase MB Pending (Mass) Troponin I Pending Home Meds Active Scripts Benazepril Hcl* (Benazepril Hcl*) 40 Mg Tablet, 40 MG PO DAILY for 30 Days, #30 TAB Prov:CHRISTINE HERRERA MD 09/21/18 Metoprolol Tartrate* (Lopressor*) 25 Mg Tablet, 25 MG PO BID for 30 Days, #60 TAB Prov:CHRISTINE HERRERA MD 09/21/18 Amlodipine Besylate* (Amlodipine Besylate*) 10 Mg Tablet, 10 MG PO DAILY for 30 Days, #30 TAB Prov:CHRISTINE HERRERA MD 09/20/18 Ticagrelor* (Brilinta*) 90 Mg Tablet, 90 MG PO BID for 30 Days, #60 TAB 1 Refill Prov:CHRISTINE HERRERA MD 09/20/18 Duloxetine Hcl* (Cymbalta*) 30 Mg Capsule.dr, 30 MG PO DAILY for 30 Days, #30 CA P Prov:CHRISTINE HERRERA MD 09/20/18 Aspirin (Aspirin) 81 Mg Chew, 81 MG PO DAILY for 30 Days, #30 TAB 1 Refill Prov:CHRISTINE HERRERA MD 09/20/18 Atorvastatin* (Atorvastatin*) 80 Mg Tablet, 80 MG PO HS for 30 Days, #30 TAB 1 Refill Prov:CHRISTINE HERRERA MD 09/20/18 Ferrous Fumarate/Ascorbic Acid (Dino-Sequels 65-25 mg Caplet) 1 Each Tablet.er, 1 TAB PO DAILY for 30 Days, #30 TAB Prov:REBECCA POTTS MD 09/07/18 Reported Medications Buspirone Hcl* (Buspirone Hcl*) 10 Mg Tab, 10 MG PO BID, TAB 09/16/18 Nitroglycerin* (Nitrostat*) 0.4 Mg Tab.subl, 0.4 MG SL Q5MIN PRN for CHEST PAIN, BOTTLE 09/16/18 Discontinued Reported Medications Baclofen* (Baclofen*) 10 Mg Tablet, 10 MG PO TID, TAB 09/16/18 Discontinued Scripts Benazepril Hcl* (Benazepril Hcl*) 20 Mg Tablet, 20 MG PO DAILY for 30 Days, #30 TAB Prov:CHRISTINE HERRERA MD 09/20/18 Metoprolol Tartrate* (Lopressor*) 25 Mg Tab, 50 MG PO BID for 30 Days, #60 TAB 1 Refill Prov:REBECCA POTTS MD 09/07/18 Benazepril Hcl* (Benazepril Hcl*) 10 Mg Tablet, 20 MG PO BID for 30 Days, #30 TAB 1 Refill Prov:REBECCA POTTS MD 09/07/18 Medications Current Medications Atorvastatin Calcium (Lipitor) 80 mg HS PO Last administered on 09/20/18at 21:17; Admin Dose 80 MG; Start 09/16/18 at 21:00 Nitroglycerin (Nitroglycerin (Sl Tab) 0.4 Mg) 1 tab Q5M PRN SL ANGINA; Start 09/16/18 at 14:00 IV Flush (NS 3 ml) 3 ml PER PROTOCOL IV ; Start 09/16/18 at 15:00 Acetaminophen/ Hydrocodone Bitart ([place] (5/325)) 2 tab Q6H PRN PO .SEVERE PAIN 7-10 Last administered on 09/20/18at 02:07; Admin Dose 2 TAB; Start 09/16/18 at 15:00 Heparin Sodium (Porcine) (Heparin (5000 Units/1ml)) 5,000 unit Q12 SC Last administered on 09/21/18at 09:22; Admin Dose 5,000 UNIT; Start 09/16/18 at 21:00 Aspirin (Aspirin) 81 mg DAILY PO Last administered on 09/21/18at 08:34; Admin Dose 81 MG; Start 09/17/18 at 09:00 Hydralazine HCl (Apresoline) 10 mg Q4H PRN IV ELEVATED BLOOD PRESSURE Last administered on 09/20/18at 13:52; Admin Dose 10 MG; Start 09/16/18 at 22:30 Acetaminophen (Tylenol Tab) 650 mg Q4H PRN PO PAIN Last administered on 09/19/18at 00:17; Admin Dose 650 MG; Start 09/17/18 at 12:00 Oxycodone/ Acetaminophen (Percocet (5/ 325)) 1 tab Q4H PRN PO PAIN Last administered on 09/20/18at 04:04; Admin Dose 1 TAB; Start 09/17/18 at 12:00 Zolpidem Tartrate (Ambien) 5 mg HS MAY REPEAT X 1 PRN PO INSOMNIA; Start 09/17/18 at 12:00 Al Hydrox/Mg Hydrox/Simethicone (Mag-Al Plus) 30 ml Q4H PRN PO GASTROINTESTINAL UPSET; Start 09/17/18 at 12:00 Ondansetron HCl (Zofran Inj) 4 mg Q4H PRN IV NAUSEA AND/OR VOMITING; Start 09/17/18 at 12:00 Amlodipine Besylate (Norvasc) 10 mg DAILY PO Last administered on 09/21/18 08:35; Admin Dose 10 MG; Start 09/18/18 at 09:00 Lorazepam (Ativan) 0.5 mg HS PRN PO ANXIETY Last administered on 09/20/18 19:43; Admin Dose 0.5 MG; Start 09/18/18 at 01:45 Ticagrelor (Brilinta) 90 mg BID PO Last administered on 09/21/18 09:21; Admin Dose 90 MG; Start 09/18/18 at 21:00 Ferrous Sulfate (Ferrous Sulfate (Ec)) 325 mg DAILY PO Last administered on 09/21/18 08:34; Admin Dose 325 MG; Start 09/19/18 at 09:00 Buspirone HCl (Buspar) 10 mg BID PO Last administered on 09/21/18 08:34; Admin Dose 10 MG; Start 09/20/18 at 11:00 Duloxetine HCl (Cymbalta) 30 mg DAILY PO Last administered on 09/21/18 08:34; Admin Dose 30 MG; Start 09/20/18 at 10:30 Metoprolol Tartrate (Lopressor) 25 mg BID PO Last administered on 09/21/18 08:35; Admin Dose 25 MG; Start 09/20/18 at 21:00 Benazepril HCl (Lotensin) 30 mg DAILY PO ; Start 09/22/18 at 09:00 Assessment/Plan Hospital Course (Demo Recall) 1. Chest pain, assess for acute coronary syndrome.Now post-op s/p PTCA stent x 2 to LCX and x1 to LAD and X 3 to RCA all with excellent result - no CP now - will Rx clinically. No new Sx now. 2. Hypertension, elevated - BP was well Rx - after episode of dizziness, BP up - will allow for now. Mildly elevatred - con't Med rx 3. Dyslipidemia. 4. Diabetes mellitus - on meds, keep euglycemic. 5. Depression rx now. 6. History of abnormal cardiac stress test with partially reversible in ferolateral defect. 7. Dizziness - transient - con;t o follow tele x 24 hrs and r/o GA. Resolved - able to ambulate - outpt f/up planned. LIV DARLING MD September 21, 2018 11:59
--- NOTE | 2018-09-21 15:19 | DS ---
Date/Time of Note Date/Time of Note DATE: 09/21/18 TIME: 15:15 Discharge Summary Admission/Discharge Info Admit Date/Time September 18, 2018 at 07:47 Discharge Date/Time September 21, 2018 at 13:50 Discharge Diagnosis 1. CAD, s/p PTCA/stents at LAD, OM, and LCX on 09/17/2018, s/p RCA stentx3 on 09/18/2018 2. Hypertension 3. Dyslipidemia 4. Microcytic anemia Patient Condition: Stable Consults Cardiology- Dr. Lujan/Nicci Procedures DATE: 09/17/18 TIME: 11:58 Operative Report Preoperative Diagnosis 1.angina Postoperative Diagnosis 1.obstructive cad s/p stent x 3 Operation/Procedure Performed 1/[facility] 2.PTCA/stent x 1 to LAD, x 1 to OM, x1 to LCX Date/Time of Note Date/Time of Note DATE: 09/18/18 TIME: 10:54 Operative Report Preoperative Diagnosis 1.chest pain 2.abnl mpi Postoperative Diagnosis 1.obstructive cad s/p stent x 3 to PLB/RCA Operation/Procedure Performed 1.[facility] 2.PTCA/stent x 3 to PLB/RCA Hx of Present Illness 67 yo male with hypertension who presents with CP Recently presented with same complaint a few days ago. Had NST with mildly reversible perfusion defect. Conservative management pursued and patient was discharged on medical therapy. Unable to get pills. Today had episode of CP and SOB. Symptoms resolved after a few minutes. Currently feels very well. Lots of stress in his life he says Hospital Course Patient was admitted and evaluated by Cardiology. He was taken for cardiac angiogram with PCI. He has stents placed at LAD, OM, and LCX on 09/17/2018 and s/p RCA stentx3 on 09/18/2018. Patient was started on DAPT and BP medications continued. Patients presenting symptoms improved and PT was ordered to assess for any home needs. Patient was experiencing dizziness and elevated BP with ambulation. His BP medications were adjusted with improvement in overall condition. He was cleared from Cardiology standpoint for discharge and was discharged home in good condition with instructions to follow up with Cardiology as outpatient. Home Meds Active Scripts Benazepril Hcl* (Benazepril Hcl*) 40 Mg Tablet, 40 MG PO DAILY for 30 Days, #30 TAB Prov:CHRISTINE HERRERA MD 09/21/18 Metoprolol Tartrate* (Lopressor*) 25 Mg Tablet, 25 MG PO BID for 30 Days, #60 TAB Prov:CHRISTINE HERRERA MD 09/21/18 Amlodipine Besylate* (Amlodipine Besylate*) 10 Mg Tablet, 10 MG PO DAILY for 30 Days, #30 TAB Prov:CHRISTINE HERRERA MD 09/20/18 Ticagrelor* (Brilinta*) 90 Mg Tablet, 90 MG PO BID for 30 Days, #60 TAB 1 Refill Prov:CHRISTINE HERRERA MD 09/20/18 Duloxetine Hcl* (Cymbalta*) 30 Mg Capsule.dr, 30 MG PO DAILY for 30 Days, #30 CAP Prov:CHRISTINE HERRERA MD 09/20/18 Aspirin (Aspirin) 81 Mg Chew, 81 MG PO DAILY for 30 Days, #30 TAB 1 Refill Prov:CHRISTINE HERRERA MD 09/20/18 Atorvastatin* (Atorvastatin*) 80 Mg Tablet, 80 MG PO HS for 30 Days, #30 TAB 1 Refill Prov:CHRISTINE HERRERA MD 09/20/18 Ferrous Fumarate/Ascorbic Acid (Dino-Sequels 65-25 mg Caplet) 1 Each Tablet.er, 1 TAB PO DAILY for 30 Days, #30 TAB Prov:REBECCA POTTS MD 09/07/18 Reported Medications Buspirone Hcl* (Buspirone Hcl*) 10 Mg Tab, 10 MG PO BID, TAB 09/16/18 Nitroglycerin* (Nitrostat*) 0.4 Mg Tab.subl, 0.4 MG SL Q5MIN PRN for CHEST PAIN, BOTTLE 09/16/18 Discontinued Reported Medications Baclofen* (Baclofen*) 10 Mg Tablet, 10 MG PO TID, TAB 09/16/18 Discontinued Scripts Benazepril Hcl* (Benazepril Hcl*) 20 Mg Tablet, 20 MG PO DAILY for 30 Days, #30 TAB Prov:CHRISTINE HERRERA MD 09/20/18 Metoprolol Tartrate* (Lopressor*) 25 Mg Tab, 50 MG PO BID for 30 Days, #60 TAB 1 Refill Prov:REBECCA POTTS MD 09/07/18 Benazepril Hcl* (Benazepril Hcl*) 10 Mg Tablet, 20 MG PO BID for 30 Days, #30 TAB 1 Refill Prov:REBECCA POTTS MD 09/07/18 Follow-up Plan 1. Follow up with your primary care physician in 1-2 weeks 2. Follow up with Dr. Lujan in 2-3 weeks and continue all medications as prescribed. Your Metoprolol dose was decreased to 25 mg twice a day and Benazepril increased to 40mg daily. 3. You will need to continue on 2 blood thinners. If you experiencing any cuts that will not stop bleeding or any head injury, it is important to go to your closest emergency department for evaluation 4. Continue physical therapy as tolerated and healthy diet 5. If experiencing any concerning symptoms, please come back to the emergency department Primary Care Provider Care Physician No Primary Time spent on discharge: > 30 minutes Pending Labs Laboratory Tests Test 09/20/18 19:13 09/21/18 01:18 09/21/18 05:42 09/21/18 11:06 Creatine 37 40 34 42 Kinase IU/L (23-200) IU/L (23-200) IU/L (23-200) IU/L (23-200) Creatine Kinase 4.6 3.1 3.9 3.5 Index Creatinine 1.69 1.23 1.33 1.49 Kinase MB ng/ml (0.0-2.4) ng/ml (0.0-2.4 ng/ml (0.0-2.4 ng/ml (0.0-2.4 (Mass) ) ) ) Troponin I 0.424 0.446 0.408 0.335 ng/ml (0.000-0. ng/ml (0.000-0 ng/ml (0.000-0 ng/ml (0.000-0 120) .120) .120) .120) White Blood 7.1 Count 10^3/ul (4.8-1 0.8) Red Blood 4.54 Count 10^6/ul (4.70- 6.10) Hemoglobin 11.1 g/dl (14.0-18. 0) Hematocrit 35.3 % (42.0-52.0) Mean 77.8 Corpuscular fl (82.0-101.0 Volume ) Mean 24.4 Corpuscular pg (29.0-33.0) Hemoglobin Mean 31.4 Corpuscular g/dl (32.0-37. Hemoglobin Conc 0) ent Red Cell 19.3 Distribution % (11.5-14.5) Width Platelet Count 270 10^3/UL (140-4 15) Mean Platelet 11.1 Volume fl (7.4-10.4) Immature 0.300 Granulocytes % % (0.001-0.429 ) Neutrophils % 72.5 % (39.0-77.0) Lymphocytes % 12.5 % (15.0-51.0) Monocytes % 8.9 % (0.0-11.0) Eosinophils % 5.4 % (0.0-7.0) Basophils % 0.4 % (0.0-2.0) Nucleated Red 0.0 Blood Cells % /100WBC (0.0-0 .0) Immature 0.020 Granulocytes # 10^3/ul (0.0-0 .031) Neutrophils # 5.1 10^3/ul (1.6-7 .5) Lymphocytes # 0.9 10^3/ul (0.8-2 .9) Monocytes # 0.6 10^3/ul (0.3-0 .9) Eosinophils # 0.4 10^3/ul (0.0-0 .5) Basophils # 0.0 10^3/ul (0.0-0 .1) Nucleated Red 0.0 Blood Cells # 10^3/ul (0.0-0 .0) Sodium Level 144 mmol/L (135-14 4) Potassium 4.0 Level mmol/L (3.5-5. 1) Chloride Level 111 mmol/L (97-110 ) Carbon Dioxide 23 Level mmol/L (21-31) Anion Gap 10 (5-13) Blood Urea 29 Nitrogen mg/dl (7-20) Creatinine 1.00 mg/dl (0.61-1. 24) Glucose Level 116 mg/dl (70-220) Calcium Level 8.8 mg/dl (8.4-10. 2) Phosphorus 3.5 Level mg/dl (2.5-4.9 ) Magnesium 1.9 Level mg/dl (1.7-2.5 ) Albumin 3.2 g/dl (3.3-4.9) CHRISTINE HERRERA MD September 21, 2018 15:19
[2018-09-22] MEDS ORDERED: BENAZEPRIL 10 MG TAB PO SCH (09:00)
== END 2018-09-21 13:50 | disposition home or self-care (01) | DRG 246 ==
LOC: E/R 05:39 → TEL 11:02 → SUATTDRO 14:31 → TEL 19:28 → OBSVTOIN 09-18 07:47 → TEL 09-19 16:15
PROVIDERS: ADMIT Internal Medicine; ATTEND Internal Medicine
PROC: 4A023N7 Measurement of Cardiac Sampling and Pressure, Left Heart, Percutaneous Approach (ICD-10-PCS; 2018-09-17)
PROC: B211YZZ Fluoroscopy of Multiple Coronary Arteries using Other Contrast (ICD-10-PCS; 2018-09-17)
PROC: 027236Z Dilation of Coronary Artery, Three Arteries with Three Drug-eluting Intraluminal Devices, Percutaneous Approach (ICD-10-PCS; principal; 2018-09-17 14:00)
PROC: 027036Z Dilation of Coronary Artery, One Artery with Three Drug-eluting Intraluminal Devices, Percutaneous Approach (ICD-10-PCS; 2018-09-18)
PROC: B210YZZ Fluoroscopy of Single Coronary Artery using Other Contrast (ICD-10-PCS; 2018-09-18)
DX: I25.119 Atherosclerotic heart disease of native coronary artery with unspecified angina pectoris (principal); I10 Essential (primary) hypertension; E11.9 Type 2 diabetes mellitus without complications; E78.5 Hyperlipidemia, unspecified; F32.9 Major depressive disorder, single episode, unspecified; D50.9 Iron deficiency anemia, unspecified
CPT/HCPCS: 36415; 71045; 80048; 80053; 80061; 80069; 81001; 82550; 82553; 82728; 82962; 83036; 83540; 83735; 84484; 85025; 85610; 87081; 93005; 93306; 93454; 93458; 97116; 97161; G0378; C1725; C1874; C1887; C9600; C9601; J0360; J0583; J1200; J1644; J2250; J2405; J3010; J7030; J7040; Q9967

== ENCOUNTER 2018-09-26 08:36 | Inpatient (IN) | payer MEDICARE ==
[~2018-09-26] VITALS: Ht 172.7 cm; Wt 93.8 kg
[~2018-09-26 08:36] MED LIST changes: +AMLO-147 PO; -BENA10TA4 PO; +BENA40TA56 PO; +BUSP10TA2 PO; -METO-448 PO; +METO25TA4 PO; +NITR0.4T39 SL; +TICA90TA PO
[2018-09-26] MEDS ORDERED: PANTOPRAZOLE IV 80 MG in SOD CHLORIDE 0.9% 100 ML IVPB STA (09:29)
--- NOTE | 2018-09-26 09:50 | ERD ---
ER Documentation Chief Complaint Chief Complaint BIBA FOR CHEST PAIN RADIATES TO BACK.ONSET LAST NIGHT.+STENT HPI 67-year-old male presents by paramedics complaining of generalized weakness and pain. Patient was recently hospitalized for a PTCA/stenting. He returned home and has been home over the last few days. While home, he states that he has been having generalized weakness with nonspecific discomfort. This is progressed over the course of the last few days and then this morning, he began having worsening chest pain. The chest pain was nonspecific, non-provoked and radiated towards his back. He then called the paramedics. I have reviewed the filtrose crusher pre-hospital care. Pre-hospital vital signs were reviewed. Pre-hospital diagnostic tests were reviewed. Upon arrival, patient is complaining of nonspecific discomfort some generalized weakness. He is unable to rate the severity of the pain but states it is get ting worse. He reports no melena or hematochezia. He reports no abdominal pain. ROS All systems reviewed and are negative except as per history of present illness. Medications Home Meds Active Scripts Benazepril Hcl* (Benazepril Hcl*) 40 Mg Tablet, 40 MG PO DAILY for 30 Days, #30 TAB Prov:CHRISTINE HERRERA MD 09/21/18 Metoprolol Tartrate* (Lopressor*) 25 Mg Tablet, 25 MG PO BID for 30 Days, #60 TAB Prov:CHRISTINE HERRERA MD 09/21/18 Amlodipine Besylate* (Amlodipine Besylate*) 10 Mg Tablet, 10 MG PO DAILY for 30 Days, #30 TAB Prov:CHRISTINE HERRERA MD 09/20/18 Ticagrelor* (Brilinta*) 90 Mg Tablet, 90 MG PO BID for 30 Days, #60 TAB 1 Refill Prov:CHRISTINE HERRERA MD 09/20/18 Duloxetine Hcl* (Cymbalta*) 30 Mg Capsule.dr, 30 MG PO DAILY for 30 Days, #30 CAP Prov:CHRISTINE HERRERA MD 09/20/18 Aspirin (Aspirin) 81 Mg Chew, 81 MG PO DAILY for 30 Days, #30 TAB 1 Refill Prov:CHRISTINE HERRERA MD 09/20/18 Atorvastatin* (Atorvastatin*) 80 Mg Tablet, 80 MG PO HS for 30 Days, #30 TAB 1 Refill Prov:CHRISTINE HERRERA MD 09/20/18 Ferrous Fumarate/Ascorbic Acid (Dino-Sequels 65-25 mg Caplet) 1 Each Tablet.er, 1 TAB PO DAILY for 30 Days, #30 TAB Prov:REBECCA POTTS MD 09/07/18 Reported Medications Buspirone Hcl* (Buspirone Hcl*) 10 Mg Tab, 10 MG PO BID, TAB 09/16/18 Nitroglycerin* (Nitrostat*) 0.4 Mg Tab.subl, 0.4 MG SL Q5MIN PRN for CHEST PAIN, BOTTLE 09/16/18 Discontinued Reported Medications Baclofen* (Baclofen*) 10 Mg Tablet, 10 MG PO TID, TAB 09/16/18 Discontinued Scripts Benazepril Hcl* (Benazepril Hcl*) 20 Mg Tablet, 20 MG PO DAILY for 30 Days, #30 TAB Prov:CHRISTINE HERRERA MD 09/20/18 Metoprolol Tartrate* (Lopressor*) 25 Mg Tab, 50 MG PO BID for 30 Days, #60 TAB 1 Refill Prov:REBECCA POTTS MD 09/07/18 Allergies Allergies: Coded Allergies: No Known Allergy (Unverified , 09/16/18) PMhx/Soc History of Surgery: Yes (Knee Sx) Anesthesia Reaction: No Hx Neurological Disorder: No Hx Respiratory Disorders: No Hx Cardiac Disorders: Yes Hx Psychiatric Problems: Yes Hx Miscellaneous Medical Probl: Yes (HTN , CAD , ANEMIA) Hx Alcohol Use: No Hx Substance Use: No Hx Tobacco Use: No Smoking Status: Never smoker FmHx Noncontributory for chief complaint Physical Exam Vitals Vital Signs Date Temp Pulse Resp B/P (MAP) Pulse Ox O2 O2 Flow FiO2 Time Delivery Rate 09/26/18 Nasal 2 09:08 Cannula 09/26/18 98.1 51 18 121/55 100 09:08 (77) Physical Exam GENERAL: Pale, ill-appearing male HEENT: Pupils equal, round, and reactive to light. EOMI. There is no scleral icterus. NECK: C-spine is soft and supple, there is no meningismus. There is no cervical lymphadenopathy. LUNGS: Clear to auscultation bilaterally. There are no rales, wheezes or rhonchi. HEART: Regular rate and rhythm, no murmurs, clicks, rubs or gallops. ABDOMEN: Soft, non-tender, non-distended. There are bowel sounds in all four quadrants. No rebound or guarding. EXTREMITIES: There is no peripheral cyanosis or edema. No focal swelling or erythema. NEURO: The patient moves all four extremities with 5/5 strength. Cranial nerves II - XII are intact. Normal gait. Alert and oriented SKIN: There is no apparent rash or petechiae. Pallor is noted HEME/LYMPHATIC: There is no evidence of excessive bruising or lymphedema. PSYCHIATRIC: The patient does not appear anxious or depressed. Result Diagram: 09/26/18907 Results 24 hrs Laboratory Tests Test 09/26/18 09:08 White Blood Count 9.5 10^3/ul Red Blood Count 2.07 10^6/ul Hemoglobin 5.2 g/dl Hematocrit 16.7 % Mean Corpuscular Volume 80.7 fl Mean Corpuscular Hemoglobin 25.1 pg Mean Corpuscular Hemoglobin Concent 31.1 g/dl Red Cell Distribution Width 19.5 % Platelet Count 393 10^3/UL Mean Platelet Volume 11.8 fl Immature Granulocytes % 2.200 % Neutrophils % 71.6 % Lymphocytes % 16.7 % Monocytes % 7.6 % Eosinophils % 1.3 % Basophils % 0.6 % Nucleated Red Blood Cells % 0.0 /100WBC Immature Granulocytes # 0.210 10^3/ul Neutrophils # 6.8 10^3/ul Lymphocytes # 1.6 10^3/ul Monocytes # 0.7 10^3/ul Eosinophils # 0.1 10^3/ul Basophils # 0.1 10^3/ul Nucleated Red Blood Cells # 0.0 10^3/ul Pathologist Review (Hematology) YES Current Medications Medications Dose Sig/Allison Start Time Status Last (Trade) Ordered Route PRN Stop Time Admin Dose Reason Admin Pantoprazole 100 ml @ ONCE STAT 09/26/18 DC 80 mg/Sodium 400 mls/hr IVPB 09:29 Chloride 09/26/18 09:43 Procedures/MDM Patient was taken to a room, seen and evaluated. Comfort measures were initiated. Diagnostic tests were ordered and reviewed. 3 LEAD RHYTHM STRIP: Normal sinus rhythm without ectopy EK lead EKG reviewed by myself: Normal Sinus Rhythm Normal [place] and intervals No ST elevation. There are T wave inversions laterally. Impression: Abnormal EKG concerning for lateral ischemia Repeat EKG interpreted by myself: Normal Sinus Rhythm Normal Roosevelt and intervals No ST elevation. There are T wave inversions laterally. Impression: Abnormal EKG concerning for lateral ischemia, unchanged from prior EKG RADIOLOGY: Reviewed with the radiologist CONSULTATION: Hospitalist was notified for admission Dr. Grajeda, who was the treating fireproof door maker was notified REEVALUATION: 0945: Initial diagnostic tests were appreciated and transfusion order was initiated. Patient remained him dynamically stable. MEDICAL DECISION MAKIN-year-old male presents with chest pain after recent cardiac stenting in the setting of a severe anemia. At this point, given his use of anticoagulants on the recent stenting, I am concerned about an occult GI bleed with now demand ischemia. Patient will require admission to the hospital for transfusion as well as cardiac monitoring. He appears high risk at this time given his severe anemia, need for emergent transfusion as well as concerns for cardiac ischemia. Anticoagulation is difficult with this patient given his recent stenting as well as transfusion requiring anemia. CRITICAL CARE: Time:>35 minutes Patient has a significant chance of clinical deterioration Treatments/Evaluations: Close monitoring and treatment of unstable vital signs, cardiorespiratory, and neurologic status, while maintaining tight balance of fluid, respiratory, and cardiac interventions. Departure Diagnosis: Primary Impression: Severe anemia Additional Impression: Coronary artery disease Condition: Serious [facility] September 26, 2018 09:50
[2018-09-26] MEDS ORDERED: AMOX1TAB10 PO (10:47)
[2018-09-26] MEDS ORDERED: DULO30CA45 PO (10:48)
[2018-09-26] MEDS ORDERED: METO-429 PO (10:48)
[2018-09-26] MEDS ORDERED: BACL10TA PO (10:49)
[2018-09-26] MEDS ORDERED: NITROGLYCERIN (SL) 0.4 MG TAB SL PRN (13:30)
[2018-09-26] MEDS ORDERED: NACL 0.9% 3 ML SYG IV SCH (17:30)
[2018-09-26 19:31] VITALS: PULSE 63
[2018-09-26 19:58] VITALS: PULSE 60
[2018-09-26 20:00] VITALS: BP 150/67; PULSE 65; RESP 20
[2018-09-26] MEDS: SOD CHLORIDE 0.9% 1,000 ML IV SCH (20:10)
[2018-09-26 21:14] VITALS: Ht 172.7 cm; Wt 93.8 kg
[2018-09-26] MEDS ORDERED: LORAZEPAM 2 MG INJ IV ONE (22:30)
[2018-09-26] MEDS: PANTOPRAZOLE IV 80 MG in SOD CHLORIDE 0.9% 100 ML IV SCH (23:10)
[2018-09-26 23:57] VITALS: BP 122/59; PULSE 61; RESP 20
[2018-09-27] VITALS (12 sets, daily range): BP systolic 136–159; BP diastolic 65–75; PULSE 57–150; RESP 20–22
[2018-09-27] MEDS ORDERED: LORAZEPAM 2 MG INJ IV ONE ×2 (05:30→22:00)
[2018-09-27] MEDS: SOD CHLORIDE 0.9% 1,000 ML IV SCH ×2 (05:56→13:11)
[2018-09-27] MEDS: PANTOPRAZOLE IV 80 MG in SOD CHLORIDE 0.9% 100 ML IV SCH ×2 (06:59→18:00)
[2018-09-27] MEDS: ONDANSETRON 4 MG INJ IV PRN (08:22)
[2018-09-27] MEDS: morphine 2 MG INJ IV PRN (08:23)
[2018-09-27] MEDS ORDERED: SOD CHLORIDE 0.9% 250 ML IV* ONE (08:58)
--- NOTE | 2018-09-27 12:41 | HP ---
Date/Time of Note Date/Time of Note DATE: 09/27/18 TIME: 12:35 Assessment/Plan VTE Prophylaxis Risk score (from [facility])>0 risk: 3 SCD applied (from [facility]): Yes Pharmacological prophylaxis: NA/contraindicated Pharm contraindication: bleeding Lines/Catheters IV Catheter Type (from [facility]): Peripheral IV Assessment/Plan Hospital Course 1. Symptomatic anemia secondary to acute blood loss from GI bleed Patient with recent PCI last week started on antiplatelet agents, patient with reports of melena and found to be severely anemic Hold aspirin and Plavix Transfuse 2 units of packed red blood cells Protonix drip GI consultation obtained 2. History of coronary disease status post recent PCI multiple stents placed Hold aspirin and Plavix, cardiology aware 3. Dyslipidemia Hold statin 4. Hypertension-BP stable Hold home meds Prophylaxis: SCDs Result Diagram: 09/27/1848 09/27/18 0548 Results 24hrs Laboratory Tests Test 09/26/18 15:21 09/26/18 22:17 09/27/18 05:48 Creatine Kinase 84 80 Creatine Kinase Index 3.9 4.0 Creatinine Kinase MB (Mass) 3.31 H 3.21 H Troponin I 0.025 0.027 White Blood Count 7.2 # Red Blood Count 2.48 L Hemoglobin 6.7 #*L Hematocrit 20.8 #L Mean Corpuscular Volume 83.9 Mean Corpuscular Hemoglobin 27.0 L Mean Corpuscular Hemoglobin Concent 32.2 Red Cell Distribution Width 17.2 H Platelet Count 286 # Mean Platelet Volume 11.0 H Immature Granulocytes % 3.200 H Neutrophils % Segmented Neutrophils % (Manual) 63 Lymphocytes % Lymphocytes % (Manual) 29 Monocytes % Monocytes % (Manual) 7 Eosinophils % Eosinophils % (Manual) 1 Basophils % Nucleated Red Blood Cells % 0.0 Immature Granulocytes # 0.230 H Neutrophils # Lymphocytes (Manual) 2.0 Lymphocytes # Monocytes # Monocytes # (Manual) 0.5 Eosinophils # Basophils # Nucleated Red Blood Cells # Platelet Estimate NORMAL Giant Platelets 1 H Polychromasia 3+ Poikilocytosis 1+ Anisocytosis 2+ Microcytosis 1+ Macrocytosis 1+ Sodium Level 144 Potassium Level 3.7 Chloride Level 118 H Carbon Dioxide Level 21 Anion Gap 5 Blood Urea Nitrogen 59 #H Creatinine 1.50 H Est Glomerular Filtrat Rate mL/min 47 L Glucose Level 96 # Hemoglobin A1c 6.1 H Calcium Level 8.1 L Phosphorus Level 3.6 Magnesium Level 2.2 Iron Level 14 L Total Iron Binding Capacity 316 Percent Iron Saturation 4 L Triglycerides Level 130 Cholesterol Level 72 L LDL Cholesterol, Calculated 26 HDL Cholesterol 20 L Cholesterol/HDL Ratio 3.6 HPI/ROS Admit Date/Time Admit Date/Time September 26, 2018 at 09:45 Hx of Present Illness Patient is a 67-year-old male with a history of hypertension, microcytic anemia, dyslipidemia and coronary artery disease with recent hospitalization and PCI with multiple stents placed in the LAD, OM and left circumflex as well as 3 stents placed in RCA. Patient was started on aspirin and Plavix and discharged stable condition. Patient now returns with lightheadedness that he reports having begun the day after his discharge. Patient does endorse dark in stool, patient denies any excessive NSAID use but did use ibuprofen one time. Patient denies any history of GI bleed, in the ER patient was noted to be severely anemic with hemoglobin of 5.2 and was transfused 2 units of packed red blood cells. Patient denies any abdominal pain or any other acute issues. ROS Constitutional: no complaints, improved Eyes: no complaints ENT: no complaints Respiratory: no complaints Cardiovascular: no complaints Gastrointestinal: blood Genitourinary: no complaints Musculoskeletal: no complaints Skin: no complaints Neurologic: no complaints Endocrine: no complaints Lymphatic: no complaints Psychological: no complaints, nl mood/affect Immunologic: no complaints PMH/Family/Social Past Medical History 1. CAD, s/p PTCA/stents at LAD, OM, and LCX on 09/17/2018, s/p RCA stentx3 on 09/18/2018 2. Hypertension 3. Dyslipidemia 4. Microcytic anemia Medications Current Medications Nitroglycerin (Nitroglycerin (Sl Tab) 0.4 Mg) 1 tab Q5M PRN SL ANGINA; Start 09/26/18 at 13:30 Sodium Chloride 1,000 ml @ 100 mls/hr Q10H IV Last administered on 09/27/18at 05:56; Admin Dose 100 MLS/HR; Start 09/26/18 at 17:11 IV Flush (NS 3 ml) 3 ml PER PROTOCOL IV ; Start 09/26/18 at 17:30 Ondansetron HCl (Zofran Inj) 4 mg Q6H PRN IV NAUSEA/VOMITING Last administered on 09/27/18at 08:22; Admin Dose 4 MG; Start 09/26/18 at 17:30 Morphine Sulfate (morphine) 2 mg Q4H PRN IV .SEVERE PAIN 7-10 Last administered on 09/27/18at 08:23; Admin Dose 2 MG; Start 09/26/18 at 17:30 Pantoprazole 80 mg/Sodium Chloride 100 ml @ 10 mls/hr Q10H IV Last administere d on 09/27/18at 06:59; Admin Dose 10 MLS/HR; Start 09/26/18 at 22:00 Ferric Sodium Gluconate Complex 125 mg/Sodium Chloride 100 ml @ 100 mls/hr DAILY@1300 IVPB ; Start 09/27/18 at 13:00; Stop 09/29/18 at 13:59 Coded Allergies: No Known Allergy (Unverified , 09/26/18) Family History Significant Family History: no pertinent family hx Social History Alcohol Use: rarely Smoking Status: Never smoker Drug Use: none Exam/Review of Systems Vital Signs Vitals Vital Signs Date Temp Pulse Resp B/P (MAP) Pulse Ox O2 O2 Flow FiO2 Time Delivery Rate 09/27/18 97.6 67 22 136/65 96 Room Air 11:30 (88) Nasal Cannula 09/27/18 2.0 07:30 Intake and Output 09/26/18 09/26/18 09/27/18 1515:00 23:00 07:00 IntakeIntake Total 0 ml OutputOutput Total 400 ml BalanceBalance -400 ml Exam Constitutional: alert, oriented Respiratory: clear to auscultation Cardiovascular: regular rate and rhythm Gastrointestinal: soft; No distended Musculoskeletal: nl extremities to inspection ADORE SHAH September 27, 2018 12:40
--- NOTE | 2018-09-27 13:00 | PN ---
Date/Time of Note Date/Time of Note DATE: 09/27/18 TIME: 12:54 Assessment/Plan VTE Prophylaxis Risk score (from [facility] [place])>0 risk: 3 SCD applied (from [facility] [place]): Yes Pharmacological prophylaxis: NA/contraindicated Pharm contraindication: bleeding Lines/Catheters IV Catheter Type (from [facility]): Peripheral IV Assessment/Plan Hospital Course 1. Symptomatic anemia secondary to acute blood loss from GI bleed Patient with recent PCI last week started on antiplatelet agents, patient with reports of melena and found to be severely anemic Hold aspirin and Plavix Transfused 2 units of packed red blood cells Patient with persistent anemia, transfuse another 2 units Protonix drip GI consultation obtained 2. History of coronary disease status post recent PCI multiple stents placed Hold aspirin and Plavix, cardiology aware 3. Dyslipidemia Hold statin 4. Hypertension-BP stable Hold home meds Prophylaxis: SCDs Result Diagram: 09/27/18 0548 09/27/18 0548 Results 24hrs Laboratory Tests Test 09/26/18 15:21 09/26/18 22:17 09/27/18 05:48 Creatine Kinase 84 80 Creatine Kinase Index 3.9 4.0 Creatinine Kinase MB (Mass) 3.31 H 3.21 H Troponin I 0.025 0.027 White Blood Count 7.2 # Red Blood Count 2.48 L Hemoglobin 6.7 #*L Hematocrit 20.8 #L Mean Corpuscular Volume 83.9 Mean Corpuscular Hemoglobin 27.0 L Mean Corpuscular Hemoglobin Concent 32.2 Red Cell Distribution Width 17.2 H Platelet Count 286 # Mean Platelet Volume 11.0 H Immature Granulocytes % 3.200 H Neutrophils % Segmented Neutrophils % (Manual) 63 Lymphocytes % Lymphocytes % (Manual) 29 Monocytes % Monocytes % (Manual) 7 Eosinophils % Eosinophils % (Manual) 1 Basophils % Nucleated Red Blood Cells % 0.0 Immature Granulocytes # 0.230 H Neutrophils # Lymphocytes (Manual) 2.0 Lymphocytes # Monocytes # Monocytes # (Manual) 0.5 Eosinophils # Basophils # Nucleated Red Blood Cells # Platelet Estimate NORMAL Giant Platelets 1 H Polychromasia 3+ Poikilocytosis 1+ Anisocytosis 2+ Microcytosis 1+ Macrocytosis 1+ Sodium Level 144 Potassium Level 3.7 Chloride Level 118 H Carbon Dioxide Level 21 Anion Gap 5 Blood Urea Nitrogen 59 #H Creatinine 1.50 H Est Glomerular Filtrat Rate mL/min 47 L Glucose Level 96 # Hemoglobin A1c 6.1 H Calcium Level 8.1 L Phosphorus Level 3.6 Magnesium Level 2.2 Iron Level 14 L Total Iron Binding Capacity 316 Percent Iron Saturation 4 L Triglycerides Level 130 Cholesterol Level 72 L LDL Cholesterol, Calculated 26 HDL Cholesterol 20 L Cholesterol/HDL Ratio 3.6 Subjective 24 Hr Interval Summary Constitutional: no complaints Exam/Review of Systems Exam Vitals Vital Signs Date Temp Pulse Resp B/P (MAP) Pulse Ox O2 O2 Flow FiO2 Time Delivery Rate 09/27/18 97.6 67 22 136/65 96 Room Air 11:30 (88) Nasal Cannula 09/27/18 2.0 07:30 Intake and Output 09/26/18 09/26/18 09/27/18 1515:00 23:00 07:00 IntakeIntake Total 0 ml OutputOutput Total 400 ml BalanceBalance -400 ml Constitutional: alert, oriented Respiratory: clear to auscultation Cardiovascular: regular rate and rhythm Gastrointestinal: soft; No distended Musculoskeletal: nl extremities to inspection Results Results 24hrs Laboratory Tests Test 09/26/18 15:21 09/26/18 22:17 09/27/18 05:48 Creatine Kinase 84 80 Creatine Kinase Index 3.9 4.0 Creatinine Kinase MB (Mass) 3.31 H 3.21 H Troponin I 0.025 0.027 White Blood Count 7.2 # Red Blood Count 2.48 L Hemoglobin 6.7 #*L Hematocrit 20.8 #L Mean Corpuscular Volume 83.9 Mean Corpuscular Hemoglobin 27.0 L Mean Corpuscular Hemoglobin Concent 32.2 Red Cell Distribution Width 17.2 H Platelet Count 286 # Mean Platelet Volume 11.0 H Immature Granulocytes % 3.200 H Neutrophils % Segmented Neutrophils % (Manual) 63 Lymphocytes % Lymphocytes % (Manual) 29 Monocytes % Monocytes % (Manual) 7 Eosinophils % Eosinophils % (Manual) 1 Basophils % Nucleated Red Blood Cells % 0.0 Immature Granulocytes # 0.230 H Neutrophils # Lymphocytes (Manual) 2.0 Lymphocytes # Monocytes # Monocytes # (Manual) 0.5 Eosinophils # Basophils # Nucleated Red Blood Cells # Platelet Estimate NORMAL Giant Platelets 1 H Polychromasia 3+ Poikilocytosis 1+ Anisocytosis 2+ Microcytosis 1+ Macrocytosis 1+ Sodium Level 144 Potassium Level 3.7 Chloride Level 118 H Carbon Dioxide Level 21 Anion Gap 5 Blood Urea Nitrogen 59 #H Creatinine 1.50 H Est Glomerular Filtrat Rate mL/min 47 L Glucose Level 96 # Hemoglobin A1c 6.1 H Calcium Level 8.1 L Phosphorus Level 3.6 Magnesium Level 2.2 Iron Level 14 L Total Iron Binding Capacity 316 Percent Iron Saturation 4 L Triglycerides Level 130 Cholesterol Level 72 L LDL Cholesterol, Calculated 26 HDL Cholesterol 20 L Cholesterol/HDL Ratio 3.6 Medications Medication Current Medications Nitroglycerin (Nitroglycerin (Sl Tab) 0.4 Mg) 1 tab Q5M PRN SL ANGINA; Start 09/26/18 at 13:30 Sodium Chloride 1,000 ml @ 100 mls/hr Q10H IV Last administered on 09/27/18at 05:56; Admin Dose 100 MLS/HR; Start 09/26/18 at 17:11 IV Flush (NS 3 ml) 3 ml PER PROTOCOL IV ; Start 09/26/18 at 17:30 Ondansetron HCl (Zofran Inj) 4 mg Q6H PRN IV NAUSEA/VOMITING Last administered on 09/27/18at 08:22; Admin Dose 4 MG; Start 09/26/18 at 17:30 Morphine Sulfate (morphine) 2 mg Q4H PRN IV .SEVERE PAIN 7-10 Last administered on 09/27/18at 08:23; Admin Dose 2 MG; Start 09/26/18 at 17:30 Pantoprazole 80 mg/Sodium Chloride 100 ml @ 10 mls/hr Q10H IV Last administered on 09/27/18at 06:59; Admin Dose 10 MLS/HR; Start 09/26/18 at 22:00 Ferric Sodium Gluconate Complex 125 mg/Sodium Chloride 100 ml @ 100 mls/hr DAILY@1300 IVPB ; Start 09/27/18 at 13:00; Stop 09/29/18 at 13:59 ADORE SHAH September 27, 2018 13:00
--- NOTE | 2018-09-27 13:45 | CONS ---
Assessment/Plan Assessment/Plan Hospital Course (Demo Recall) Summary Assessment and Plan: Assessment: Microcytic anemia Remote history of melena Coronary artery disease -Status post recent PCI with stent placement, multiple -Aspirin and Plavix currently on hold HTN Dyslipidemia History of DM- currently being treated with diet Renal [id number] per medical team Plan: Clear liquid diet Continue PPI gtt x24 hrs Plan for endoscopic evaluation in the near future Will obtain Cardiac clearance given recent stent placement Endoscopy - risks/benefits/alternatives/indications of procedure and sedation/anesthesia discussed with patient who states understanding and gives informed consent to proceed. Monitor for overt signs of GI bleed, continue to monitor H/H transfuse as needed Patient seen in collaboration with Dr. Barksdale CC: BEE BARKSDALE ; Consultation Date/Type/Reason Admit Date/Time September 26, 2018 at 09:45 Date of Consultation: September 27, 2018 Type of Consult GI Reason for Consultation Melena/Anemia Date/Time of Note DATE: 09/27/18 TIME: 13:16 Hx of Present Illness This is a 67-year-old male with past medical history of hypertension, dyslipidemia, CAD status post PCI with stent placement x1 week ago, diabetes currently controlled with diet. Who states post PCI and stent placement patient did have x2 episodes of black tarry stool after discharge while he was at home. He denies further episodes of overt signs of GI bleed but became progressively fatigued with generalized weakness. Patient presented to the hospital about 1 week after PCI and stent placement for weakness and fatigue with laboratory work-up patient noted to have microcytic anemia, severe he status post blood transfuse and with appropriate response increased from 5.2-6.8. 2 more units have been ordered. Patient states he is never had an upper endoscopy and his last colonoscopy was over 10 years ago is unclear of results. He denies unintentional weight loss, hematochezia, abdominal pain, nausea, or vomiting. Discussed plan for possible EGD and/or colonoscopy likely Saturday or Saturday given recent use of Plavix and aspirin (currently on hold). He verbalized understanding requested to his daughter I spoke to his daughter Stacie all questions answered discussed plan of care she verbalized understanding and also is agreeable. Review of Systems: A 12 system, review was conducted and is negative except as noted in the HPI or here. Past Medical History Home Meds Active Scripts Benazepril Hcl* (Benazepril Hcl*) 40 Mg Tablet, 40 MG PO DAILY for 30 Days, #30 TAB Prov:CHRISTINE HERRERA MD 09/21/18 Amlodipine Besylate* (Amlodipine Besylate*) 10 Mg Tablet, 10 MG PO DAILY for 30 Days, #30 TAB Prov:CHRISTINE HERRERA MD 09/20/18 Ticagrelor* (Brilinta*) 90 Mg Tablet, 90 MG PO BID for 30 Days, #60 TAB 1 Refill Prov:CHRISTINE HERRERA MD 09/20/18 Aspirin (Aspirin) 81 Mg Chew, 81 MG PO DAILY for 30 Days, #30 TAB 1 Refill Prov:CHRISTINE HERRERA MD 09/20/18 Atorvastatin* (Atorvastatin*) 80 Mg Tablet, 80 MG PO HS for 30 Days, #30 TAB 1 Refill Prov:CHRISTINE HERRERA MD 09/20/18 Reported Medications Baclofen* (Baclofen*) 10 Mg Tablet, 10 MG PO TID PRN for MUSCLE SPASMS, TAB 09/26/18 Duloxetine Hcl* (Cymbalta*) 30 Mg Capsule.dr, 30 MG PO BID, CAP 09/26/18 Metoprolol Tartrate* (Lopressor*) 50 Mg Tab, 50 MG PO BID, #60 TAB 09/26/18 Amoxicillin/Potassium Clav (Amox-Clav 875-125 mg Tablet) 875-125 mg Tab, 1 TAB PO BID, #20 TAB PT STARTED ON 09-22-18 FOR 7 DAYS 09/26/18 Buspirone Hcl* (Buspirone Hcl*) 10 Mg Tab, 10 MG PO BID, TAB 09/16/18 Nitroglycerin* (Nitrostat*) 0.4 Mg Tab.subl, 0.4 MG SL Q5MIN PRN for CHEST PAIN, BOTTLE 09/16/18 Discontinued Reported Medications Baclofen* (Baclofen*) 10 Mg Tablet, 10 MG PO TID, TAB 09/16/18 Discontinued Scripts Metoprolol Tartrate* (Lopressor*) 25 Mg Tablet, 25 MG PO BID for 30 Days, #60 TAB Prov:CHRISTINE HERRERA MD 09/21/18 Duloxetine Hcl* (Cymbalta*) 30 Mg Capsule.dr, 30 MG PO DAILY for 30 Days, #30 CAP Prov:CHRISTINE HERRERA MD 09/20/18 Ferrous Fumarate/Ascorbic Acid (Dino-Sequels 65-25 mg Caplet) 1 Each Tablet.er, 1 TAB PO DAILY for 30 Days, #30 TAB Prov:RBEECCA POTTS MD 09/07/18 Benazepril Hcl* (Benazepril Hcl*) 20 Mg Tablet, 20 MG PO DAILY for 30 Days, #30 TAB Prov:CHRISTINE HERRERA MD 09/20/18 Metoprolol Tartrate* (Lopressor*) 25 Mg Tab, 50 MG PO BID for 30 Days, #60 TAB 1 Refill Prov:REBECCA POTTS MD 09/07/18 Medications Current Medications Nitroglycerin (Nitroglycerin (Sl Tab) 0.4 Mg) 1 tab Q5M PRN SL ANGINA; Start 09/26/18 at 13:30 Sodium Chloride 1,000 ml @ 100 mls/hr Q10H IV Last administered on 09/27/18at 05:56; Admin Dose 100 MLS/HR; Start 09/26/18 at 17:11 IV Flush (NS 3 ml) 3 ml PER PROTOCOL IV ; Start 09/26/18 at 17:30 Ondansetron HCl (Zofran Inj) 4 mg Q6H PRN IV NAUSEA/VOMITING Last administered on 09/27/18at 08:22; Admin Dose 4 MG; Start 09/26/18 at 17:30 Morphine Sulfate (morphine) 2 mg Q4H PRN IV .SEVERE PAIN 7-10 Last administered on 09/27/18at 08:23; Admin Dose 2 MG; Start 09/26/18 at 17:30 Pantoprazole 80 mg/Sodium Chloride 100 ml @ 10 mls/hr Q10H IV Last administered on 09/27/18at 06:59; Admin Dose 10 MLS/HR; Start 09/26/18 at 22:00 Ferric Sodium Gluconate Complex 125 mg/Sodium Chloride 100 ml @ 100 mls/hr DAILY@1300 IVPB ; Start 09/27/18 at 13:00; Stop 09/29/18 at 13:59 Allergies: Coded Allergies: No Known Allergy (Unverified , 09/26/18) Social History Alcohol Use: rarely Smoking Status: Never smoker Drug Use: none Exam/Review of Systems Exam Vitals Vital Signs Date Temp Pulse Resp B/P (MAP) Pulse Ox O2 O2 Flow FiO2 Time Delivery Rate 09/27/18 97.6 67 22 136/65 96 Room Air 11:30 (88) Nasal Cannula 09/27/18 2.0 07:30 Intake and Output 09/26/18 09/26/18 09/27/18 1515:00 23:00 07:00 IntakeIntake Total 0 ml OutputOutput Total 400 ml BalanceBalance -400 ml Exam PHYSICAL EXAMINATION: GENERAL: Alert & oriented x 3, in no acute distress SKIN: No lesions HEAD: Normocephalic, atraumatic, no tenderness. EYES: Pupils equal reactive to light and accommodation, no discharge. EARS/NOSE AND THROAT: Ears normal, nose normal. NECK: Supple, no masses. CHEST: Inspection within normal limits. CARDIOVASCULAR: Heart: Regular rate and rhythm RESPIRATORY: Lungs clear to auscultation no rubs GASTROINTESTINAL AND LIVER: Abdomen: Soft, non tenderness, non-distended, no hernias, no masses, no organomegaly, no ascites, no guarding, no rebound tenderness, normoactive bowel sounds. Rectal: Deferred. EXTREMITIES: No cyanosis, clubbing or edema. Results Result Diagram: 09/27/18 0548 09/27/18 0548 Results 24hrs Laboratory Tests Test 09/26/18 15:21 09/26/18 22:17 09/27/18 05:48 Creatine Kinase 84 80 Creatine Kinase Index 3.9 4.0 Creatinine Kinase MB (Mass) 3.31 H 3.21 H Troponin I 0.025 0.027 White Blood Count 7.2 # Red Blood Count 2.48 L Hemoglobin 6.7 #*L Hematocrit 20.8 #L Mean Corpuscular Volume 83.9 Mean Corpuscular Hemoglobin 27.0 L Mean Corpuscular Hemoglobin Concent 32.2 Red Cell Distribution Width 17.2 H Platelet Count 286 # Mean Platelet Volume 11.0 H Immature Granulocytes % 3.200 H Neutrophils % Segmented Neutrophils % (Manual) 63 Lymphocytes % Lymphocytes % (Manual) 29 Monocytes % Monocytes % (Manual) 7 Eosinophils % Eosinophils % (Manual) 1 Basophils % Nucleated Red Blood Cells % 0.0 Immature Granulocytes # 0.230 H Neutrophils # Lymphocytes (Manual) 2.0 Lymphocytes # Monocytes # Monocytes # (Manual) 0.5 Eosinophils # Basophils # Nucleated Red Blood Cells # Platelet Estimate NORMAL Giant Platelets 1 H Polychromasia 3+ Poikilocytosis 1+ Anisocytosis 2+ Microcytosis 1+ Macrocytosis 1+ Sodium Level 144 Potassium Level 3.7 Chloride Level 118 H Carbon Dioxide Level 21 Anion Gap 5 Blood Urea Nitrogen 59 #H Creatinine 1.50 H Est Glomerular Filtrat Rate mL/min 47 L Glucose Level 96 # Hemoglobin A1c 6.1 H Calcium Level 8.1 L Phosphorus Level 3.6 Magnesium Level 2.2 Iron Level 14 L Total Iron Binding Capacity 316 Percent Iron Saturation 4 L Triglycerides Level 130 Cholesterol Level 72 L LDL Cholesterol, Calculated 26 HDL Cholesterol 20 L Cholesterol/HDL Ratio 3.6 Medications Medication Current Medications Nitroglycerin (Nitroglycerin (Sl Tab) 0.4 Mg) 1 tab Q5M PRN SL ANGINA; Start 09/26/18 at 13:30 Sodium Chloride 1,000 ml @ 100 mls/hr Q10H IV Last administered on 09/27/18at 05:56; Admin Dose 100 MLS/HR; Start 09/26/18 at 17:11 IV Flush (NS 3 ml) 3 ml PER PROTOCOL IV ; Start 09/26/18 at 17:30 Ondansetron HCl (Zofran Inj) 4 mg Q6H PRN IV NAUSEA/VOMITING Last administered on 09/27/18 08:22; Admin Dose 4 MG; Start 09/26/18 at 17:30 Morphine Sulfate (morphine) 2 mg Q4H PRN IV .SEVERE PAIN 7-10 Last administered on 09/27/18at 08:23; Admin Dose 2 MG; Start 09/26/18 at 17:30 Pantoprazole 80 mg/Sodium Chloride 100 ml @ 10 mls/hr Q10H IV Last administered on 09/27/18at 06:59; Admin Dose 10 MLS/HR; Start 09/26/18 at 22:00 Ferric Sodium Gluconate Complex 125 mg/Sodium Chloride 100 ml @ 100 mls/hr DAILY@1300 IVPB ; Start 09/27/18 at 13:00; Stop 09/29/18 at 13:59 OSCAR PIERCE September 27, 2018 13:26
--- NOTE | 2018-09-27 16:31 | CONS ---
Assessment/Plan Assessment/Plan Hospital Course (Demo Recall) IMP: 1. H/o stent to LAD/LCX/RCA with SHERRY 09/17-/09/18-neg trop x 3 2.HTN 3.Cardiomyopathy-EF 45-50 prior to stents 4.Anemia-severe 5.Melena 6.CKD Recc: -Tele -serial ecg's -continue totransfuse PRBC's as necessary -REsume asa/brilinta tori when safe for stent patency given very recent stenting high risk fo stent thrombosis -OK proceed with endoscopy moderate CV risk Consultation Date/Type/Reason Admit Date/Time September 26, 2018 at 09:45 Initial Consult Date 09/27/18 Type of Consult Cardiology Reason for Consultation Chest pain Requesting Provider: ADORE SHAH Date/Time of Note DATE: 09/27/18 TIME: 16:23 Exam/Review of Systems Vital Signs Vitals Vital Signs Date Temp Pulse Resp B/P (MAP) Pulse Ox O2 O2 Flow FiO2 Time Delivery Rate 09/27/18 97.8 74 22 154/70 96 Room Air 15:09 (98) 09/27/18 2.0 07:30 Intake and Output 09/26/18 09/26/18 09/27/18 1515:00 23:00 07:00 IntakeIntake Total 0 ml OutputOutput Total 400 ml BalanceBalance -400 ml Exam Exam Review of Systems: CONSTITUTIONAL: No fevers, chills. PULMONARY: No sob CARDIOVASCULAR: No chest pain/palpitations GASTROINTESTINAL: No nausea/vomiting. GENITOURINARY: No hematuria/dysuria. MUSCULOSKELETAL: No myagias/arthalgias. PSYCHIATRIC: The patient denies depression. NEUROLOGIC: No weakness Constitutional: alert Psych: no complaints Head: normocephalic ENMT: mucosa pink and moist Neck: supple, jvd (9 cm water) Respiratory: diminished breath sounds Cardiovascular: regular rate and rhythm Gastrointestinal: soft, non-tender Musculoskeletal: muscle tone (normal) Extremities: edema (none) Labs Result Diagram: 09/27/18 0548 09/27/18 0548 Results 24hrs Laboratory Tests Test 09/26/18 22:17 09/27/18 05:48 Creatine Kinase 80 Creatine Kinase Index 4.0 Creatinine Kinase MB (Mass) 3.21 H Troponin I 0.027 White Blood Count 7.2 # Red Blood Count 2.48 L Hemoglobin 6.7 #*L Hematocrit 20.8 #L Mean Corpuscular Volume 83.9 Mean Corpuscular Hemoglobin 27.0 L Mean Corpuscular Hemoglobin Concent 32.2 Red Cell Distribution Width 17.2 H Platelet Count 286 # Mean Platelet Volume 11.0 H Immature Granulocytes % 3.200 H Neutrophils % Segmented Neutrophils % (Manual) 63 Lymphocytes % Lymphocytes % (Manual) 29 Monocytes % Monocytes % (Manual) 7 Eosinophils % Eosinophils % (Manual) 1 Basophils % Nucleated Red Blood Cells % 0.0 Immature Granulocytes # 0.230 H Neutrophils # Lymphocytes (Manual) 2.0 Lymphocytes # Monocytes # Monocytes # (Manual) 0.5 Eosinophils # Basophils # Nucleated Red Blood Cells # Platelet Estimate NORMAL Giant Platelets 1 H Polychromasia 3+ Poikilocytosis 1+ Anisocytosis 2+ Microcytosis 1+ Macrocytosis 1+ Sodium Level 144 Potassium Level 3.7 Chloride Level 118 H Carbon Dioxide Level 21 Anion Gap 5 Blood Urea Nitrogen 59 #H Creatinine 1.50 H Est Glomerular Filtrat Rate mL/min 47 L Glucose Level 96 # Hemoglobin A1c 6.1 H Calcium Level 8.1 L Phosphorus Level 3.6 Magnesium Level 2.2 Iron Level 14 L Total Iron Binding Capacity 316 Percent Iron Saturation 4 L Triglycerides Level 130 Cholesterol Level 72 L LDL Cholesterol, Calculated 26 HDL Cholesterol 20 L Cholesterol/HDL Ratio 3.6 Medications Medications Current Medications Nitroglycerin (Nitroglycerin (Sl Tab) 0.4 Mg) 1 tab Q5M PRN SL ANGINA; Start 09/26/18 at 13:30 Sodium Chloride 1,000 ml @ 100 mls/hr Q10H IV Last administered on 09/27/18at 05:56; Admin Dose 100 MLS/HR; Start 09/26/18 at 17:11 IV Flush (NS 3 ml) 3 ml PER PROTOCOL IV ; Start 09/26/18 at 17:30 Ondansetron HCl (Zofran Inj) 4 mg Q6H PRN IV NAUSEA/VOMITING Last administered on 09/27/18at 08:22; Admin Dose 4 MG; Start 09/26/18 at 17:30 Morphine Sulfate (morphine) 2 mg Q4H PRN IV .SEVERE PAIN 7-10 Last administered on 09/27/18at 08:23; Admin Dose 2 MG; Start 09/26/18 at 17:30 Pantoprazole 80 mg/Sodium Chloride 100 ml @ 10 mls/hr Q10H IV Last admini stered on 09/27/18at 06:59; Admin Dose 10 MLS/HR; Start 09/26/18 at 22:00 Ferric Sodium Gluconate Complex 125 mg/Sodium Chloride 100 ml @ 100 mls/hr DAILY@1300 IVPB ; Start 09/27/18 at 13:00; Stop 09/29/18 at 13:59 RODDY OLSEN September 27, 2018 16:31
[2018-09-27] MEDS: SOD FERRIC GLUC COMPLX 125 MG in SOD CHLORIDE 0.9% 100 ML IVPB SCH (18:56)
--- NOTE | 2018-09-27 20:25 | RADRPT ---
Vent Rate: 74 bpm RR Interval: 808 msec VT Interval: 146 msec QRS Duration: 106 msec QT Interval: 402 msec QTC Interval: 447 msec P-R-T [place]: 52 - -15 - 67 degrees Sinus rhythm...normal P axis, V-rate 50- 99 Electronically Signed By: Teodoro Lujan
[2018-09-28] VITALS (9 sets, daily range): BP systolic 138–171; BP diastolic 72–78; PULSE 61–83; RESP 18–22
[2018-09-28] MEDS: SOD CHLORIDE 0.9% 1,000 ML IV SCH ×3 (01:19→20:33)
[2018-09-28] MEDS: PANTOPRAZOLE IV 80 MG in SOD CHLORIDE 0.9% 100 ML IV SCH ×2 (03:53→12:37)
[2018-09-28] MEDS: LORAZEPAM 2 MG INJ IV PRN ×2 (10:14→20:40)
[2018-09-28] MEDS ORDERED: LORAZEPAM 2 MG INJ IV ONE (11:30)
[2018-09-28] MEDS: SOD FERRIC GLUC COMPLX 125 MG in SOD CHLORIDE 0.9% 100 ML IVPB SCH (12:37)
--- NOTE | 2018-09-28 16:15 | CONS ---
Assessment/Plan Assessment/Plan Hospital Course (Demo Recall) IMP: 1. H/o stent to LAD/LCX/RCA with SHERRY 09/17-/09/18-neg trop x 3 2.HTN 3.Cardiomyopathy-EF 45-50 prior to stents 4.Anemia-improved s/p mutiple units of PRBC's 5.Melena 6.Renal failure- improcing with volume resuscitation/transfusions Recc: -Tele -serial ecg's -Transfuse further PRBC's as necessary -REsume asa/brilinta tori when safe for stent patency given very recent stenting high risk fo stent thrombosis which could likely be catastrophic -OK proceed with endoscopy moderate CV risk ? when endoscopy will be done as there is urgency in order ascertain etiology of bleed to allow resumption of antiplatelet agents tori Consultation Date/Type/Reason Admit Date/Time September 26, 2018 at 09:45 Initial Consult Date 09/27/18 Type of Consult Cardiology Reason for Consultation h/o stent Requesting Provider: ADORE SHAH Date/Time of Note DATE: 09/28/18 TIME: 16:12 Exam/Review of Systems Vital Signs Vitals Vital Signs Date Temp Pulse Resp B/P (MAP) Pulse Ox O2 O2 Flow FiO2 Time Delivery Rate 09/28/18 96.8 72 22 167/78 96 Nasal 2.0 15:45 (107) Cannula 09/28/18 27 02:04 Intake and Output 09/27/18 09/27/18 09/28/18 1515:00 23:00 07:00 IntakeIntake Total 2060 ml 1500 ml OutputOutput Total 650 ml 500 ml BalanceBalance 1410 ml 1000 ml Exam Exam Review of Systems: CONSTITUTIONAL: No fevers, chills. PULMONARY: No sob CARDIOVASCULAR: No chest pain/palpitations GASTROINTESTINAL: No nausea/vomiting. GENITOURINARY: No hematuria/dysuria. MUSCULOSKELETAL: No myagias/arthalgias. PSYCHIATRIC: The patient denies depression. NEUROLOGIC: No weakness Constitutional: alert Psych: no complaints Head: normocephalic ENMT: mucosa pink and moist Neck: supple, jvd (9 cm water) Respiratory: clear to auscultation Cardiovascular: regular rate and rhythm Gastrointestinal: soft, non-tender Musculoskeletal: muscle tone (normal) Extremities: edema (none) Labs Result Diagram: 09/28/18 0559 09/28/18 0559 Results 24hrs Laboratory Tests Test 09/28/18 05:59 White Blood Count 7.2 Red Blood Count 3.16 #L Hemoglobin 9.0 #L Hematocrit 27.4 #L Mean Corpuscular Volume 86.7 Mean Corpuscular Hemoglobin 28.5 L Mean Corpuscular Hemoglobin Concent 32.8 Red Cell Distribution Width 16.9 H Platelet Count 300 Mean Platelet Volume 10.7 H Immature Granulocytes % 2.400 H Neutrophils % 64.5 Lymphocytes % 18.7 Monocytes % 9.6 Eosinophils % 3.7 Basophils % 1.1 Nucleated Red Blood Cells % 0.4 H Immature Granulocytes # 0.170 H Neutrophils # 4.7 Lymphocytes # 1.4 Monocytes # 0.7 Eosinophils # 0.3 Basophils # 0.1 Nucleated Red Blood Cells # 0.0 Sodium Level 143 Potassium Level 3.7 Chloride Level 117 H Carbon Dioxide Level 19 L Anion Gap 7 Blood Urea Nitrogen 31 #H Creatinine 1.23 Est Glomerular Filtrat Rate mL/min 59 L Glucose Level 90 Calcium Level 7.8 L Total Bilirubin 0.7 Direct Bilirubin 0.00 Indirect Bilirubin 0.7 Aspartate Amino Transf (AST/SGOT) 16 Alanine Aminotransferase (ALT/SGPT) 37 Alkaline Phosphatase 91 Total Protein 5.4 L Albumin 2.7 L Globulin 2.70 Albumin/Globulin Ratio 1.00 Medications Medications Current Medications Nitroglycerin (Nitroglycerin (Sl Tab) 0.4 Mg) 1 tab Q5M PRN SL ANGINA; Start 09/26/18 at 13:30 Sodium Chloride 1,000 ml @ 100 mls/hr Q10H IV Last administered on 09/28/18at 10:19; Admin Dose 100 MLS/HR; Start 09/26/18 at 17:11 IV Flush (NS 3 ml) 3 ml PER PROTOCOL IV ; Start 09/26/18 at 17:30 Ondansetron HCl (Zofran Inj) 4 mg Q6H PRN IV NAUSEA/VOMITING Last administered on 09/27/18at 08:22; Admin Dose 4 MG; Start 09/26/18 at 17:30 Morphine Sulfate (morphine) 2 mg Q4H PRN IV .SEVERE PAIN 7-10 Last administered on 09/27/18at 08:23; Admin Dose 2 MG; Start 09/26/18 at 17:30 Pantoprazole 80 mg/Sodium Chloride 100 ml @ 10 mls/hr Q10H IV Last administered on 09/28/18at 12:37; Admin Dose 10 MLS/HR; Start 09/26/18 at 22:00 Ferric Sodium Gluconate Complex 125 mg/Sodium Chloride 100 ml @ 100 mls/hr DAILY@1300 IVPB Last administered on 09/28/18at 12:37; Admin Dose 100 MLS/HR; Start 09/27/18 at 13:00; Stop 09/29/18 at 13:59 Lorazepam (Ativan) 1 mg Q8H PRN IV ANXIETY Last administered on 09/28/18at 10:14; Admin Dose 1 MG; Start 09/28/18 at 08:30 RODDY OLSEN September 28, 2018 16:15
--- NOTE | 2018-09-28 16:34 | CONS ---
DATE OF ADMISSION: 09/26/2018 DATE OF CONSULTATION: 09/26/2018 REASON FOR CONSULTATION: Chest pain. History of stents, presented with gastrointestinal bleed, assess management. REQUESTING PHYSICIAN: Dr. Jonelle Olivia from the hospitalist service. HISTORY OF PRESENT ILLNESS: Mr. Fang is a 67-year-old male with a history of hypertension, dyslipidemia, diabetes mellitus, depression, recent [employer] and stent placement to LAD, circ and RCA, all with excellent result on the and then followed on September 18, who now represents with complaints of generalized weakness, palpitations and vague chest pain, generalized fatigue. Upon arrival, temperature of 98.1, blood pressure 121/55, pulse 90, satting 100%. The patient's labs are notable for white count of 9.5, hemoglobin 5.2, MCV of 80.7, platelet count 393. Sodium 144, potassium 4.4, creatinine was 1.67, BUN 90. Troponin negative. The patient's electrocardiogram reveals sinus bradycardia, rate of 48 with normal axis, normal intervals, lateral T-wave inversions, borderline voltage criteria for left ventricular hypertrophy. The patient is undergoing transfusion of packed RBCs at this time, states he took his aspirin and Brilinta this morning, denies ongoing chest pain at this time and is to be admitted to the ICU. PAST MEDICAL HISTORY: As above in HPI. MEDICATIONS PRIOR TO ADMIT: Currently not listed early CAD. MEDICATIONS PRIOR TO LISTIN. Augmentin 1 tab p.o. daily. 2. Brilinta 90 mg b.i.d. 3. Norvasc 10 mg daily. 4. Atorvastatin 80 mg at bedtime. 6. Metoprolol 50 mg b.i.d. 7. Nitroglycerin. 8. Aspirin 81 daily. 9. Buspirone 10 mg b.i.d. 10. Cymbalta 30 mg b.i.d. ALLERGIES: No known drug allergies. SOCIAL HISTORY: No current tobacco, ETOH or illicit drug use. FAMILY HISTORY: No history of sudden cardiac or early CAD. REVIEW OF SYSTEMS: As above in HPI. CONSTITUTIONAL: No fevers, chills. PULMONARY: Generalized shortness of breath, and generalized fatigue. CARDIOVASCULAR: Chest pain. GASTROINTESTINAL: No vomiting. Melena. GENITOURINARY: No hematuria. MUSCULOSKELETAL: Degenerative joint disease. PSYCHIATRIC: Depression. NEUROLOGIC: No documented CVA. PHYSICAL EXAMINATION: VITAL SIGNS: Temperature of 97.7, blood pressure 126/61, pulse is 54, respirations 16, satting 100%. GENERAL: The patient is alert, awake, in no acute distress. NECK: JVP approximately 8 cm of water. CHEST: Fair air movement throughout. HEART: Bradycardic, regular rhythm, normal S1, S2, I/ systolic murmur, nondisplaced PMI. ABDOMEN: Positive bowel sounds, soft. EXTREMITIES: No significant pitting edema, 1+ pulses, bilateral posterior tibial. LABORATORY DATA: As above in HPI. No further labs for my review at this time. IMAGING STUDIES: As above in HPI. No further imaging studies for my review at this time. ECG: As above in HPI. No further electrocardiograms for my review at this time. IMPRESSION: 1. History of percutaneous transluminal coronary angioplasty and stent placement to multiple vessels 09/2015, approximately 8 days prior. 2. Chest pain in the setting of severe anemia. 3. Anemia, severe, with melena by stools over the last 6 to 7 days per patient. 4. Hypertension, well controlled. 5. Bradycardia with stable blood pressure. 6. Acute renal failure. RECOMMENDATIONS: 1. At this time, would admit patient to telemetry or ICU to follow rhythm and rate closely. 2. We will complete the patient's rule out for myocardial infarction to ensure the patient's chest pain is not due to any acute coronary syndrome in the setting of severe anemia. 3. Would attempt to continue the patient's aspirin and Brilinta for severely needed placed stents as possible. 4. Continue the patient's current Norvasc. Would continue the patient on Benazepril as possible. Follow renal function closely. 5. Will decrease the patient's beta suri to half dose 25 b.i.d. given bradycardia and check a TSH to be sure subclinical hyporthyroid is not contributing to bouts of bradyarrhythmias. Continue the patient's high dose statin for now. 6. Transfuse packed RBCs. 7. Pending GI consultation for further evaluation of melena and severe anemia. Thank you for allowing me to take part in the care of this patient. I will continue to follow very closely with you with recommendations to be made as the patient through his inpatient hospital clinical course. Dictated By: RODDY POZO/ELDON Conf#: [id number] DID#: [id number] CC: JONELLE OLIVIA MD;*EndCC* MTDD
--- NOTE | 2018-09-28 18:02 | PN ---
Date/Time of Note Date/Time of Note DATE: 09/28/18 TIME: 17:59 Assessment/Plan VTE Prophylaxis Risk score (from Nsg)>0 risk: 3 SCD applied (from Nsg): Yes Pharmacological prophylaxis: other (scds) Lines/Catheters IV Catheter Type (from Nrs): Peripheral IV Assessment/Plan Hospital Course Summary Assessment and Plan: Assessment: Microcytic anemia- stable post blood transfusion Remote history of melena Coronary artery disease -Status post recent PCI with stent placement, multiple -Aspirin and Plavix currently on hold HTN Dyslipidemia History of DM- currently being treated with diet Renal [id number] per medical team Plan: Per Cardiology "OK proceed with endoscopy moderate CV risk ? when endoscopy will be done as there is urgency in order ascertain etiology of bleed to allow resumption of antiplatelet agents tori" After discussing this case with Dr Arboleda, my supervising physician, we will plan for EGD/colonoscopy Saturday per his instructions Full liquid diet today- clear liquids in am Change PPI to BID Endoscopy - risks/benefits/alternatives/indications of procedure and sedation/anesthesia discussed with patient who states understanding and gives informed consent to proceed. Monitor for overt signs of GI bleed, continue to monitor H/H transfuse as needed Patient seen in collaboration with Dr. Arboleda Subjective: Course reviewed with nursing staff Patient interviewed and examined All labs, imaging and other results reviewed The patient resting in bed, No over signs of GI bleed noted Patient responded appropriately to 2 units PRBC's No overt signs of GI bleed. No c/o n/v or abdominal pain Exam PHYSICAL EXAMINATION: GENERAL: Alert & oriented x 3, in no acute distress SKIN: No lesions HEAD: Normocephalic, atraumatic, no tenderness. EYES: Pupils equal reactive to light and accommodation, no discharge. EARS/NOSE AND THROAT: Ears normal, nose normal. NECK: Supple, no masses. CHEST: Inspection within normal limits. CARDIOVASCULAR: Heart: Regular rate and rhythm RESPIRATORY: Lungs clear to auscultation no rubs GASTROINTESTINAL AND LIVER: Abdomen: Soft, non tenderness, non-distended, no hernias, no masses, no organomegaly, no ascites, no guarding, no rebound tenderness, normoactive bowel sounds. Rectal: Deferred. EXTREMITIES: No cyanosis, clubbing or edema. Result Diagram: 09/28/1859 09/28/1859 Results 24hrs Laboratory Tests Test 09/28/18 05:59 White Blood Count 7.2 Red Blood Count 3.16 #L Hemoglobin 9.0 #L Hematocrit 27.4 #L Mean Corpuscular Volume 86.7 Mean Corpuscular Hemoglobin 28.5 L Mean Corpuscular Hemoglobin Concent 32.8 Red Cell Distribution Width 16.9 H Platelet Count 300 Mean Platelet Volume 10.7 H Immature Granulocytes % 2.400 H Neutrophils % 64.5 Lymphocytes % 18.7 Monocytes % 9.6 Eosinophils % 3.7 Basophils % 1.1 Nucleated Red Blood Cells % 0.4 H Immature Granulocytes # 0.170 H Neutrophils # 4.7 Lymphocytes # 1.4 Monocytes # 0.7 Eosinophils # 0.3 Basophils # 0.1 Nucleated Red Blood Cells # 0.0 Sodium Level 143 Potassium Level 3.7 Chloride Level 117 H Carbon Dioxide Level 19 L Anion Gap 7 Blood Urea Nitrogen 31 #H Creatinine 1.23 Est Glomerular Filtrat Rate mL/min 59 L Glucose Level 90 Calcium Level 7.8 L Total Bilirubin 0.7 Direct Bilirubin 0.00 Indirect Bilirubin 0.7 Aspartate Amino Transf (AST/SGOT) 16 Alanine Aminotransferase (ALT/SGPT) 37 Alkaline Phosphatase 91 Total Protein 5.4 L Albumin 2.7 L Globulin 2.70 Albumin/Globulin Ratio 1.00 Exam/Review of Systems Exam Vitals Vital Signs Date Temp Pulse Resp B/P (MAP) Pulse Ox O2 O2 Flow FiO2 Time Delivery Rate 09/28/18 71 17:08 09/28/18 96.8 22 167/78 96 Nasal 2.0 15:45 (107) Cannula 09/28/18 27 02:04 Intake and Output 09/27/18 09/27/18 09/28/18 1515:00 23:00 07:00 IntakeIntake Total 2060 ml 1500 ml OutputOutput Total 650 ml 500 ml BalanceBalance 1410 ml 1000 ml Results Results 24hrs Laboratory Tests Test 09/28/18 05:59 White Blood Count 7.2 Red Blood Count 3.16 #L Hemoglobin 9.0 #L Hematocrit 27.4 #L Mean Corpuscular Volume 86.7 Mean Corpuscular Hemoglobin 28.5 L Mean Corpuscular Hemoglobin Concent 32.8 Red Cell Distribution Width 16.9 H Platelet Count 300 Mean Platelet Volume 10.7 H Immature Granulocytes % 2.400 H Neutrophils % 64.5 Lymphocytes % 18.7 Monocytes % 9.6 Eosinophils % 3.7 Basophils % 1.1 Nucleated Red Blood Cells % 0.4 H Immature Granulocytes # 0.170 H Neutrophils # 4.7 Lymphocytes # 1.4 Monocytes # 0.7 Eosinophils # 0.3 Basophils # 0.1 Nucleated Red Blood Cells # 0.0 Sodium Level 143 Potassium Level 3.7 Chloride Level 117 H Carbon Dioxide Level 19 L Anion Gap 7 Blood Urea Nitrogen 31 #H Creatinine 1.23 Est Glomerular Filtrat Rate mL/min 59 L Glucose Level 90 Calcium Level 7.8 L Total Bilirubin 0.7 Direct Bilirubin 0.00 Indirect Bilirubin 0.7 Aspartate Amino Transf (AST/SGOT) 16 Alanine Aminotransferase (ALT/SGPT) 37 Alkaline Phosphatase 91 Total Protein 5.4 L Albumin 2.7 L Globulin 2.70 Albumin/Globulin Ratio 1.00 Medications Medication Current Medications Nitroglycerin (Nitroglycerin (Sl Tab) 0.4 Mg) 1 tab Q5M PRN SL ANGINA; Start 09/26/18 at 13:30 Sodium Chloride 1,000 ml @ 100 mls/hr Q10H IV Last administered on 09/28/18at 10:19; Admin Dose 100 MLS/HR; Start 09/26/18 at 17:11 IV Flush (NS 3 ml) 3 ml PER PROTOCOL IV ; Start 09/26/18 at 17:30 Ondansetron HCl (Zofran Inj) 4 mg Q6H PRN IV NAUSEA/VOMITING Last administered on 09/27/18 08:22; Admin Dose 4 MG; Start 09/26/18 at 17:30 Morphine Sulfate (morphine) 2 mg Q4H PRN IV .SEVERE PAIN 7-10 Last administered on 09/27/18at 08:23; Admin Dose 2 MG; Start 09/26/18 at 17:30 Pantoprazole 80 mg/Sodium Chloride 100 ml @ 10 mls/hr Q10H IV Last administered on 09/28/18 12:37; Admin Dose 10 MLS/HR; Start 09/26/18 at 22:00 Ferric Sodium Gluconate Complex 125 mg/Sodium Chloride 100 ml @ 100 mls/hr DAILY@1300 IVPB Last administered on 09/28/18at 12:37; Admin Dose 100 MLS/HR; Start 09/27/18 at 13:00; Stop 09/29/18 at 13:59 Lorazepam (Ativan) 1 mg Q8H PRN IV ANXIETY Last administered on 09/28/18at 10:14; Admin Dose 1 MG; Start 09/28/18 at 08:30 OSCAR PIERCE September 28, 2018 18:02
[2018-09-28] MEDS: PANTOPRAZOLE 40 MG INJ IV SCH (18:10)
--- NOTE | 2018-09-28 18:59 | PN ---
Date/Time of Note Date/Time of Note DATE: 09/28/18 TIME: 18:55 Assessment/Plan VTE Prophylaxis Risk score (from Ns)>0 risk: 3 [place] [facility] [place] Pharmacological prophylaxis: NA/contraindicated Pharm contraindication: bleeding Lines/Catheters IV C[facility] Type (from [facility]): Peripheral IV Assessment/Plan Hospital Course 1. Symptomatic anemia secondary to acute blood loss from GI bleed Patient with recent PCI last week started on antiplatelet agents, patient with reports of melena and found to be severely anemic Hold aspirin and Plavix Status post 4 units of packed red cells, hemoglobin is stable Continue Ferrlecit Protonix 40 mg IV twice daily GI consultation appreciated, EGD in the coming days 2. History of coronary disease status post recent PCI multiple stents placed Hold aspirin and Plavix, cardiology aware Cardiology consultation appreciated 3. Dyslipidemia Hold statin 4. Hypertension-BP stable Hold home meds 5. Anxiety Ativan as needed Prophylaxis: SCDs DC planning: EGD in the coming days Result Diagram: 09/28/18 0559 09/28/18 0559 Results 24hrs Laboratory Tests Test 09/28/18 05:59 White Blood Count 7.2 Red Blood Count 3.16 #L Hemoglobin 9.0 #L Hematocrit 27.4 #L Mean Corpuscular Volume 86.7 Mean Corpuscular Hemoglobin 28.5 L Mean Corpuscular Hemoglobin Concent 32.8 Red Cell Distribution Width 16.9 H Platelet Count 300 Mean Platelet Volume 10.7 H Immature Granulocytes % 2.400 H Neutrophils % 64.5 Lymphocytes % 18.7 Monocytes % 9.6 Eosinophils % 3.7 Basophils % 1.1 Nucleated Red Blood Cells % 0.4 H Immature Granulocytes # 0.170 H Neutrophils # 4.7 Lymphocytes # 1.4 Monocytes # 0.7 Eosinophils # 0.3 Basophils # 0.1 Nucleated Red Blood Cells # 0.0 Sodium Level 143 Potassium Level 3.7 Chloride Level 117 H Carbon Dioxide Level 19 L Anion Gap 7 Blood Urea Nitrogen 31 #H Creatinine 1.23 Est Glomerular Filtrat Rate mL/min 59 L Glucose Level 90 Calcium Level 7.8 L Total Bilirubin 0.7 Direct Bilirubin 0.00 Indirect Bilirubin 0.7 Aspartate Amino Transf (AST/SGOT) 16 Alanine Aminotransferase (ALT/SGPT) 37 Alkaline Phosphatase 91 Total Protein 5.4 L Albumin 2.7 L Globulin 2.70 Albumin/Globulin Ratio 1.00 Subjective 24 Hr Interval Summary Psychological: anxiety Exam/Review of Systems Exam Vitals Vital Signs Date Temp Pulse Resp B/P (MAP) Pulse Ox O2 O2 Flow FiO2 Time Delivery Rate 09/28/18 71 17:08 09/28/18 96.8 22 167/78 96 Nasal 2.0 15:45 (107) Cannula 09/28/18 27 02:04 Intake and Output 09/27/18 09/27/18 09/28/18 1515:00 23:00 07:00 IntakeIntake Total 2060 ml 1500 ml OutputOutput Total 650 ml 500 ml BalanceBalance 1410 ml 1000 ml Constitutional: alert, oriented Respiratory: clear to auscultation Cardiovascular: regular rate and rhythm Gastrointestinal: soft; No distended Musculoskeletal: nl extremities to inspection Results Results 24hrs Laboratory Tests Test 09/28/18 05:59 White Blood Count 7.2 Red Blood Count 3.16 #L Hemoglobin 9.0 #L Hematocrit 27.4 #L Mean Corpuscular Volume 86.7 Mean Corpuscular Hemoglobin 28.5 L Mean Corpuscular Hemoglobin Concent 32.8 Red Cell Distribution Width 16.9 H Platelet Count 300 Mean Platelet Volume 10.7 H Immature Granulocytes % 2.400 H Neutrophils % 64.5 Lymphocytes % 18.7 Monocytes % 9.6 Eosinophils % 3.7 Basophils % 1.1 Nucleated Red Blood Cells % 0.4 H Immature Granulocytes # 0.170 H Neutrophils # 4.7 Lymphocytes # 1.4 Monocytes # 0.7 Eosinophils # 0.3 Basophils # 0.1 Nucleated Red Blood Cells # 0.0 Sodium Level 143 Potassium Level 3.7 Chloride Level 117 H Carbon Dioxide Level 19 L Anion Gap 7 Blood Urea Nitrogen 31 #H Creatinine 1.23 Est Glomerular Filtrat Rate mL/min 59 L Glucose Level 90 Calcium Level 7.8 L Total Bilirubin 0.7 Direct Bilirubin 0.00 Indirect Bilirubin 0.7 Aspartate Amino Transf (AST/SGOT) 16 Alanine Aminotransferase (ALT/SGPT) 37 Alkaline Phosphatase 91 Total Protein 5.4 L Albumin 2.7 L Globulin 2.70 Albumin/Globulin Ratio 1.00 Medications Medication Current Medications Nitroglycerin (Nitroglycerin (Sl Tab) 0.4 Mg) 1 tab Q5M PRN SL ANGINA; Start 09/26/18 at 13:30 Sodium Chloride 1,000 ml @ 100 mls/hr Q10H IV Last administered on 09/28/18 10:19; Admin Dose 100 MLS/HR; Start 09/26/18 at 17:11 IV Flush (NS 3 ml) 3 ml PER PROTOCOL IV ; Start 09/26/18 at 17:30 Ondansetron HCl (Zofran Inj) 4 mg Q6H PRN IV NAUSEA/VOMITING Last administered on 09/27/18 08:22; Admin Dose 4 MG; Start 09/26/18 at 17:30 Morphine Sulfate (morphine) 2 mg Q4H PRN IV .SEVERE PAIN 7-10 Last administered on 09/27/18 08:23; Admin Dose 2 MG; Start 09/26/18 at 17:30 Ferric Sodium Gluconate Complex 125 mg/Sodium Chloride 100 ml @ 100 mls/hr DAILY@1300 IVPB Last administered on 09/28/18 12:37; Admin Dose 100 MLS/HR; Start 09/27/18 at 13:00; Stop 09/29/18 at 13:59 Lorazepam (Ativan) 1 mg Q8H PRN IV ANXIETY Last administered on 09/28/18 10:14; Admin Dose 1 MG; Start 09/28/18 at 08:30 Pantoprazole (Protonix Iv) 40 mg BID@06,18 IV Last administered on 09/28/18 18:10; Admin Dose 40 MG; Start 09/28/18 at 18:00 ADORE SHAH September 28, 2018 18:59
[2018-09-29] VITALS (11 sets, daily range): BP systolic 139–178; BP diastolic 66–81; PULSE 61–96; RESP 18–20
[2018-09-29] MEDS: LORAZEPAM 2 MG INJ IV PRN (04:53)
[2018-09-29] MEDS: SOD CHLORIDE 0.9% 1,000 ML IV SCH (05:27)
[2018-09-29] MEDS: PANTOPRAZOLE 40 MG INJ IV SCH ×2 (05:27→17:52)
[2018-09-29] MEDS ORDERED: hydrALAzine 20 MG INJ IV ONE (06:00)
[2018-09-29] MEDS: DULOXETINE 30 MG CAP DR PO SCH ×2 (09:27→20:32)
[2018-09-29] MEDS ORDERED: BISACODYL (EC) 5 MG TAB PO ONE (10:30)
[2018-09-29] MEDS: BENAZEPRIL 40 MG TAB PO SCH (11:00)
--- NOTE | 2018-09-29 11:59 | PN ---
Date/Time of Note Date/Time of Note DATE: 09/29/18 TIME: 11:57 Assessment/Plan VTE Prophylaxis Risk score (from Ns)>0 risk: 3 SCD applied (from Ns): Yes Pharmacological prophylaxis: other (scds) Lines/Catheters IV Catheter Type (from [email or web address] Peripheral IV Assessment/Plan Hospital Course Summary Assessment and Plan: Assessment: Microcytic anemia- stable post blood transfusion Remote history of melena Coronary artery disease -Status post recent PCI with stent placement, multiple -Aspirin and Plavix currently on hold HTN Dyslipidemia History of DM- currently being treated with diet Renal aqapzrzyvyeyk-ewik-ow per medical team Plan: Per Cardiology "OK proceed with endoscopy moderate CV risk ? when endoscopy will be done as there is urgency in order ascertain etiology of bleed to allow resumption of antiplatelet agents tori" Clear liquid diet today Start prep EGD/Colonoscopy tomorrow Change PPI to BID Monitor for overt signs of GI bleed, continue to monitor H/H transfuse as needed Patient seen in collaboration with Dr. Arboleda Subjective: Course reviewed with nursing staff Patient interviewed and examined All labs, imaging and other results reviewed No over night events. No overt signs of GI bleed Discussed plan- pt agrees. No c/o n/v or abd pain Exam PHYSICAL EXAMINATION: GENERAL: Alert & oriented x 3, in no acute distress SKIN: No lesions HEAD: Normocephalic, atraumatic, no tenderness. EYES: Pupils equal reactive to light and accommodation, no discharge. EARS/NOSE AND THROAT: Ears normal, nose normal. NECK: Supple, no masses. CHEST: Inspection within normal limits. CARDIOVASCULAR: Heart: Regular rate and rhythm RESPIRATORY: Lungs clear to auscultation no rubs GASTROINTESTINAL AND LIVER: Abdomen: Soft, non tenderness, non-distended, no hernias, no masses, no organomegaly, no ascites, no guarding, no rebound tenderness, normoactive bowel sounds. Rectal: Deferred. EXTREMITIES: No cyanosis, clubbing or edema. Result Diagram: 09/29/18 0542 09/29/18 0542 Results 24hrs Laboratory Tests Test 09/28/18 19:01 09/29/18 05:42 Prothrombin Time 15.1 H Prothrombin Time Ratio 1.2 INR International Normalized Ratio 1.18 White Blood Count 6.5 Red Blood Count 3.03 L Hemoglobin 8.6 L Hematocrit 25.9 L Mean Corpuscular Volume 85.5 Mean Corpuscular Hemoglobin 28.4 L Mean Corpuscular Hemoglobin Concent 33.2 Red Cell Distribution Width 17.2 H Platelet Count 316 Mean Platelet Volume 10.5 H Immature Granulocytes % 2.100 H Neutrophils % 64.9 Lymphocytes % 18.3 Monocytes % 9.2 Eosinophils % 4.6 Basophils % 0.9 Nucleated Red Blood Cells % 0.5 H Immature Granulocytes # 0.140 H Neutrophils # 4.2 Lymphocytes # 1.2 Monocytes # 0.6 Eosinophils # 0.3 Basophils # 0.1 Nucleated Red Blood Cells # 0.0 Sodium Level 142 Potassium Level 3.7 Chloride Level 115 H Carbon Dioxide Level 21 Anion Gap 6 Blood Urea Nitrogen 18 # Creatinine 1.20 Est Glomerular Filtrat Rate mL/min > 60 Glucose Level 91 Calcium Level 7.8 L Exam/Review of Systems Exam Vitals Vital Signs Date Temp Pulse Resp B/P (MAP) Pulse Ox O2 O2 Flow FiO2 Time Delivery Rate 09/29/18 98.3 95 20 142/74 97 11:41 (96) 09/29/18 Room Air 04:00 09/29/18 2.0 27 02:33 Intake and Output 09/28/18 09/28/18 09/29/18 1515:00 23:00 07:00 IntakeIntake Total 3080 ml 1600 ml OutputOutput Total 950 ml 850 ml BalanceBalance 2130 ml 750 ml Results Results 24hrs Laboratory Tests Test 09/28/18 19:01 09/29/18 05:42 Prothrombin Time 15.1 H Prothrombin Time Ratio 1.2 INR International Normalized Ratio 1.18 White Blood Count 6.5 Red Blood Count 3.03 L Hemoglobin 8.6 L Hematocrit 25.9 L Mean Corpuscular Volume 85.5 Mean Corpuscular Hemoglobin 28.4 L Mean Corpuscular Hemoglobin Concent 33.2 Red Cell Distribution Width 17.2 H Platelet Count 316 Mean Platelet Volume 10.5 H Immature Granulocytes % 2.100 H Neutrophils % 64.9 Lymphocytes % 18.3 Monocytes % 9.2 Eosinophils % 4.6 Basophils % 0.9 Nucleated Red Blood Cells % 0.5 H Immature Granulocytes # 0.140 H Neutrophils # 4.2 Lymphocytes # 1.2 Monocytes # 0.6 Eosinophils # 0.3 Basophils # 0.1 Nucleated Red Blood Cells # 0.0 Sodium Level 142 Potassium Level 3.7 Chloride Level 115 H Carbon Dioxide Level 21 Anion Gap 6 Blood Urea Nitrogen 18 # Creatinine 1.20 Est Glomerular Filtrat Rate mL/min > 60 Glucose Level 91 Calcium Level 7.8 L Medications Medication Current Medications Nitroglycerin (Nitroglycerin (Sl Tab) 0.4 Mg) 1 tab Q5M PRN SL ANGINA; Start 09/26/18 at 13:30 Sodium Chloride 1,000 ml @ 100 mls/hr Q10H IV Last administered on 09/29/18 05:27; Admin Dose 100 MLS/HR; Start 09/26/18 at 17:11 IV Flush (NS 3 ml) 3 ml PER PROTOCOL IV ; Start 09/26/18 at 17:30 Ondansetron HCl (Zofran Inj) 4 mg Q6H PRN IV NAUSEA/VOMITING Last administered on 09/27/18 08:22; Admin Dose 4 MG; Start 09/26/18 at 17:30 Morphine Sulfate (morphine) 2 mg Q4H PRN IV .SEVERE PAIN 7-10 Last administered on 09/27/18 08:23; Admin Dose 2 MG; Start 09/26/18 at 17:30 Ferric Sodium Gluconate Complex 125 mg/Sodium Chloride 100 ml @ 100 mls/hr DAILY@1300 IVPB Last administered on 09/28/18at 12:37; Admin Dose 100 MLS/HR; Start 09/27/18 at 13:00; Stop 09/29/18 at 13:59 Lorazepam (Ativan) 1 mg Q8H PRN IV ANXIETY Last administered on 09/29/18 04:53; Admin Dose 1 MG; Start 09/28/18 at 08:30 Pantoprazole (Protonix Iv) 40 mg BID@06,18 IV Last administered on 09/29/18 05:27; Admin Dose 40 MG; Start 09/28/18 at 18:00 Duloxetine HCl (Cymbalta) 30 mg BID PO Last administered on 09/29/18 09:27; Admin Dose 30 MG; Start 09/29/18 at 09:30 Benazepril HCl (Lotensin) 40 mg DAILY PO Last administered on 09/29/18at 11:00; Admin Dose 40 MG; Start 09/29/18 at 09:30 Magnesium Citrate (Citroma) 300 ml ONCE ONCE PO ; Start 09/29/18 at 17:30; Stop 09/29/18 at 17:31 Polyethylene Glycol (Miralax) 119 gm ONCE ONCE PO ; Start 09/29/18 at 18:30; Stop 09/29/18 at 18:31 Polyethylene Glycol (Miralax) 119 gm 2ND DOSE (GI PREP) ONCE PO ; Start 09/30/18 at 06:00; Stop 09/30/18 at 06:01 Bisacodyl (Dulcolax) 10 mg 2ND DOSE (GI PREP) ONCE PO ; Start 09/30/18 at 08:00; Stop 09/30/18 at 08:01 OSCAR PIERCE September 29, 2018 11:59
--- NOTE | 2018-09-29 12:31 | CONS ---
Assessment/Plan Assessment/Plan Hospital Course (Demo Recall) IMP: 1. H/o stent to LAD/LCX/RCA with SHERRY 09/17-/09/18-neg trop x 3 2.HTN 3.Cardiomyopathy-EF 45-50 prior to stents 4.Anemia-improved s/p mutiple units of PRBC's 5.Melena 6.Renal failure- improcing with volume resuscitation/transfusions Recc: -Tele -serial ecg's -Transfuse further PRBC's as necessary -REsume asa/brilinta tori when safe for stent patency given very recent stenting high risk fo stent thrombosis which could likely be catastrophic -OK proceed with endoscopy moderate CV risk ? when endoscopy will be done as there is urgency in order ascertain etiology of bleed to allow resumption of antiplatelet agents tori, Still awaiting procedure to be done and am very concerned about maintaining patient off of antiplatelet agents. Patient now cleared for surgery for several days. Consultation Date/Type/Reason Admit Date/Time September 26, 2018 at 09:45 Initial Consult Date 09/27/18 Type of Consult Cardiology Reason for Consultation s/p stent Requesting Provider: ADORE SHAH Date/Time of Note DATE: 09/29/18 TIME: 12:29 Exam/Review of Systems Vital Signs Vitals Vital Signs Date Temp Pulse Resp B/P (MAP) Pulse Ox O2 O2 Flow FiO2 Time Delivery Rate 09/29/18 98.3 95 20 142/74 97 11:41 (96) 09/29/18 Room Air 04:00 09/29/18 2.0 27 02:33 Intake and Output 09/28/18 09/28/18 09/29/18 1515:00 23:00 07:00 IntakeIntake Total 3080 ml 1600 ml OutputOutput Total 950 ml 850 ml BalanceBalance 2130 ml 750 ml Exam Exam Review of Systems: CONSTITUTIONAL: No fevers, chills. PULMONARY: No sob CARDIOVASCULAR: No chest pain/palpitations GASTROINTESTINAL: No nausea/vomiting. GENITOURINARY: No hematuria/dysuria. MUSCULOSKELETAL: No myagias/arthalgias. PSYCHIATRIC: The patient denies depression. NEUROLOGIC: No weakness Constitutional: alert Psych: no complaints Head: normocephalic ENMT: mucosa pink and moist Neck: supple, jvd (9 cm water) Respiratory: diminished breath sounds Cardiovascular: regular rate and rhythm Gastrointestinal: soft, non-tender Musculoskeletal: muscle tone (normal) Extremities: edema (none) Labs Result Diagram: 09/29/18 0542 09/29/18 0542 Results 24hrs Laboratory Tests Test 09/28/18 19:01 09/29/18 05:42 Prothrombin Time 15.1 H Prothrombin Time Ratio 1.2 INR International Normalized Ratio 1.18 White Blood Count 6.5 Red Blood Count 3.03 L Hemoglobin 8.6 L Hematocrit 25.9 L Mean Corpuscular Volume 85.5 Mean Corpuscular Hemoglobin 28.4 L Mean Corpuscular Hemoglobin Concent 33.2 Red Cell Distribution Width 17.2 H Platelet Count 316 Mean Platelet Volume 10.5 H Immature Granulocytes % 2.100 H Neutrophils % 64.9 Lymphocytes % 18.3 Monocytes % 9.2 Eosinophils % 4.6 Basophils % 0.9 Nucleated Red Blood Cells % 0.5 H Immature Granulocytes # 0.140 H Neutrophils # 4.2 Lymphocytes # 1.2 Monocytes # 0.6 Eosinophils # 0.3 Basophils # 0.1 Nucleated Red Blood Cells # 0.0 Sodium Level 142 Potassium Level 3.7 Chloride Level 115 H Carbon Dioxide Level 21 Anion Gap 6 Blood Urea Nitrogen 18 # Creatinine 1.20 Est Glomerular Filtrat Rate mL/min > 60 Glucose Level 91 Calcium Level 7.8 L Medications Medications Current Medications Nitroglycerin (Nitroglycerin (Sl Tab) 0.4 Mg) 1 tab Q5M PRN SL ANGINA; Start 09/26/18 at 13:30 Sodium Chloride 1,000 ml @ 100 mls/hr Q10H IV Last administered on 09/29/18at 05:27; Admin Dose 100 MLS/HR; Start 09/26/18 at 17:11 IV Flush (NS 3 ml) 3 ml PER PROTOCOL IV ; Start 09/26/18 at 17:30 Ondansetron HCl (Zofran Inj) 4 mg Q6H PRN IV NAUSEA/VOMITING Last administered on 09/27/18at 08:22; Admin Dose 4 MG; Start 09/26/18 at 17:30 Morphine Sulfate (morphine) 2 mg Q4H PRN IV .SEVERE PAIN 7-10 Last administered on 09/27/18at 08:23; Admin Dose 2 MG; Start 09/26/18 at 17:30 Ferric Sodium Gluconate Complex 125 mg/Sodium Chloride 100 ml @ 100 mls/hr DAILY@1300 IVPB Last administered on 09/28/18at 12:37; Admin Dose 100 MLS/HR; Start 09/27/18 at 13:00; Stop 09/29/18 at 13:59 Lorazepam (Ativan) 1 mg Q8H PRN IV ANXIETY Last administered on 09/29/18at 04:53; Admin Dose 1 MG; Start 09/28/18 at 08:30 Pantoprazole (Protonix Iv) 40 mg BID@06,18 IV Last administered on 09/29/18at 05:27; Admin Dose 40 MG; Start 09/28/18 at 18:00 Duloxetine HCl (Cymbalta) 30 mg BID PO Last administered on 09/29/18at 09:27; Admin Dose 30 MG; Start 09/29/18 at 09:30 Benazepril HCl (Lotensin) 40 mg DAILY PO Last administered on 09/29/18at 11:00; Admin Dose 40 MG; Start 09/29/18 at 09:30 Magnesium Citrate (Citroma) 300 ml ONCE ONCE PO ; Start 09/29/18 at 17:30; Stop 09/29/18 at 17:31 Polyethylene Glycol (Miralax) 119 gm ONCE ONCE PO ; Start 09/29/18 at 18:30; Stop 09/29/18 at 18:31 Polyethylene Glycol (Miralax) 119 gm 2ND DOSE (GI PREP) ONCE PO ; Start 09/30/18 at 06:00; Stop 09/30/18 at 06:01 Bisacodyl (Dulcolax) 10 mg 2ND DOSE (GI PREP) ONCE PO ; Start 09/30/18 at 08:00; Stop 09/30/18 at 08:01 RODDY OLSEN September 29, 2018 12:31
[2018-09-29] MEDS: SOD FERRIC GLUC COMPLX 125 MG in SOD CHLORIDE 0.9% 100 ML IVPB SCH (12:54)
[2018-09-29] MEDS: HYDROCODONE/APAP (5/325) TAB PO PRN (15:05)
--- NOTE | 2018-09-29 17:24 | PN ---
Date/Time of Note Date/Time of Note DATE: 09/29/18 TIME: 17:16 Assessment/Plan VTE Prophylaxis Risk score (from Ns)>0 risk: 3 SCD applied (from Ns): Yes Pharmacological prophylaxis: heparin Lines/Catheters IV Catheter Type (from Nrs): Peripheral IV Assessment/Plan Hospital Course Well appearing No distress RRR CTAB Soft nt nd wwp no cce A/P: 67 yo male with CAD adn recent PCI presents wtih melena and acute blood loss anemia - Endoscopy per GI - Iron supplmeentation if needed CAD: - Hold DAPT, resume as soon as possible Result Diagram: 09/29/1842 09/29/18 0542 Results 24hrs Laboratory Tests Test 09/28/18 19:01 09/29/18 05:42 Prothrombin Time 15.1 H Prothrombin Time Ratio 1.2 INR International Normalized Ratio 1.18 White Blood Count 6.5 Red Blood Count 3.03 L Hemoglobin 8.6 L Hematocrit 25.9 L Mean Corpuscular Volume 85.5 Mean Corpuscular Hemoglobin 28.4 L Mean Corpuscular Hemoglobin Concent 33.2 Red Cell Distribution Width 17.2 H Platelet Count 316 Mean Platelet Volume 10.5 H Immature Granulocytes % 2.100 H Neutrophils % 64.9 Lymphocytes % 18.3 Monocytes % 9.2 Eosinophils % 4.6 Basophils % 0.9 Nucleated Red Blood Cells % 0.5 H Immature Granulocytes # 0.140 H Neutrophils # 4.2 Lymphocytes # 1.2 Monocytes # 0.6 Eosinophils # 0.3 Basophils # 0.1 Nucleated Red Blood Cells # 0.0 Sodium Level 142 Potassium Level 3.7 Chloride Level 115 H Carbon Dioxide Level 21 Anion Gap 6 Blood Urea Nitrogen 18 # Creatinine 1.20 Est Glomerular Filtrat Rate mL/min > 60 Glucose Level 91 Calcium Level 7.8 L Subjective 24 Hr Interval Summary Free Text/Dictation Having headche No more melena Exam/Review of Systems Exam Vitals Vital Signs Date Temp Pulse Resp B/P (MAP) Pulse Ox O2 O2 Flow FiO2 Time Delivery Rate 09/29/18 79 16:00 09/29/18 98.6 20 156/77 98 15:31 (103) 09/29/18 Room Air 04:00 09/29/18 2.0 27 02:33 Intake and Output 09/28/18 09/28/18 09/29/18 1515:00 23:00 07:00 IntakeIntake Total 3080 ml 1600 ml OutputOutput Total 950 ml 850 ml BalanceBalance 2130 ml 750 ml Results Results 24hrs Laboratory Tests Test 09/28/18 19:01 09/29/18 05:42 Prothrombin Time 15.1 H Prothrombin Time Ratio 1.2 INR International Normalized Ratio 1.18 White Blood Count 6.5 Red Blood Count 3.03 L Hemoglobin 8.6 L Hematocrit 25.9 L Mean Corpuscular Volume 85.5 Mean Corpuscular Hemoglobin 28.4 L Mean Corpuscular Hemoglobin Concent 33.2 Red Cell Distribution Width 17.2 H Platelet Count 316 Mean Platelet Volume 10.5 H Immature Granulocytes % 2.100 H Neutrophils % 64.9 Lymphocytes % 18.3 Monocytes % 9.2 Eosinophils % 4.6 Basophils % 0.9 Nucleated Red Blood Cells % 0.5 H Immature Granulocytes # 0.140 H Neutrophils # 4.2 Lymphocytes # 1.2 Monocytes # 0.6 Eosinophils # 0.3 Basophils # 0.1 Nucleated Red Blood Cells # 0.0 Sodium Level 142 Potassium Level 3.7 Chloride Level 115 H Carbon Dioxide Level 21 Anion Gap 6 Blood Urea Nitrogen 18 # Creatinine 1.20 Est Glomerular Filtrat Rate mL/min > 60 Glucose Level 91 Calcium Level 7.8 L Medications Medication Current Medications Nitroglycerin (Nitroglycerin (Sl Tab) 0.4 Mg) 1 tab Q5M PRN SL ANGINA; Start 09/26/18 at 13:30 IV Flush (NS 3 ml) 3 ml PER PROTOCOL IV ; Start 09/26/18 at 17:30 Ondansetron HCl (Zofran Inj) 4 mg Q6H PRN IV NAUSEA/VOMITING Last administered on 09/27/18at 08:22; Admin Dose 4 MG; Start 09/26/18 at 17:30 Morphine Sulfate (morphine) 2 mg Q4H PRN IV .SEVERE PAIN 7-10 Last administered on 09/27/18at 08:23; Admin Dose 2 MG; Start 09/26/18 at 17:30 Lorazepam (Ativan) 1 mg Q8H PRN IV ANXIETY Last administered on 09/29/18at 04:53; Admin Dose 1 MG; Start 09/28/18 at 08:30 Pantoprazole (Protonix Iv) 40 mg BID@06,18 IV Last administered on 09/29/18at 05:27; Admin Dose 40 MG; Start 09/28/18 at 18:00 Duloxetine HCl (Cymbalta) 30 mg BID PO Last administered on 09/29/18at 09:27; Admin Dose 30 MG; Start 09/29/18 at 09:30 Benazepril HCl (Lotensin) 40 mg DAILY PO Last administered on 09/29/18at 11:00; Admin Dose 40 MG; Start 09/29/18 at 09:30 Magnesium Citrate (Citroma) 300 ml ONCE ONCE PO ; Start 09/29/18 at 17:30; Stop 09/29/18 at 17:31 Polyethylene Glycol (Miralax) 119 gm ONCE ONCE PO ; Start 09/29/18 at 18:30; Stop 09/29/18 at 18:31 Polyethylene Glycol (Miralax) 119 gm 2ND DOSE (GI PREP) ONCE PO ; Start 09/30/18 at 06:00; Stop 09/30/18 at 06:01 Bisacodyl (Dulcolax) 10 mg 2ND DOSE (GI PREP) ONCE PO ; Start 09/30/18 at 08:00; Stop 09/30/18 at 08:01 Acetaminophen/ Hydrocodone Bitart ([place] (5/325)) 1 tab Q6H PRN PO MODERATE PAIN LEVEL 4-6 Last administered on 09/29/18at 15:05; Admin Dose 1 TAB; Start 09/29/18 at 15:[address] MD September 29, 2018 17:24
[2018-09-29] MEDS ORDERED: MAGNESIUM CITRATE 300 ML BTL PO ONE (17:30)
[2018-09-29] MEDS ORDERED: POLYETHYLENE GLYCOL 3350 119 GM POWDER PO ONE (18:30)
[2018-09-30] VITALS (16 sets, daily range): BP systolic 130–176; BP diastolic 63–86; PULSE 65–103; RESP 16–28
[2018-09-30] MEDS: hydrALAzine 20 MG INJ IV PRN (01:03)
[2018-09-30] MEDS: morphine 2 MG INJ IV PRN (02:32)
[2018-09-30] MEDS: PANTOPRAZOLE 40 MG INJ IV SCH ×2 (05:20→19:01)
[2018-09-30] MEDS ORDERED: POLYETHYLENE GLYCOL 3350 119 GM POWDER PO ONE (06:00)
[2018-09-30] MEDS ORDERED: BISACODYL (EC) 5 MG TAB PO ONE (08:00)
[2018-09-30] MEDS: DULOXETINE 30 MG CAP DR PO SCH ×2 (08:45→21:52)
[2018-09-30] MEDS: BENAZEPRIL 40 MG TAB PO SCH (08:45)
--- NOTE | 2018-09-30 09:26 | CONS ---
Consult Date/Type/Reason Admit Date/Time September 26, 2018 at 09:45 Initial Consult Date 09/27/18 Requesting Provider: ADORE SHAH Date/Time of Note DATE: 09/30/18 TIME: 09:24 Subjective NO acute events - no obvious active bleed noted - H/H stable - no CP now. ROS: No fever, no chills, no nausea, no vomiting, no diarrhea/constipation No recent weight changes No chest pain, no PND, no orthopnea - improved fatigue, mild SOB No dizziness, blurred vision No thirst, no heat or cold intolerance Objective Vitals Vital Signs Date Temp Pulse Resp B/P (MAP) Pulse Ox O2 O2 Flow FiO2 Time Delivery Rate 09/30/18 98.5 98 18 160/75 94 07:26 (103) 09/30/18 2.0 06:15 09/29/18 Room Air 04:00 09/29/18 02:33 Intake and Output 09/29/18 09/29/18 09/30/18 1515:00 23:00 07:00 IntakeIntake Total 450 ml 2500 ml OutputOutput Total 900 ml 2200 ml BalanceBalance -450 ml 300 ml Exam General: WN/WD/NAD, AOx 3 HEENT: Unicetric/atraumatic/EOMI (follows commands) NECK: JVD elevated, no thyromegaly Lymph: no lymphadenopathy HEART: regular with no S3, II/ systolic murmur at apex LUNGS: Coarse sounds ABD: soft, NT, ND, +BS : Intact Neuro: non focal SKIN: chronic changes EXT: trace edema Results/Medications Result Diagram: 09/29/18 0542 09/29/18 0542 Home Meds Active Scripts Benazepril Hcl* (Benazepril Hcl*) 40 Mg Tablet, 40 MG PO DAILY for 30 Days, #30 TAB Prov:CHRISTINE HERRERA MD 09/21/18 Amlodipine Besylate* (Amlodipine Besylate*) 10 Mg Tablet, 10 MG PO DAILY for 30 Days, #30 TAB Prov:CHRISTINE HERRERA MD 09/20/18 Ticagrelor* (Brilinta*) 90 Mg Tablet, 90 MG PO BID for 30 Days, #60 TAB 1 Refill Prov:CHRISTINE HERRERA MD 09/20/18 Aspirin (Aspirin) 81 Mg Chew, 81 MG PO DAILY for 30 Days, #30 TAB 1 Refill Prov:CHRISTINE HERRERA MD 09/20/18 Atorvastatin* (Atorvastatin*) 80 Mg Tablet, 80 MG PO HS for 30 Days, #30 TAB 1 Refill Prov:CHRISTINE HERRERA MD 09/20/18 Reported Medications Baclofen* (Baclofen*) 10 Mg Tablet, 10 MG PO TID PRN for MUSCLE SPASMS, TAB 09/26/18 Duloxetine Hcl* (Cymbalta*) 30 Mg Capsule.dr, 30 MG PO BID, CAP 09/26/18 Metoprolol Tartrate* (Lopressor*) 50 Mg Tab, 50 MG PO BID, #60 TAB 09/26/18 Amoxicillin/Potassium Clav (Amox-Clav 875-125 mg Tablet) 875-125 mg Tab, 1 TAB PO BID, #20 TAB PT STARTED ON 09-22-18 FOR 7 DAYS 09/26/18 Buspirone Hcl* (Buspirone Hcl*) 10 Mg Tab, 10 MG PO BID, TAB 09/16/18 Nitroglycerin* (Nitrostat*) 0.4 Mg Tab.subl, 0.4 MG SL Q5MIN PRN for CHEST PAIN, BOTTLE 09/16/18 Discontinued Scripts Metoprolol Tartrate* (Lopressor*) 25 Mg Tablet, 25 MG PO BID for 30 Days, #60 TAB Prov:CHRISTINE HERRERA MD 09/21/18 Duloxetine Hcl* (Cymbalta*) 30 Mg Capsule.dr, 30 MG PO DAILY for 30 Days, #30 CAP Prov:CHRISTINE HERRERA MD 09/20/18 Ferrous Fumarate/Ascorbic Acid (Dino-Sequels 65-25 mg Caplet) 1 Each Tablet.er, 1 TAB PO DAILY for 30 Days, #30 TAB Prov:REBECCA POTTS MD 09/07/18 Medications Current Medications Nitroglycerin (Nitroglycerin (Sl Tab) 0.4 Mg) 1 tab Q5M PRN SL ANGINA; Start 09/26/18 at 13:30 IV Flush (NS 3 ml) 3 ml PER PROTOCOL IV ; Start 09/26/18 at 17:30 Ondansetron HCl (Zofran Inj) 4 mg Q6H PRN IV NAUSEA/VOMITING Last administered on 09/27/18at 08:22; Admin Dose 4 MG; Start 09/26/18 at 17:30 Morphine Sulfate (morphine) 2 mg Q4H PRN IV .SEVERE PAIN 7-10 Last administered on 09/30/18 02:32; Admin Dose 2 MG; Start 09/26/18 at 17:30 Lorazepam (Ativan) 1 mg Q8H PRN IV ANXIETY Last administered on 09/29/18 04:53; Admin Dose 1 MG; Start 09/28/18 at 08:30 Pantoprazole (Protonix Iv) 40 mg BID@06,18 IV Last administered on 09/30/18 05:20; Admin Dose 40 MG; Start 09/28/18 at 18:00 Duloxetine HCl (Cymbalta) 30 mg BID PO Last administered on 09/30/18 08:45; Admin Dose 30 MG; Start 09/29/18 at 09:30 Benazepril HCl (Lotensin) 40 mg DAILY PO Last administered on 09/30/18 08:45; Admin Dose 40 MG; Start 09/29/18 at 09:30 Acetaminophen/ Hydrocodone Bitart ([place] (5/325)) 1 tab Q6H PRN PO MODERATE PAIN LEVEL 4-6 Last administered on 09/29/18 15:05; Admin Dose 1 TAB; Start 09/29/18 at 15:00 Hydralazine HCl (Apresoline) 10 mg Q4H PRN IV bp Last administered on 09/30/18 01:03; Admin Dose 10 MG; Start 09/30/18 at 00:30 Assessment/Plan Hospital Course (Demo Recall) 1. H/o stent to LAD/LCX/RCA with SHERRY 09/17-/09/18-neg trop x 3 - per Dr. Lujan - REsume asa/brilinta tori when safe for stent patency given very recent stenting high risk fo stent thrombosis which could likely be catastrophic - GI to clear. 2.HTN - on high side, will allow for now given recent bleed 3.Cardiomyopathy-EF 45-50 prior to stents - keep euvolemc 4.Anemia-improved s/p mutiple units of PRBC's - will follow , h/H 8.6 now. 5.Melena 6.Renal failure- improcing with volume resuscitation/transfusions LIV DARLING MD September 30, 2018 09:26
[2018-09-30] MEDS: LORAZEPAM 2 MG INJ IV PRN ×2 (14:43→22:18)
--- NOTE | 2018-09-30 16:01 | PN ---
Date/Time of Note Date/Time of Note DATE: 09/30/18 TIME: 15:58 Assessment/Plan VTE Prophylaxis Risk score (from Ns)>0 risk: 2 SCD applied (from Ns): Yes Pharmacological prophylaxis: heparin Lines/Catheters IV Catheter Type (from Nrsg): [place] Assessment/Plan Hospital Course Well appearing No distress RRR CTAB Soft nt nd wwp no cce A/P: 67 yo male with CAD adn recent PCI presents wtih melena and acute blood loss anemia - Endoscopy per GI - Iron supplmeentation if needed - PPI CAD: - Hold DAPT, resume as soon as possible Result Diagram: 09/29/1842 09/29/1842 Subjective 24 Hr Interval Summary Free Text/Dictation No further melena Awaiting endoscopy Exam/Review of Systems Exam Vitals Vital Signs Date Temp Pulse Resp B/P (MAP) Pulse Ox O2 O2 Flow FiO2 Time Delivery Rate 09/30/18 98.9 82 19 160/78 98 15:16 (105) 09/30/18 2.0 06:15 09/29/18 Room Air 04:00 09/29/18 27 02:33 Intake and Output 09/29/18 09/29/18 09/30/18 1515:00 23:00 07:00 IntakeIntake Total 450 ml 2500 ml OutputOutput Total 900 ml 2200 ml BalanceBalance -450 ml 300 ml Medications Medication Current Medications Nitroglycerin (Nitroglycerin (Sl Tab) 0.4 Mg) 1 tab Q5M PRN SL ANGINA; Start 09/26/18 at 13:30 IV Flush (NS 3 ml) 3 ml PER PROTOCOL IV ; Start 09/26/18 at 17:30 Ondansetron HCl (Zofran Inj) 4 mg Q6H PRN IV NAUSEA/VOMITING Last administered on 09/27/18at 08:22; Admin Dose 4 MG; Start 09/26/18 at 17:30 Morphine Sulfate (morphine) 2 mg Q4H PRN IV .SEVERE PAIN 7-10 Last administered on 09/30/18at 02:32; Admin Dose 2 MG; Start 09/26/18 at 17:30 Lorazepam (Ativan) 1 mg Q8H PRN IV ANXIETY Last administered on 09/30/18at 14:43; Admin Dose 1 MG; Start 09/28/18 at 08:30 Pantoprazole (Protonix Iv) 40 mg BID@06,18 IV Last administered on 09/30/18 05:20; Admin Dose 40 MG; Start 09/28/18 at 18:00 Duloxetine HCl (Cymbalta) 30 mg BID PO Last administered on 09/30/18 08:45; Admin Dose 30 MG; Start 09/29/18 at 09:30 Benazepril HCl (Lotensin) 40 mg DAILY PO Last administered on 09/30/18 08:45; Admin Dose 40 MG; Start 09/29/18 at 09:30 Acetaminophen/ Hydrocodone Bitart ([place] (5/325)) 1 tab Q6H PRN PO MODERATE PAIN LEVEL 4-6 Last administered on 09/29/18 15:05; Admin Dose 1 TAB; Start 09/29/18 at 15:00 Hydralazine HCl (Apresoline) 10 mg Q4H PRN IV bp Last administered on 09/30/18 01:03; Admin Dose 10 MG; Start 09/30/18 at 00:[address]REETER MD September 30, 2018 16:01
--- NOTE | 2018-09-30 16:02 | PREAC ---
Date/Time of Note Date/Time of Note DATE: 09/30/18 TIME: 16:00 Anesthesia Eval and Record Evaluation Time Pre-Procedure Interview DATE: 09/30/18 TIME: 16:00 Age 67 Sex male NPO: 8 hrs Preoperative diagnosis Anemia Planned procedure EGD, colonoscopy Past Medical History Past Medical History: Includes Cardio: HTN, Dyslipidemia, CAD, PTCA/Stent GI: Obesity Heme: Anemia Surgery & Anesthesia Issues No known issue Meds Anticoagulation: No Beta Lior within 24 hr: No Reason Beta Lior not given: Pt. not on B-Lior Active Scripts Benazepril Hcl* (Benazepril Hcl*) 40 Mg Tablet, 40 MG PO DAILY for 30 Days, #30 TAB Prov:CHRISTINE HERRERA MD 09/21/18 Amlodipine Besylate* (Amlodipine Besylate*) 10 Mg Tablet, 10 MG PO DAILY for 30 Days, #30 TAB Prov:CHRISTINE HERRERA MD 09/20/18 Ticagrelor* (Brilinta*) 90 Mg Tablet, 90 MG PO BID for 30 Days, #60 TAB 1 Refill Prov:CHRISTINE HERRERA MD 09/20/18 Aspirin (Aspirin) 81 Mg Chew, 81 MG PO DAILY for 30 Days, #30 TAB 1 Refill Prov:CHRISTINE HERRERA MD 09/20/18 Atorvastatin* (Atorvastatin*) 80 Mg Tablet, 80 MG PO HS for 30 Days, #30 TAB 1 Refill Prov:CHRISTINE HERRERA MD 09/20/18 Reported Medications Baclofen* (Baclofen*) 10 Mg Tablet, 10 MG PO TID PRN for MUSCLE SPASMS, TAB 09/26/18 Duloxetine Hcl* (Cymbalta*) 30 Mg Capsule.dr, 30 MG PO BID, CAP 09/26/18 Metoprolol Tartrate* (Lopressor*) 50 Mg Tab, 50 MG PO BID, #60 TAB 09/26/18 Amoxicillin/Potassium Clav (Amox-Clav 875-125 mg Tablet) 875-125 mg Tab, 1 TAB PO BID, #20 TAB PT STARTED ON 09-22-18 FOR 7 DAYS 09/26/18 Buspirone Hcl* (Buspirone Hcl*) 10 Mg Tab, 10 MG PO BID, TAB 09/16/18 Nitroglycerin* (Nitrostat*) 0.4 Mg Tab.subl, 0.4 MG SL Q5MIN PRN for CHEST PAIN, BOTTLE 09/16/18 Discontinued Scripts Metoprolol Tartrate* (Lopressor*) 25 Mg Tablet, 25 MG PO BID for 30 Days, #60 TAB Prov:CHRISTINE HERRERA MD 09/21/18 Duloxetine Hcl* (Cymbalta*) 30 Mg Capsule.dr, 30 MG PO DAILY for 30 Days, #30 CAP Prov:CHRISTINE HERRERA MD 09/20/18 Ferrous Fumarate/Ascorbic Acid (Dino-Sequels 65-25 mg Caplet) 1 Each Tablet.er, 1 TAB PO DAILY for 30 Days, #30 TAB Prov:REBECCA POTTS MD 09/07/18 Current Medications Nitroglycerin (Nitroglycerin (Sl Tab) 0.4 Mg) 1 tab Q5M PRN SL ANGINA; Start 09/26/18 at 13:30 IV Flush (NS 3 ml) 3 ml PER PROTOCOL IV ; Start 09/26/18 at 17:30 Ondansetron HCl (Zofran Inj) 4 mg Q6H PRN IV NAUSEA/VOMITING Last administered on 09/27/18at 08:22; Admin Dose 4 MG; Start 09/26/18 at 17:30 Morphine Sulfate (morphine) 2 mg Q4H PRN IV .SEVERE PAIN 7-10 Last administered on 09/30/18at 02:32; Admin Dose 2 MG; Start 09/26/18 at 17:30 Lorazepam (Ativan) 1 mg Q8H PRN IV ANXIETY Last administered on 09/30/18at 14:43; Admin Dose 1 MG; Start 09/28/18 at 08:30 Pantoprazole (Protonix Iv) 40 mg BID@06,18 IV Last administered on 09/30/18at 05:20; Admin Dose 40 MG; Start 09/28/18 at 18:00 Duloxetine HCl (Cymbalta) 30 mg BID PO Last administered on 09/30/18at 08:45; Admin Dose 30 MG; Start 09/29/18 at 09:30 Benazepril HCl (Lotensin) 40 mg DAILY PO Last administered on 09/30/18at 08:45; Admin Dose 40 MG; Start 09/29/18 at 09:30 Acetaminophen/ Hydrocodone Bitart ([place] (5/325)) 1 tab Q6H PRN PO MODERATE PAIN LEVEL 4-6 Last administered on 09/29/18at 15:05; Admin Dose 1 TAB; Start 09/29/18 at 15:00 Hydralazine HCl (Apresoline) 10 mg Q4H PRN IV bp Last administered on 09/30/18at 01:03; Admin Dose 10 MG; Start 09/30/18 at 00:30 Meds reviewed: Yes Allergies Coded Allergies: No Known Allergy (Unverified , 09/26/18) Allergies Reviewed: Yes Labs/Studies Labs Reviewed: Reviewed by anesthesiologist Result Diagram: 09/29/18 0542 09/29/1842 test: N/A Pre-procedure Exam Last vitals Vital Signs Date Temp Pulse Resp B/P (MAP) Pulse Ox O2 O2 Flow FiO2 Time Delivery Rate 09/30/18 98.9 82 19 160/78 98 15:16 (105) 09/30/18 2.0 06:15 09/29/18 Room Air 04:00 09/29/18 27 02:33 Airway: Adequate mouth opening Mallampati: Mallampati II Teeth: Normal Lung: Normal Heart: Normal ASA Physical Status ASA physical status: 3 Emergency: None Planned Anesthetic General/MAC: MAC Planned Pain Management Parenteral pain med Pre-operative Attestations Prior to commencing anesthesia and surgery, the patient was re-evaluated, there was verification of: *The patient's identity *The results of appropriate recent lab work and preoperative vital signs *The above evaluation not changing prior to induction *Anesthetic plan, risk benefits, alternative and complications discussed with patient/family; questions answered; patient/family understands, accepts and wishes to proceed. SARAH BARAJAS MD September 30, 2018 16:02
[2018-09-30] MEDS ORDERED: PROPOFOL 40 ML ONE (16:41)
--- NOTE | 2018-09-30 17:54 | HPN ---
Date/Time of Note Date/Time of Note DATE: 09/30/18 TIME: 17:54 Interval H&P Admission Note Pt. seen H&P reviewed: No system changes SEMAJ HAYDEN MD September 30, 2018 17:54
--- NOTE | 2018-09-30 19:20 | PAC ---
Date/Time of Note Date/Time of Note DATE: 09/30/18 TIME: 19:20 Post-Anesthesia Notes Post-Anesthesia Note Last documented vital signs Vital Signs Date Temp Pulse Resp B/P (MAP) Pulse Ox O2 O2 Flow FiO2 Time Delivery Rate 09/30/18 76 28 146/75 98 Room Air 18:30 (98) 09/30/18 98.0 17:43 09/30/18 2.0 06:15 09/29/18 27 02:33 Activity: WNL Respiratory function: WNL Cardiovascular function: WNL Mental status: Baseline Pain reasonably controlled: Yes Hydration appropriate: Yes Nausea/Vomiting absent: Yes Comments BT: 98.3 SARAH BARAJAS MD September 30, 2018 19:20
[2018-10-01] VITALS (13 sets, daily range): BP systolic 121–166; BP diastolic 65–81; PULSE 61–90; RESP 18–20
[2018-10-01] MEDS: PANTOPRAZOLE 40 MG INJ IV SCH ×2 (06:03→18:51)
[2018-10-01] MEDS: BENAZEPRIL 40 MG TAB PO SCH (08:07)
[2018-10-01] MEDS: DULOXETINE 30 MG CAP DR PO SCH ×2 (08:07→20:21)
--- NOTE | 2018-10-01 11:19 | PN ---
Date/Time of Note Date/Time of Note DATE: 10/01/18 TIME: 11:16 Assessment/Plan VTE Prophylaxis Risk score (from Nsg)>0 risk: 5 SCD applied (from Ns): No SCD contraindicated: other (scds) Pharmacological prophylaxis: other (scds) Lines/Catheters IV Catheter Type (from [facility]): Peripheral IV Assessment/Plan Hospital Course Summary Assessment and Plan: Assessment: Microcytic anemia- stable post blood transfusion EGD 09/30/2018 Acute duodenal ulcer without hemorrhage or perforation Acute gastritis without bleeding Colonoscopy 09/30/2018 Questionable polyp within the diverticulum in sigmoid colon. Biopsies obtained Diverticulosis of large intestines Hemorrhoids Remote history of melena Coronary artery disease -Status post recent PCI with stent placement, multiple -Aspirin and Plavix currently on hold HTN Dyslipidemia History of DM- currently being treated with diet Renal insufficiency -work-up per medical team Plan: PPI twice a day Avoid aspirin if at all possible Plavix will probably be safe with close monitoring Review pathology and adjust treatment accordingly Follow-up EGD in 8 weeks recommended to assess healing- pt to f/u with GI after discharge. Patient seen in collaboration with Dr. Altamirano Subjective: Course reviewed with nursing staff Patient interviewed and examined All labs, imaging and other results reviewed Pt feels well, no overt signs of GI bleed, HGB stable Discussed results and recommendations with patient, who verbalized understanding. No c/o n/v or abdominal pain. Exam PHYSICAL EXAMINATION: GENERAL: Alert & oriented x 3, in no acute distress SKIN: No lesions HEAD: Normocephalic, atraumatic, no tenderness. EYES: Pupils equal reactive to light and accommodation, no discharge. EARS/NOSE AND THROAT: Ears normal, nose normal. NECK: Supple, no masses. CHEST: Inspection within normal limits. CARDIOVASCULAR: Heart: Regular rate and rhythm RESPIRATORY: Lungs clear to auscultation no rubs GASTROINTESTINAL AND LIVER: Abdomen: Soft, non tenderness, non-distended, no hernias, no masses, no organomegaly, no ascites, no guarding, no rebound tendern ess, normoactive bowel sounds. Rectal: Deferred. EXTREMITIES: No cyanosis, clubbing or edema. Result Diagram: 10/01/18 0731 10/01/18 0731 Results 24hrs Laboratory Tests Test 10/01/18 07:31 White Blood Count 6.1 Red Blood Count 3.29 L Hemoglobin 9.3 L Hematocrit 28.4 L Mean Corpuscular Volume 86.3 Mean Corpuscular Hemoglobin 28.3 L Mean Corpuscular Hemoglobin Concent 32.7 Red Cell Distribution Width 17.7 H Platelet Count 316 Mean Platelet Volume 10.1 Immature Granulocytes % 0.700 H Neutrophils % 66.7 Lymphocytes % 16.8 Monocytes % 8.9 Eosinophils % 5.9 Basophils % 1.0 Nucleated Red Blood Cells % 0.0 Immature Granulocytes # 0.040 H Neutrophils # 4.0 Lymphocytes # 1.0 Monocytes # 0.5 Eosinophils # 0.4 Basophils # 0.1 Nucleated Red Blood Cells # 0.0 Sodium Level 142 Potassium Level 3.3 L Chloride Level 114 H Carbon Dioxide Level 21 Anion Gap 7 Blood Urea Nitrogen 11 Creatinine 1.32 H Est Glomerular Filtrat Rate mL/min 54 L Glucose Level 98 Calcium Level 8.2 L Exam/Review of Systems Exam Vitals Vital Signs Date Temp Pulse Resp B/P (MAP) Pulse Ox O2 O2 Flow FiO2 Time Delivery Rate 10/01/18 98.6 78 18 130/65 95 Room Air 11:07 (86) 10/01/18 2.0 04:41 09/29/18 27 02:33 Intake and Output 09/30/18 09/30/18 10/01/18 1515:00 23:00 07:00 IntakeIntake Total 100 ml 200 ml OutputOutput Total 600 ml 560 ml BalanceBalance -500 ml -360 ml Results Results 24hrs Laboratory Tests Test 10/01/18 07:31 White Blood Count 6.1 Red Blood Count 3.29 L Hemoglobin 9.3 L Hematocrit 28.4 L Mean Corpuscular Volume 86.3 Mean Corpuscular Hemoglobin 28.3 L Mean Corpuscular Hemoglobin Concent 32.7 Red Cell Distribution Width 17.7 H Platelet Count 316 Mean Platelet Volume 10.1 Immature Granulocytes % 0.700 H Neutrophils % 66.7 Lymphocytes % 16.8 Monocytes % 8.9 Eosinophils % 5.9 Basophils % 1.0 Nucleated Red Blood Cells % 0.0 Immature Granulocytes # 0.040 H Neutrophils # 4.0 Lymphocytes # 1.0 Monocytes # 0.5 Eosinophils # 0.4 Basophils # 0.1 Nucleated Red Blood Cells # 0.0 Sodium Level 142 Potassium Level 3.3 L Chloride Level 114 H Carbon Dioxide Level 21 Anion Gap 7 Blood Urea Nitrogen 11 Creatinine 1.32 H Est Glomerular Filtrat Rate mL/min 54 L Glucose Level 98 Calcium Level 8.2 L Medications Medication Current Medications Nitroglycerin (Nitroglycerin (Sl Tab) 0.4 Mg) 1 tab Q5M PRN SL ANGINA; Start 09/26/18 at 13:30 IV Flush (NS 3 ml) 3 ml PER PROTOCOL IV ; Start 09/26/18 at 17:30 Ondansetron HCl (Zofran Inj) 4 mg Q6H PRN IV NAUSEA/VOMITING Last administered on 09/27/18 08:22; Admin Dose 4 MG; Start 09/26/18 at 17:30 Morphine Sulfate (morphine) 2 mg Q4H PRN IV .SEVERE PAIN 7-10 Last administered on 09/30/18 02:32; Admin Dose 2 MG; Start 09/26/18 at 17:30 Lorazepam (Ativan) 1 mg Q8H PRN IV ANXIETY Last administered on 09/30/18 22:18; Admin Dose 1 MG; Start 09/28/18 at 08:30 Pantoprazole (Protonix Iv) 40 mg BID@06,18 IV Last administered on 10/01/18 06:03; Admin Dose 40 MG; Start 09/28/18 at 18:00 Duloxetine HCl (Cymbalta) 30 mg BID PO Last administered on 10/01/18 08:07; Admin Dose 30 MG; Start 09/29/18 at 09:30 Benazepril HCl (Lotensin) 40 mg DAILY PO Last administered on 10/01/18 08:07; Admin Dose 40 MG; Start 09/29/18 at 09:30 Acetaminophen/ Hydrocodone Bitart ([place] (5/325)) 1 tab Q6H PRN PO MODERATE PAIN LEVEL 4-6 Last administered on 09/29/18 15:05; Admin Dose 1 TAB; Start 09/29/18 at 15:00 Hydralazine HCl (Apresoline) 10 mg Q4H PRN IV bp Last administered on 09/30/18 01:03; Admin Dose 10 MG; Start 09/30/18 at 00:30 OSCAR PIERCE October 01, 2018 11:19
[2018-10-01] MEDS ORDERED: PANT40TA4 PO (12:34)
--- NOTE | 2018-10-01 13:34 | PDOCDIS ---
Discharge Instructions DIAGNOSIS Discharge Diagnosis Peptic ulcer disease CONDITION [id number] Patient Condition: [id number] Stable FOLLOW UP/APPOINTMENTS Follow-up Plan Stop taking aspirin for the time being until you see Dr Lujan in clinic. Continue taking Brilinta Avoid taking any medications called NSAIDs (advil, motrin, aleve, ibuprofen, etc) Make an appointment to see GI BARTOLO Mar MD October 01, 2018 12:44
--- NOTE | 2018-10-01 13:39 | PN ---
Date/Time of Note Date/Time of Note DATE: 10/01/18 TIME: 13:38 Assessment/Plan VTE Prophylaxis Risk score (from Ns)>0 risk: 5 SCD applied (from Ns): Yes Pharmacological prophylaxis: NA/contraindicated Pharm contraindication: bleeding Lines/Catheters IV [facility]from [facility] Peripheral IV Central line still needed: Yes Assessment/Plan Hospital Course Well appearing No distress RRR CTAB Soft nt nd wwp no cce A/P: 67 yo male with CAD adn recent PCI presents wtih melena and acute blood loss anemia Peptic ulcer disease: - PPI - Outpatient management per GI - Avoid NSAIDs CAD: - Hold aspirin for now given ulcer and life threatening bleeding, will continue brilinta alone - Further management as outpatient Result Diagram: 10/01/1873010/01/18730 Results 24hrs Laboratory Tests Test 10/01/18 07:31 White Blood Count 6.1 Red Blood Count 3.29 L Hemoglobin 9.3 L Hematocrit 28.4 L Mean Corpuscular Volume 86.3 Mean Corpuscular Hemoglobin 28.3 L Mean Corpuscular Hemoglobin Concent 32.7 Red Cell Distribution Width 17.7 H Platelet Count 316 Mean Platelet Volume 10.1 Immature Granulocytes % 0.700 H Neutrophils % 66.7 Lymphocytes % 16.8 Monocytes % 8.9 Eosinophils % 5.9 Basophils % 1.0 Nucleated Red Blood Cells % 0.0 Immature Granulocytes # 0.040 H Neutrophils # 4.0 Lymphocytes # 1.0 Monocytes # 0.5 Eosinophils # 0.4 Basophils # 0.1 Nucleated Red Blood Cells # 0.0 Sodium Level 142 Potassium Level 3.3 L Chloride Level 114 H Carbon Dioxide Level 21 Anion Gap 7 Blood Urea Nitrogen 11 Creatinine 1.32 H Est Glomerular Filtrat Rate mL/min 54 L Glucose Level 98 Calcium Level 8.2 L Subjective 24 Hr Interval Summary Free Text/Dictation Duodenal ulcer found on EGD, colonic polyp No further bleeding or melena Requests to stay until tomorrow Exam/Review of Systems Exam Vitals Vital Signs Date Temp Pulse Resp B/P (MAP) Pulse Ox O2 O2 Flow FiO2 Time Delivery Rate 10/01/18 75 12:00 10/01/18 98.6 18 130/65 95 Room Air 11:07 (86) 10/01/18 2.0 04:41 09/29/18 27 02:33 Intake and Output 09/30/18 09/30/18 10/01/18 1515:00 23:00 07:00 IntakeIntake Total 100 ml 200 ml OutputOutput Total 600 ml 560 ml BalanceBalance -500 ml -360 ml Results Results 24hrs Laboratory Tests Test 10/01/18 07:31 White Blood Count 6.1 Red Blood Count 3.29 L Hemoglobin 9.3 L Hematocrit 28.4 L Mean Corpuscular Volume 86.3 Mean Corpuscular Hemoglobin 28.3 L Mean Corpuscular Hemoglobin Concent 32.7 Red Cell Distribution Width 17.7 H Platelet Count 316 Mean Platelet Volume 10.1 Immature Granulocytes % 0.700 H Neutrophils % 66.7 Lymphocytes % 16.8 Monocytes % 8.9 Eosinophils % 5.9 Basophils % 1.0 Nucleated Red Blood Cells % 0.0 Immature Granulocytes # 0.040 H Neutrophils # 4.0 Lymphocytes # 1.0 Monocytes # 0.5 Eosinophils # 0.4 Basophils # 0.1 Nucleated Red Blood Cells # 0.0 Sodium Level 142 Potassium Level 3.3 L Chloride Level 114 H Carbon Dioxide Level 21 Anion Gap 7 Blood Urea Nitrogen 11 Creatinine 1.32 H Est Glomerular Filtrat Rate mL/min 54 L Glucose Level 98 Calcium Level 8.2 L Medications Medication Current Medications Nitroglycerin (Nitroglycerin (Sl Tab) 0.4 Mg) 1 tab Q5M PRN SL ANGINA; Start 09/26/18 at 13:30 IV Flush (NS 3 ml) 3 ml PER PROTOCOL IV ; Start 09/26/18 at 17:30 Ondansetron HCl (Zofran Inj) 4 mg Q6H PRN IV NAUSEA/VOMITING Last administered on 09/27/18at 08:22; Admin Dose 4 MG; Start 09/26/18 at 17:30 Morphine Sulfate (morphine) 2 mg Q4H PRN IV .SEVERE PAIN 7-10 Last administered on 09/30/18at 02:32; Admin Dose 2 MG; Start 09/26/18 at 17:30 Lorazepam (Ativan) 1 mg Q8H PRN IV ANXIETY Last administered on 09/30/18 22:18; Admin Dose 1 MG; Start 09/28/18 at 08:30 Pantoprazole (Protonix Iv) 40 mg BID@,18 IV Last administered on 10/01/18at 06:03; Admin Dose 40 MG; Start 09/28/18 at 18:00 Duloxetine HCl (Cymbalta) 30 mg BID PO Last administered on 10/01/18at 08:07; Admin Dose 30 MG; Start 09/29/18 at 09:30 Benazepril HCl (Lotensin) 40 mg DAILY PO Last administered on 10/01/18at 08:07; Admin Dose 40 MG; Start 09/29/18 at 09:30 Acetaminophen/ Hydrocodone Bitart ([place] (5/325)) 1 tab Q6H PRN PO MODERATE PAIN LEVEL 4-6 Last administered on 09/29/18at 15:05; Admin Dose 1 TAB; Start 09/29/18 at 15:00 Hydralazine HCl (Apresoline) 10 mg Q4H PRN IV bp Last administered on 09/30/18at 01:03; Admin Dose 10 MG; Start 09/30/18 at 00:30 Ticagrelor (Brilinta) 90 mg BID PO ; Start 10/01/18 at 21:00; Status BARTOLO WAGNER MD October 01, 2018 13:39
[2018-10-01] MEDS: SOD FERRIC GLUC COMPLX 125 MG in SOD CHLORIDE 0.9% 100 ML IVPB SCH (15:29)
--- NOTE | 2018-10-01 16:36 | CONS ---
Assessment/Plan Assessment/Plan Hospital Course (Demo Recall) IMP: 1. H/o stent to LAD/LCX/RCA with SHERRY 09/17-/09/18-neg trop x 3 2.HTN 3.Cardiomyopathy-EF 45-50 prior to stents 4.Anemia-improved s/p mutiple units of PRBC's 5.Melena- now s/p endoscopy with duodenal ulcer 6.Renal failure- improcing with volume resuscitation/transfusions Recc: -Tele -serial ecg's -Transfuse further PRBC's as necessary -Now resumed on brilinta/follow HGb closely -Continue benazepril Consultation Date/Type/Reason Admit Date/Time September 26, 2018 at 09:45 Initial Consult Date 09/27/18 Type of Consult Cardiology Reason for Consultation h/o stent Requesting Provider: ADORE SHAH Date/Time of Note DATE: 10/01/18 TIME: 16:32 Exam/Review of Systems Vital Signs Vitals Vital Signs Date Temp Pulse Resp B/P (MAP) Pulse Ox O2 O2 Flow FiO2 Time Delivery Rate 10/01/18 98.0 78 18 139/65 97 Room Air 15:49 (89) 10/01/18 2.0 14:29 09/29/18 27 02:33 Intake and Output 09/30/18 09/30/18 10/01/18 1515:00 23:00 07:00 IntakeIntake Total 100 ml 200 ml OutputOutput Total 600 ml 560 ml BalanceBalance -500 ml -360 ml Exam Exam Review of Systems: CONSTITUTIONAL: No fevers, chills. PULMONARY: No sob CARDIOVASCULAR: No chest pain/palpitations GASTROINTESTINAL: No nausea/vomiting. GENITOURINARY: No hematuria/dysuria. MUSCULOSKELETAL: No myagias/arthalgias. PSYCHIATRIC: The patient denies depression. NEUROLOGIC: No weakness Constitutional: alert, oriented Psych: no complaints Head: normocephalic ENMT: mucosa pink and moist Neck: supple, jvd Respiratory: clear to auscultation Cardiovascular: regular rate and rhythm Gastrointestinal: soft, non-tender Musculoskeletal: muscle tone (normal) Extremities: edema (none) Neurological: other (No focal deficits) Labs Result Diagram: 10/01/18 0731 10/01/18 0731 Results 24hrs Laboratory Tests Test 10/01/18 07:31 White Blood Count 6.1 Red Blood Count 3.29 L Hemoglobin 9.3 L Hematocrit 28.4 L Mean Corpuscular Volume 86.3 Mean Corpuscular Hemoglobin 28.3 L Mean Corpuscular Hemoglobin Concent 32.7 Red Cell Distribution Width 17.7 H Platelet Count 316 Mean Platelet Volume 10.1 Immature Granulocytes % 0.700 H Neutrophils % 66.7 Lymphocytes % 16.8 Monocytes % 8.9 Eosinophils % 5.9 Basophils % 1.0 Nucleated Red Blood Cells % 0.0 Immature Granulocytes # 0.040 H Neutrophils # 4.0 Lymphocytes # 1.0 Monocytes # 0.5 Eosinophils # 0.4 Basophils # 0.1 Nucleated Red Blood Cells # 0.0 Sodium Level 142 Potassium Level 3.3 L Chloride Level 114 H Carbon Dioxide Level 21 Anion Gap 7 Blood Urea Nitrogen 11 Creatinine 1.32 H Est Glomerular Filtrat Rate mL/min 54 L Glucose Level 98 Calcium Level 8.2 L Medications Medications Current Medications Nitroglycerin (Nitroglycerin (Sl Tab) 0.4 Mg) 1 tab Q5M PRN SL ANGINA; Start 09/26/18 at 13:30 IV Flush (NS 3 ml) 3 ml PER PROTOCOL IV ; Start 09/26/18 at 17:30 Ondansetron HCl (Zofran Inj) 4 mg Q6H PRN IV NAUSEA/VOMITING Last administered on 09/27/18at 08:22; Admin Dose 4 MG; Start 09/26/18 at 17:30 Morphine Sulfate (morphine) 2 mg Q4H PRN IV .SEVERE PAIN 7-10 Last administered on 09/30/18at 02:32; Admin Dose 2 MG; Start 09/26/18 at 17:30 Lorazepam (Ativan) 1 mg Q8H PRN IV ANXIETY Last administered on 09/30/18at 2 2:18; Admin Dose 1 MG; Start 09/28/18 at 08:30 Pantoprazole (Protonix Iv) 40 mg BID@06,18 IV Last administered on 10/01/18at 06:03; Admin Dose 40 MG; Start 09/28/18 at 18:00 Duloxetine HCl (Cymbalta) 30 mg BID PO Last administered on 10/01/18at 08:07; Admin Dose 30 MG; Start 09/29/18 at 09:30 Benazepril HCl (Lotensin) 40 mg DAILY PO Last administered on 10/01/18at 08:07; Admin Dose 40 MG; Start 09/29/18 at 09:30 Acetaminophen/ Hydrocodone Bitart ([place] (5/325)) 1 tab Q6H PRN PO MODERATE PAIN LEVEL 4-6 Last administered on 09/29/18at 15:05; Admin Dose 1 TAB; Start 09/29/18 at 15:00 Hydralazine HCl (Apresoline) 10 mg Q4H PRN IV bp Last administered on 09/30/18at 01:03; Admin Dose 10 MG; Start 09/30/18 at 00:30 Ticagrelor (Brilinta) 90 mg BID PO ; Start 10/01/18 at 21:00 Ferric Sodium Gluconate Complex 125 mg/Sodium Chloride 100 ml @ 100 mls/hr DAILY@1300 IVPB Last administered on 10/01/18at 15:29; Admin Dose 100 MLS/HR; Start 10/01/18 at 14:00; Stop 10/03/18 at 13:59 RODDY OLSEN October 01, 2018 16:36
[2018-10-01] MEDS: LORAZEPAM 2 MG INJ IV PRN (20:19)
[2018-10-01] MEDS: TICAGRELOR 90 MG TABLET PO SCH (20:25)
[2018-10-01] MEDS ORDERED: AL HYDROX/MG HYDROX/SIMETH 30 ML CUP PO PRN (21:00)
[2018-10-01] MEDS: ONDANSETRON 4 MG INJ IV PRN (21:13)
[2018-10-01] MEDS: morphine 2 MG INJ IV PRN (21:17)
[2018-10-01] MEDS: HYDROCODONE/APAP (5/325) TAB PO PRN (22:25)
[2018-10-02] VITALS (14 sets, daily range): BP systolic 124–178; BP diastolic 70–85; PULSE 69–86; RESP 16–20
[2018-10-02] MEDS: HYDROmorphONE 0.5 MG/0.5 ML SYG IV PRN ×4 (00:43→20:42)
[2018-10-02] MEDS ORDERED: LIDOCAINE/MYLANTA 40 ML BTL PO ONE (03:00)
[2018-10-02] MEDS: morphine 2 MG INJ IV PRN (03:44)
[2018-10-02] MEDS: ONDANSETRON 4 MG INJ IV PRN ×2 (03:49→03:54)
[2018-10-02] MEDS: hydrALAzine 20 MG INJ IV PRN ×2 (03:57→17:18)
[2018-10-02] MEDS: PANTOPRAZOLE 40 MG INJ IV SCH ×2 (06:32→17:19)
[2018-10-02] MEDS: BENAZEPRIL 40 MG TAB PO SCH (09:07)
[2018-10-02] MEDS: DULOXETINE 30 MG CAP DR PO SCH ×2 (09:07→20:35)
--- NOTE | 2018-10-02 09:36 | RADRPT ---
Vent Rate: 80 bpm RR Interval: 752 msec WA Interval: 150 msec QRS Duration: 104 msec QT Interval: 398 msec QTC Interval: 459 msec P-R-T [place]: 69 - -22 - 64 degrees Sinus rhythm...normal Electronically Signed By: Jose Armando Laguna
[2018-10-02] MEDS: TICAGRELOR 90 MG TABLET PO SCH ×2 (10:06→22:54)
[2018-10-02] MEDS: SOD FERRIC GLUC COMPLX 125 MG in SOD CHLORIDE 0.9% 100 ML IVPB SCH (12:38)
--- NOTE | 2018-10-02 13:30 | PN ---
Date/Time of Note Date/Time of Note DATE: 10/02/18 TIME: 13:28 Assessment/Plan VTE Prophylaxis Risk score (from Nsg)>0 risk: 5 SCD applied (from Ns): No SCD contraindicated: other (scds) Pharmacological prophylaxis: other (scds) Lines/Catheters IV Catheter Type (from [facility]): Peripheral IV Urinary Cath still in place: No Assessment/Plan Hospital Course Summary Assessment and Plan: Assessment: Microcytic anemia- stable post blood transfusion EGD 09/30/2018 Acute duodenal ulcer without hemorrhage or perforation Acute gastritis without bleeding BX: Negative for H. Pylori Colonoscopy 09/30/2018 Questionable polyp within the diverticulum in sigmoid colon. Biopsies obtained Diverticulosis of large intestines Hemorrhoids BX: Inflammatory (granulation tissue) polyp. No malignancy is identified. Remote history of melena Coronary artery disease -Status post recent PCI with stent placement, multiple -Aspirin and Plavix currently on hold HTN Dyslipidemia History of DM- currently being treated with diet Renal insufficiency -work-up per medical team Plan: PPI twice a day x4 weeks Avoid aspirin if at all possible Plavix will probably be safe with close monitoring Patient appears stable for out-pt management. GI will sign off but will be available upon reconsult as needed Follow-up EGD in 8 weeks recommended to assess healing- pt to f/u with GI after discharge. Patient seen in collaboration with Dr. Altamirano Subjective: Course reviewed with nursing staff Patient interviewed and examined All labs, imaging and other results reviewed Encourage PO intake, and ambulation as tolerated NO overt signs of GI bleed, HGB stable, pt restarted Brilinta. Possible d/c in am. Exam PHYSICAL EXAMINATION: GENERAL: Alert & oriented x 3, in no acute distress SKIN: No lesions HEAD: Normocephalic, atraumatic, no tenderness. EYES: Pupils equal reactive to light and accommodation, no discharge. EARS/NOSE AND THROAT: Ears normal, nose normal. NECK: Supple, no masses. CHEST: Inspection within normal limits. CARDIOVASCULAR: Heart: Regular rate and rhythm RESPIRATORY: Lungs clear to auscultation no rubs GASTROINTESTINAL AND LIVER: Abdomen: Soft, non tenderness, non-distended, no hernias, no masses, no organomegaly, no ascites, no guarding, no rebound tenderness, normoactive bowel sounds. Rectal: Deferred. EXTREMITIES: No cyanosis, clubbing or edema. Result Diagram: 10/01/18 0731 10/01/18 0731 Results 24hrs Laboratory Tests Test 10/02/18 00:21 10/02/18 07:48 Troponin I 0.042 Lab Scanned Report BLOOD TRANSFUSION Exam/Review of Systems Exam Vitals Vital Signs Date Temp Pulse Resp B/P (MAP) Pulse Ox O2 O2 Flow FiO2 Time Delivery Rate 10/02/18 80 12:00 10/02/18 98.6 18 178/85 98 Room Air 11:02 (116) 10/01/18 2.0 14:29 09/29/18 27 02:33 Intake and Output 10/01/18 10/01/18 10/02/18 1414:59 22:59 06:59 IntakeIntake Total 890 ml 320 ml OutputOutput Total 940 ml 650 ml BalanceBalance -50 ml -330 ml Results Results 24hrs Laboratory Tests Test 10/02/18 00:21 10/02/18 07:48 Troponin I 0.042 Lab Scanned Report BLOOD TRANSFUSION Medications Medication Current Medications Nitroglycerin (Nitroglycerin (Sl Tab) 0.4 Mg) 1 tab Q5M PRN SL ANGINA; Start 09/26/18 at 13:30 IV Flush (NS 3 ml) 3 ml PER PROTOCOL IV ; Start 09/26/18 at 17:30 Ondansetron HCl (Zofran Inj) 4 mg Q6H PRN IV NAUSEA/VOMITING Last administered on 10/02/18at 03:54; Admin Dose 4 MG; Start 09/26/18 at 17:30 Morphine Sulfate (morphine) 2 mg Q4H PRN IV .SEVERE PAIN 7-10 Last administered on 10/02/18at 03:44; Admin Dose 2 MG; Start 09/26/18 at 17:30 Lorazepam (Ativan) 1 mg Q8H PRN IV ANXIETY Last administered on 10/01/18 20:19; Admin Dose 1 MG; Start 09/28/18 at 08:30 Pantoprazole (Protonix Iv) 40 mg BID@06,18 IV Last administered on 10/02/18 06:32; Admin Dose 40 MG; Start 09/28/18 at 18:00 Duloxetine HCl (Cymbalta) 30 mg BID PO Last administered on 10/02/18 09:07; Admin Dose 30 MG; Start 09/29/18 at 09:30 Benazepril HCl (Lotensin) 40 mg DAILY PO Last administered on 10/02/18 09:07; Admin Dose 40 MG; Start 09/29/18 at 09:30 Acetaminophen/ Hydrocodone Bitart ([place] (5/325)) 1 tab Q6H PRN PO MODERATE PAIN LEVEL 4-6 Last administered on 10/01/18 22:25; Admin Dose 1 TAB; Start 09/29/18 at 15:00 Hydralazine HCl (Apresoline) 10 mg Q4H PRN IV bp Last administered on 10/02/18 03:57; Admin Dose 10 MG; Start 09/30/18 at 00:30 Ticagrelor (Brilinta) 90 mg BID PO Last administered on 10/02/18 10:06; Admin Dose 90 MG; Start 10/01/18 at 21:00 Ferric Sodium Gluconate Complex 125 mg/Sodium Chloride 100 ml @ 100 mls/hr DAILY@1300 IVPB Last administered on 10/02/18 12:38; Admin Dose 100 MLS/HR; Start 10/01/18 at 14:00; Stop 10/03/18 at 13:59 Al Hydrox/Mg Hydrox/Simethicone (Mag-Al Plus) 30 ml Q6H PRN PO GASTROINTESTINAL UPSET Last administered on 10/01/18 21:14; Admin Dose 30 ML; Start 10/01/18 at 21:00 Hydromorphone HCl (Dilaudid) 0.5 mg Q4H PRN IV SEVERE PAIN LEVEL 7-10 Last administered on 10/02/18 12:39; Admin Dose 0.5 MG; Start 10/02/18 at 01:00 OSCAR PIERCE October 02, 2018 13:30
--- NOTE | 2018-10-02 14:59 | PN ---
Date/Time of Note Date/Time of Note DATE: 10/02/18 TIME: 14:58 Assessment/Plan VTE Prophylaxis Risk score (from Nsg)>0 risk: 5 SCD applied (from Nsg): Yes Pharmacological prophylaxis: heparin Lines/Catheters IV Catheter Type (from Nrsg): Peripheral IV Urinary Cath still in place: No Assessment/Plan Hospital Course Well appearing No distress RRR CTAB Soft nt nd wwp no cce A/P: 67 yo male with CAD adn recent PCI presents wtih melena and acute blood loss anemia Will monitor one more day given reinitiation on Brilinta and continued abdominal pain Peptic ulcer disease: - PPI - Outpatient management per GI - Avoid NSAIDs CAD: - Hold aspirin for now given ulcer and life threatening bleeding, will continue brilinta alone - Further management as outpatient Result Diagram: 10/01/1873010/01/18730 Results 24hrs Laboratory Tests Test 10/02/18 00:21 10/02/18 07:48 Troponin I 0.042 Lab Scanned Report BLOOD TRANSFUSION Subjective 24 Hr Interval Summary Free Text/Dictation Having abdominal pain. Can't eat. Doesn't want to be discharged. No further bleeding/melena Exam/Review of Systems Exam Vitals Vital Signs Date Temp Pulse Resp B/P (MAP) Pulse Ox O2 O2 Flow FiO2 Time Delivery Rate 10/02/18 80 12:00 10/02/18 98.6 18 178/85 98 Room Air 11:02 (116) 10/01/18 2.0 14:29 09/29/18 27 02:33 Intake and Output 10/01/18 10/01/18 10/02/18 1515:00 23:00 07:00 IntakeIntake Total 890 ml 320 ml OutputOutput Total 940 ml 650 ml BalanceBalance -50 ml -330 ml Results Results 24hrs Laboratory Tests Test 10/02/18 00:21 10/02/18 07:48 Troponin I 0.042 Lab Scanned Report BLOOD TRANSFUSION Medications Medication Current Medications Nitroglycerin (Nitroglycerin (Sl Tab) 0.4 Mg) 1 tab Q5M PRN SL ANGINA; Start 09/26/18 at 13:30 IV Flush (NS 3 ml) 3 ml PER PROTOCOL IV ; Start 09/26/18 at 17:30 Ondansetron HCl (Zofran Inj) 4 mg Q6H PRN IV NAUSEA/VOMITING Last administered on 10/02/18 03:54; Admin Dose 4 MG; Start 09/26/18 at 17:30 Morphine Sulfate (morphine) 2 mg Q4H PRN IV .SEVERE PAIN 7-10 Last administered on 10/02/18 03:44; Admin Dose 2 MG; Start 09/26/18 at 17:30 Lorazepam (Ativan) 1 mg Q8H PRN IV ANXIETY Last administered on 10/01/18 20:19; Admin Dose 1 MG; Start 09/28/18 at 08:30 Pantoprazole (Protonix Iv) 40 mg BID@06,18 IV Last administered on 10/02/18 06:32; Admin Dose 40 MG; Start 09/28/18 at 18:00 Duloxetine HCl (Cymbalta) 30 mg BID PO Last administered on 10/02/18 09:07; Admin Dose 30 MG; Start 09/29/18 at 09:30 Benazepril HCl (Lotensin) 40 mg DAILY PO Last administered on 10/02/18 09:07; Admin Dose 40 MG; Start 09/29/18 at 09:30 Acetaminophen/ Hydrocodone Bitart ([place] (5/325)) 1 tab Q6H PRN PO MODERATE PAIN LEVEL 4-6 Last administered on 10/01/18 22:25; Admin Dose 1 TAB; Start 09/29/18 at 15:00 Hydralazine HCl (Apresoline) 10 mg Q4H PRN IV bp Last administered on 10/02/18 03:57; Admin Dose 10 MG; Start 09/30/18 at 00:30 Ticagrelor (Brilinta) 90 mg BID PO Last administered on 10/02/18 10:06; Admin Dose 90 MG; Start 10/01/18 at 21:00 Ferric Sodium Gluconate Complex 125 mg/Sodium Chloride 100 ml @ 100 mls/hr DAILY@1300 IVPB Last administered on 10/02/18 12:38; Admin Dose 100 MLS/HR; Start 10/01/18 at 14:00; Stop 10/03/18 at 13:59 Al Hydrox/Mg Hydrox/Simethicone (Mag-Al Plus) 30 ml Q6H PRN PO GASTROINTESTINAL UPSET Last administered on 10/01/18 21:14; Admin Dose 30 ML; Start 10/01/18 at 21:00 Hydromorphone HCl (Dilaudid) 0.5 mg Q4H PRN IV SEVERE PAIN LEVEL 7-10 Last a dministered on 10/02/18at 12:39; Admin Dose 0.5 MG; Start 10/02/18 at 01:[address]ER MD October 02, 2018 14:59
[2018-10-02] MEDS: HYDROCODONE/APAP (5/325) TAB PO PRN (17:30)
--- NOTE | 2018-10-02 18:38 | CONS ---
Assessment/Plan Assessment/Plan Hospital Course (Demo Recall) IMP: 1. H/o stent to LAD/LCX/RCA with SHERRY 09/17-/09/18-neg trop x 3 2.HTN 3.Cardiomyopathy-EF 45-50 prior to stents 4.Anemia-improved s/p mutiple units of PRBC's 5.Melena- now s/p endoscopy with duodenal ulcer 6.Renal failure- mild recurrent renal insuff Recc: -Tele -serial ecg's -Transfuse further PRBC's as necessary -Now resumed on brilinta/follow HGb closely wh -Continue benazepril and resume baseline Norvasc/BB Consultation Date/Type/Reason Admit Date/Time September 26, 2018 at 09:45 Initial Consult Date 09/27/18 Type of Consult Cardiology Reason for Consultation chest pain/h/o stent Requesting Provider: ADORE SHAH Date/Time of Note DATE: 10/02/18 TIME: 18:35 Exam/Review of Systems Vital Signs Vitals Vital Signs Date Temp Pulse Resp B/P (MAP) Pulse Ox O2 O2 Flow FiO2 Time Delivery Rate 10/02/18 171/81 17:22 (111) 10/02/18 69 16:00 10/02/18 98.0 18 100 Room Air 15:10 10/01/18 2.0 14:29 09/29/18 27 02:33 Intake and Output 10/01/18 10/01/18 10/02/18 1515:00 23:00 07:00 IntakeIntake Total 890 ml 320 ml OutputOutput Total 940 ml 650 ml BalanceBalance -50 ml -330 ml Exam Exam Review of Systems: CONSTITUTIONAL: No fevers, chills. PULMONARY: No sob CARDIOVASCULAR: No chest pain/palpitations GASTROINTESTINAL: No nausea/vomiting. GENITOURINARY: No hematuria/dysuria. MUSCULOSKELETAL: No myagias/arthalgias. PSYCHIATRIC: The patient denies depression. NEUROLOGIC: No weakness Constitutional: alert Psych: no complaints Head: normocephalic ENMT: mucosa pink and moist Neck: supple, jvd (9 cm water) Respiratory: clear to auscultation Cardiovascular: regular rate and rhythm Gastrointestinal: nl liver, spleen Musculoskeletal: muscle tone (normal) Extremities: edema (none) Neurological: other (No focal deficits) Labs Result Diagram: 10/01/18 0731 10/01/18 0731 Results 24hrs Laboratory Tests Test 10/02/18 00:21 10/02/18 07:48 Troponin I 0.042 Lab Scanned Report BLOOD TRANSFUSION Medications Medications Current Medications Nitroglycerin (Nitroglycerin (Sl Tab) 0.4 Mg) 1 tab Q5M PRN SL ANGINA; Start 09/26/18 at 13:30 IV Flush (NS 3 ml) 3 ml PER PROTOCOL IV ; Start 09/26/18 at 17:30 Ondansetron HCl (Zofran Inj) 4 mg Q6H PRN IV NAUSEA/VOMITING Last administered on 10/02/18 03:54; Admin Dose 4 MG; Start 09/26/18 at 17:30 Morphine Sulfate (morphine) 2 mg Q4H PRN IV .SEVERE PAIN 7-10 Last administered on 10/02/18 03:44; Admin Dose 2 MG; Start 09/26/18 at 17:30 Lorazepam (Ativan) 1 mg Q8H PRN IV ANXIETY Last administered on 10/01/18 20:19; Admin Dose 1 MG; Start 09/28/18 at 08:30 Pantoprazole (Protonix Iv) 40 mg BID@06,18 IV Last administered on 10/02/18 17:19; Admin Dose 40 MG; Start 09/28/18 at 18:00 Duloxetine HCl (Cymbalta) 30 mg BID PO Last administered on 10/02/18 09:07; A dmin Dose 30 MG; Start 09/29/18 at 09:30 Benazepril HCl (Lotensin) 40 mg DAILY PO Last administered on 10/02/18 09:07; Admin Dose 40 MG; Start 09/29/18 at 09:30 Acetaminophen/ Hydrocodone Bitart ([place] (5/325)) 1 tab Q6H PRN PO MODERATE PAIN LEVEL 4-6 Last administered on 10/02/18 17:30; Admin Dose 1 TAB; Start 09/29/18 at 15:00 Hydralazine HCl (Apresoline) 10 mg Q4H PRN IV bp Last administered on 10/02/18 17:18; Admin Dose 10 MG; Start 09/30/18 at 00:30 Ticagrelor (Brilinta) 90 mg BID PO Last administered on 5/30/19at 10:06; Admin Dose 90 MG; Start 10/01/18 at 21:00 Ferric Sodium Gluconate Complex 125 mg/Sodium Chloride 100 ml @ 100 mls/hr DAILY@1300 IVPB Last administered on 10/02/18at 12:38; Admin Dose 100 MLS/HR; Start 10/01/18 at 14:00; Stop 10/03/18 at 13:59 Al Hydrox/Mg Hydrox/Simethicone (Mag-Al Plus) 30 ml Q6H PRN PO GASTROINTESTINAL UPSET Last administered on 10/01/18at 21:14; Admin Dose 30 ML; Start 10/01/18 at 21:00 Hydromorphone HCl (Dilaudid) 0.5 mg Q4H PRN IV SEVERE PAIN LEVEL 7-10 Last administered on 10/02/18at 12:39; Admin Dose 0.5 MG; Start 10/02/18 at 01:00 RODDY OLSEN October 02, 2018 18:38
[2018-10-02] MEDS: AMLODIPINE 10 MG TAB PO SCH (20:35)
[2018-10-03] VITALS (11 sets, daily range): BP systolic 124–146; BP diastolic 58–69; PULSE 64–137; RESP 18–20
[2018-10-03] MEDS: PANTOPRAZOLE 40 MG INJ IV SCH ×2 (07:03→18:28)
[2018-10-03] MEDS: HYDROmorphONE 0.5 MG/0.5 ML SYG IV PRN (07:04)
[2018-10-03] MEDS: DULOXETINE 30 MG CAP DR PO SCH ×2 (08:32→21:50)
[2018-10-03] MEDS: AMLODIPINE 10 MG TAB PO SCH (08:39)
[2018-10-03] MEDS: BENAZEPRIL 40 MG TAB PO SCH (08:40)
[2018-10-03] MEDS: TICAGRELOR 90 MG TABLET PO SCH ×2 (08:42→21:54)
--- NOTE | 2018-10-03 15:19 | DS ---
Date/Time of Note Date/Time of Note DATE: 10/03/18 TIME: 15:18 Discharge Summary Admission/Discharge Info Admit Date/Time September 26, 2018 at 09:45 Discharge Date/Time Discharge Diagnosis Acute blood loss anemia Peptic ulcer disease Patient Condition: Stable Hospital Course 67 yo male with CAD adn recent PCI presents wtih melena and acute blood loss anemia. Started on PPI drip. He was transfused PRBCs. Aspirin and brilinta were held.Underwent endoscopy which showed a duodenal ulcer. He was restarted on brilinta. Aspirin was held. He was given pantoprazole script at discharge. Home Meds Active Scripts Benazepril Hcl* (Benazepril Hcl*) 40 Mg Tablet, 40 MG PO DAILY for 30 Days, #30 TAB Prov:CHRISTINE HERRERA MD 09/21/18 Amlodipine Besylate* (Amlodipine Besylate*) 10 Mg Tablet, 10 MG PO DAILY for 30 Days, #30 TAB Prov:CHRISTINE HERRERA MD 09/20/18 Ticagrelor* (Brilinta*) 90 Mg Tablet, 90 MG PO BID for 30 Days, #60 TAB 1 Refill Prov:CHRISTINE HERRERA MD 09/20/18 Aspirin (Aspirin) 81 Mg Chew, 81 MG PO DAILY for 30 Days, #30 TAB 1 Refill Prov:CHRISTINE HERRERA MD 09/20/18 Atorvastatin* (Atorvastatin*) 80 Mg Tablet, 80 MG PO HS for 30 Days, #30 TAB 1 Refill Prov:CHRISTINE HERRERA MD 09/20/18 Reported Medications Baclofen* (Baclofen*) 10 Mg Tablet, 10 MG PO TID PRN for MUSCLE SPASMS, TAB 09/26/18 Duloxetine Hcl* (Cymbalta*) 30 Mg Capsule.dr, 30 MG PO BID, CAP 09/26/18 Metoprolol Tartrate* (Lopressor*) 50 Mg Tab, 50 MG PO BID, #60 TAB 09/26/18 Amoxicillin/Potassium Clav (Amox-Clav 875-125 mg Tablet) 875-125 mg Tab, 1 TAB PO BID, #20 TAB PT STARTED ON 09-22-18 FOR 7 DAYS 09/26/18 Buspirone Hcl* (Buspirone Hcl*) 10 Mg Tab, 10 MG PO BID, TAB 09/16/18 Nitroglycerin* (Nitrostat*) 0.4 Mg Tab.subl, 0.4 MG SL Q5MIN PRN for CHEST PAIN, BOTTLE 09/16/18 Discontinued Scripts Metoprolol Tartrate* (Lopressor*) 25 Mg Tablet, 25 MG PO BID for 30 Days, #60 TAB Prov:CHRISTINE HERRERA MD 09/21/18 Duloxetine Hcl* (Cymbalta*) 30 Mg Capsule.dr, 30 MG PO DAILY for 30 Days, #30 CAP Prov:CHRISTINE HERRERA MD 09/20/18 Ferrous Fumarate/Ascorbic Acid (Dino-Sequels 65-25 mg Caplet) 1 Each Tablet.er, 1 TAB PO DAILY for 30 Days, #30 TAB Prov:REBECCA POTTS MD 09/07/18 Follow-up Plan Stop taking aspirin for the time being until you see Dr Lujan in clinic. Continue taking Brilinta Avoid taking any medications called NSAIDs (advil, motrin, aleve, ibuprofen, etc) Make an appointment to see GI Dr Altamirano Primary Care Provider Care Physician No Primary Pending Labs Laboratory Tests Test 10/02/18 18:52 White Blood Count 10.4 10^3/ul (4.8-10.8) Red Blood Count 3.52 10^6/ul (4.70-6.10) Hemoglobin 10.1 g/dl (14.0-18.0) Hematocrit 30.8 % (42.0-52.0) Mean Corpuscular Volume 87.5 fl (82.0-101.0) Mean Corpuscular Hemoglobin 28.7 pg (29.0-33.0) Mean Corpuscular Hemoglobin Concent 32.8 g/dl (32.0-37.0) Red Cell Distribution Width 18.5 % (11.5-14.5) Platelet Count 336 10^3/UL (140-415) Mean Platelet Volume 10.0 fl (7.4-10.4) Immature Granulocytes % 0.600 % (0.001-0.429) Neutrophils % 81.9 % (39.0-77.0) Lymphocytes % 5.2 % (15.0-51.0) Monocytes % 9.2 % (0.0-11.0) Eosinophils % 2.7 % (0.0-7.0) Basophils % 0.4 % (0.0-2.0) Nucleated Red Blood Cells % 0.0 /100WBC (0.0-0.0) Immature Granulocytes # 0.060 10^3/ul (0.0-0.031) Neutrophils # 8.5 10^3/ul (1.6-7.5) Lymphocytes # 0.5 10^3/ul (0.8-2.9) Monocytes # 1.0 10^3/ul (0.3-0.9) Eosinophils # 0.3 10^3/ul (0.0-0.5) Basophils # 0.0 10^3/ul (0.0-0.1) Nucleated Red Blood Cells # 0.0 10^3/ul (0.0-0.0) BARTOLO STREETER MD October 03, 2018 15:19
[2018-10-03] MEDS: SOD FERRIC GLUC COMPLX 125 MG in SOD CHLORIDE 0.9% 100 ML IVPB SCH (15:45)
--- NOTE | 2018-10-03 16:09 | CONS ---
Assessment/Plan Assessment/Plan Hospital Course (Demo Recall) IMP: 1. H/o stent to LAD/LCX/RCA with SHERRY 09/17-/09/18-neg trop x 3 2.HTN 3.Cardiomyopathy-EF 45-50 prior to stents 4.Anemia-improved s/p mutiple units of PRBC's 5.Melena- now s/p endoscopy with duodenal ulcer 6.Renal failure- mild recurrent renal insuff Recc: -Tele -serial ecg's -Transfuse further PRBC's as necessary -Now resumed on brilinta/ with stable Hgb -Continue benazepril/norvasc with reasonable BP control Consultation Date/Type/Reason Admit Date/Time September 26, 2018 at 09:45 Initial Consult Date 09/27/18 Type of Consult Cardiology Reason for Consultation h/o stent Requesting Provider: ADORE SHAH Date/Time of Note DATE: 10/03/18 TIME: 16:07 Exam/Review of Systems Vital Signs Vitals Vital Signs Date Temp Pulse Resp B/P (MAP) Pulse Ox O2 O2 Flow FiO2 Time Delivery Rate 10/03/18 98.2 137 18 137/65 98 15:26 (89) 10/03/18 Room Air 03:59 10/01/18 2.0 14:29 Intake and Output 10/02/18 10/02/18 10/03/18 1515:00 23:00 07:00 IntakeIntake Total 750 ml 450 ml OutputOutput Total 850 ml 750 ml BalanceBalance -100 ml -300 ml Exam Exam Review of Systems: CONSTITUTIONAL: No fevers, chills. PULMONARY: No sob CARDIOVASCULAR: No chest pain/palpitations GASTROINTESTINAL: No nausea/vomiting. GENITOURINARY: No hematuria/dysuria. MUSCULOSKELETAL: No myagias/arthalgias. PSYCHIATRIC: The patient denies depression. NEUROLOGIC: No weakness Constitutional: alert, oriented Psych: no complaints Head: normocephalic ENMT: mucosa pink and moist Neck: supple, jvd (8 cm water) Respiratory: clear to auscultation Cardiovascular: regular rate and rhythm Gastrointestinal: soft, non-tender Musculoskeletal: muscle tone (normAL) Extremities: edema (NONE) Neurological: other (No focal deficits) Labs Result Diagram: 10/02/18 1852 10/01/18 0731 Results 24hrs Laboratory Tests Test 10/02/18 18:52 White Blood Count 10.4 # Red Blood Count 3.52 L Hemoglobin 10.1 L Hematocrit 30.8 L Mean Corpuscular Volume 87.5 Mean Corpuscular Hemoglobin 28.7 L Mean Corpuscular Hemoglobin Concent 32.8 Red Cell Distribution Width 18.5 H Platelet Count 336 Mean Platelet Volume 10.0 Immature Granulocytes % 0.600 H Neutrophils % 81.9 H Lymphocytes % 5.2 L Monocytes % 9.2 Eosinophils % 2.7 Basophils % 0.4 Nucleated Red Blood Cells % 0.0 Immature Granulocytes # 0.060 H Neutrophils # 8.5 H Lymphocytes # 0.5 L Monocytes # 1.0 H Eosinophils # 0.3 Basophils # 0.0 Nucleated Red Blood Cells # 0.0 Medications Medications Current Medications Nitroglycerin (Nitroglycerin (Sl Tab) 0.4 Mg) 1 tab Q5M PRN SL ANGINA; Start 09/26/18 at 13:30 IV Flush (NS 3 ml) 3 ml PER PROTOCOL IV ; Start 09/26/18 at 17:30 Ondansetron HCl (Zofran Inj) 4 mg Q6H PRN IV NAUSEA/VOMITING Last administered on 10/02/18at 03:54; Admin Dose 4 MG; Start 09/26/18 at 17:30 Morphine Sulfate (morphine) 2 mg Q4H PRN IV .SEVERE PAIN 7-10 Last administered on 10/02/18at 03:44; Admin Dose 2 MG; Start 09/26/18 at 17:30 Lorazepam (Ativan) 1 mg Q8H PRN IV ANXIETY Last administered on 10/01/18 20:19; Admin Dose 1 MG; Start 09/28/18 at 08:30 Pantoprazole (Protonix Iv) 40 mg BID@06,18 IV Last administered on 10/03/18 07:03; Admin Dose 40 MG; Start 09/28/18 at 18:00 Duloxetine HCl (Cymbalta) 30 mg BID PO Last administered on 10/03/18 08:32; Admin Dose 30 MG; Start 09/29/18 at 09:30 Benazepril HCl (Lotensin) 40 mg DAILY PO Last administered on 10/03/18at 08:40; Admin Dose 40 MG; Start 09/29/18 at 09:30 Acetaminophen/ Hydrocodone Bitart ([place] (5/325)) 1 tab Q6H PRN PO MODERATE PAIN LEVEL 4-6 Last administered on 10/02/18 17:30; Admin Dose 1 TAB; Start 09/29/18 at 15:00 Hydralazine HCl (Apresoline) 10 mg Q4H PRN IV bp Last administered on 10/02/18 17:18; Admin Dose 10 MG; Start 09/30/18 at 00:30 Ticagrelor (Brilinta) 90 mg BID PO Last administered on 10/03/18 08:42; Admin Dose 90 MG; Start 10/01/18 at 21:00 Al Hydrox/Mg Hydrox/Simethicone (Mag-Al Plus) 30 ml Q6H PRN PO GASTROINTESTINAL UPSET Last administered on 10/01/18 21:14; Admin Dose 30 ML; Start 10/01/18 at 21:00 Hydromorphone HCl (Dilaudid) 0.5 mg Q4H PRN IV SEVERE PAIN LEVEL 7-10 Last administered on 10/03/18 07:04; Admin Dose 0.5 MG; Start 10/02/18 at 01:00 Amlodipine Besylate (Norvasc) 10 mg DAILY PO Last administered on 10/03/18 08:39; Admin Dose 10 MG; Start 10/02/18 at 21:00 RODDY OLSEN October 03, 2018 16:09
[2018-10-03] MEDS ORDERED: POTASSIUM CHLORIDE (SR) 20 MEQ TAB PO ONE (22:11)
[2018-10-03] MEDS: hydrALAzine 20 MG INJ IV PRN (23:57)
[2018-10-04] VITALS (7 sets, daily range): BP systolic 117–166; BP diastolic 52–73; PULSE 78–103; RESP 18–19
[2018-10-04] MEDS: PANTOPRAZOLE 40 MG INJ IV SCH (05:44)
[2018-10-04] MEDS: AMLODIPINE 10 MG TAB PO SCH (08:52)
[2018-10-04] MEDS: DULOXETINE 30 MG CAP DR PO SCH (08:52)
[2018-10-04] MEDS: BENAZEPRIL 40 MG TAB PO SCH (08:53)
[2018-10-04] MEDS: TICAGRELOR 90 MG TABLET PO SCH (08:59)
--- NOTE | 2018-10-04 11:58 | CONS ---
Consult Date/Type/Reason Admit Date/Time September 26, 2018 at 09:45 Initial Consult Date 09/27/18 Requesting Provider: ADORE SHAH Date/Time of Note DATE: 10/04/18 TIME: 11:55 Subjective NO acute events - H/H stable - Brilinta resumed. ROS: No fever, no chills, no nausea, no vomiting, no diarrhea/constipation No recent weight changes No chest pain, no PND, no orthopnea No dizziness, blurred vision No thirst, no heat or cold intolerance Objective Vitals Vital Signs Date Temp Pulse Resp B/P (MAP) Pulse Ox O2 O2 Flow FiO2 Time Delivery Rate 10/04/18 98.4 95 19 131/57 94 11:12 (81) 10/03/18 Room Air 03:59 10/01/18 2.0 14:29 Intake and Output 10/03/18 10/03/18 10/04/18 1515:00 23:00 07:00 IntakeIntake Total 1050 ml 300 ml OutputOutput Total 2050 ml 600 ml BalanceBalance -1000 ml -300 ml Exam General: WN/WD/NAD, AOx 3 HEENT: Unicetric/atraumatic/EOMI (follows commands) NECK: JVD elevated, no thyromegaly Lymph: no lymphadenopathy HEART: regular with no S3, II/ systolic murmur at apex LUNGS: Coarse sounds ABD: soft, NT, ND, +BS : Intact Neuro: non focal SKIN: chronic changes EXT: trace edema Results/Medications Result Diagram: 10/02/18 1852 10/01/18 0731 Home Meds Active Scripts Pantoprazole* (Pantoprazole*) 40 Mg Tablet.dr, 40 MG PO BID for 60 Days, #120 TAB 3 Refills Prov:BARTOLO STREETER MD 10/01/18 Benazepril Hcl* (Benazepril Hcl*) 40 Mg Tablet, 40 MG PO DAILY for 30 Days, #30 TAB Prov:CHRISTINE HERRERA MD 09/21/18 Amlodipine Besylate* (Amlodipine Besylate*) 10 Mg Tablet, 10 MG PO DAILY for 30 Days, #30 TAB Prov:CHRISTINE HERRERA MD 09/20/18 Ticagrelor* (Brilinta*) 90 Mg Tablet, 90 MG PO BID for 30 Days, #60 TAB 1 Refill Prov:CHRISTINE HERRERA MD 09/20/18 Atorvastatin* (Atorvastatin*) 80 Mg Tablet, 80 MG PO HS for 30 Days, #30 TAB 1 Refill Prov:CHRISTINE HERRERA MD 09/20/18 Reported Medications Duloxetine Hcl* (Cymbalta*) 30 Mg Capsule.dr, 30 MG PO BID, CAP 09/26/18 Metoprolol Tartrate* (Lopressor*) 50 Mg Tab, 50 MG PO BID, #60 TAB 09/26/18 Buspirone Hcl* (Buspirone Hcl*) 10 Mg Tab, 10 MG PO BID, TAB 09/16/18 Nitroglycerin* (Nitrostat*) 0.4 Mg Tab.subl, 0.4 MG SL Q5MIN PRN for CHEST PAIN, BOTTLE 09/16/18 Discontinued Reported Medications Baclofen* (Baclofen*) 10 Mg Tablet, 10 MG PO TID PRN for MUSCLE SPASMS, TAB 09/26/18 Amoxicillin/Potassium Clav (Amox-Clav 875-125 mg Tablet) 875-125 mg Tab, 1 TAB PO BID, #20 TAB PT STARTED ON 09-22-18 FOR 7 DAYS 09/26/18 Discontinued Scripts Aspirin (Aspirin) 81 Mg Chew, 81 MG PO DAILY for 30 Days, #30 TAB 1 Refill Prov:CHRISTINE HERRERA MD 09/20/18 Medications Current Medications Nitroglycerin (Nitroglycerin (Sl Tab) 0.4 Mg) 1 tab Q5M PRN SL ANGINA; Start 09/26/18 at 13:30 IV Flush (NS 3 ml) 3 ml PER PROTOCOL IV ; Start 09/26/18 at 17:30 Ondansetron HCl (Zofran Inj) 4 mg Q6H PRN IV NAUSEA/VOMITING Last administered on 10/02/18at 03:54; Admin Dose 4 MG; Start 09/26/18 at 17:30 Morphine Sulfate (morphine) 2 mg Q4H PRN IV .SEVERE PAIN 7-10 Last administered on 10/02/18at 03:44; Admin Dose 2 MG; Start 09/26/18 at 17:30 Lorazepam (Ativan) 1 mg Q8H PRN IV ANXIETY Last administered on 10/01/18at 20:19; Admin Dose 1 MG; Start 09/28/18 at 08:30 Pantoprazole (Protonix Iv) 40 mg BID@06,18 IV Last administered on 10/04/18 05:44; Admin Dose 40 MG; Start 09/28/18 at 18:00 Duloxetine HCl (Cymbalta) 30 mg BID PO Last administered on 10/04/18 08:52; Admin Dose 30 MG; Start 09/29/18 at 09:30 Benazepril HCl (Lotensin) 40 mg DAILY PO Last administered on 10/04/18 08:53; Admin Dose 40 MG; Start 09/29/18 at 09:30 Acetaminophen/ Hydrocodone Bitart ([place] (5/325)) 1 tab Q6H PRN PO MODERATE PAIN LEVEL 4-6 Last administered on 10/02/18 17:30; Admin Dose 1 TAB; Start 09/29/18 at 15:00 Hydralazine HCl (Apresoline) 10 mg Q4H PRN IV bp Last administered on 10/03/18 23:57; Admin Dose 10 MG; Start 09/30/18 at 00:30 Ticagrelor (Brilinta) 90 mg BID PO Last administered on 10/04/18 08:59; Admin Dose 90 MG; Start 10/01/18 at 21:00 Al Hydrox/Mg Hydrox/Simethicone (Mag-Al Plus) 30 ml Q6H PRN PO GASTROINTESTINAL UPSET Last administered on 10/01/18 21:14; Admin Dose 30 ML; Start 10/01/18 at 21:00 Hydromorphone HCl (Dilaudid) 0.5 mg Q4H PRN IV SEVERE PAIN LEVEL 7-10 Last administered on 10/03/18 07:04; Admin Dose 0.5 MG; Start 10/02/18 at 01:00 Amlodipine Besylate (Norvasc) 10 mg DAILY PO Last administered on 10/04/18 08:52; Admin Dose 10 MG; Start 10/02/18 at 21:00 Assessment/Plan Hospital Course (Demo Recall) 1. H/o stent to LAD/LCX/RCA with SHERRY 09/17-/09/18-neg trop x 3 - per Dr. Lujan - given very recent stenting high risk fo stent thrombosis which could likely be catastrophic - GI to clear. now brilinta resumed - H/H stable. 2.HTN - on high side, will allow for now given recent bleed - well controlled. 3.Cardiomyopathy-EF 45-50 prior to stents - keep euvolemc - euvolkemic by exam. 4.Anemia-improved s/p mutiple units of PRBC's - will follow , h/H 10.1 now - no active bleeding. 5.Melena - GI follows. 6.Renal failure- improving with volume resuscitation/transfusions - CXR 1.32 - avoid nephrotoxic meds. LIV DARLING MD Oct 04, 2018 11:57
== END 2018-10-04 14:04 | disposition home or self-care (01) | DRG 812 ==
LOC: E/R 08:36 → TEL 09:45 → EDBEDREQSVC 16:41
PROVIDERS: ADMIT Internal Medicine; ATTEND Internal Medicine
PROC: 30233N1 Transfusion of Nonautologous Red Blood Cells into Peripheral Vein, Percutaneous Approach (ICD-10-PCS; 2018-09-26)
PROC: 0DB68ZX Excision of Stomach, Via Natural or Artificial Opening Endoscopic, Diagnostic (ICD-10-PCS; principal; 2018-09-30 16:30)
PROC: 0DBN8ZX Excision of Sigmoid Colon, Via Natural or Artificial Opening Endoscopic, Diagnostic (ICD-10-PCS; 2018-09-30 16:30)
DX: D62 Acute posthemorrhagic anemia (principal); N17.9 Acute kidney failure, unspecified; K26.3 Acute duodenal ulcer without hemorrhage or perforation; K92.1 Melena; I42.9 Cardiomyopathy, unspecified; R00.1 Bradycardia, unspecified; K29.00 Acute gastritis without bleeding; K57.30 Diverticulosis of large intestine without perforation or abscess without bleeding; K27.9 Peptic ulcer, site unspecified, unspecified as acute or chronic, without hemorrhage or perforation; Z95.5 Presence of coronary angioplasty implant and graft; I10 Essential (primary) hypertension; R07.9 Chest pain, unspecified; K64.8 Other hemorrhoids
CPT/HCPCS: 36415; 36430; 71045; 80048; 80053; 80061; 82550; 82553; 83036; 83540; 83735; 84100; 84484; 85025; 85610; 86850; 86900; 86901; 86920; 87081; 88305; 88312; 93005; 97116; 97162; C9113; J0360; J1170; J2060; J2270; J2405; J2916; J7030; J7040; P9016

== ENCOUNTER 2018-10-11 09:59 | Inpatient (IN) | payer MEDICARE ==
[2018-10-11] VITALS (7 sets, daily range): BP systolic 110–156; BP diastolic 62–76; PULSE 62–77; RESP 16–18; Ht 172.7 cm; Wt 84.0 kg
[~2018-10-11] VITALS: Ht 172.7 cm; Wt 84.0 kg
[~2018-10-11 09:59] MED LIST changes: -ASPI-831 PO; -FERR1TAB14 PO; +METO-429 PO; -METO25TA4 PO; +PANT40TA4 PO
[2018-10-11] MEDS ORDERED: BUSP10TA2 PO (11:29)
[2018-10-11] MEDS ORDERED: METO-407 PO (11:29)
[2018-10-11] MEDS ORDERED: ONDANSETRON 4 MG INJ IV STA (11:34)
[2018-10-11] MEDS ORDERED: morphine 4 MG/ML VIAL IV STA (11:34)
[2018-10-11] MEDS ORDERED: ONDANSETRON 4 MG INJ IV PRN ×2 (12:00→13:30)
[2018-10-11] MEDS ORDERED: ACETAMINOPHEN 325 MG TAB PO PRN ×2 (12:00→13:30)
[2018-10-11] MEDS: NITROGLYCERIN (SL) 0.4 MG TAB SL PRN ×5 (12:03→20:25)
--- NOTE | 2018-10-11 12:57 | ERD ---
ER Documentation Chief Complaint Chief Complaint SUDDEN ONSET OF CHEST PAIN STARTED AT 0900 WITH SOB HPI 67-year-old male with a history of CAD presenting with chest pain that started at around 5 AM this morning. He states it is in his left chest, radiating to his neck, associated with diaphoresis, nausea, and shortness of breath. He took a few nitro at home with only minimal relief. Ambulance was called. He was given some additional nitro in the ambulance. He did not take aspirin given his recent history of bleeding ulcer. He is on blood thinners that he was placed on after stents were placed. Denies any recent fevers but is complaining of some chills today. He does have a cough with yellowish phlegm. Currently is denying any abdominal pain, melena, hematochezia, vomiting. ROS All systems reviewed and are negative except as per history of present illness. Medications Home Meds Active Scripts Pantoprazole* (Pantoprazole*) 40 Mg Tablet.dr, 40 MG PO BID for 60 Days, #120 TAB 3 Refills Prov:BARTOLO STREETER MD 10/01/18 Benazepril Hcl* (Benazepril Hcl*) 40 Mg Tablet, 40 MG PO DAILY for 30 Days, #30 TAB Prov:CHRISTINE HERRERA MD 09/21/18 Amlodipine Besylate* (Amlodipine Besylate*) 10 Mg Tablet, 10 MG PO DAILY for 30 Days, #30 TAB Prov:CHRISTINE HERRERA MD 09/20/18 Ticagrelor* (Brilinta*) 90 Mg Tablet, 90 MG PO BID for 30 Days, #60 TAB 1 Refill Prov:CHRISTINE HERRERA MD 09/20/18 Atorvastatin* (Atorvastatin*) 80 Mg Tablet, 80 MG PO HS for 30 Days, #30 TAB 1 Refill Prov:CHRISTINE HERRERA MD 09/20/18 Reported Medications Metoprolol Tartrate* (Lopressor*) 100 Mg Tablet, 100 MG PO BID, #60 TAB 10/11/18 Buspirone Hcl* (Buspirone Hcl*) 10 Mg Tab, 15 MG PO BID, TAB 10/11/18 Duloxetine Hcl* (Cymbalta*) 30 Mg Capsule.dr, 30 MG PO BID, CAP 09/26/18 Nitroglycerin* (Nitrostat*) 0.4 Mg Tab.subl, 0.4 MG SL Q5MIN PRN for CHEST PAIN, BOTTLE 09/16/18 Discontinued Reported Medications Metoprolol Tartrate* (Lopressor*) 50 Mg Tab, 50 MG PO BID, #60 TAB 09/26/18 Buspirone Hcl* (Buspirone Hcl*) 10 Mg Tab, 10 MG PO BID, TAB 09/16/18 Allergies Allergies: Coded Allergies: No Known Allergy (Unverified , 10/11/18) PMhx/Soc History of Surgery: Yes (Knee surgery, Heart Stents placement X6) Anesthesia Reaction: No Hx Neurological Disorder: No Hx Respiratory Disorders: No Hx Cardiac Disorders: Yes ( CAD with recent hospitalzation and PCI, 6 stents) Hx Psychiatric Problems: No Hx Miscellaneous Medical Probl: Yes (HTN, microcytic anemia, dyslipidemia,) Hx Alcohol Use: No Hx Substance Use: No Hx Tobacco Use: No Smoking Status: Never smoker FmHx Family History: No diabetes Physical Exam Vitals Vital Signs Date Temp Pulse Resp B/P (MAP) Pulse Ox O2 O2 Flow FiO2 Time Delivery Rate 10/11/18 98.6 67 17 144/88 100 Nasal 2.0 12:05 (106) Cannula 10/11/18 Nasal 2 10:20 Cannula 10/11/18 97.0 70 22 139/80 100 10:05 (99) Physical Exam Const: No acute distress Head: Atraumatic Eyes: Normal Conjunctiva ENT: Normal External Ears, Nose and Mouth. Neck: Full range of motion. No meningismus. No JVD Resp: Clear to auscultation bilaterally Cardio: Regular rate and rhythm, no murmurs. 2+ distal pulses Abd: Soft, non tender, non distended. Normal bowel sounds Skin: No petechiae or rashes Back: No midline or flank tenderness Ext: No cyanosis, or edema. No calf tenderness Neur: Awake and alert Psych: Normal Mood and Affect Result Diagram: 10/11/18 1005 10/11/18 1005 Results 24 hrs Laboratory Tests Test 10/11/18 10:05 White Blood Count 6.4 10^3/ul Red Blood Count 3.92 10^6/ul Hemoglobin 11.0 g/dl Hematocrit 34.8 % Mean Corpuscular Volume 88.8 fl Mean Corpuscular Hemoglobin 28.1 pg Mean Corpuscular Hemoglobin Concent 31.6 g/dl Red Cell Distribution Width 16.8 % Platelet Count 328 10^3/UL Mean Platelet Volume 10.3 fl Immature Granulocytes % 0.500 % Neutrophils % 64.2 % Lymphocytes % 21.4 % Monocytes % 9.6 % Eosinophils % 3.4 % Basophils % 0.9 % Nucleated Red Blood Cells % 0.0 /100WBC Immature Granulocytes # 0.030 10^3/ul Neutrophils # 4.1 10^3/ul Lymphocytes # 1.4 10^3/ul Monocytes # 0.6 10^3/ul Eosinophils # 0.2 10^3/ul Basophils # 0.1 10^3/ul Nucleated Red Blood Cells # 0.0 10^3/ul Sodium Level 142 mmol/L Potassium Level 3.9 mmol/L Chloride Level 106 mmol/L Carbon Dioxide Level 26 mmol/L Anion Gap 10 Blood Urea Nitrogen 21 mg/dl Creatinine 1.39 mg/dl Est Glomerular Filtrat Rate mL/min 51 mL/min Glucose Level 104 mg/dl Calcium Level 8.9 mg/dl Troponin I < 0.012 ng/ml Current Medications Medications Dose Sig/Allison Start Time Status Last (Trade) Ordered Route PRN Stop Time Admin Dose Reason Admin 1 tab Q5M UP TO 3 10/11/18 10/11/18 Nitroglycerin DOSES PRN 12:00 12:03 SL .CHEST (Nitroglyceri PAIN n (Sl Tab) 0.4 Mg) Morphine 4 mg ONCE STAT 10/11/18 DC 10/11/18 Sulfate IV 11:34 10/11/18 11:41 (morphine) 11:36 Ondansetron 4 mg ONCE STAT 10/11/18 DC 10/11/18 HCl (Zofran IV 11:34 10/11/18 11:41 Inj) 11:36 Ondansetron 4 mg ER BRIDGE 10/11/18 HCl (Zofran PRN IV 12:00 10/12/18 Inj) NAUSEA/VOMITI 11:59 NG 650 mg ER BRIDGE 10/11/18 Acetaminophen PRN PO 12:00 10/12/18 (Tylenol .MILD PAIN 11:59 Tab) 1-3 OR TEMP Procedures/MDM EMERGENT LABS AND DIAGNOSTIC STUDIES: Lab Results above were reviewed and interpreted by me. CBC: Mild anemia, no evidence of infection BMP: Elevated BUN and creatinine, consistent with chronic renal insufficiency. No e/o clinically significant electrolyte abnormality severe acidosis, alkalosis, diabetic ketoacidosis Troponin within normal limits, not indicative of cardiac ischemia 12-lead EKG #1 was interpreted by Brissa Berger MD: Normal sinus rhythm at 74 bpm Normal axis Normal intervals T wave inversions in the inferior and lateral leads. Concerning for ischemia Abnormal EKG, possible ischemia, no STEMI. EKG #2: Rate/Rhythm: Normal sinus rhythm at 65 bpm QRS, ST, T-waves: Lateral and inferior T wave inversions, concerning for ischemia Impression: Abnormal EKG, no STEMI Radiology Results as interpreted by Radiology below were reviewed by Ney Berger MD: Chest x-ray shows no acute abnormalities Initial Nursing notes reviewed. Previous Medical Records requested via the Electronic Health Record. EMERGENCY DEPARTMENT COURSE / MEDICAL DECISION MAKING: Patient was placed on a monitor. Cardiac work-up was initiated. This is a patient with cardiac disease with recent stent placement presenting with chest pain concerning for myocardial ischemia. He is hemodynamically stable. EKG shows some ischemic changes, however these appear chronic when compared to previous EKGs. Patient states he is unable to receive aspirin due to recent GI bleed. Initial troponin is negative. I spoke with his docket specialist, Dr. Lujan, who is concerned that this pain may be secondary to his gastric ulcer. At this time there is no evidence of GI bleeding. Patient will be admitted for further work-up, monitoring, and management. He was given nitroglycerin and morphine here with some improvement of his symptoms. Accepting Care Team: Current data and ongoing care discussed. Time: Time of admission Primary Provider: Dr. Olivia Consulting: Dr. Lujan Outstanding Data: none Departure Diagnosis: Primary Impression: Chest pain with moderate risk for cardiac etiology Condition: DAVIN Javier MD Oct 11, 2018 12:55
[2018-10-11] MEDS ORDERED: MAGNESIUM HYDROXIDE 30ML CUP PO PRN (13:30)
[2018-10-11] MEDS ORDERED: NITROGLYCERIN (SL) 0.4 MG TAB SL PRN (13:30)
[2018-10-11] MEDS ORDERED: NACL 0.9% 3 ML SYG IV SCH (13:30)
[2018-10-11] MEDS: HYDROCODONE/APAP (5/325) TAB PO PRN (14:33)
--- NOTE | 2018-10-11 14:36 | HP ---
Date/Time of Note Date/Time of Note DATE: 10/11/18 TIME: 14:31 Assessment/Plan VTE Prophylaxis SCD applied (from Nsg): Yes Pharmacological prophylaxis: other Lines/Catheters IV Catheter Type (from Nrsg): Saline Lock Assessment/Plan Hospital Course Assessment and plan 1. Chest pain. Monitor on telemetry. First troponin negative. Monitor trend. Cosmetic Surgeon will be consulted. 2. History of CAD with multiple PCI. Remains on Brilinta however patient reports he is unable to take aspirin due to recent GI bleed. Also continue on statin medication. 3. History of GI bleed. Continue on PPI medication. Monitor H&H. Remains stable at present. 4. RODRIGO. Will get nephrology consultation. Monitor renal panel. 5. Essential hypertension. Will resume antihypertensives 6. Suspect history of depression. Continue on Cymbalta. 7. History of hyperlipidemia. Continue on statin medication. 8. History of peptic ulcer disease. Continue on PPI. Avoid NSAIDs. Discussed plan of care with Dr. Olivia Result Diagram: 10/11/18 1005 10/11/18 1005 Results 24hrs Laboratory Tests Test 10/11/18 10:05 White Blood Count 6.4 # Red Blood Count 3.92 L Hemoglobin 11.0 L Hematocrit 34.8 L Mean Corpuscular Volume 88.8 Mean Corpuscular Hemoglobin 28.1 L Mean Corpuscular Hemoglobin Concent 31.6 L Red Cell Distribution Width 16.8 H Platelet Count 328 Mean Platelet Volume 10.3 Immature Granulocytes % 0.500 H Neutrophils % 64.2 Lymphocytes % 21.4 Monocytes % 9.6 Eosinophils % 3.4 Basophils % 0.9 Nucleated Red Blood Cells % 0.0 Immature Granulocytes # 0.030 Neutrophils # 4.1 Lymphocytes # 1.4 Monocytes # 0.6 Eosinophils # 0.2 Basophils # 0.1 Nucleated Red Blood Cells # 0.0 Sodium Level 142 Potassium Level 3.9 Chloride Level 106 Carbon Dioxide Level 26 Anion Gap 10 Blood Urea Nitrogen 21 H Creatinine 1.39 H Est Glomerular Filtrat Rate mL/min 51 L Glucose Level 104 Calcium Level 8.9 Troponin I < 0.012 HPI/ROS Admit Date/Time Admit Date/Time Oct 11, 2018 at 11:58 Hx of Present Illness This is a 67-year-old male who recently was admitted to the hospital in September this year who recently had PCI for coronary artery disease and had 3 stents to PLB/RCA. Patient reportedly at that time also had severe GI bleed and was seen by GI and was placed on PPI medication. Patient does report that he was compliant with his medicines and was taking Brilinta alone and not aspirin due to life-threatening bleeding previously. He states that he was discharged roughly on 03 Oct 2018. He says that several days prior to this admission he had been having some chest discomfort. This morning when he awoke he had severe chest pain 6 out of 10 that was pressure-like in nature radiating to his left arm. He also noted some increased shortness of breath as well. Yesterday he came to [facility] for [facility] evaluation. First troponin negative. We will evaluate him for the aformentiond issues. ROS 12 point review of systems obtained and entirely negative except as mentioned in history of present illness PMH/Family/Social Past Medical History Medical/surgical history 1. CAD with multiple history of stent placement. 2. syptomatic anemia with acute blood loss 3. HLD 4. Hypertensioin Medications Current Medications Nitroglycerin (Nitroglycerin (Sl Tab) 0.4 Mg) 1 tab Q5M UP TO 3 DOSES PRN SL .CHEST PAIN Last administered on 10/11/18at 14:10; Admin Dose 1 TAB; Start 10/11/18 at 12:00 Ondansetron HCl (Zofran Inj) 4 mg ER BRIDGE PRN IV NAUSEA/VOMITING; Start 10/11/18 at 12:00; Stop 10/12/18 at 11:59 Acetaminophen (Tylenol Tab) 650 mg ER BRIDGE PRN PO .MILD PAIN 1-3 OR TEMP; Start 10/11/18 at 12:00; Stop 10/12/18 at 11:59 Amlodipine Besylate (Norvasc) 10 mg DAILY PO ; Start 10/12/18 at 09:00 Atorvastatin Calcium (Lipitor) 80 mg HS PO ; Start 10/11/18 at 21:00 Benazepril HCl (Lotensin) 40 mg DAILY PO ; Start 10/12/18 at 09:00 Buspirone HCl (Buspar) 15 mg BID PO ; Start 10/11/18 at 21:00 Duloxetine HCl (Cymbalta) 30 mg BID PO ; Start 10/11/18 at 21:00 Metoprolol Tartrate (Lopressor) 100 mg BID PO ; Start 10/11/18 at 21:00 Pantoprazole (Protonix Tab) 40 mg BID PO ; Start 10/11/18 at 21:00 Ticagrelor (Brilinta) 90 mg BID PO ; Start 10/11/18 at 21:00 Nitroglycerin (Nitroglycerin (Sl Tab) 0.4 Mg) 1 tab Q5M PRN SL CHEST PAIN; Start 10/11/18 at 13:30 IV Flush (NS 3 ml) 3 ml PER PROTOCOL IV ; Start 10/11/18 at 13:30 Ondansetron HCl (Zofran Inj) 4 mg Q6H PRN IV NAUSEA/VOMITING; Start 10/11/18 at 13:30 Acetaminophen (Tylenol Tab) 650 mg Q6H PRN PO .PAIN 1-3 OR TEMP; Start 10/11/18 at 13:30 Acetaminophen/ Hydrocodone Bitart ([place] (5/325)) 1 tab Q6H PRN PO .MOD PAIN 4- 6; Start 10/11/18 at 13:30 Morphine Sulfate (morphine) 2 mg Q4H PRN IV .SEVERE PAIN 7-10; Start 10/11/18 at 13:30 Magnesium Hydroxide (Milk Of Mag) 30 ml DAILY PRN PO .CONSTIPATION; Start 10/11/18 at 13:30 Heparin Sodium (Porcine) (Heparin (5000 Units/1ml)) 5,000 unit Q12 SC ; Start 10/11/18 at 21:00 Coded Allergies: No Known Allergy (Unverified , 10/11/18) Family History Significant Family History: no pertinent family hx Social History Alcohol Use: none Smoking Status: Never smoker Drug Use: none Exam/Review of Systems Vital Signs Vitals Vital Signs Date Temp Pulse Resp B/P (MAP) Pulse Ox O2 O2 Flow FiO2 Time Delivery Rate 10/11/18 68 14:09 10/11/18 98.6 16 156/72 98 Nasal 2.0 14:06 (100) Cannula Exam Constitutional: alert, oriented Psych: nl mood/affect Head: normocephalic Eyes: nl conjunctiva Neck: non-tender Respiratory: clear to auscultation Cardiovascular: other (regular rate) Gastrointestinal: soft, non-tender Neurological: LABORER HIGH DENSITY PRESS II-XII intact, nl mental status, nl speech Skin: nl turgor [employer] Oct 11, 2018 14:36
[2018-10-11] MEDS: morphine 2 MG INJ IV PRN ×2 (16:16→20:43)
--- NOTE | 2018-10-11 17:30 | CONS ---
DATE OF ADMISSION: 10/11/2018 DATE OF CONSULTATION: TYPE OF CONSULTATION: Nephrology. REASON FOR CONSULTATION: Acute kidney injury. REQUESTING PHYSICIAN: ____. HISTORY OF PRESENT ILLNESS: This is a 67-year-old male with a past medical history of coronary arter y disease, history of hypertension, history of anemia, dyslipidemia who presents to [facility] with chest pain. Patient described the chest pain, left-sided, radiating to his neck ass ociated with diaphoresis, nausea, shortness of breath. The patient took multiple nitroglycerins with out significant improvement. As a result, he came to the emergency room, the patient was subsequentl y admitted to telemetry for evaluation of acute coronary syndrome. In terms of patient's renal history, the patient has no prior history or knowledge of chronic kidney disease. The patient on previous laboratory data has shown evidence of acute kidney injury, with cre atinines ranging from 1.0 to 1.6 mg/dL. On admission, the patient has a creatinine of 1.4 mg/dL. Th e patient denies any hemoptysis, hematemesis, hematochezia. PAST MEDICAL HISTORY: History of pectic ulcer disease, history of coronary artery disease, history o f hypertension, history of dyslipidemia. PAST SURGICAL HISTORY: Status post cardiac catheterization with PCI, history of knee surgery. FAMILY HISTORY: No family history of kidney disease. SOCIAL HISTORY: Does not drink, smoke or do drugs. MEDICATIONS: Have been reviewed. REVIEW OF SYSTEMS: A 14-point review of systems was conducted. Pertinent positives stated in HPI, o therwise negative. PHYSICAL EXAMINATION: VITAL SIGNS: Blood pressure is 156/72, respirations 16, pulse 70, temperature 98.6. HEENT: Head is normocephalic. NECK: Supple. HEART: Regular rate. LUNGS: Show diminished breath sounds at the base. ABDOMEN: Soft, nontender to palpation without rebound or guarding. EXTREMITIES: Negative for clubbing, cyanosis. No edema. DERMATOLOGIC: No rashes. MUSCULOSKELETAL: No joint effusions. NEUROLOGIC: No focal deficits. LABORATORY DATA: Have been reviewed. IMAGING STUDIES: Have been reviewed. ASSESSMENT AND PLAN: This is a 67-year-old male who presents with: 1. Nonoliguric acute kidney injury on top of chronic kidney disease with previous baseline creatinin e around 1.1 and 1.2 mg/dL. Etiology of current acute kidney injury may be secondary to hemodynamics , PATITO inhibitor effect, possible progression of underlying chronic kidney disease. Plan at this poin t is to do a full evaluation. We will check UA with microanalysis, check urine electrolytes. We shaun l check a renal ultrasound to evaluate renal parenchyma. We would continue current medical managemen t. Okay to continue PATITO inhibitor at this time, avoid any NSAID use. Otherwise, continue to renally dose all meds, avoid nephrotoxins. 2. Anemia. Monitor hemoglobin and hematocrit levels. 3. Mineral bone disorder. Monitor calcium and phosphorus levels. 4. Hypertension. Continue current blood pressure regimen. 5. Chest pain. The patient is being ruled out for acute coronary syndrome. Check serial troponins. Follow up with cardiology. Continue current medical management. 6. History of coronary artery disease. Continue current treatment plan. 7. History of peptic ulcer disease. Continue proton pump inhibitor, monitor closely on Brilinta. 8. History of depression. Continue Cymbalta. Thank you ____ for this interesting consult. It will be a pleasure to follow patient with kai bey the hospital course. Dictated By: FERNANDO LOYA DO NR/NTS Conf#: [id number] DID#: [id number] CC: ADORE SHAH MD;*EndCC*
--- NOTE | 2018-10-11 19:36 | CONS ---
DATE OF ADMISSION: 10/11/2018 DATE OF CONSULTATION: 10/11/2018 REASON FOR CONSULTATION: Chest pain, assess for acute coronary syndrome. REQUESTING PHYSICIAN: Jayy Lee NP from the hospitalist service. HISTORY OF PRESENT ILLNESS: Mr. 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 He then represented on 10/04/2018 with complaints of recurrent substernal chest pain and was found to have severe anemia with a hemoglobin of 5.2. In that setting, patient refused multiple transfusions, had Brilinta, and aspirin held. Underwent endoscopy revealing a bleeding gastric ulcer. The patient was placed on proton pump inhibitors and sucralfate. Had improvement in symptoms. He remained stable. The patient was resumed on Brilinta, had stable hemoglobin, was discharged to outpatient followup and now represents again with complaints of substernal chest pain of onset this morning, radiating to his left arm with dizziness upon standing. The patient's hemoglobin prior to discharge was 10.1, and today the patient's hemoglobin is up to 11. The patient's electrocardiogram reveals normal sinus rhythm, rate 65, normal axis, with lateral T-wave inversions, unchanged from previous EKG. The patient, at this time, remains on Brilinta without aspirin. The patient's troponin, thus far, has been negative x2. PAST MEDICAL HISTORY: As above in HPI. MEDICATIONS CURRENTLY IN HOSPITAL: 1. Norvasc 10 mg daily. 2. Benazepril 40 mg daily. 3. Lipitor 80 mg at bedtime. 4. Buspirone 50 mg b.i.d. 5. Cymbalta 30 mg b.i.d. 6. Metoprolol 100 mg b.i.d. 7. Protonix 40 mg b.i.d. 8. Brilinta 90 mg b.i.d. 9. Heparin 5000 subcutaneous q.12. 11. Tylenol p.r.n. 12. [place] p.r.n. 13. Zofran p.r.n. ALLERGIES: NO KNOWN DRUG ALLERGIES. SOCIAL HISTORY: No current tobacco, ETOH, or illicit drug use. FAMILY HISTORY: No sudden cardiac or early CAD. REVIEW OF SYSTEMS: As above in HPI. CONSTITUTIONAL: No fevers or chills. PULMONARY: Shortness of breath. CARDIOVASCULAR: Intermittent chest pain described as a pressure-like sensation. GASTROINTESTINAL: No current signs of GI bleed, no melena. GENITOURINARY: No hematuria or dysuria but mild renal insufficiency. PSYCHIATRIC: Depression. NEUROLOGIC: No documented history of CVA. PHYSICAL EXAMINATION VITAL SIGNS: Currently temperature 98, blood pressure 110/76, pulse 70, respiratory rate 16, saturating 98% on 3 liters. GENERAL: The patient is alert, awake, complaining of substernal chest pain. NECK: JVP approximately 8 to 9 cm of water. CHEST: Fair air movement throughout. HEART: Regular rate and rhythm. Normal S1 and S2 with I/ systolic murmur, nondisplaced PMI. ABDOMEN: Positive bowel sounds, soft. EXTREMITIES: No significant pitting edema, 1+ pulses bilateral posterior tibial. LABORATORIES: Most recent white blood count 6.4, hemoglobin 11.0, platelet count 328. Sodium 142, potassium 3.9, creatinine 1.29, BUN 21. Troponin negative x2. CK total 47, CK-MB 1.58. IMAGING STUDIES: Renal ultrasound from the 8th revealing mildly increased renal cortical echogenicity bilaterally and small echogenic focus in both kidneys and chest x-ray from today revealing no acute cardiopulmonary disease. ELECTROCARDIOGRAM: As above in HPI. No further electrocardiograms for my review at this time. IMPRESSION: 1. Chest pain. Assess for acute coronary syndrome in a patient with recent severe GI bleed and recent stenting and had holding of his antiplatelet agents. Assess for recurrent acute coronary syndrome, recurrent anemia, and bleeding. 2. Abnormal electrocardiogram with lateral T-wave inversions. Assess for acute coronary syndrome. 3. 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 4. History of a GI bleed and gastric ulcer. 5. Anemia, mild. 6. Psychiatric disorder with depression. 7. Dyslipidemia. 8. Renal insufficiency. 9. Dizziness upon standing. RECOMMENDATIONS: 1. At this time, we will maintain patient on telemetry monitoring to follow rhythm and rate control closely. 2. Continue the patient's baseline beta suri, Norvasc and benazepril, to control blood pressure and heart rate. 3. We will continue the patient's Brilinta at this time without aspirin given recent GI bleed. Continue the patient's subcutaneous heparin as tolerated. 4. We would trend the patient's hemoglobin to assure the patient did not develop any GI bleed. 5. Check orthostatics for any signs of volume depletion and early signs of bleeding. 6. We will complete the patient's rule out for myocardial infarction. 7. Continue to check serial EKGs. Thank you for allowing me to take part in the care of this patient. I will continue to follow very closely with you with further recommendations to be made as the patient progresses through his inpatient hospital clinical course. Dictated By: RODDY POZO/ELDON Conf#: [id number] DID#: [id number] CC: JAYY LEE NP; ADORE SHAH MD;*EndCC* MTDD
[2018-10-11] MEDS: ATORVASTATIN 80 MG TAB PO SCH (20:14)
[2018-10-11] MEDS: BUSPIRONE 10 MG TAB PO SCH (20:16)
[2018-10-11] MEDS: METOPROLOL 100 MG TAB PO SCH (20:17)
[2018-10-11] MEDS: PANTOPRAZOLE (EC) 40 MG TAB PO SCH (20:17)
[2018-10-11] MEDS: DULOXETINE 30 MG CAP DR PO SCH (20:17)
[2018-10-11] MEDS: TICAGRELOR 90 MG TABLET PO SCH (20:21)
[2018-10-11] MEDS: HEPARIN 5,000 UNIT/1 ML VIAL SC SCH (20:21)
[2018-10-12] VITALS (9 sets, daily range): BP systolic 124–135; BP diastolic 60–72; PULSE 50–60; RESP 17–19
[2018-10-12] MEDS: morphine 2 MG INJ IV PRN ×4 (04:17→20:37)
[2018-10-12] MEDS: BUSPIRONE 10 MG TAB PO SCH ×2 (08:30→20:33)
[2018-10-12] MEDS: AMLODIPINE 10 MG TAB PO SCH (08:31)
[2018-10-12] MEDS: PANTOPRAZOLE (EC) 40 MG TAB PO SCH ×2 (08:31→20:33)
[2018-10-12] MEDS: DULOXETINE 30 MG CAP DR PO SCH ×2 (08:31→20:33)
[2018-10-12] MEDS: HYDROCODONE/APAP (5/325) TAB PO PRN ×2 (08:41→18:09)
[2018-10-12] MEDS: HEPARIN 5,000 UNIT/1 ML VIAL SC SCH ×2 (08:45→20:46)
[2018-10-12] MEDS: TICAGRELOR 90 MG TABLET PO SCH ×2 (08:45→20:46)
[2018-10-12] MEDS: METOPROLOL 100 MG TAB PO SCH (09:00)
[2018-10-12] MEDS ORDERED: BENAZEPRIL 40 MG TAB PO SCH (09:00)
--- NOTE | 2018-10-12 09:48 | PN ---
DATE: 10/12/2018 SUBJECTIVE: The patient is stable. Continues to have episodes of chest pain. No other events noted . OBJECTIVE: VITAL SIGNS: Blood pressure is 135/66, pulse is 55, respirations 18, temperature 98.0. HEENT: Head is normocephalic. NECK: Supple. HEART: Regular rate. LUNGS: Show diminished breath sounds at the base. ABDOMEN: Soft, nontender to palpation. No rebound or guarding. EXTREMITIES: Negative for clubbing, cyanosis, no edema. DERMATOLOGIC: No rashes. MUSCULOSKELETAL: No joint effusion. NEUROLOGIC: No change in exam. MEDICATIONS: Have been reviewed. LABORATORY DATA: Has been reviewed. IMAGING STUDIES: Have been reviewed. ASSESSMENT AND PLAN: 1. Nonoliguric acute kidney injury on top of chronic kidney disease with previous baseline creatinin e around 1.1 and 1.2 mg/dL. Etiology of acute kidney injury is likely secondary to hemodynamics. Re nal function has further declined in the last 24 hours. The patient's renal ultrasound showed no aranza dence of obstruction but increased echogenicity consistent with chronic kidney disease. Plan at this point is to follow up UA with microanalysis. Will hold PATITO inhibitor in the setting of worsening re nal function. Would otherwise continue supportive care, renally dose all meds, avoid nephrotoxins. 2. Anemia. Monitor hemoglobin and hematocrit levels. 3. Mineral bone disorder. Monitor calcium and phosphorus levels. 4. Hypertension. Continue current blood pressure regimen. 5. Chest pain. The patient's serial troponins have been negative. Continue to monitor. Follow up with cardiology, questionable imaging study and/or stress test. 6. History of coronary artery disease. Continue medical management. 7. History of peptic ulcer disease. Continue medical management. 8. History of depression. Continue Cymbalta. Dictated By: FERNANDO LOYA DO NR/NTS Conf#: [id number] DID#: [id number] CC: ADORE SHAH MD;*End*
--- NOTE | 2018-10-12 13:04 | PN ---
Date/Time of Note Date/Time of Note DATE: 10/12/18 TIME: 12:57 Assessment/Plan VTE Prophylaxis Risk score (from N[place])>0 risk: 4 [place] [facility] [place] Pharmacological prophylaxis: heparin Lines/Catheters [facility]from [facility] Saline Lock Assessment/Plan Hospital Course Assessment and plan 1. Chest pain. - Monitor on telemetry. - troponins negative. - Monitor trend. - [employer] following 2. History of CAD with multiple PCI. - Remains on Brilinta however patient reports he is unable to take aspirin due to recent GI bleed. - continue on statin medication. 3. History of GI bleed. - Continue on PPI medication. - Monitor H&H. Remains stable at present. 4. RODRIGO. 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 5. Essential hypertension. - resume antihypertensives 6. Suspect history of depression. - Continue on Cymbalta. 7. History of hyperlipidemia. - Continue on statin medication. 8. History of peptic ulcer disease. - Continue on PPI. Avoid NSAIDs. DISPO/PLAN: continue analgesics. Still with chest pain. f/u mushroom sorter grader recommendations. monitor on telemetry. continue Brilinta. check AM labs. correct electrolytes prn Discussed plan of care with Dr. Olivia Result Diagram: 10/12/1844610/12/18447 Results 24hrs Laboratory Tests Test 10/11/18 14:08 10/11/18 17:05 10/11/18 19:55 10/11/18 20:11 Creatine Kinase 47 49 46 Creatine Kinase Index 3.4 3.2 3.3 Creatinine Kinase MB 1.58 1.55 1.51 (Mass) Troponin I < 0.012 0.012 < 0.012 Bedside Glucose 173 Test 10/11/18 22:44 10/12/18 04:47 10/12/18 04:48 Creatine Kinase 49 Creatine Kinase Index 2.8 Creatinine Kinase MB 1.35 (Mass) Troponin I < 0.012 White Blood Count 6.9 Red Blood Count 3.55 L Hemoglobin 10.1 L Hematocrit 31.9 L Mean Corpuscular Volume 89.9 Mean Corpuscular 28.5 L Hemoglobin Mean Corpuscular 31.7 L Hemoglobin Concent Red Cell Distribution 16.6 H Width Platelet Count 256 # Mean Platelet Volume 10.1 Immature Granulocytes % 0.700 H Neutrophils % 62.7 Lymphocytes % 19.2 Monocytes % 10.7 Eosinophils % 5.8 Basophils % 0.9 Nucleated Red Blood 0.0 Cells % Immature Granulocytes # 0.050 H Neutrophils # 4.3 Lymphocytes # 1.3 Monocytes # 0.7 Eosinophils # 0.4 Basophils # 0.1 Nucleated Red Blood 0.0 Cells # Hemoglobin A1c 5.1 Sodium Level 142 Potassium Level 4.9 Chloride Level 105 Carbon Dioxide Level 30 Anion Gap 7 Blood Urea Nitrogen 25 H Creatinine 1.56 H Est Glomerular Filtrat 45 L Rate mL/min Glucose Level 118 Calcium Level 8.7 Phosphorus Level 4.5 Magnesium Level 1.9 Total Bilirubin 0.5 Direct Bilirubin 0.00 Indirect Bilirubin 0.5 Aspartate Amino 17 Transf (AST/SGOT) Alanine 57 Aminotransferase (ALT/SG PT) Alkaline Phosphatase 184 H Total Protein 5.7 L Albumin 3.2 L Globulin 2.50 Albumin/Globulin Ratio 1.28 Triglycerides Level 83 Cholesterol Level 91 L LDL Cholesterol, 39 Calculated HDL Cholesterol 35 Cholesterol/HDL Ratio 2.6 Thyroid Stimulating 4.630 Hormone (TSH) Free Thyroxine Index 3.65 Thyroxine (T4) 9.1 Triiodothyronine (T3) 40.1 Uptake Subjective 24 Hr Interval Summary Free Text/Dictation patient still reports left shoulder pain. States he still has some chest pressure Exam/Review of Systems Exam Vitals Vital Signs Date Temp Pulse Resp B/P (MAP) Pulse Ox O2 O2 Flow FiO2 Time Delivery Rate 10/12/18 56 12:00 10/12/18 98.6 17 131/60 100 11:50 (83) 10/12/18 Nasal 2.0 07:59 Cannula Intake and Output 10/11/18 10/11/18 10/12/18 1515:00 23:00 07:00 IntakeIntake Total 450 ml 240 ml OutputOutput Total 200 ml 350 ml BalanceBalance 250 ml -110 ml Exam Constitutional: alert, oriented Psych: nl mood/affect Head: normocephalic Eyes: nl conjunctiva Neck: non-tender Respiratory: clear to auscultation Cardiovascular: other (regular rate) Gastrointestinal: soft, non-tender Neurological: DIGITAL MEDIA REPRESENTATIVE II-XII intact, nl mental status, nl speech Musculoskeletal: reports pain on left shoulder Skin: nl turgor Results Results 24hrs Laboratory Tests Test 10/11/18 14:08 10/11/18 17:05 10/11/18 19:55 10/11/18 20:11 Creatine Kinase 47 49 46 Creatine Kinase Index 3.4 3.2 3.3 Creatinine Kinase MB 1.58 1.55 1.51 (Mass) Troponin I < 0.012 0.012 < 0.012 Bedside Glucose 173 Test 10/11/18 22:44 10/12/18 04:47 10/12/18 04:48 Creatine Kinase 49 Creatine Kinase Index 2.8 Creatinine Kinase MB 1.35 (Mass) Troponin I < 0.012 White Blood Count 6.9 Red Blood Count 3.55 L Hemoglobin 10.1 L Hematocrit 31.9 L Mean Corpuscular Volume 89.9 Mean Corpuscular 28.5 L Hemoglobin Mean Corpuscular 31.7 L Hemoglobin Concent Red Cell Distribution 16.6 H Width Platelet Count 256 # Mean Platelet Volume 10.1 Immature Granulocytes % 0.700 H Neutrophils % 62.7 Lymphocytes % 19.2 Monocytes % 10.7 Eosinophils % 5.8 Basophils % 0.9 Nucleated Red Blood 0.0 Cells % Immature Granulocytes # 0.050 H Neutrophils # 4.3 Lymphocytes # 1.3 Monocytes # 0.7 Eosinophils # 0.4 Basophils # 0.1 Nucleated Red Blood 0.0 Cells # Hemoglobin A1c 5.1 Sodium Level 142 Potassium Level 4.9 Chloride Level 105 Carbon Dioxide Level 30 Anion Gap 7 Blood Urea Nitrogen 25 H Creatinine 1.56 H Est Glomerular Filtrat 45 L Rate mL/min Glucose Level 118 Calcium Level 8.7 Phosphorus Level 4.5 Magnesium Level 1.9 Total Bilirubin 0.5 Direct Bilirubin 0.00 Indirect Bilirubin 0.5 Aspartate Amino 17 Transf (AST/SGOT) Alanine 57 Aminotransferase (ALT/SG PT) Alkaline Phosphatase 184 H Total Protein 5.7 L Albumin 3.2 L Globulin 2.50 Albumin/Globulin Ratio 1.28 Triglycerides Level 83 Cholesterol Level 91 L LDL Cholesterol, 39 Calculated HDL Cholesterol 35 Cholesterol/HDL Ratio 2.6 Thyroid Stimulating 4.630 Hormone (TSH) Free Thyroxine Index 3.65 Thyroxine (T4) 9.1 Triiodothyronine (T3) 40.1 Uptake Medications Medication Current Medications Amlodipine Besylate (Norvasc) 10 mg DAILY PO Last administered on 10/12/18at 08:31; Admin Dose 10 MG; Start 10/12/18 at 09:00 Atorvastatin Calcium (Lipitor) 80 mg HS PO Last administered on 10/11/18 20:14; Admin Dose 80 MG; Start 10/11/18 at 21:00 Buspirone HCl (Buspar) 15 mg BID PO Last administered on 10/12/18 08:30; Admin Dose 15 MG; Start 10/11/18 at 21:00 Duloxetine HCl (Cymbalta) 30 mg BID PO Last administered on 10/12/18 08:31; Admin Dose 30 MG; Start 10/11/18 at 21:00 Metoprolol Tartrate (Lopressor) 100 mg BID PO Last administered on 10/11/18 20:17; Admin Dose 100 MG; Start 10/11/18 at 21:00 Pantoprazole (Protonix Tab) 40 mg BID PO Last administered on 10/12/18 08:31; Admin Dose 40 MG; Start 10/11/18 at 21:00 Ticagrelor (Brilinta) 90 mg BID PO Last administered on 10/12/18 08:45; Admin Dose 90 MG; Start 10/11/18 at 21:00 Nitroglycerin (Nitroglycerin (Sl Tab) 0.4 Mg) 1 tab Q5M PRN SL CHEST PAIN; Start 10/11/18 at 13:30 IV Flush (NS 3 ml) 3 ml PER PROTOCOL IV ; Start 10/11/18 at 13:30 Ondansetron HCl (Zofran Inj) 4 mg Q6H PRN IV NAUSEA/VOMITING; Start 10/11/18 at 13:30 Acetaminophen (Tylenol Tab) 650 mg Q6H PRN PO .PAIN 1-3 OR TEMP; Start 10/11/18 at 13:30 Acetaminophen/ Hydrocodone Bitart ([place] (5/325)) 1 tab Q6H PRN PO .MOD PAIN 4- 6 Last administered on 10/12/18 08:41; Admin Dose 1 TAB; Start 10/11/18 at 13:30 Morphine Sulfate (morphine) 2 mg Q4H PRN IV .SEVERE PAIN 7-10 Last administered on 10/12/18 10:49; Admin Dose 2 MG; Start 10/11/18 at 13:30 Magnesium Hydroxide (Milk Of Mag) 30 ml DAILY PRN PO .CONSTIPATION; Start 10/11/18 at 13:30 Heparin Sodium (Porcine) (Heparin (5000 Units/1ml)) 5,000 unit Q12 SC Last administered on 10/12/18at 08:45; Admin Dose 5,000 UNIT; Start 10/11/18 at 21:00 Ascorbic Acid (Vitamin C) 500 mg DAILY PO ; Start 10/13/18 at 09:00 Multivitamins/ Minerals (Theragran-M) 1 tab DAILY PO ; Start 10/13/18 at 09:00 Zinc Sulfate (Zinc Sulfate) 220 mg DAILY PO ; Start 10/13/18 at 09:00; Stop 10/27/18 at 08:59 BARBARA JOSEPH NP Oct 12, 2018 13:04
--- NOTE | 2018-10-12 13:56 | CONS ---
Assessment/Plan Assessment/Plan Hospital Course (Demo Recall) IMPRESSION: 1. Chest pain. Assess for acute coronary syndrome in a patient with recent severe GI bleed and recent stenting and had holding of his antiplatelet agents. Assess for recurrent acute coronary syndrome, recurrent anemia, and bleeding.- ongoing chest pain. Neg trop>3. ECG with ongoing inferolateral TWI 2. Abnormal electrocardiogram with lateral T-wave inversions. Neg trop x 3. On going inferolateral TWI 3. 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 4. History of a GI bleed and gastric ulcer. 5. Anemia, mild-mild worsening of anemia 6. Psychiatric disorder with depression. 7. Dyslipidemia. 8. Renal insufficiency-worsening renal failure. 9. Dizziness upon standing-? orthostasis 10. Bradycardia-S gemma mainly to 50's and at times intermittent to 40's Recc: -Tele -serial ecg's -Follow renal function with renal on case -Folow HGb and contineu brilinta for stent patency of recently placed stents 09/21 -Reduce dose of BB given gemma -Continue norvasc -add oral nitrates and fvolow symptoms -will proceed with [facility] to assess patency of stents when creatnine improved, discussed with patient and primary treating team -Contineu statin -check orthostatics -Contineu PPI Consultation Date/Type/Reason Admit Date/Time Oct 11, 2018 at 11:58 Initial Consult Date 10/11/18 Type of Consult Cardiology Reason for Consultation Chest pain Requesting Provider: BARBARA JOSEPH NP Date/Time of Note DATE: 10/12/18 TIME: 13:49 Exam/Review of Systems Vital Signs Vitals Vital Signs Date Temp Pulse Resp B/P (MAP) Pulse Ox O2 O2 Flow FiO2 Time Delivery Rate 10/12/18 56 12:00 10/12/18 98.6 17 131/60 100 11:50 (83) 10/12/18 Nasal 2.0 07:59 Cannula Intake and Output 10/11/18 10/11/18 10/12/18 1515:00 23:00 07:00 IntakeIntake Total 450 ml 240 ml OutputOutput Total 200 ml 350 ml BalanceBalance 250 ml -110 ml Exam Exam Review of Systems: CONSTITUTIONAL: No fevers, chills. PULMONARY: No sob CARDIOVASCULAR: ongoing chest pain GASTROINTESTINAL: No nausea/vomiting. GENITOURINARY: No hematuria/dysuria. MUSCULOSKELETAL: No myagias/arthalgias. PSYCHIATRIC: The patient denies depression. NEUROLOGIC: No weakness Constitutional: alert, oriented Psych: no complaints Head: normocephalic ENMT: mucosa pink and moist Neck: supple, jvd (8 cm water) Respiratory: clear to auscultation Cardiovascular: other (bradycardia, regular rhythm) Gastrointestinal: soft, non-tender Musculoskeletal: muscle tone (normal) Extremities: edema (none) Neurological: other (No focal defecits) Labs Result Diagram: 10/12/18 0447 10/12/18 0448 Results 24hrs Laboratory Tests Test 10/11/18 14:08 10/11/18 17:05 10/11/18 19:55 10/11/18 20:11 Creatine Kinase 47 49 46 Creatine Kinase Index 3.4 3.2 3.3 Creatinine Kinase MB 1.58 1.55 1.51 (Mass) Troponin I < 0.012 0.012 < 0.012 Bedside Glucose 173 Test 10/11/18 22:44 10/12/18 04:47 10/12/18 04:48 Creatine Kinase 49 Creatine Kinase Index 2.8 Creatinine Kinase MB 1.35 (Mass) Troponin I < 0.012 White Blood Count 6.9 Red Blood Count 3.55 L Hemoglobin 10.1 L Hematocrit 31.9 L Mean Corpuscular Volume 89.9 Mean Corpuscular 28.5 L Hemoglobin Mean Corpuscular 31.7 L Hemoglobin Concent Red Cell Distribution 16.6 H Width Platelet Count 256 # Mean Platelet Volume 10.1 Immature Granulocytes % 0.700 H Neutrophils % 62.7 Lymphocytes % 19.2 Monocytes % 10.7 Eosinophils % 5.8 Basophils % 0.9 Nucleated Red Blood 0.0 Cells % Immature Granulocytes # 0.050 H Neutrophils # 4.3 Lymphocytes # 1.3 Monocytes # 0.7 Eosinophils # 0.4 Basophils # 0.1 Nucleated Red Blood 0.0 Cells # Hemoglobin A1c 5.1 Sodium Level 142 Potassium Level 4.9 Chloride Level 105 Carbon Dioxide Level 30 Anion Gap 7 Blood Urea Nitrogen 25 H Creatinine 1.56 H Est Glomerular Filtrat 45 L Rate mL/min Glucose Level 118 Calcium Level 8.7 Phosphorus Level 4.5 Magnesium Level 1.9 Total Bilirubin 0.5 Direct Bilirubin 0.00 Indirect Bilirubin 0.5 Aspartate Amino 17 Transf (AST/SGOT) Alanine 57 Aminotransferase (ALT/SG PT) Alkaline Phosphatase 184 H Total Protein 5.7 L Albumin 3.2 L Globulin 2.50 Albumin/Globulin Ratio 1.28 Triglycerides Level 83 Cholesterol Level 91 L LDL Cholesterol, 39 Calculated HDL Cholesterol 35 Cholesterol/HDL Ratio 2.6 Thyroid Stimulating 4.630 Hormone (TSH) Free Thyroxine Index 3.65 Thyroxine (T4) 9.1 Triiodothyronine (T3) 40.1 Uptake Medications Medications Current Medications Amlodipine Besylate (Norvasc) 10 mg DAILY PO Last administered on 10/12/18 08:31; Admin Dose 10 MG; Start 10/12/18 at 09:00 Atorvastatin Calcium (Lipitor) 80 mg HS PO Last administered on 10/11/18 20:14; Admin Dose 80 MG; Start 10/11/18 at 21:00 Buspirone HCl (Buspar) 15 mg BID PO Last administered on 10/12/18 08:30; Admin Dose 15 MG; Start 10/11/18 at 21:00 Duloxetine HCl (Cymbalta) 30 mg BID PO Last administered on 10/12/18 08:31; Admin Dose 30 MG; Start 10/11/18 at 21:00 Metoprolol Tartrate (Lopressor) 100 mg BID PO Last administered on 10/11/18 20:17; Admin Dose 100 MG; Start 10/11/18 at 21:00 Pantoprazole (Protonix Tab) 40 mg BID PO Last administered on 10/12/18 08:31; Admin Dose 40 MG; Start 10/11/18 at 21:00 Ticagrelor (Brilinta) 90 mg BID PO Last administered on 10/12/18 08:45; Admin Dose 90 MG; Start 10/11/18 at 21:00 Nitroglycerin (Nitroglycerin (Sl Tab) 0.4 Mg) 1 tab Q5M PRN SL CHEST PAIN; Start 10/11/18 at 13:30 IV Flush (NS 3 ml) 3 ml PER PROTOCOL IV ; Start 10/11/18 at 13:30 Ondansetron HCl (Zofran Inj) 4 mg Q6H PRN IV NAUSEA/VOMITING; Start 10/11/18 at 13:30 Acetaminophen (Tylenol Tab) 650 mg Q6H PRN PO .PAIN 1-3 OR TEMP; Start 10/11/18 at 13:30 Acetaminophen/ Hydrocodone Bitart ([place] (5/325)) 1 tab Q6H PRN PO .MOD PAIN 4- 6 Last administered on 10/12/18at 08:41; Admin Dose 1 TAB; Start 10/11/18 at 13:30 Morphine Sulfate (morphine) 2 mg Q4H PRN IV .SEVERE PAIN 7-10 Last administered on 10/12/18at 10:49; Admin Dose 2 MG; Start 10/11/18 at 13:30 Magnesium Hydroxide (Milk Of Mag) 30 ml DAILY PRN PO .CONSTIPATION; Start 10/11/18 at 13:30 Heparin Sodium (Porcine) (Heparin (5000 Units/1ml)) 5,000 unit Q12 SC Last administered on 10/12/18at 08:45; Admin Dose 5,000 UNIT; Start 10/11/18 at 21:00 Ascorbic Acid (Vitamin C) 500 mg DAILY PO ; Start 10/13/18 at 09:00 Multivitamins/ Minerals (Theragran-M) 1 tab DAILY PO ; Start 10/13/18 at 09:00 Zinc Sulfate (Zinc Sulfate) 220 mg DAILY PO ; Start 10/13/18 at 09:00; Stop 10/27/18 at 08:59 RODDY OLSEN Oct 12, 2018 13:56
--- NOTE | 2018-10-12 15:31 | RADRPT ---
Vent Rate: 46 bpm RR Interval: 1296 msec AL Interval: 141 msec QRS Duration: 109 msec QT Interval: 528 msec QTC Interval: 464 msec P-R-T [place]: 23 - -18 - 231 degrees Sinus bradycardia...rate< 50 Abnormal T, consider ischemia, diffuse leads...T <-0.20mV, ant/lat/inf Electronically Signed By: Toedoro Lujan
--- NOTE | 2018-10-12 15:56 | CONS ---
Assessment/Plan Assessment/Plan Hospital Course (Demo Recall) Assessment: Anemia Hx of Duodenal ulcer s/p EGD and colonoscopy 09/30/18 Chest pain - likely of cardiac origin Plan: Continue PPI protonix Add carafate QID Will hold off on any endoscopic procedure, as chest pain is likely not GI related. Recommend EGD in 6-8 weeks to ensure healing of duodenal ulcer. Will need cardiac clearance prior to next endoscopic procedure Monitor H/H, transfuse for hemoglobin less than 7.5 Patient seen in collaboration with Dr. Altamirano. CC: SEMAJ ALTAMIRANO MD ; Consultation Date/Type/Reason Admit Date/Time Oct 11, 2018 at 11:58 Date of Consultation: Oct 12, 2018 Type of Consult gastroenterology Reason for Consultation anemia, history of duodenal ulcer Requesting Provider: BARBARA JOSEPH NP Date/Time of Note DATE: 10/12/18 TIME: 15:43 Hx of Present Illness Mr. Fang is a 67 y/o male with a history of CAD status post multiple PCI admitted with chest pain radiating to the left shoulder. Also complained of mild epigastric pain and nausea on admission. Denies hematemesis, melena, or any hematochezia. He reports normal bowel movements. He was previously on ASA, now only taking brilinta. He denies history of NSAIDs. Was also found to have anemia with Hgb of 10. He had an upper endoscopy and colonoscopy 09/30/[address] Altamirano which noted duodenal ulcer. He was placed on protonix and carafate. A 10 point review of systems is otherwise negative except as mentioned in the above HPI. Past Medical History Home Meds Active Scripts Pantoprazole* (Pantoprazole*) 40 Mg Tablet., 40 MG PO BID for 60 Days, #120 TAB 3 Refills Prov:BARTOLO STREETER MD 10/01/18 Benazepril Hcl* (Benazepril Hcl*) 40 Mg Tablet, 40 MG PO DAILY for 30 Days, #30 TAB Prov:CHRISTINE HERRERA MD 09/21/18 Amlodipine Besylate* (Amlodipine Besylate*) 10 Mg Tablet, 10 MG PO DAILY for 30 Days, #30 TAB Prov:CHRISTINE HERRERA MD 09/20/18 Ticagrelor* (Brilinta*) 90 Mg Tablet, 90 MG PO BID for 30 Days, #60 TAB 1 Refill Prov:CHRISTINE HERRERA MD 09/20/18 Atorvastatin* (Atorvastatin*) 80 Mg Tablet, 80 MG PO HS for 30 Days, #30 TAB 1 Refill Prov:CHRISTINE HERRERA MD 09/20/18 Reported Medications Metoprolol Tartrate* (Lopressor*) 100 Mg Tablet, 100 MG PO BID, #60 TAB 10/11/18 Buspirone Hcl* (Buspirone Hcl*) 10 Mg Tab, 15 MG PO BID, TAB 10/11/18 Duloxetine Hcl* (Cymbalta*) 30 Mg Capsule.dr, 30 MG PO BID, CAP 09/26/18 Nitroglycerin* (Nitrostat*) 0.4 Mg Tab.subl, 0.4 MG SL Q5MIN PRN for CHEST PAIN, BOTTLE 09/16/18 Discontinued Reported Medications Metoprolol Tartrate* (Lopressor*) 50 Mg Tab, 50 MG PO BID, #60 TAB 09/26/18 Buspirone Hcl* (Buspirone Hcl*) 10 Mg Tab, 10 MG PO BID, TAB 09/16/18 Medications Current Medications Amlodipine Besylate (Norvasc) 10 mg DAILY PO Last administered on 10/12/18at 08:31; Admin Dose 10 MG; Start 10/12/18 at 09:00 Atorvastatin Calcium (Lipitor) 80 mg HS PO Last administered on 10/11/18at 20:14; Admin Dose 80 MG; Start 10/11/18 at 21:00 Buspirone HCl (Buspar) 15 mg BID PO Last administered on 10/12/18at 08:30; Admin Dose 15 MG; Start 10/11/18 at 21:00 Duloxetine HCl (Cymbalta) 30 mg BID PO Last administered on 10/12/18at 08:31; Admin Dose 30 MG; Start 10/11/18 at 21:00 Pantoprazole (Protonix Tab) 40 mg BID PO Last administered on 10/12/18 08:31; Admin Dose 40 MG; Start 10/11/18 at 21:00 Ticagrelor (Brilinta) 90 mg BID PO Last administered on 10/12/18at 08:45; Admin Dose 90 MG; Start 10/11/18 at 21:00 Nitroglycerin (Nitroglycerin (Sl Tab) 0.4 Mg) 1 tab Q5M PRN SL CHEST PAIN; Start 10/11/18 at 13:30 IV Flush (NS 3 ml) 3 ml PER PROTOCOL IV ; Start 10/11/18 at 13:30 Ondansetron HCl (Zofran Inj) 4 mg Q6H PRN IV NAUSEA/VOMITING; Start 10/11/18 at 13:30 Acetaminophen (Tylenol Tab) 650 mg Q6H PRN PO .PAIN 1-3 OR TEMP; Start 10/11/18 at 13:30 Acetaminophen/ Hydrocodone Bitart ([place] (5/325)) 1 tab Q6H PRN PO .MOD PAIN 4- 6 Last administered on 10/12/18at 08:41; Admin Dose 1 TAB; Start 10/11/18 at 13:30 Morphine Sulfate (morphine) 2 mg Q4H PRN IV .SEVERE PAIN 7-10 Last administered on 10/12/18at 15:34; Admin Dose 2 MG; Start 10/11/18 at 13:30 Magnesium Hydroxide (Milk Of Mag) 30 ml DAILY PRN PO .CONSTIPATION; Start 10/11/18 at 13:30 Heparin Sodium (Porcine) (Heparin (5000 Units/1ml)) 5,000 unit Q12 SC Last administered on 10/12/18at 08:45; Admin Dose 5,000 UNIT; Start 10/11/18 at 21:00 Ascorbic Acid (Vitamin C) 500 mg DAILY PO ; Start 10/13/18 at 09:00 Multivitamins/ Minerals (Theragran-M) 1 tab DAILY PO ; Start 10/13/18 at 09:00 Zinc Sulfate (Zinc Sulfate) 220 mg DAILY PO ; Start 10/13/18 at 09:00; Stop 10/27/18 at 08:59 Metoprolol Tartrate (Lopressor) 50 mg BID PO ; Start 10/12/18 at 21:00 Allergies: Coded Allergies: No Known Allergy (Unverified , 10/11/18) Social History Alcohol Use: none Smoking Status: Never smoker Drug Use: none Exam/Review of Systems Exam Vitals Vital Signs Date Temp Pulse Resp B/P (MAP) Pulse Ox O2 O2 Flow FiO2 Time Delivery Rate 10/12/18 98.2 59 18 134/72 99 15:41 (92) 10/12/18 Nasal 2.0 07:59 Cannula Intake and Output 6/810/11/18 10/12/18 1515:00 23:00 07:00 IntakeIntake Total 450 ml 240 ml OutputOutput Total 200 ml 350 ml BalanceBalance 250 ml -110 ml Constitutional: alert, oriented Psych: no complaints, nl mood/affect Head: normocephalic, atraumatic Eyes: nl conjunctiva, EOMI ENMT: nl external ears & nose, nl lips & teeth Neck: supple, non-tender Respiratory: clear to auscultation Cardiovascular: regular rate and rhythm Gastrointestinal: soft, nl liver, spleen, non-tender Musculoskeletal: nl extremities to inspection Extremities: normal pulses 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, nl mental status Skin: nl turgor Results Result Diagram: 10/12/187 10/12/188 Results 24hrs Laboratory Tests Test 10/11/18 17:05 10/11/18 19:55 10/11/18 20:11 10/11/18 22:44 Creatine Kinase 49 46 49 Creatine Kinase Index 3.2 3.3 2.8 Creatinine Kinase MB 1.55 1.51 1.35 (Mass) Troponin I 0.012 < 0.012 < 0.012 Bedside Glucose 173 Test 10/12/18 04:47 10/12/18 04:48 White Blood Count 6.9 Red Blood Count 3.55 L Hemoglobin 10.1 L Hematocrit 31.9 L Mean Corpuscular Volume 89.9 Mean Corpuscular 28.5 L Hemoglobin Mean Corpuscular 31.7 L Hemoglobin Concent Red Cell Distribution 16.6 H Width Platelet Count 256 # Mean Platelet Volume 10.1 Immature Granulocytes % 0.700 H Neutrophils % 62.7 Lymphocytes % 19.2 Monocytes % 10.7 Eosinophils % 5.8 Basophils % 0.9 Nucleated Red Blood 0.0 Cells % Immature Granulocytes # 0.050 H Neutrophils # 4.3 Lymphocytes # 1.3 Monocytes # 0.7 Eosinophils # 0.4 Basophils # 0.1 Nucleated Red Blood 0.0 Cells # Hemoglobin A1c 5.1 Sodium Level 142 Potassium Level 4.9 Chloride Level 105 Carbon Dioxide Level 30 Anion Gap 7 Blood Urea Nitrogen 25 H Creatinine 1.56 H Est Glomerular Filtrat 45 L Rate mL/min Glucose Level 118 Calcium Level 8.7 Phosphorus Level 4.5 Magnesium Level 1.9 Total Bilirubin 0.5 Direct Bilirubin 0.00 Indirect Bilirubin 0.5 Aspartate Amino 17 Transf (AST/SGOT) Alanine 57 Aminotransferase (ALT/SG PT) Alkaline Phosphatase 184 H Total Protein 5.7 L Albumin 3.2 L Globulin 2.50 Albumin/Globulin Ratio 1.28 Triglycerides Level 83 Cholesterol Level 91 L LDL Cholesterol, 39 Calculated HDL Cholesterol 35 Cholesterol/HDL Ratio 2.6 Thyroid Stimulating 4.630 Hormone (TSH) Free Thyroxine Index 3.65 Thyroxine (T4) 9.1 Triiodothyronine (T3) 40.1 Uptake Imaging Imaging Renal US 10/11/18: IMPRESSION: 1. Mildly increased renal cortical echogenicity bilaterally, consistent with chronic medical renal disease. 2. Simple-appearing 3.4 cm right renal cyst. 3. Small echogenic focus within both kidneys may represent nonobstructive calculi. 4. Cholelithiasis. Medications Medication Current Medications Amlodipine Besylate (Norvasc) 10 mg DAILY PO Last administered on 10/12/18 08:31; Admin Dose 10 MG; Start 10/12/18 at 09:00 Atorvastatin Calcium (Lipitor) 80 mg HS PO Last administered on 10/11/18 20:14; Admin Dose 80 MG; Start 10/11/18 at 21:00 Buspirone HCl (Buspar) 15 mg BID PO Last administered on 10/12/18 08:30; Admin Dose 15 MG; Start 10/11/18 at 21:00 Duloxetine HCl (Cymbalta) 30 mg BID PO Last administered on 10/12/18 08:31; Admin Dose 30 MG; Start 10/11/18 at 21:00 Pantoprazole (Protonix Tab) 40 mg BID PO Last administered on 10/12/18 08:31; Admin Dose 40 MG; Start 10/11/18 at 21:00 Ticagrelor (Brilinta) 90 mg BID PO Last administered on 10/12/18 08:45; Admin Dose 90 MG; Start 10/11/18 at 21:00 Nitroglycerin (Nitroglycerin (Sl Tab) 0.4 Mg) 1 tab Q5M PRN SL CHEST PAIN; Start 10/11/18 at 13:30 IV Flush (NS 3 ml) 3 ml PER PROTOCOL IV ; Start 10/11/18 at 13:30 Ondansetron HCl (Zofran Inj) 4 mg Q6H PRN IV NAUSEA/VOMITING; Start 10/11/18 at 13:30 Acetaminophen (Tylenol Tab) 650 mg Q6H PRN PO .PAIN 1-3 OR TEMP; Start 10/11/18 at 13:30 Acetaminophen/ Hydrocodone Bitart ([place] (5/325)) 1 tab Q6H PRN PO .MOD PAIN 4- 6 Last administered on 10/12/18at 08:41; Admin Dose 1 TAB; Start 10/11/18 at 13:30 Morphine Sulfate (morphine) 2 mg Q4H PRN IV .SEVERE PAIN 7-10 Last administered on 10/12/18at 15:34; Admin Dose 2 MG; Start 10/11/18 at 13:30 Magnesium Hydroxide (Milk Of Mag) 30 ml DAILY PRN PO .CONSTIPATION; Start 10/11/18 at 13:30 Heparin Sodium (Porcine) (Heparin (5000 Units/1ml)) 5,000 unit Q12 SC Last administered on 10/12/18at 08:45; Admin Dose 5,000 UNIT; Start 10/11/18 at 21:00 Ascorbic Acid (Vitamin C) 500 mg DAILY PO ; Start 10/13/18 at 09:00 Multivitamins/ Minerals (Theragran-M) 1 tab DAILY PO ; Start 10/13/18 at 09:00 Zinc Sulfate (Zinc Sulfate) 220 mg DAILY PO ; Start 10/13/18 at 09:00; Stop 10/27/18 at 08:59 Metoprolol Tartrate (Lopressor) 50 mg BID PO ; Start 10/12/18 at 21:00 OSMIN VACA NP Oct 12, 2018 15:54
[2018-10-12] MEDS: SUCRALFATE (100 MG/ML) 10ML CUP PO SCH ×2 (17:52→20:33)
[2018-10-12] MEDS: ATORVASTATIN 80 MG TAB PO SCH (20:32)
[2018-10-12] MEDS: METOPROLOL 50 MG TAB PO SCH (20:35)
[2018-10-13] VITALS (10 sets, daily range): BP systolic 108–157; BP diastolic 58–72; PULSE 51–65; RESP 18
[2018-10-13] MEDS: morphine 2 MG INJ IV PRN ×4 (00:28→21:00)
[2018-10-13] MEDS: ZINC SULFATE 220 MG CAP PO SCH (08:13)
[2018-10-13] MEDS: BUSPIRONE 10 MG TAB PO SCH ×2 (08:14→20:59)
[2018-10-13] MEDS: MULTIVITAMINS/MINERALS TAB PO SCH (08:14)
[2018-10-13] MEDS: PANTOPRAZOLE (EC) 40 MG TAB PO SCH ×2 (08:14→20:58)
[2018-10-13] MEDS: TICAGRELOR 90 MG TABLET PO SCH ×2 (08:14→21:13)
[2018-10-13] MEDS: AMLODIPINE 10 MG TAB PO SCH (08:14)
[2018-10-13] MEDS: ASCORBIC ACID 500 MG TAB PO SCH (08:14)
[2018-10-13] MEDS: HEPARIN 5,000 UNIT/1 ML VIAL SC SCH (08:15)
[2018-10-13] MEDS: DULOXETINE 30 MG CAP DR PO SCH ×2 (08:15→20:58)
[2018-10-13] MEDS: METOPROLOL 50 MG TAB PO SCH ×2 (08:15→21:00)
[2018-10-13] MEDS: SUCRALFATE (100 MG/ML) 10ML CUP PO SCH ×4 (08:15→21:08)
--- NOTE | 2018-10-13 09:33 | PN ---
DATE: 10/13/2018 SUBJECTIVE: The patient is stable. The patient is pending possible cardiac catheterization. No oth er events noted. OBJECTIVE: VITAL SIGNS: Blood pressure is 148/70, respiration 18, pulse 56, temperature 98.0. HEENT: Head is normocephalic. NECK: Supple. HEART: Regular rate. LUNGS: Show diminished breath sounds at the base. ABDOMEN: Soft, nontender to palpation without rebound or guarding. EXTREMITIES: Negative for clubbing, cyanosis, no edema. DERMATOLOGIC: No rashes. MUSCULOSKELETAL: No joint effusion. NEUROLOGIC: No change in exam. MEDICATIONS: The patient's medications have been reviewed. LABORATORY DATA: Has been reviewed. ASSESSMENT AND PLAN: 1. Nonoliguric acute injury on top of chronic kidney disease with previous baseline creatinine aroun d 1.2 mg/dL. Etiology of RODRIGO is secondary to hemodynamics. Renal function is fluctuating, but overa ll stable. The patient is pending cardiac catheterization. The patient does have moderate risk for contrast associated nephropathy. The plan is to start the patient on IV hydration. We will continue current treatment plans, supportive care, renally dose all meds. Continue to hold PATITO inhibitor. 2. Anemia. Monitor hemoglobin and hematocrit levels. 3. Mineral bone disorder. Monitor calcium and phosphorus levels. 4. Hypertension. Continue current blood pressure regimen. 5. Chest pain. The patient is pending cardiac catheterization. Continue to monitor. Follow up wit h Cardiology. 6. History of coronary artery disease. Continue medical management. 7. History of peptic ulcer disease. Continue to monitor. Continue PPI. 8. History of depression. Continue Cymbalta. Dictated By: FERNANDO LOYA DO NR/NTS Conf#: [id number] DID#: [id number] CC: CHRISTINE HERRERA MD; RODDY OLSEN MD; ADORE SHAH MD;*EndCC*
[2018-10-13] MEDS: SOD CHLORIDE 0.9% 1,000 ML IV SCH (10:19)
--- NOTE | 2018-10-13 12:04 | CONS ---
Assessment/Plan Assessment/Plan Hospital Course (Demo Recall) IMPRESSION: 1. Chest pain. Assess for acute coronary syndrome in a patient with recent severe GI bleed and recent stenting and had holding of his antiplatelet agents. Assess for recurrent acute coronary syndrome, recurrent anemia, and bleeding.- ongoing chest pain. Neg trop>3. ECG with ongoing inferolateral TWI 2. Abnormal electrocardiogram with lateral T-wave inversions. Neg trop x 3. On going inferolateral TWI 3. History of [employer] and stent placement most recently to LAD, RCA, and circumflex in 2 different settings from 09/17/2018 to 09/18/2018. 4. History of a GI bleed and gastric ulcer. 5. Anemia, mild-mild worsening of anemia 6. Psychiatric disorder with depression. 7. Dyslipidemia. 8. Renal failure-ongoing renal failure 9. Dizziness upon standing-? orthostasis 10. Bradycardia-S gemma mainly to 50's and at times intermittent to 40's Recc: -Tele -serial ecg's -Follow renal function with renal on case -Folow HGb and contineu brilinta for stent patency of recently placed stents 09/21 -Continue BB -Continue norvasc -add oral nitrates and fvolow symptoms -will proceed with C to assess patency of stents when creatnine improved, discussed with patient and primary treating team -Contineu statin -Contineu PPI -started on IVF. Will discuss with renal timing for cath Consultation Date/Type/Reason Admit Date/Time Oct 13, 2018 at 10:03 Initial Consult Date 10/11/18 Type of Consult Cardiology Reason for Consultation chest pain Requesting Provider: BARBARA JOSEPH NP Date/Time of Note DATE: 10/13/18 TIME: 12:02 Exam/Review of Systems Vital Signs Vitals Vital Signs Date Temp Pulse Resp B/P (MAP) Pulse Ox O2 O2 Flow FiO2 Time Delivery Rate 10/13/18 97.9 55 18 143/72 100 12:00 (95) 10/13/18 Nasal 2.0 07:32 Cannula Intake and Output 10/12/18 10/12/18 10/13/18 1515:00 23:00 07:00 IntakeIntake Total 600 ml 300 ml OutputOutput Total 500 ml 400 ml BalanceBalance 100 ml -100 ml Exam Exam Review of Systems: CONSTITUTIONAL: No fevers, chills. PULMONARY: No sob CARDIOVASCULAR: No chest pain/palpitations GASTROINTESTINAL: No nausea/vomiting. GENITOURINARY: No hematuria/dysuria. MUSCULOSKELETAL: No myagias/arthalgias. PSYCHIATRIC: The patient denies depression. NEUROLOGIC: No weakness Constitutional: alert Psych: no complaints Head: normocephalic ENMT: mucosa pink and moist Neck: supple, jvd (9 cm water) Respiratory: diminished breath sounds Cardiovascular: regular rate and rhythm Gastrointestinal: soft, non-tender Musculoskeletal: muscle tone (normal) Extremities: edema (none) Neurological: other (No focal deficits) Labs Result Diagram: 10/13/1851610/13/18516 Results 24hrs Laboratory Tests Test 10/13/18 05:17 White Blood Count 7.3 Red Blood Count 3.52 L Hemoglobin 10.1 L Hematocrit 31.9 L Mean Corpuscular Volume 90.6 Mean Corpuscular Hemoglobin 28.7 L Mean Corpuscular Hemoglobin Concent 31.7 L Red Cell Distribution Width 16.7 H Platelet Count 228 Mean Platelet Volume 11.0 H Immature Granulocytes % 0.500 H Neutrophils % 67.3 Lymphocytes % 16.6 Monocytes % 9.4 Eosinophils % 5.2 Basophils % 1.0 Nucleated Red Blood Cells % 0.0 Immature Granulocytes # 0.040 H Neutrophils # 4.9 Lymphocytes # 1.2 Monocytes # 0.7 Eosinophils # 0.4 Basophils # 0.1 Nucleated Red Blood Cells # 0.0 Sodium Level 142 Potassium Level 4.7 Chloride Level 107 Carbon Dioxide Level 29 Anion Gap 6 Blood Urea Nitrogen 29 H Creatinine 1.53 H Est Glomerular Filtrat Rate mL/min 46 L Glucose Level 116 Calcium Level 8.5 Phosphorus Level 3.7 Magnesium Level 1.9 Medications Medications Current Medications Amlodipine Besylate (Norvasc) 10 mg DAILY PO Last administered on 10/13/18at 08:14; Admin Dose 10 MG; Start 10/12/18 at 09:00 Atorvastatin Calcium (Lipitor) 80 mg HS PO Last administered on 10/12/18at 20:32; Admin Dose 80 MG; Start 10/11/18 at 21:00 Buspirone HCl (Buspar) 15 mg BID PO Last administered on 10/13/18at 08:14; Admin Dose 15 MG; Start 10/11/18 at 21:00 Duloxetine HCl (Cymbalta) 30 mg BID PO Last administered on 10/13/18 08:15; Admin Dose 30 MG; Start 10/11/18 at 21:00 Pantoprazole (Protonix Tab) 40 mg BID PO Last administered on 10/13/18 08:14; Admin Dose 40 MG; Start 10/11/18 at 21:00 Ticagrelor (Brilinta) 90 mg BID PO Last administered on 10/13/18 08:14; Admin Dose 90 MG; Start 10/11/18 at 21:00 Nitroglycerin (Nitroglycerin (Sl Tab) 0.4 Mg) 1 tab Q5M PRN SL CHEST PAIN; S tart 10/11/18 at 13:30 IV Flush (NS 3 ml) 3 ml PER PROTOCOL IV ; Start 10/11/18 at 13:30 Ondansetron HCl (Zofran Inj) 4 mg Q6H PRN IV NAUSEA/VOMITING; Start 10/11/18 at 13:30 Acetaminophen (Tylenol Tab) 650 mg Q6H PRN PO .PAIN 1-3 OR TEMP Last administered on 10/13/18 00:47; Admin Dose 650 MG; Start 10/11/18 at 13:30 Acetaminophen/ Hydrocodone Bitart ([place] (5/325)) 1 tab Q6H PRN PO .MOD PAIN 4- 6 Last administered on 10/12/18 18:09; Admin Dose 1 TAB; Start 10/11/18 at 13:30 Morphine Sulfate (morphine) 2 mg Q4H PRN IV .SEVERE PAIN 7-10 Last administered on 10/13/18 04:51; Admin Dose 2 MG; Start 10/11/18 at 13:30 Magnesium Hydroxide (Milk Of Mag) 30 ml DAILY PRN PO .CONSTIPATION; Start 10/11/18 at 13:30 Heparin Sodium (Porcine) (Heparin (5000 Units/1ml)) 5,000 unit Q12 SC Last administered on 10/13/18 08:15; Admin Dose 5,000 UNIT; Start 10/11/18 at 21:00 Ascorbic Acid (Vitamin C) 500 mg DAILY PO Last administered on 10/13/18 08:14; Admin Dose 500 MG; Start 10/13/18 at 09:00 Multivitamins/ Minerals (Theragran-M) 1 tab DAILY PO Last administered on 6/10/19at 08:14; Admin Dose 1 TAB; Start 10/13/18 at 09:00 Zinc Sulfate (Zinc Sulfate) 220 mg DAILY PO Last administered on 10/13/18at 08:13; Admin Dose 220 MG; Start 10/13/18 at 09:00; Stop 10/27/18 at 08:59 Metoprolol Tartrate (Lopressor) 50 mg BID PO Last administered on 10/13/18 08:15; Admin Dose 50 MG; Start 10/12/18 at 21:00 Sucralfate (Carafate Susp) 1 gm QID PO Last administered on 10/13/18at 08:15; Admin Dose 1 GM; Start 10/12/18 at 17:00 Sodium Chloride 1,000 ml @ 50 mls/hr Q20H IV Last administered on 10/13/18 10:19; Admin Dose 50 MLS/HR; Start 10/13/18 at 08:30 RODDY OLSEN Oct 13, 2018 12:04
--- NOTE | 2018-10-13 12:14 | PN ---
Date/Time of Note Date/Time of Note DATE: 10/13/18 TIME: 12:07 Assessment/Plan VTE Prophylaxis Risk score (from Nsg)>0 risk: 4 SCD applied (from Ns): No SCD contraindicated: low risk/ambulating Pharmacological prophylaxis: other Lines/Catheters IV Catheter Type (from Nrsg): Saline Lock Assessment/Plan Assessment/Plan 1. Acute chest pain. - patient still with discomfort and will need LHC prior to discharge to determine patency of stents - supportive care - trops negative - Cardiology on board and appreciate recommendations 2. CAD s/p multiple PCI - Continue on Brilinta for now - no GI bleeding appreciated - continue isosorbide and BB as tolerated 3. RODRIGO - Nephrology on board and appreciate recommendations - IVF initiated in anticipation for PCI given risk for contrast induced nephropathy 4. GI bleed- stable - no further episodes noted - H/H stable. no need for transfusions at this time 5. Essential hypertension. - stable 6. Mood disorder - Continue on Cymbalta. 7. HLD - statin on board 8. Peptic ulcer disease - PPI and carafate - GI on board and recommending repeat EGD in 6-8 weeks to assess healing of ulcer 9. Disposition - Awaiting improvement in renal function in order to undergo LHC Result Diagram: 10/13/18 0517 10/13/18 0517 Results 24hrs Laboratory Tests Test 10/13/18 05:17 White Blood Count 7.3 Red Blood Count 3.52 L Hemoglobin 10.1 L Hematocrit 31.9 L Mean Corpuscular Volume 90.6 Mean Corpuscular Hemoglobin 28.7 L Mean Corpuscular Hemoglobin Concent 31.7 L Red Cell Distribution Width 16.7 H Platelet Count 228 Mean Platelet Volume 11.0 H Immature Granulocytes % 0.500 H Neutrophils % 67.3 Lymphocytes % 16.6 Monocytes % 9.4 Eosinophils % 5.2 Basophils % 1.0 Nucleated Red Blood Cells % 0.0 Immature Granulocytes # 0.040 H Neutrophils # 4.9 Lymphocytes # 1.2 Monocytes # 0.7 Eosinophils # 0.4 Basophils # 0.1 Nucleated Red Blood Cells # 0.0 Sodium Level 142 Potassium Level 4.7 Chloride Level 107 Carbon Dioxide Level 29 Anion Gap 6 Blood Urea Nitrogen 29 H Creatinine 1.53 H Est Glomerular Filtrat Rate mL/min 46 L Glucose Level 116 Calcium Level 8.5 Phosphorus Level 3.7 Magnesium Level 1.9 Subjective 24 Hr Interval Summary Free Text/Dictation Patient still with chest discomfort and discussed need for improvement in renal function prior to cardiac cath. No further GI bleeding noted. Exam/Review of Systems Exam Vitals Vital Signs Date Temp Pulse Resp B/P (MAP) Pulse Ox O2 O2 Flow FiO2 Time Delivery Rate 10/13/18 53 12:03 10/13/18 97.9 18 143/72 100 12:00 (95) 10/13/18 Nasal 2.0 07:32 Cannula Intake and Output 10/12/18 10/12/18 10/13/18 1515:00 23:00 07:00 IntakeIntake Total 600 ml 300 ml OutputOutput Total 500 ml 400 ml BalanceBalance 100 ml -100 ml Exam General: no acute distress. mild anxiety. answering questions appropriately Neck: supple CVS: S1, S2, regular rate and rhythm. no murmurs Lungs: clear to auscultation bilaterally. no wheezing or rhonchi Abd: soft, nontender, nondistended. no rebound or guarding. bowel sounds present diffusely Ext: moving all extremities. no cyanosis, clubbing, or edema Skin: warm, dry Results Results 24hrs Laboratory Tests Test 10/13/18 05:17 White Blood Count 7.3 Red Blood Count 3.52 L Hemoglobin 10.1 L Hematocrit 31.9 L Mean Corpuscular Volume 90.6 Mean Corpuscular Hemoglobin 28.7 L Mean Corpuscular Hemoglobin Concent 31.7 L Red Cell Distribution Width 16.7 H Platelet Count 228 Mean Platelet Volume 11.0 H Immature Granulocytes % 0.500 H Neutrophils % 67.3 Lymphocytes % 16.6 Monocytes % 9.4 Eosinophils % 5.2 Basophils % 1.0 Nucleated Red Blood Cells % 0.0 Immature Granulocytes # 0.040 H Neutrophils # 4.9 Lymphocytes # 1.2 Monocytes # 0.7 Eosinophils # 0.4 Basophils # 0.1 Nucleated Red Blood Cells # 0.0 Sodium Level 142 Potassium Level 4.7 Chloride Level 107 Carbon Dioxide Level 29 Anion Gap 6 Blood Urea Nitrogen 29 H Creatinine 1.53 H Est Glomerular Filtrat Rate mL/min 46 L Glucose Level 116 Calcium Level 8.5 Phosphorus Level 3.7 Magnesium Level 1.9 Medications Medication Current Medications Amlodipine Besylate (Norvasc) 10 mg DAILY PO Last administered on 10/13/18 08:14; Admin Dose 10 MG; Start 10/12/18 at 09:00 Atorvastatin Calcium (Lipitor) 80 mg HS PO Last administered on 10/12/18 20:32; Admin Dose 80 MG; Start 10/11/18 at 21:00 Buspirone HCl (Buspar) 15 mg BID PO Last administered on 10/13/18 08:14; Admin Dose 15 MG; Start 10/11/18 at 21:00 Duloxetine HCl (Cymbalta) 30 mg BID PO Last administered on 10/13/18 08:15; Admin Dose 30 MG; Start 10/11/18 at 21:00 Pantoprazole (Protonix Tab) 40 mg BID PO Last administered on 10/13/18 08:14; Admin Dose 40 MG; Start 10/11/18 at 21:00 Ticagrelor (Brilinta) 90 mg BID PO Last administered on 10/13/18 08:14; Admin Dose 90 MG; Start 10/11/18 at 21:00 Nitroglycerin (Nitroglycerin (Sl Tab) 0.4 Mg) 1 tab Q5M PRN SL CHEST PAIN; Start 10/11/18 at 13:30 IV Flush (NS 3 ml) 3 ml PER PROTOCOL IV ; Start 10/11/18 at 13:30 Ondansetron HCl (Zofran Inj) 4 mg Q6H PRN IV NAUSEA/VOMITING; Start 10/11/18 at 13:30 Acetaminophen (Tylenol Tab) 650 mg Q6H PRN PO .PAIN 1-3 OR TEMP Last administered on 10/13/18 00:47; Admin Dose 650 MG; Start 10/11/18 at 13:30 Acetaminophen/ Hydrocodone Bitart ([place] (5/325)) 1 tab Q6H PRN PO .MOD PAIN 4- 6 Last administered on 10/12/18 18:09; Admin Dose 1 TAB; Start 10/11/18 at 13:30 Morphine Sulfate (morphine) 2 mg Q4H PRN IV .SEVERE PAIN 7-10 Last administered on 10/13/18 04:51; Admin Dose 2 MG; Start 10/11/18 at 13:30 Magnesium Hydroxide (Milk Of Mag) 30 ml DAILY PRN PO .CONSTIPATION; Start 10/11/18 at 13:30 Heparin Sodium (Porcine) (Heparin (5000 Units/1ml)) 5,000 unit Q12 SC Last administered on 10/13/18 08:15; Admin Dose 5,000 UNIT; Start 10/11/18 at 21:00 Ascorbic Acid (Vitamin C) 500 mg DAILY PO Last administered on 10/13/18 08:14; Admin Dose 500 MG; Start 10/13/18 at 09:00 Multivitamins/ Minerals (Theragran-M) 1 tab DAILY PO Last administered on 10/13/18 08:14; Admin Dose 1 TAB; Start 10/13/18 at 09:00 Zinc Sulfate (Zinc Sulfate) 220 mg DAILY PO Last administered on 10/13/18 08:13; Admin Dose 220 MG; Start 10/13/18 at 09:00; Stop 10/27/18 at 08:59 Metoprolol Tartrate (Lopressor) 50 mg BID PO Last administered on 10/13/18 08:15; Admin Dose 50 MG; Start 10/12/18 at 21:00 Sucralfate (Carafate Susp) 1 gm QID PO Last administered on 10/13/18 08:15; Admin Dose 1 GM; Start 10/12/18 at 17:00 Sodium Chloride 1,000 ml @ 50 mls/hr Q20H IV Last administered on 10/13/18 10:19; Admin Dose 50 MLS/HR; Start 10/13/18 at 08:30 Isosorbide Dinitrate (Isordil) 10 mg TID PO ; Start 10/13/18 at 13:00; Status CHRISTINE OTERO MD Oct 13, 2018 12:14
[2018-10-13] MEDS: ISOSORBIDE DINITRATE 10 MG TAB PO SCH ×2 (13:01→20:59)
--- NOTE | 2018-10-13 15:14 | PN ---
Date/Time of Note Date/Time of Note DATE: 10/13/18 TIME: 15:07 Assessment/Plan VTE Prophylaxis Risk score (from Nsg)>0 risk: 4 SCD applied (from Ns): No SCD contraindicated: other (scds) Pharmacological prophylaxis: heparin Lines/Catheters IV [facility]from [facility] Saline Lock Assessment/Plan Hospital Course Assessment: Anemia Hx of Duodenal ulcer s/p EGD and colonoscopy 09/30/18 Chest pain- currently resolved -Trop x5 negative History of cardiac catheterization and stent placement - LAD, RCA, and circumflex on 09/17/2018/09/18/2018. Renal insufficiency Plan: Continue PPI Protonix/Carafate QID Recommend EGD in 6-8 weeks to ensure healing of duodenal ulcer. Will need cardiac clearance prior to next endoscopic procedure Monitor H/H, transfuse for hemoglobin less than 7.5 Patient seen in collaboration with Dr. Altamirano. Subjective: Course reviewed with nursing staff Patient interviewed and examined All labs, imaging and other results reviewed The patient resting in bed, no c/o abd pain, nausea or vomiting. Will continues current GI regimen. Discussed plan to repeat EGD 4-6 weeks PHYSICAL EXAMINATION: GENERAL: Well developed, well nourished, alert & oriented x 3, in no acute distress SKIN: No lesions HEAD: Normocephalic, atraumatic, no tenderness. EYES: Pupils equal reactive to light, no discharge. EARS/NOSE AND THROAT: Ears normal, nose normal. NECK: Supple, no masses CARDIOVASCULAR: Heart: Regular rate and rhythm RESPIRATORY: Lungs clear to auscultation and percussion, no wheezing, no rubs GASTROINTESTINAL AND LIVER: Abdomen: Soft, epigastric tenderness, non-distended, no hernias, no masses, no organomegaly, no ascites, no guarding, no rebound tenderness, normoactive bowel sounds. Rectal: Deferred. EXTREMITIES: No cyanosis, clubbing or edema. Result Diagram: 10/13/1851610/13/18516 Results 24hrs Laboratory Tests Test 10/13/18 05:17 White Blood Count 7.3 Red Blood Count 3.52 L Hemoglobin 10.1 L Hematocrit 31.9 L Mean Corpuscular Volume 90.6 Mean Corpuscular Hemoglobin 28.7 L Mean Corpuscular Hemoglobin Concent 31.7 L Red Cell Distribution Width 16.7 H Platelet Count 228 Mean Platelet Volume 11.0 H Immature Granulocytes % 0.500 H Neutrophils % 67.3 Lymphocytes % 16.6 Monocytes % 9.4 Eosinophils % 5.2 Basophils % 1.0 Nucleated Red Blood Cells % 0.0 Immature Granulocytes # 0.040 H Neutrophils # 4.9 Lymphocytes # 1.2 Monocytes # 0.7 Eosinophils # 0.4 Basophils # 0.1 Nucleated Red Blood Cells # 0.0 Sodium Level 142 Potassium Level 4.7 Chloride Level 107 Carbon Dioxide Level 29 Anion Gap 6 Blood Urea Nitrogen 29 H Creatinine 1.53 H Est Glomerular Filtrat Rate mL/min 46 L Glucose Level 116 Calcium Level 8.5 Phosphorus Level 3.7 Magnesium Level 1.9 Exam/Review of Systems Exam Vitals Vital Signs Date Temp Pulse Resp B/P (MAP) Pulse Ox O2 O2 Flow FiO2 Time Delivery Rate 10/13/18 53 12:03 10/13/18 97.9 18 143/72 100 12:00 (95) 10/13/18 Nasal 2.0 07:32 Cannula Intake and Output 10/12/18 10/12/18 10/13/18 1414:59 22:59 06:59 IntakeIntake Total 600 ml 300 ml OutputOutput Total 500 ml 400 ml BalanceBalance 100 ml -100 ml Results Results 24hrs Laboratory Tests Test 10/13/18 05:17 White Blood Count 7.3 Red Blood Count 3.52 L Hemoglobin 10.1 L Hematocrit 31.9 L Mean Corpuscular Volume 90.6 Mean Corpuscular Hemoglobin 28.7 L Mean Corpuscular Hemoglobin Concent 31.7 L Red Cell Distribution Width 16.7 H Platelet Count 228 Mean Platelet Volume 11.0 H Immature Granulocytes % 0.500 H Neutrophils % 67.3 Lymphocytes % 16.6 Monocytes % 9.4 Eosinophils % 5.2 Basophils % 1.0 Nucleated Red Blood Cells % 0.0 Immature Granulocytes # 0.040 H Neutrophils # 4.9 Lymphocytes # 1.2 Monocytes # 0.7 Eosinophils # 0.4 Basophils # 0.1 Nucleated Red Blood Cells # 0.0 Sodium Level 142 Potassium Level 4.7 Chloride Level 107 Carbon Dioxide Level 29 Anion Gap 6 Blood Urea Nitrogen 29 H Creatinine 1.53 H Est Glomerular Filtrat Rate mL/min 46 L Glucose Level 116 Calcium Level 8.5 Phosphorus Level 3.7 Magnesium Level 1.9 Medications Medication Current Medications Amlodipine Besylate (Norvasc) 10 mg DAILY PO Last administered on 10/13/18 08:14; Admin Dose 10 MG; Start 10/12/18 at 09:00 Atorvastatin Calcium (Lipitor) 80 mg HS PO Last administered on 10/12/18 20:32; Admin Dose 80 MG; Start 10/11/18 at 21:00 Buspirone HCl (Buspar) 15 mg BID PO Last administered on 10/13/18 08:14; Admin Dose 15 MG; Start 10/11/18 at 21:00 Duloxetine HCl (Cymbalta) 30 mg BID PO Last administered on 10/13/18 08:15; Admin Dose 30 MG; Start 10/11/18 at 21:00 Pantoprazole (Protonix Tab) 40 mg BID PO Last administered on 10/13/18 08:14; Admin Dose 40 MG; Start 10/11/18 at 21:00 Ticagrelor (Brilinta) 90 mg BID PO Last administered on 10/13/18 08:14; Admin Dose 90 MG; Start 10/11/18 at 21:00 Nitroglycerin (Nitroglycerin (Sl Tab) 0.4 Mg) 1 tab Q5M PRN SL CHEST PAIN; Start 10/11/18 at 13:30 IV Flush (NS 3 ml) 3 ml PER PROTOCOL IV ; Start 10/11/18 at 13:30 Ondansetron HCl (Zofran Inj) 4 mg Q6H PRN IV NAUSEA/VOMITING; Start 10/11/18 at 13:30 Acetaminophen (Tylenol Tab) 650 mg Q6H PRN PO .PAIN 1-3 OR TEMP Last a dministered on 10/13/18 00:47; Admin Dose 650 MG; Start 10/11/18 at 13:30 Acetaminophen/ Hydrocodone Bitart ([place] (5/325)) 1 tab Q6H PRN PO .MOD PAIN 4- 6 Last administered on 10/12/18 18:09; Admin Dose 1 TAB; Start 10/11/18 at 13:30 Morphine Sulfate (morphine) 2 mg Q4H PRN IV .SEVERE PAIN 7-10 Last administered on 10/13/18 12:12; Admin Dose 2 MG; Start 10/11/18 at 13:30 Magnesium Hydroxide (Milk Of Mag) 30 ml DAILY PRN PO .CONSTIPATION; Start 10/11/18 at 13:30 Heparin Sodium (Porcine) (Heparin (5000 Units/1ml)) 5,000 unit Q12 SC Last administered on 10/13/18 08:15; Admin Dose 5,000 UNIT; Start 10/11/18 at 21:00 Ascorbic Acid (Vitamin C) 500 mg DAILY PO Last administered on 10/13/18 08:14; Admin Dose 500 MG; Start 10/13/18 at 09:00 Multivitamins/ Minerals (Theragran-M) 1 tab DAILY PO Last administered on 10/13/18 08:14; Admin Dose 1 TAB; Start 10/13/18 at 09:00 Zinc Sulfate (Zinc Sulfate) 220 mg DAILY PO Last administered on 10/13/18 08:13; Admin Dose 220 MG; Start 10/13/18 at 09:00; Stop 10/27/18 at 08:59 Metoprolol Tartrate (Lopressor) 50 mg BID PO Last administered on 10/13/18 08:15; Admin Dose 50 MG; Start 10/12/18 at 21:00 Sucralfate (Carafate Susp) 1 gm QID PO Last administered on 10/13/18 12:11; Admin Dose 1 GM; Start 10/12/18 at 17:00 Sodium Chloride 1,000 ml @ 50 mls/hr Q20H IV Last administered on 10/13/18 10:19; Admin Dose 50 MLS/HR; Start 10/13/18 at 08:30 Isosorbide Dinitrate (Isordil) 10 mg TID PO Last administered on 10/13/18 13:01; Admin Dose 10 MG; Start 10/13/18 at 13:00 OSCAR PIERCE Oct 13, 2018 15:14
[2018-10-13] MEDS: ATORVASTATIN 80 MG TAB PO SCH (20:59)
[2018-10-14] VITALS (31 sets, daily range): BP systolic 122–165; BP diastolic 59–89; PULSE 49–68; RESP 17–27
[2018-10-14] MEDS: HYDROCODONE/APAP (5/325) TAB PO PRN (00:06)
[2018-10-14] MEDS: SOD CHLORIDE 0.9% 1,000 ML IV SCH (05:13)
--- NOTE | 2018-10-14 08:51 | PN ---
DATE: 10/14/2018 SUBJECTIVE: The patient is stable, no events overnight. OBJECTIVE: VITAL SIGNS: Blood pressure is 151/73, pulse 57, respirations 19, temperature 98.0. HEENT: Head is normocephalic. NECK: Supple. HEART: Regular rate. LUNGS: Show diminished breath sounds at the base. ABDOMEN: Soft, nontender to palpation without rebound or guarding. EXTREMITIES: Negative for clubbing, cyanosis, no edema. DERMATOLOGIC: No rashes. MUSCULOSKELETAL: No joint effusion. NEUROLOGIC: No change in exam. MEDICATIONS: Have been reviewed. LABORATORY DATA: Has been reviewed. ASSESSMENT AND PLAN: 1. Nonoliguric acute kidney injury on top of chronic kidney disease with previous baseline creatinin e 1.2 mg/dL. Etiology of acute kidney injury is secondary to hemodynamics. Renal function is improv ing, nearing baseline with IV fluids. At this point, will continue to monitor. The patient is at mo derate risk for contrast-associated nephropathy. I spoke with cardiology. The patient currently is optimized. Will continue to monitor closely. Continue supportive care, renally dose all meds. 2. Anemia. Monitor hemoglobin and hematocrit levels. 3. Mineral bone disorder, monitor calcium and phosphorus levels. 4. Hypertension. Continue current blood pressure regimen. 5. Chest pain. The patient has had cardiac catheterization. Continue to monitor. 6. History of coronary artery disease. Continue medical management. 7. History of peptic ulcer disease. Continue proton pump inhibitor. 8. History of depression. Continue Cymbalta. Dictated By: FERNANDO ANAND/NTS Conf#: [id number] DID#: [id number] CC: ADORE SHAH MD;*EndCC*
[2018-10-14] MEDS: MULTIVITAMINS/MINERALS TAB PO SCH (09:04)
[2018-10-14] MEDS: AMLODIPINE 10 MG TAB PO SCH (09:04)
[2018-10-14] MEDS: SUCRALFATE (100 MG/ML) 10ML CUP PO SCH ×4 (09:04→20:46)
[2018-10-14] MEDS: ZINC SULFATE 220 MG CAP PO SCH (09:04)
[2018-10-14] MEDS: METOPROLOL 50 MG TAB PO SCH ×2 (09:05→20:46)
[2018-10-14] MEDS: PANTOPRAZOLE (EC) 40 MG TAB PO SCH ×2 (09:05→20:45)
[2018-10-14] MEDS: ASCORBIC ACID 500 MG TAB PO SCH (09:05)
[2018-10-14] MEDS: ISOSORBIDE DINITRATE 10 MG TAB PO SCH ×3 (09:05→20:46)
[2018-10-14] MEDS: BUSPIRONE 10 MG TAB PO SCH ×2 (09:05→20:45)
[2018-10-14] MEDS: DULOXETINE 30 MG CAP DR PO SCH ×2 (09:06→20:46)
--- NOTE | 2018-10-14 09:13 | CONS ---
Consult Date/Type/Reason Admit Date/Time Oct 13, 2018 at 10:03 Initial Consult Date 10/12/18 Requesting Provider: BARBARA JOSEPH NP Date/Time of Note DATE: 10/14/18 TIME: 09:09 Subjective No acute events - Pt comfortable - renal fxn stable - LHC planned today in early pm. Will monitor clinically for now. ROS: No fever, no chills, no nausea, no vomiting, no diarrhea/constipation No recent weight changes No chest pain, no PND, no orthopnea No dizziness, blurred vision No thirst, no heat or cold intolerance Objective Vitals Vital Signs Date Temp Pulse Resp B/P (MAP) Pulse Ox O2 O2 Flow FiO2 Time Delivery Rate 10/14/18 57 08:01 10/14/18 98.0 18 151/73 100 07:06 (99) 10/13/18 Nasal 2.0 19:58 Cannula Intake and Output 10/13/18 10/13/18 10/14/18 1515:00 23:00 07:00 IntakeIntake Total 700 ml 950 ml OutputOutput Total 500 ml 850 ml BalanceBalance 200 ml 100 ml Exam General: WN/WD/NAD, AOx 3 HEENT: Unicetric/atraumatic/EOMI ( follows commands) NECK: JVD elevated, no thyromegaly Lymph: no lymphadenopathy HEART: regular with no S3, II/ systolic murmur at apex, PMI L LUNGS: Coarse sounds ABD: soft, NT, ND, +BS : Intact Neuro: non focal SKIN: chronic changes EXT: trace edema Results/Medications Result Diagram: 10/14/18 0456 10/14/18 0456 Results 24 hrs Laboratory Tests Test 10/14/18 04:56 10/14/18 08:00 White Blood Count 6.1 Red Blood Count 3.20 L Hemoglobin 9.2 L Hematocrit 28.8 L Mean Corpuscular Volume 90.0 Mean Corpuscular Hemoglobin 28.8 L Mean Corpuscular Hemoglobin Concent 31.9 L Red Cell Distribution Width 16.5 H Platelet Count 187 Mean Platelet Volume 10.9 H Immature Granulocytes % 0.700 H Neutrophils % 57.7 Lymphocytes % 24.4 Monocytes % 10.8 Eosinophils % 5.6 Basophils % 0.8 Nucleated Red Blood Cells % 0.0 Immature Granulocytes # 0.040 H Neutrophils # 3.5 Lymphocytes # 1.5 Monocytes # 0.7 Eosinophils # 0.3 Basophils # 0.1 Nucleated Red Blood Cells # 0.0 Sodium Level 140 Potassium Level 4.2 Chloride Level 106 Carbon Dioxide Level 27 Anion Gap 7 Blood Urea Nitrogen 25 H Creatinine 1.33 H Est Glomerular Filtrat Rate mL/min 54 L Glucose Level 101 Calcium Level 8.2 L Phosphorus Level 3.1 Magnesium Level 1.8 Urine Color YELLOW Urine Clarity CLEAR Urine pH 6.0 Urine Specific [place] 1.010 Urine Ketones NEGATIVE Urine Nitrite NEGATIVE Urine Bilirubin NEGATIVE Urine Urobilinogen NEGATIVE Urine Leukocyte Esterase NEGATIVE Urine Hemoglobin NEGATIVE Urine Glucose NEGATIVE Urine Total Protein NEGATIVE Home Meds Active Scripts Pantoprazole* (Pantoprazole*) 40 Mg Tablet.dr, 40 MG PO BID for 60 Days, #120 TAB 3 Refills Prov:BARTOLO STREETER MD 10/01/18 Benazepril Hcl* (Benazepril Hcl*) 40 Mg Tablet, 40 MG PO DAILY for 30 Days, #30 TAB Prov:CHRISTINE HERRERA MD 09/21/18 Amlodipine Besylate* (Amlodipine Besylate*) 10 Mg Tablet, 10 MG PO DAILY for 30 Days, #30 TAB Prov:CHRISTINE HERRERA MD 09/20/18 Ticagrelor* (Brilinta*) 90 Mg Tablet, 90 MG PO BID for 30 Days, #60 TAB 1 Refill Prov:CHRISTINE HERRERA MD 09/20/18 Atorvastatin* (Atorvastatin*) 80 Mg Tablet, 80 MG PO HS for 30 Days, #30 TAB 1 Refill Prov:CHRISTINE HERRERA MD 09/20/18 Reported Medications Metoprolol Tartrate* (Lopressor*) 100 Mg Tablet, 100 MG PO BID, #60 TAB 10/11/18 Buspirone Hcl* (Buspirone Hcl*) 10 Mg Tab, 15 MG PO BID, TAB 10/11/18 Duloxetine Hcl* (Cymbalta*) 30 Mg Capsule.dr, 30 MG PO BID, CAP 09/26/18 Nitroglycerin* (Nitrostat*) 0.4 Mg Tab.subl, 0.4 MG SL Q5MIN PRN for CHEST PAIN, BOTTLE 09/16/18 Discontinued Reported Medications Metoprolol Tartrate* (Lopressor*) 50 Mg Tab, 50 MG PO BID, #60 TAB 09/26/18 Buspirone Hcl* (Buspirone Hcl*) 10 Mg Tab, 10 MG PO BID, TAB 09/16/18 Medications Current Medications Amlodipine Besylate (Norvasc) 10 mg DAILY PO Last administered on 10/13/18 08:14; Admin Dose 10 MG; Start 10/12/18 at 09:00 Atorvastatin Calcium (Lipitor) 80 mg HS PO Last administered on 10/13/18 20:59; Admin Dose 80 MG; Start 10/11/18 at 21:00 Buspirone HCl (Buspar) 15 mg BID PO Last administered on 10/13/18 20:59; Admin Dose 15 MG; Start 10/11/18 at 21:00 Duloxetine HCl (Cymbalta) 30 mg BID PO Last administered on 10/13/18 20:58; Ad min Dose 30 MG; Start 10/11/18 at 21:00 Pantoprazole (Protonix Tab) 40 mg BID PO Last administered on 10/13/18 20:58; Admin Dose 40 MG; Start 10/11/18 at 21:00 Ticagrelor (Brilinta) 90 mg BID PO Last administered on 10/13/18 21:13; Admin Dose 90 MG; Start 10/11/18 at 21:00 Nitroglycerin (Nitroglycerin (Sl Tab) 0.4 Mg) 1 tab Q5M PRN SL CHEST PAIN; Start 10/11/18 at 13:30 IV Flush (NS 3 ml) 3 ml PER PROTOCOL IV ; Start 10/11/18 at 13:30 Ondansetron HCl (Zofran Inj) 4 mg Q6H PRN IV NAUSEA/VOMITING; Start 10/11/18 at 13:30 Acetaminophen (Tylenol Tab) 650 mg Q6H PRN PO .PAIN 1-3 OR TEMP Last admin istered on 10/13/18 00:47; Admin Dose 650 MG; Start 10/11/18 at 13:30 Acetaminophen/ Hydrocodone Bitart ([place] (5/325)) 1 tab Q6H PRN PO .MOD PAIN 4- 6 Last administered on 10/14/18 00:06; Admin Dose 1 TAB; Start 10/11/18 at 13:30 Morphine Sulfate (morphine) 2 mg Q4H PRN IV .SEVERE PAIN 7-10 Last administered on 10/13/18 21:00; Admin Dose 2 MG; Start 10/11/18 at 13:30 Magnesium Hydroxide (Milk Of Mag) 30 ml DAILY PRN PO .CONSTIPATION; Start 10/11/18 at 13:30 Heparin Sodium (Porcine) (Heparin (5000 Units/1ml)) 5,000 unit Q12 SC Last administered on 10/13/18 08:15; Admin Dose 5,000 UNIT; Start 10/11/18 at 21:00; Status Hold Ascorbic Acid (Vitamin C) 500 mg DAILY PO Last administered on 10/13/18 08:14; Admin Dose 500 MG; Start 10/13/18 at 09:00 Multivitamins/ Minerals (Theragran-M) 1 tab DAILY PO Last administered on 10/13/18 08:14; Admin Dose 1 TAB; Start 10/13/18 at 09:00 Zinc Sulfate (Zinc Sulfate) 220 mg DAILY PO Last administered on 10/13/18 08:13; Admin Dose 220 MG; Start 10/13/18 at 09:00; Stop 10/27/18 at 08:59 Metoprolol Tartrate (Lopressor) 50 mg BID PO Last administered on 10/13/18 21:00; Admin Dose 50 MG; Start 10/12/18 at 21:00 Sucralfate (Carafate Susp) 1 gm QID PO Last administered on 10/13/18 21:08; Admin Dose 1 GM; Start 10/12/18 at 17:00 Sodium Chloride 1,000 ml @ 50 mls/hr Q20H IV Last administered on 10/14/18 05:13; Admin Dose 50 MLS/HR; Start 10/13/18 at 08:30 Isosorbide Dinitrate (Isordil) 10 mg TID PO Last administered on 10/13/18 20:59; Admin Dose 10 MG; Start 10/13/18 at 13:00 Assessment/Plan Hospital Course (Demo Recall) 1. Chest pain. Assess for acute coronary syndrome in a patient with recent sev ere GI bleed and recent stenting and had holding of his antiplatelet agents. Assess for recurrent acute coronary syndrome, recurrent anemia, and bleeding.- ongoing chest pain. Neg trop>3. ECG with ongoing inferolateral TWI - LHC planned today. 2. Abnormal electrocardiogram with lateral T-wave inversions. Neg trop x 3. Ongoing inferolateral TWI - Cr 1.33 stable. 3. History of [employer] and stent placement most recently to LAD, RCA, and circumflex in 2 different settings from 09/17/2018 to 09/18/2018. 4. History of a GI bleed and gastric ulcer. 5. Anemia, mild-mild worsening of anemia - no active bleeding now. 6. Psychiatric disorder with depression. 7. Dyslipidemia. 8. Renal failure-ongoing renal failure - renal team follows. 9. Dizziness upon standing-? orthostasis 10. Bradycardia-S gemma mainly to 50's and at times intermittent to 40's - no indication for pacer now. LIV DARLING MD Oct 14, 2018 09:13
[2018-10-14] MEDS: TICAGRELOR 90 MG TABLET PO SCH ×2 (09:18→21:03)
--- NOTE | 2018-10-14 12:15 | PN ---
Date/Time of Note Date/Time of Note DATE: 10/14/18 TIME: 12:11 Assessment/Plan VTE Prophylaxis Risk score (from Nsg)>0 risk: 4 SCD applied (from Ns): No SCD contraindicated: low risk/ambulating Pharmacological prophylaxis: other Lines/Catheters IV Catheter Type (from Nrsg): Saline Lock Assessment/Plan Assessment/Plan 1. Acute chest pain - plans for [facility] today to assess patency of stents - trops negative - Cardiology on board and appreciate recommendations 2. CAD s/p multiple PCI - Continue on Brilinta for now - no GI bleeding appreciated - continue isosorbide and BB as tolerated 3. RODRIGO- improving - Nephrology on board and appreciate recommendations. optimized for cardiac cath and will continue IVF 4. GI bleed- stable - no further episodes noted - H/H stable. no need for transfusions at this time 5. Essential hypertension. - stable 6. Mood disorder - Continue on Cymbalta. 7. HLD - statin on board 8. Peptic ulcer disease - PPI and carafate - GI on board and recommending repeat EGD in 6-8 weeks to assess healing of ulcer 9. Disposition - Plans for [facility] today and further plan of care based on results Result Diagram: 10/14/18 0456 10/14/18 0456 Results 24hrs Laboratory Tests Test 10/14/18 04:56 10/14/18 08:00 White Blood Count 6.1 Red Blood Count 3.20 L Hemoglobin 9.2 L Hematocrit 28.8 L Mean Corpuscular Volume 90.0 Mean Corpuscular Hemoglobin 28.8 L Mean Corpuscular Hemoglobin Concent 31.9 L Red Cell Distribution Width 16.5 H Platelet Count 187 Mean Platelet Volume 10.9 H Immature Granulocytes % 0.700 H Neutrophils % 57.7 Lymphocytes % 24.4 Monocytes % 10.8 Eosinophils % 5.6 Basophils % 0.8 Nucleated Red Blood Cells % 0.0 Immature Granulocytes # 0.040 H Neutrophils # 3.5 Lymphocytes # 1.5 Monocytes # 0.7 Eosinophils # 0.3 Basophils # 0.1 Nucleated Red Blood Cells # 0.0 Sodium Level 140 Potassium Level 4.2 Chloride Level 106 Carbon Dioxide Level 27 Anion Gap 7 Blood Urea Nitrogen 25 H Creatinine 1.33 H Est Glomerular Filtrat Rate mL/min 54 L Glucose Level 101 Calcium Level 8.2 L Phosphorus Level 3.1 Magnesium Level 1.8 Urine Color YELLOW Urine Clarity CLEAR Urine pH 6.0 Urine Specific [place] 1.010 Urine Ketones NEGATIVE Urine Nitrite NEGATIVE Urine Bilirubin NEGATIVE Urine Urobilinogen NEGATIVE Urine Leukocyte Esterase NEGATIVE Urine Hemoglobin NEGATIVE Urine Random Creatinine 44.36 Urine Random Sodium 75 Urine Glucose NEGATIVE Urine Total Protein 22.0 H Subjective 24 Hr Interval Summary Free Text/Dictation Patient still with chest discomfort but denies any nausea or vomiting. No acute overnight events. Exam/Review of Systems Exam Vitals Vital Signs Date Temp Pulse Resp B/P (MAP) Pulse Ox O2 O2 Flow FiO2 Time Delivery Rate 10/14/18 50 12:05 10/14/18 98.4 19 150/78 100 11:29 (102) 10/13/18 Nasal 2.0 19:58 Cannula Intake and Output 10/13/18 10/13/18 10/14/18 1515:00 23:00 07:00 IntakeIntake Total 700 ml 950 ml OutputOutput Total 500 ml 850 ml BalanceBalance 200 ml 100 ml Exam General: mild distress due to chest discomfort. answering questions appropriately Neck: supple CVS: S1, S2, regular rhythm, bradycardia. no murmurs Lungs: clear to auscultation bilaterally. no wheezing or rhonchi Abd: soft, nontender, nondistended. no rebound or guarding. bowel sounds present diffusely Ext: moving all extremities. no cyanosis, clubbing, or edema Skin: warm, dry Results Results 24hrs Laboratory Tests Test 10/14/18 04:56 10/14/18 08:00 White Blood Count 6.1 Red Blood Count 3.20 L Hemoglobin 9.2 L Hematocrit 28.8 L Mean Corpuscular Volume 90.0 Mean Corpuscular Hemoglobin 28.8 L Mean Corpuscular Hemoglobin Concent 31.9 L Red Cell Distribution Width 16.5 H Platelet Count 187 Mean Platelet Volume 10.9 H Immature Granulocytes % 0.700 H Neutrophils % 57.7 Lymphocytes % 24.4 Monocytes % 10.8 Eosinophils % 5.6 Basophils % 0.8 Nucleated Red Blood Cells % 0.0 Immature Granulocytes # 0.040 H Neutrophils # 3.5 Lymphocytes # 1.5 Monocytes # 0.7 Eosinophils # 0.3 Basophils # 0.1 Nucleated Red Blood Cells # 0.0 Sodium Level 140 Potassium Level 4.2 Chloride Level 106 Carbon Dioxide Level 27 Anion Gap 7 Blood Urea Nitrogen 25 H Creatinine 1.33 H Est Glomerular Filtrat Rate mL/min 54 L Glucose Level 101 Calcium Level 8.2 L Phosphorus Level 3.1 Magnesium Level 1.8 Urine Color YELLOW Urine Clarity CLEAR Urine pH 6.0 Urine Specific [place] 1.010 Urine Ketones NEGATIVE Urine Nitrite NEGATIVE Urine Bilirubin NEGATIVE Urine Urobilinogen NEGATIVE Urine Leukocyte Esterase NEGATIVE Urine Hemoglobin NEGATIVE Urine Random Creatinine 44.36 Urine Random Sodium 75 Urine Glucose NEGATIVE Urine Total Protein 22.0 H Medications Medication Current Medications Amlodipine Besylate (Norvasc) 10 mg DAILY PO Last administered on 10/14/18 09:04; Admin Dose 10 MG; Start 10/12/18 at 09:00 Atorvastatin Calcium (Lipitor) 80 mg HS PO Last administered on 10/13/18 20:5 9; Admin Dose 80 MG; Start 10/11/18 at 21:00 Buspirone HCl (Buspar) 15 mg BID PO Last administered on 10/14/18 09:05; Admin Dose 15 MG; Start 10/11/18 at 21:00 Duloxetine HCl (Cymbalta) 30 mg BID PO Last administered on 10/14/18 09:06; Admin Dose 30 MG; Start 10/11/18 at 21:00 Pantoprazole (Protonix Tab) 40 mg BID PO Last administered on 10/14/18 09:05; Admin Dose 40 MG; Start 10/11/18 at 21:00 Ticagrelor (Brilinta) 90 mg BID PO Last administered on 10/14/18 09:18; Admin Dose 90 MG; Start 10/11/18 at 21:00 Nitroglycerin (Nitroglycerin (Sl Tab) 0.4 Mg) 1 tab Q5M PRN SL CHEST PAIN; Start 10/11/18 at 13:30 IV Flush (NS 3 ml) 3 ml PER PROTOCOL IV ; Start 10/11/18 at 13:30 Ondansetron HCl (Zofran Inj) 4 mg Q6H PRN IV NAUSEA/VOMITING; Start 10/11/18 at 13:30 Acetaminophen (Tylenol Tab) 650 mg Q6H PRN PO .PAIN 1-3 OR TEMP Last administered on 10/13/18 00:47; Admin Dose 650 MG; Start 10/11/18 at 13:30 Acetaminophen/ Hydrocodone Bitart ([place] (5/325)) 1 tab Q6H PRN PO .MOD PAIN 4- 6 Last administered on 10/14/18 00:06; Admin Dose 1 TAB; Start 10/11/18 at 13:30 Morphine Sulfate (morphine) 2 mg Q4H PRN IV .SEVERE PAIN 7-10 Last administered on 10/13/18 21:00; Admin Dose 2 MG; Start 10/11/18 at 13:30 Magnesium Hydroxide (Milk Of Mag) 30 ml DAILY PRN PO .CONSTIPATION; Start 10/11/18 at 13:30 Heparin Sodium (Porcine) (Heparin (5000 Units/1ml)) 5,000 unit Q12 SC Last administered on 10/13/18 08:15; Admin Dose 5,000 UNIT; Start 10/11/18 at 21:00; Status Hold Ascorbic Acid (Vitamin C) 500 mg DAILY PO Last administered on 10/14/18 09:05; Admin Dose 500 MG; Start 10/13/18 at 09:00 Multivitamins/ Minerals (Theragran-M) 1 tab DAILY PO Last administered on 10/14/18 09:04; Admin Dose 1 TAB; Start 10/13/18 at 09:00 Zinc Sulfate (Zinc Sulfate) 220 mg DAILY PO Last administered on 10/14/18 09:04; Admin Dose 220 MG; Start 10/13/18 at 09:00; Stop 10/27/18 at 08:59 Metoprolol Tartrate (Lopressor) 50 mg BID PO Last administered on 10/14/18 09:05; Admin Dose 50 MG; Start 10/12/18 at 21:00 Sucralfate (Carafate Susp) 1 gm QID PO Last administered on 10/14/18 12:04; Admin Dose 1 GM; Start 10/12/18 at 17:00 Sodium Chloride 1,000 ml @ 50 mls/hr Q20H IV Last administered on 10/14/18 05:13; Admin Dose 50 MLS/HR; Start 10/13/18 at 08:30 Isosorbide Dinitrate (Isordil) 10 mg TID PO Last administered on 10/14/18 12:09; Admin Dose 10 MG; Start 10/13/18 at 13:00 CHRISTINE HERRERA MD Oct 14, 2018 12:15
--- NOTE | 2018-10-14 12:58 | PN ---
Date/Time of Note Date/Time of Note DATE: 10/14/18 TIME: 12:51 Assessment/Plan VTE Prophylaxis Risk score (from Ns)>0 risk: 4 SCD applied (from Ns): No SCD contraindicated: other (scds) Pharmacological prophylaxis: other (scds) Lines/Catheters [facility]from [facility] Saline Lock Assessment/Plan Hospital Course Assessment: Anemia Hx of Duodenal ulcer s/p EGD and colonoscopy 09/30/18 Chest pain- currently resolved -Trop x5 negative History of cardiac catheterization and stent placement - LAD, RCA, and circumflex on 09/17/2018/09/18/2018. Renal insufficiency Plan: Continue PPI Protonix/Carafate QID Recommend EGD in 6-8 weeks to ensure healing of duodenal ulcer. Will need cardiac clearance prior to next endoscopic procedure Monitor H/H, transfuse for hemoglobin less than 7.5 GI will sign off but will be available upon reconsult Patient seen in collaboration with Dr. Altamirano. Subjective: Course reviewed with nursing staff Patient interviewed and examined All labs, imaging and other results reviewed No over night events, Decrease in Hgb noted, however no overt signs of GI bleed Plan for [facility] later today PHYSICAL EXAMINATION: GENERAL: Alert and oriented x3, in no acute distress SKIN: No lesions HEAD: Normocephalic, atraumatic, no tenderness. EYES: Pupils equal reactive to light, no discharge. EARS/NOSE AND THROAT: Ears normal, nose normal. NECK: Supple, no masses CARDIOVASCULAR: Heart: Regular rate and rhythm RESPIRATORY: Lungs clear to auscultation and percussion, no wheezing, no rubs GASTROINTESTINAL AND LIVER: Abdomen: Soft, epigastric tenderness, non-distended, no hernias, no masses, no organomegaly, no ascites, no guarding, no rebound tenderness, normoactive bowel sounds. Rectal: Deferred. EXTREMITIES: No cyanosis, clubbing or edema. Result Diagram: 10/14/18 0456 10/14/18 0456 Results 24hrs Laboratory Tests Test 10/14/18 04:56 10/14/18 08:00 White Blood Count 6.1 Red Blood Count 3.20 L Hemoglobin 9.2 L Hematocrit 28.8 L Mean Corpuscular Volume 90.0 Mean Corpuscular Hemoglobin 28.8 L Mean Corpuscular Hemoglobin Concent 31.9 L Red Cell Distribution Width 16.5 H Platelet Count 187 Mean Platelet Volume 10.9 H Immature Granulocytes % 0.700 H Neutrophils % 57.7 Lymphocytes % 24.4 Monocytes % 10.8 Eosinophils % 5.6 Basophils % 0.8 Nucleated Red Blood Cells % 0.0 Immature Granulocytes # 0.040 H Neutrophils # 3.5 Lymphocytes # 1.5 Monocytes # 0.7 Eosinophils # 0.3 Basophils # 0.1 Nucleated Red Blood Cells # 0.0 Sodium Level 140 Potassium Level 4.2 Chloride Level 106 Carbon Dioxide Level 27 Anion Gap 7 Blood Urea Nitrogen 25 H Creatinine 1.33 H Est Glomerular Filtrat Rate mL/min 54 L Glucose Level 101 Calcium Level 8.2 L Phosphorus Level 3.1 Magnesium Level 1.8 Urine Color YELLOW Urine Clarity CLEAR Urine pH 6.0 Urine Specific [place] 1.010 Urine Ketones NEGATIVE Urine Nitrite NEGATIVE Urine Bilirubin NEGATIVE Urine Urobilinogen NEGATIVE Urine Leukocyte Esterase NEGATIVE Urine Hemoglobin NEGATIVE Urine Random Creatinine 44.36 Urine Random Sodium 75 Urine Glucose NEGATIVE Urine Total Protein 22.0 H Exam/Review of Systems Exam Vitals Vital Signs Date Temp Pulse Resp B/P (MAP) Pulse Ox O2 O2 Flow FiO2 Time Delivery Rate 10/14/18 50 12:05 10/14/18 98.4 19 150/78 100 11:29 (102) 10/13/18 Nasal 2.0 19:58 Cannula Intake and Output 10/13/18 10/13/18 10/14/18 1515:00 23:00 07:00 IntakeIntake Total 700 ml 950 ml OutputOutput Total 500 ml 850 ml BalanceBalance 200 ml 100 ml Results Results 24hrs Laboratory Tests Test 10/14/18 04:56 10/14/18 08:00 White Blood Count 6.1 Red Blood Count 3.20 L Hemoglobin 9.2 L Hematocrit 28.8 L Mean Corpuscular Volume 90.0 Mean Corpuscular Hemoglobin 28.8 L Mean Corpuscular Hemoglobin Concent 31.9 L Red Cell Distribution Width 16.5 H Platelet Count 187 Mean Platelet Volume 10.9 H Immature Granulocytes % 0.700 H Neutrophils % 57.7 Lymphocytes % 24.4 Monocytes % 10.8 Eosinophils % 5.6 Basophils % 0.8 Nucleated Red Blood Cells % 0.0 Immature Granulocytes # 0.040 H Neutrophils # 3.5 Lymphocytes # 1.5 Monocytes # 0.7 Eosinophils # 0.3 Basophils # 0.1 Nucleated Red Blood Cells # 0.0 Sodium Level 140 Potassium Level 4.2 Chloride Level 106 Carbon Dioxide Level 27 Anion Gap 7 Blood Urea Nitrogen 25 H Creatinine 1.33 H Est Glomerular Filtrat Rate mL/min 54 L Glucose Level 101 Calcium Level 8.2 L Phosphorus Level 3.1 Magnesium Level 1.8 Urine Color YELLOW Urine Clarity CLEAR Urine pH 6.0 Urine Specific [place] 1.010 Urine Ketones NEGATIVE Urine Nitrite NEGATIVE Urine Bilirubin NEGATIVE Urine Urobilinogen NEGATIVE Urine Leukocyte Esterase NEGATIVE Urine Hemoglobin NEGATIVE Urine Random Creatinine 44.36 Urine Random Sodium 75 Urine Glucose NEGATIVE Urine Total Protein 22.0 H Medications Medication Current Medications Amlodipine Besylate (Norvasc) 10 mg DAILY PO Last administered on 10/14/18 09:04; Admin Dose 10 MG; Start 10/12/18 at 09:00 Atorvastatin Calcium (Lipitor) 80 mg HS PO Last administered on 10/13/18 20:59; Admin Dose 80 MG; Start 10/11/18 at 21:00 Buspirone HCl (Buspar) 15 mg BID PO Last administered on 10/14/18 09:05; Admin Dose 15 MG; Start 10/11/18 at 21:00 Duloxetine HCl (Cymbalta) 30 mg BID PO Last administered on 10/14/18 09:06; Admin Dose 30 MG; Start 10/11/18 at 21:00 Pantoprazole (Protonix Tab) 40 mg BID PO Last administered on 10/14/18 09:05; Admin Dose 40 MG; Start 10/11/18 at 21:00 Ticagrelor (Brilinta) 90 mg BID PO Last administered on 10/14/18 09:18; Admin Dose 90 MG; Start 10/11/18 at 21:00 Nitroglycerin (Nitroglycerin (Sl Tab) 0.4 Mg) 1 tab Q5M PRN SL CHEST PAIN; Start 10/11/18 at 13:30 IV Flush (NS 3 ml) 3 ml PER PROTOCOL IV ; Start 10/11/18 at 13:30 Ondansetron HCl (Zofran Inj) 4 mg Q6H PRN IV NAUSEA/VOMITING; Start 10/11/18 at 13:30 Acetaminophen (Tylenol Tab) 650 mg Q6H PRN PO .PAIN 1-3 OR TEMP Last administered on 10/13/18 00:47; Admin Dose 650 MG; Start 10/11/18 at 13:30 Acetaminophen/ Hydrocodone Bitart ([place] (5/325)) 1 tab Q6H PRN PO .MOD PAIN 4- 6 Last administered on 10/14/18 00:06; Admin Dose 1 TAB; Start 10/11/18 at 13:30 Morphine Sulfate (morphine) 2 mg Q4H PRN IV .SEVERE PAIN 7-10 Last administered on 10/13/18 21:00; Admin Dose 2 MG; Start 10/11/18 at 13:30 Magnesium Hydroxide (Milk Of Mag) 30 ml DAILY PRN PO .CONSTIPATION; Start 10/11/18 at 13:30 Heparin Sodium (Porcine) (Heparin (5000 Units/1ml)) 5,000 unit Q12 SC Last administered on 10/13/18 08:15; Admin Dose 5,000 UNIT; Start 10/11/18 at 21:00; Status Hold Ascorbic Acid (Vitamin C) 500 mg DAILY PO Last administered on 10/14/18 09:05; Admin Dose 500 MG; Start 10/13/18 at 09:00 Multivitamins/ Minerals (Theragran-M) 1 tab DAILY PO Last administered on 10/14/18 09:04; Admin Dose 1 TAB; Start 10/13/18 at 09:00 Zinc Sulfate (Zinc Sulfate) 220 mg DAILY PO Last administered on 10/14/18 09:04; Admin Dose 220 MG; Start 10/13/18 at 09:00; Stop 10/27/18 at 08:59 Metoprolol Tartrate (Lopressor) 50 mg BID PO Last administered on 10/14/18 09:05; Admin Dose 50 MG; Start 10/12/18 at 21:00 Sucralfate (Carafate Susp) 1 gm QID PO Last administered on 10/14/18 12:04; Admin Dose 1 GM; Start 10/12/18 at 17:00 Sodium Chloride 1,000 ml @ 50 mls/hr Q20H IV Last administered on 10/14/18 05:13; Admin Dose 50 MLS/HR; Start 10/13/18 at 08:30 Isosorbide Dinitrate (Isordil) 10 mg TID PO Last administered on 10/14/18 12:09; Admin Dose 10 MG; Start 10/13/18 at 13:00 OSCAR PIERCE Oct 14, 2018 12:58
[2018-10-14] MEDS ORDERED: MIDAZOLAM 1 MG/ML 2 ML INJ ONE (13:31)
[2018-10-14] MEDS ORDERED: HEPARIN 1000 UNITS/ML 10 ML INJ ONE (13:31)
[2018-10-14] MEDS ORDERED: LIDOCAINE 1% (MDV) 20 ML INJ ONE (13:31)
[2018-10-14] MEDS ORDERED: FENTAnyl 50 MCG/ML VIAL ONE (13:31)
[2018-10-14] MEDS ORDERED: IODIXANOL LOCM 100 ML BTL ONE ×2 (13:31→14:13)
[2018-10-14] MEDS ORDERED: NITROGLYCERIN (IC) 100 MCG/ML INJ ONE (13:32)
[2018-10-14] MEDS ORDERED: VERAPAMIL 5 MG INJ ONE (13:32)
--- NOTE | 2018-10-14 14:09 | SIPON ---
Date/Time of Note Date/Time of Note DATE: 10/14/18 TIME: 14:08 Operative Report Preoperative Diagnosis 1.Chest pain Postoperative Diagnosis 1.widely patent LAD/LCX/RCA stents with no in-stent restenosis Operation/Procedure Performed 1.[facility] Surgeon see [facility] assistant 1.[place]kant Anesthesia: moderate sedation Estimated blood loss: minimal Transfusion Required none Specimen none Grafts/Implants none Complications none RODDY OLSEN Oct 14, 2018 14:09
[2018-10-14] MEDS ORDERED: AL HYDROX/MG HYDROX/SIMETH 30 ML CUP PO PRN (14:30)
[2018-10-14] MEDS ORDERED: OXYCODONE/ACETAMINOPHEN (5/325) TAB PO PRN (14:30)
[2018-10-14] MEDS ORDERED: ZOLPIDEM 5 MG TAB PO PRN (14:30)
[2018-10-14] MEDS ORDERED: ONDANSETRON 4 MG INJ IV PRN (14:30)
[2018-10-14] MEDS ORDERED: ACETAMINOPHEN 325 MG TAB PO PRN (14:30)
[2018-10-14] MEDS ORDERED: morphine 2 MG INJ IV PRN (14:30)
[2018-10-14] MEDS ORDERED: SOD CHLORIDE 0.9% 1,000 ML IV SCH (14:30)
--- NOTE | 2018-10-14 19:35 | CARRPT ---
DATE OF PROCEDURE: 10/14/2018 REASON FOR CARDIAC CATHETERIZATION: Chest pain concerning for angina, recent stent placement with ga strointestinal bleed causing holding of antiplatelet agents, assess for thrombosis stenosis. TYPE OF PROCEDURE: 1. Left heart catheterization. 2. Coronary angiography. 3. Measurement of left ventricular end-diastolic pressure. 4. Moderate conscious sedation. ATTENDING PHYSICIAN: Roddy Lujan MD REFERRING PHYSICIAN: Dr. Olivia, from the hospitalist service. INDICATION: Chest pains, concern for angina and recent holding of antiplatelet agents in the setting of GI bleed. BRIEF HISTORY AND HOSPITAL COURSE: Mr. Fang is a 67-year-old male with history of hypertension, dy slipidemia, coronary artery disease, status post multivessel stenting, 09/17/2018 and 09/18/2018. He then presented a week later with complaints of substernal chest pain and had a decrease in hemoglobi n down to 5 and was found to have gastric ulcer during this. The patient is holding antiplatelet age nts and then resumed on Brilinta thereafter. She now re-presents with complaints of substernal chest pain and concern for possible restenosis thrombosis. PROCEDURE: After informed consent was obtained, the patient was brought to [facility] cardiac catheterization lab where his right radial area was prepped and draped in the usual steri le fashion. A 2% lidocaine was infiltrated to the right radial area in order to achieve adequate ane sthesia. Using modified Seldinger technique, the radial artery was cannulated and a 6-Guyanese arteria l sheath was placed. A 6-[place] JL3.5 catheter was used to cannulate the left main coronary ostium. With contrast injection, multiple views of the left coronary arterial system were obtained. JL3.5 w as removed over a guidewire and a JR4 catheter was used to cannulate the right coronary arterial osti um. With contrast injection, multiple views of right coronary system were obtained. JL4 was removed over a guidewire and a 6-[place] pigtail was passed down the ascending aorta and placed in the LV, me asured LVEDP and then pulled back across the aortic valve to assess for significant gradient, which t here was not, and removed. Subsequently, at this time, the patient's sheath was removed. TR Band wa s applied. IMPRESSION: 1. Coronary angiography: Left main 5 mm, no significant stenoses. Circumflex proximally is a 3.5 m m vessel and no significant stenosis in the proximal portion. There is a widely patent stent with no intervening stenoses and there is a mid branching obtuse marginal, a 3 mm vessel which additionally has a widely patent stent in its midportion and then there is a daughter branch that branches off laura t with an ostial 30% stenosis. The LAD proximally is a 3.5 mm vessel and its midportion has irregula rities up to approximately 40%. Then, in the distal portion of the LAD, there is a widely patent ismael nt with no significant in-stent restenosis. There is a proximal branching diagonal 2.5 mm vessel wit h a long tubular 40% stenosis. The right coronary artery proximally is a 3.5 mm vessel and has no si gnificant focal stenoses throughout, gives off a very sizable PDA 3 mm with a midbody 20% to 30% sten osis and a very sizable posterolateral branch 3 mm with a long stented zone which is widely patent wi th no intervening stenoses. Measurement of LVEDP 16 to 18. It should be noted that on injection of the patient's right coronary artery, there was injection of a n air embolus. The patient suffered no consequences. There is no chest pain, no drop in pressure, n o change in EKGs and injection thereafter revealed no cutoff in the vessel. TOTAL FLUOROSCOPY TIME: 4.5 minutes. TOTAL CONTRAST: 75 mL. IMPRESSION: 1. Mild to moderate nonobstructive coronary artery disease. 2. Widely patent left anterior descending, circumflex and RCA stents. 3. High normal left heart filling pressures. 4. No significant aortic stenosis by gradient. RECOMMENDATIONS: In light of procedure findings at this time, we would: 1. Maximize medical management. 2. Aggressive risk factor reduction.. 3. The patient will be readmitted to the same day surgery center for post-catheterization observatio n and continued management of symptoms with probable discharge the following day as possible. Dictated By: RODDY POZO/ELDON Conf#: [id number] DID#: [id number]
[2018-10-14] MEDS: ATORVASTATIN 80 MG TAB PO SCH (20:45)
[2018-10-14] MEDS: morphine 2 MG INJ IV PRN (20:47)
[2018-10-15] VITALS (11 sets, daily range): BP systolic 118–159; BP diastolic 60–76; PULSE 58–89; RESP 18–20
[2018-10-15] MEDS: morphine 2 MG INJ IV PRN ×3 (01:50→20:54)
[2018-10-15] MEDS: SUCRALFATE (100 MG/ML) 10ML CUP PO SCH ×4 (08:26→20:53)
[2018-10-15] MEDS: PANTOPRAZOLE (EC) 40 MG TAB PO SCH ×2 (08:26→20:53)
[2018-10-15] MEDS: ZINC SULFATE 220 MG CAP PO SCH (08:26)
[2018-10-15] MEDS: METOPROLOL 50 MG TAB PO SCH ×2 (08:27→20:53)
[2018-10-15] MEDS: MULTIVITAMINS/MINERALS TAB PO SCH (08:27)
[2018-10-15] MEDS: BUSPIRONE 10 MG TAB PO SCH ×2 (08:27→20:53)
[2018-10-15] MEDS: ASCORBIC ACID 500 MG TAB PO SCH (08:27)
[2018-10-15] MEDS: DULOXETINE 30 MG CAP DR PO SCH ×2 (08:27→20:53)
[2018-10-15] MEDS: ISOSORBIDE DINITRATE 10 MG TAB PO SCH ×3 (08:27→20:53)
[2018-10-15] MEDS: AMLODIPINE 10 MG TAB PO SCH (08:28)
[2018-10-15] MEDS: TICAGRELOR 90 MG TABLET PO SCH ×2 (08:32→21:05)
--- NOTE | 2018-10-15 08:51 | PN ---
DATE: 10/15/2018 SUBJECTIVE: The patient had cardiac catheterization yesterday, tolerated well. No other events note d overnight. OBJECTIVE: VITAL SIGNS: Blood pressure is 149/73, pulse 70, respirations 20, temperature 98.0. HEENT: Head is normocephalic. NECK: Supple. HEART: Regular rate. LUNGS: Show diminished breath sounds at the base. ABDOMEN: Soft, nontender to palpation without rebound or guarding. EXTREMITIES: Negative for clubbing, cyanosis, no edema. DERMATOLOGIC: No rashes. MUSCULOSKELETAL: No joint effusion. NEUROLOGIC: No change in exam. MEDICATIONS: Reviewed. LABORATORY DATA: Reviewed. IMAGING STUDIES: Reviewed. ASSESSMENT AND PLAN: 1. Nonoliguric acute kidney injury on top of chronic kidney disease with previous baseline creatinin e of 1.2 mg/dL. Etiology of acute kidney injury is secondary to hemodynamics. The patient is status post cardiac catheterization. No evidence of contrast-associated nephropathy. At this point, durga nue current treatment plans, supportive care, renally dose all medications. 2. Anemia. Monitor hemoglobin and hematocrit levels. 3. Mineral bone disorder. Monitor calcium and phosphorus levels. 4. Hypertension. Continue current blood pressure regimen. 5. Chest pain. The patient is status post cardiac catheterization, no obvious or significant stenos is. Continue medical management. Follow up with Cardiology. 6. History of coronary artery disease. 7. Peptic ulcer disease. Continue proton pump inhibitor. 8. History of depression. Continue Cymbalta. Dictated By: FERNANDO LOYA DO NR/NTS Conf#: [id number] DID#: [id number] CC: ADORE SHAH MD; CHRISTINE HERRERA MD; RODDY OLSEN MD;*End*
[2018-10-15] MEDS: HYDROCODONE/APAP (5/325) TAB PO PRN ×2 (09:40→16:35)
--- NOTE | 2018-10-15 12:05 | PN ---
Date/Time of Note Date/Time of Note DATE: 10/15/18 TIME: 12:01 Assessment/Plan VTE Prophylaxis Risk score (from Nsg)>0 risk: 2 SCD applied (from Nsg): Yes Pharmacological prophylaxis: other Lines/Catheters IV Catheter Type (from Nrsg): Saline Lock Assessment/Plan Assessment/Plan 1. Acute chest pain- improving - s/p cardiac cath yesterday and stents patent. Continue on Brilinta - trops negative - Cardiology on board and appreciate recommendations 2. CAD s/p multiple PCI - Continue on Brilinta for now - no GI bleeding appreciated - continue isosorbide and BB as tolerated 3. RODRIGO- improving - Nephrology on board and appreciate recommendations. no evidence of contrast nephropathy. Cr continues to improve daily 4. GI bleed- stable - no further episodes noted - H/H stable. no need for transfusions at this time 5. Essential hypertension. - stable 6. Mood disorder - Continue on Cymbalta. 7. HLD - statin on board 8. Peptic ulcer disease - PPI and Carafate - GI on board and recommending repeat EGD in 6-8 weeks to assess healing of ulcer 9. Disposition - PT ordered given patient has not ambulated since admission. Will touch base with Cardiology regarding further plan of care. Result Diagram: 10/15/18 0512 10/15/18 0512 Results 24hrs Laboratory Tests Test 10/15/18 05:12 White Blood Count 7.2 Red Blood Count 3.24 L Hemoglobin 9.3 L Hematocrit 28.7 L Mean Corpuscular Volume 88.6 Mean Corpuscular Hemoglobin 28.7 L Mean Corpuscular Hemoglobin Concent 32.4 Red Cell Distribution Width 16.7 H Platelet Count 211 Mean Platelet Volume 11.2 H Immature Granulocytes % 0.600 H Neutrophils % 68.0 Lymphocytes % 17.5 Monocytes % 8.3 Eosinophils % 5.0 Basophils % 0.6 Nucleated Red Blood Cells % 0.0 Immature Granulocytes # 0.040 H Neutrophils # 4.9 Lymphocytes # 1.3 Monocytes # 0.6 Eosinophils # 0.4 Basophils # 0.0 Nucleated Red Blood Cells # 0.0 Sodium Level 142 Potassium Level 4.1 Chloride Level 108 Carbon Dioxide Level 26 Anion Gap 8 Blood Urea Nitrogen 22 H Creatinine 1.25 H Est Glomerular Filtrat Rate mL/min 58 L Glucose Level 120 Calcium Level 8.2 L Phosphorus Level 3.4 Magnesium Level 1.8 Subjective 24 Hr Interval Summary Free Text/Dictation Patient still with chest discomfort but states improved since cardiac cath yesterday. Has not ambulated yet since admission. No acute overnight events. Exam/Review of Systems Exam Vitals Vital Signs Date Temp Pulse Resp B/P (MAP) Pulse Ox O2 O2 Flow FiO2 Time Delivery Rate 10/15/18 98.1 58 20 132/67 98 Room Air 11:35 (88) 10/15/18 2.0 07:47 Intake and Output 10/14/18 10/14/18 10/15/18 1515:00 23:00 07:00 IntakeIntake Total 600 ml 550 ml OutputOutput Total 1550 ml 650 ml BalanceBalance -950 ml -100 ml Exam General: no acute distress. answering questions appropriately Neck: supple CVS: S1, S2, regular rhythm, bradycardia. no murmurs Lungs: clear to auscultation bilaterally. no wheezing or rhonchi Abd: soft, nontender, nondistended. no rebound or guarding. bowel sounds present diffusely Ext: moving all extremities. no cyanosis, clubbing, or edema Skin: warm, dry Results Results 24hrs Laboratory Tests Test 10/15/18 05:12 White Blood Count 7.2 Red Blood Count 3.24 L Hemoglobin 9.3 L Hematocrit 28.7 L Mean Corpuscular Volume 88.6 Mean Corpuscular Hemoglobin 28.7 L Mean Corpuscular Hemoglobin Concent 32.4 Red Cell Distribution Width 16.7 H Platelet Count 211 Mean Platelet Volume 11.2 H Immature Granulocytes % 0.600 H Neutrophils % 68.0 Lymphocytes % 17.5 Monocytes % 8.3 Eosinophils % 5.0 Basophils % 0.6 Nucleated Red Blood Cells % 0.0 Immature Granulocytes # 0.040 H Neutrophils # 4.9 Lymphocytes # 1.3 Monocytes # 0.6 Eosinophils # 0.4 Basophils # 0.0 Nucleated Red Blood Cells # 0.0 Sodium Level 142 Potassium Level 4.1 Chloride Level 108 Carbon Dioxide Level 26 Anion Gap 8 Blood Urea Nitrogen 22 H Creatinine 1.25 H Est Glomerular Filtrat Rate mL/min 58 L Glucose Level 120 Calcium Level 8.2 L Phosphorus Level 3.4 Magnesium Level 1.8 Medications Medication Current Medications Amlodipine Besylate (Norvasc) 10 mg DAILY PO Last administered on 10/15/18at 08:28; Admin Dose 10 MG; Start 10/12/18 at 09:00 Atorvastatin Calcium (Lipitor) 80 mg HS PO Last administered on 10/14/18 20:45; Admin Dose 80 MG; Start 10/11/18 at 21:00 Buspirone HCl (Buspar) 15 mg BID PO Last administered on 10/15/18 08:27; Admin Dose 15 MG; Start 10/11/18 at 21:00 Duloxetine HCl (Cymbalta) 30 mg BID PO Last administered on 10/15/18 08:27; Admin Dose 30 MG; Start 10/11/18 at 21:00 Pantoprazole (Protonix Tab) 40 mg BID PO Last administered on 10/15/18 08:26; Admin Dose 40 MG; Start 10/11/18 at 21:00 Ticagrelor (Brilinta) 90 mg BID PO Last administered on 10/15/18 08:32; Admin Dose 90 MG; Start 10/11/18 at 21:00 Nitroglycerin (Nitroglycerin (Sl Tab) 0.4 Mg) 1 tab Q5M PRN SL CHEST PAIN; Start 10/11/18 at 13:30 IV Flush (NS 3 ml) 3 ml PER PROTOCOL IV ; Start 10/11/18 at 13:30 Acetaminophen (Tylenol Tab) 650 mg Q6H PRN PO .PAIN 1-3 OR TEMP Last administered on 10/13/18 00:47; Admin Dose 650 MG; Start 10/11/18 at 13:30 Acetaminophen/ Hydrocodone Bitart ([place] (5/325)) 1 tab Q6H PRN PO .MOD PAIN 4- 6 Last administered on 10/15/18 09:40; Admin Dose 1 TAB; Start 10/11/18 at 13:30 Morphine Sulfate (morphine) 2 mg Q4H PRN IV .SEVERE PAIN 7-10 Last administered on 10/15/18 05:55; Admin Dose 2 MG; Start 10/11/18 at 13:30 Magnesium Hydroxide (Milk Of Mag) 30 ml DAILY PRN PO .CONSTIPATION; Start 10/11/18 at 13:30 Heparin Sodium (Porcine) (Heparin (5000 Units/1ml)) 5,000 unit Q12 SC Last administered on 10/13/18 08:15; Admin Dose 5,000 UNIT; Start 10/11/18 at 21:00; Status Hold Ascorbic Acid (Vitamin C) 500 mg DAILY PO Last administered on 10/15/18 08:27; Admin Dose 500 MG; Start 10/13/18 at 09:00 Multivitamins/ Minerals (Theragran-M) 1 tab DAILY PO Last administered on 10/15/18 08:27; Admin Dose 1 TAB; Start 10/13/18 at 09:00 Zinc Sulfate (Zinc Sulfate) 220 mg DAILY PO Last administered on 10/15/18 08:26; Admin Dose 220 MG; Start 10/13/18 at 09:00; Stop 10/27/18 at 08:59 Metoprolol Tartrate (Lopressor) 50 mg BID PO Last administered on 10/15/18 08:27; Admin Dose 50 MG; Start 10/12/18 at 21:00 Sucralfate (Carafate Susp) 1 gm QID PO Last administered on 10/15/18 08:26; Admin Dose 1 GM; Start 10/12/18 at 17:00 Isosorbide Dinitrate (Isordil) 10 mg TID PO Last administered on 10/15/18 08:27; Admin Dose 10 MG; Start 10/13/18 at 13:00 Acetaminophen (Tylenol Tab) 650 mg Q4H PRN PO PAIN; Start 10/14/18 at 14:30 Oxycodone/ Acetaminophen (Percocet (5/ 325)) 1 tab Q4H PRN PO PAIN; Start 10/14/18 at 14:30 Morphine Sulfate (morphine) 1 mg Q1H PRN IV PAIN; Start 10/14/18 at 14:30 Zolpidem Tartrate (Ambien) 5 mg HS MAY REPEAT X 1 PRN PO INSOMNIA; Start 10/14/18 at 14:30 Al Hydrox/Mg Hydrox/Simethicone (Mag-Al Plus) 30 ml Q4H PRN PO GASTROINTESTINAL UPSET; Start 10/14/18 at 14:30 Ondansetron HCl (Zofran Inj) 4 mg Q4H PRN IV NAUSEA AND/OR VOMITING; Start 10/14/18 at 14:30 CHRISTINE HERRERA MD Oct 15, 2018 12:05
--- NOTE | 2018-10-15 15:31 | CONS ---
Assessment/Plan Assessment/Plan Hospital Course (Demo Recall) IMPRESSION: 1. Chest pain. Assess for acute coronary syndrome in a patient with recent severe GI bleed and recent stenting and had holding of his antiplatelet agents. Assess for recurrent acute coronary syndrome, recurrent anemia, and bleeding.- ongoing chest pain. Neg trop>3. ECG with ongoing inferolateral TWI. Now s/[p LHC with patent stents 2. Abnormal electrocardiogram with lateral T-wave inversions. Neg trop x 3. Ongoing inferolateral TWI 3. History of [employer] and stent placement most recently to LAD, RCA, and circumflex in 2 different settings from 09/17/2018 to 09/18/2018. 4. History of a GI bleed and gastric ulcer. 5. Anemia, mild-mild worsening of anemia 6. Psychiatric disorder with depression. 7. Dyslipidemia. 8. Renal failure-ongoing renal failure 9. Dizziness upon standing-? orthostasis 10. Bradycardia-S gemma mainly to 50's and at times intermittent to 40's Recc: -Tele -serial ecg's -Follow renal function with renal on case -Folow HGb and contineu brilinta for stent patency of recently placed stents 09/21 -Continue BB -Continue norvasc/oral nitrates -Contineu statin -Contineu PPI -Follow creatnine -If creatnine remains stable then ok for d;c from cardiac standpoint Consultation Date/Type/Reason Admit Date/Time Oct 13, 2018 at 10:03 Initial Consult Date 10/11/18 Type of Consult Cardiology Reason for Consultation Chest pain Requesting Provider: BARBARA JOSEPH NP Date/Time of Note DATE: 10/15/18 TIME: 15:28 Exam/Review of Systems Vital Signs Vitals Vital Signs Date Temp Pulse Resp B/P (MAP) Pulse Ox O2 O2 Flow FiO2 Time Delivery Rate 10/15/18 69 12:00 10/15/18 98.1 20 132/67 98 Room Air 11:35 (88) 10/15/18 2.0 07:47 Intake and Output 10/14/18 10/14/18 10/15/18 1515:00 23:00 07:00 IntakeIntake Total 600 ml 550 ml OutputOutput Total 1550 ml 650 ml BalanceBalance -950 ml -100 ml Exam Exam Review of Systems: CONSTITUTIONAL: No fevers, chills. PULMONARY: No sob CARDIOVASCULAR: No chest pain/palpitations GASTROINTESTINAL: No nausea/vomiting. GENITOURINARY: No hematuria/dysuria. MUSCULOSKELETAL: No myagias/arthalgias. PSYCHIATRIC: The patient denies depression. NEUROLOGIC: No weakness Constitutional: alert, oriented Psych: no complaints Head: normocephalic ENMT: mucosa pink and moist Neck: supple, jvd (9 cmn water) Respiratory: diminished breath sounds Cardiovascular: regular rate and rhythm Gastrointestinal: soft, non-tender Musculoskeletal: muscle tone (normal) Extremities: edema (normal) Neurological: other (No focal deficits) Skin: other (No focal deficits) Labs Result Diagram: 10/15/18 0512 10/15/18 0512 Results 24hrs Laboratory Tests Test 10/15/18 05:12 White Blood Count 7.2 Red Blood Count 3.24 L Hemoglobin 9.3 L Hematocrit 28.7 L Mean Corpuscular Volume 88.6 Mean Corpuscular Hemoglobin 28.7 L Mean Corpuscular Hemoglobin Concent 32.4 Red Cell Distribution Width 16.7 H Platelet Count 211 Mean Platelet Volume 11.2 H Immature Granulocytes % 0.600 H Neutrophils % 68.0 Lymphocytes % 17.5 Monocytes % 8.3 Eosinophils % 5.0 Basophils % 0.6 Nucleated Red Blood Cells % 0.0 Immature Granulocytes # 0.040 H Neutrophils # 4.9 Lymphocytes # 1.3 Monocytes # 0.6 Eosinophils # 0.4 Basophils # 0.0 Nucleated Red Blood Cells # 0.0 Sodium Level 142 Potassium Level 4.1 Chloride Level 108 Carbon Dioxide Level 26 Anion Gap 8 Blood Urea Nitrogen 22 H Creatinine 1.25 H Est Glomerular Filtrat Rate mL/min 58 L Glucose Level 120 Calcium Level 8.2 L Phosphorus Level 3.4 Magnesium Level 1.8 Medications Medications Current Medications Amlodipine Besylate (Norvasc) 10 mg DAILY PO Last administered on 10/15/18at 08:28; Admin Dose 10 MG; Start 10/12/18 at 09:00 Atorvastatin Calcium (Lipitor) 80 mg HS PO Last administered on 10/14/18at 20:45; Admin Dose 80 MG; Start 10/11/18 at 21:00 Buspirone HCl (Buspar) 15 mg BID PO Last administered on 10/15/18at 08:27; Admin Dose 15 MG; Start 10/11/18 at 21:00 Duloxetine HCl (Cymbalta) 30 mg BID PO Last administered on 10/15/18 08:27; Admin Dose 30 MG; Start 10/11/18 at 21:00 Pantoprazole (Protonix Tab) 40 mg BID PO Last administered on 10/15/18 08:26; Admin Dose 40 MG; Start 10/11/18 at 21:00 Ticagrelor (Brilinta) 90 mg BID PO Last administered on 10/15/18 08:32; Admin Dose 90 MG; Start 10/11/18 at 21:00 Nitroglycerin (Nitroglycerin (Sl Tab) 0.4 Mg) 1 tab Q5M PRN SL CHEST PAIN; Start 10/11/18 at 13:30 IV Flush (NS 3 ml) 3 ml PER PROTOCOL IV ; Start 10/11/18 at 13:30 Acetaminophen (Tylenol Tab) 650 mg Q6H PRN PO .PAIN 1-3 OR TEMP Last administered on 10/13/18 00:47; Admin Dose 650 MG; Start 10/11/18 at 13:30 Acetaminophen/ Hydrocodone Bitart ([place] (5/325)) 1 tab Q6H PRN PO .MOD PAIN 4- 6 Last administered on 10/15/18 09:40; Admin Dose 1 TAB; Start 10/11/18 at 13:30 Morphine Sulfate (morphine) 2 mg Q4H PRN IV .SEVERE PAIN 7-10 Last administered on 10/15/18 05:55; Admin Dose 2 MG; Start 10/11/18 at 13:30 Magnesium Hydroxide (Milk Of Mag) 30 ml DAILY PRN PO .CONSTIPATION; Start 10/11/18 at 13:30 Heparin Sodium (Porcine) (Heparin (5000 Units/1ml)) 5,000 unit Q12 SC Last administered on 10/13/18 08:15; Admin Dose 5,000 UNIT; Start 10/11/18 at 21:00; Status Hold Ascorbic Acid (Vitamin C) 500 mg DAILY PO Last administered on 10/15/18 08:27; Admin Dose 500 MG; Start 10/13/18 at 09:00 Multivitamins/ Minerals (Theragran-M) 1 tab DAILY PO Last administered on 10/15 08:27; Admin Dose 1 TAB; Start 10/13/18 at 09:00 Zinc Sulfate (Zinc Sulfate) 220 mg DAILY PO Last administered on 10/15/18 08:26; Admin Dose 220 MG; Start 10/13/18 at 09:00; Stop 10/27/18 at 08:59 Metoprolol Tartrate (Lopressor) 50 mg BID PO Last administered on 10/15/18 08:27; Admin Dose 50 MG; Start 10/12/18 at 21:00 Sucralfate (Carafate Susp) 1 gm QID PO Last administered on 10/15/18at 12:08; Admin Dose 1 GM; Start 10/12/18 at 17:00 Isosorbide Dinitrate (Isordil) 10 mg TID PO Last administered on 10/15/18 12:08; Admin Dose 10 MG; Start 10/13/18 at 13:00 Acetaminophen (Tylenol Tab) 650 mg Q4H PRN PO PAIN; Start 10/14/18 at 14:30 Oxycodone/ Acetaminophen (Percocet (5/ 325)) 1 tab Q4H PRN PO PAIN; Start 10/14/18 at 14:30 Morphine Sulfate (morphine) 1 mg Q1H PRN IV PAIN; Start 10/14/18 at 14:30 Zolpidem Tartrate (Ambien) 5 mg HS MAY REPEAT X 1 PRN PO INSOMNIA; Start 10/14/18 at 14:30 Al Hydrox/Mg Hydrox/Simethicone (Mag-Al Plus) 30 ml Q4H PRN PO GASTROINTESTINAL UPSET; Start 10/14/18 at 14:30 Ondansetron HCl (Zofran Inj) 4 mg Q4H PRN IV NAUSEA AND/OR VOMITING; Start at 14:30 RODDY OLSEN Oct 15, 2018 15:31
[2018-10-15] MEDS: ATORVASTATIN 80 MG TAB PO SCH (20:53)
[2018-10-16] VITALS (11 sets, daily range): BP systolic 129–154; BP diastolic 62–75; PULSE 57–98; RESP 19–20
[2018-10-16] MEDS: HYDROCODONE/APAP (5/325) TAB PO PRN ×3 (01:10→16:44)
[2018-10-16] MEDS ORDERED: MAGNESIUM SULFATE 2 GM/50 ML 50 ML IVPB ONE (09:00)
[2018-10-16] MEDS: SUCRALFATE (100 MG/ML) 10ML CUP PO SCH ×4 (09:03→21:20)
[2018-10-16] MEDS: METOPROLOL 50 MG TAB PO SCH ×2 (09:04→21:21)
[2018-10-16] MEDS: BUSPIRONE 10 MG TAB PO SCH ×2 (09:04→21:23)
[2018-10-16] MEDS: AMLODIPINE 10 MG TAB PO SCH (09:04)
[2018-10-16] MEDS: ZINC SULFATE 220 MG CAP PO SCH (09:04)
[2018-10-16] MEDS: DULOXETINE 30 MG CAP DR PO SCH ×2 (09:04→21:21)
[2018-10-16] MEDS: ISOSORBIDE DINITRATE 10 MG TAB PO SCH ×3 (09:05→21:22)
[2018-10-16] MEDS: PANTOPRAZOLE (EC) 40 MG TAB PO SCH ×2 (09:05→21:21)
[2018-10-16] MEDS: MULTIVITAMINS/MINERALS TAB PO SCH (09:05)
[2018-10-16] MEDS: ASCORBIC ACID 500 MG TAB PO SCH (09:05)
[2018-10-16] MEDS: TICAGRELOR 90 MG TABLET PO SCH ×2 (09:09→21:27)
--- NOTE | 2018-10-16 09:46 | PN ---
DATE: 10/16/2018 SUBJECTIVE: The patient is stable, no events overnight. No fevers, chills, nausea, vomiting. OBJECTIVE: VITAL SIGNS: Blood pressure is 149/73, pulse 70, respirations 20, temperature 98.2. HEENT: Head is normocephalic. NECK: Supple. HEART: Regular rate. LUNGS: Show diminished breath sounds at base. ABDOMEN: Soft, nontender to palpation without rebound or guarding. EXTREMITIES: Negative for clubbing, cyanosis, no edema. DERMATOLOGIC: No rashes. MUSCULOSKELETAL: No joint effusion. NEUROLOGIC: No change in exam. MEDICATIONS: Have been reviewed. LABORATORY DATA: Has been reviewed. ASSESSMENT AND PLAN: 1. Nonoliguric acute kidney injury on top of chronic kidney disease with previous baseline creatinin e 1.2 mg/dL. Etiology of acute kidney injury is secondary to hemodynamics. Renal function is improv ed. No signs of contrast-associated nephropathy. 2. Anemia. Monitor hemoglobin and hematocrit levels. 3. Mineral bone disorder. Monitor calcium and phosphorus levels. 4. Hypertension. Continue current blood pressure regimen. 5. Chest pain. The patient has a cardiac catheterization, no significant stenosis. Continue medica l management. 6. Peptic ulcer disease, continue PPI. 7. History of depression. Dictated By: FERNANDO LOYA DO NR/NTS Conf#: [id number] DID#: [id number] CC: ADORE SHAH MD;*EndCC*
--- NOTE | 2018-10-16 11:41 | PN ---
Date/Time of Note Date/Time of Note DATE: 10/16/18 TIME: 11:39 Assessment/Plan VTE Prophylaxis Risk score (from Nsg)>0 risk: 2 SCD applied (from Nsg): Yes Pharmacological prophylaxis: other Lines/Catheters IV Catheter Type (from Nrsg): Saline Lock Assessment/Plan Assessment/Plan 1. Acute chest pain- resolving - s/p cardiac cath 10/14 and stents patent. Continue on Brilinta - trops negative - Cardiology on board and appreciate recommendations. Cleared for discharge with outpatient follow up 2. CAD s/p multiple PCI - Continue on Brilinta for now - no GI bleeding appreciated - continue isosorbide and BB as tolerated 3. RODRIGO- resolved - Nephrology on board and appreciate recommendations. 4. GI bleed- resolved - no further episodes noted - H/H stable. no need for transfusions at this time 5. Essential hypertension. - stable 6. Mood disorder - Continue on Cymbalta. 7. HLD - statin on board 8. Peptic ulcer disease - PPI and Carafate - GI on board and recommending repeat EGD in 6-8 weeks to assess healing of ulcer 9. Disposition - Medically stable for discharge home Result Diagram: 10/15/18 0512 10/16/18 0508 Results 24hrs Laboratory Tests Test 10/16/18 05:08 Sodium Level 140 Potassium Level 4.3 Chloride Level 106 Carbon Dioxide Level 27 Anion Gap 7 Blood Urea Nitrogen 20 Creatinine 1.20 Est Glomerular Filtrat Rate mL/min > 60 Glucose Level 116 Calcium Level 8.7 Phosphorus Level 3.2 Magnesium Level 1.8 Subjective 24 Hr Interval Summary Free Text/Dictation Patient is feeling better and denies any acute issues. No overnight events. Exam/Review of Systems Exam Vitals Vital Signs Date Temp Pulse Resp B/P (MAP) Pulse Ox O2 O2 Flow FiO2 Time Delivery Rate 10/16/18 Nasal 2.0 09:15 Cannula 10/16/18 77 08:00 10/16/18 98.2 20 149/73 98 07:07 (98) Intake and Output 10/15/18 10/15/18 10/16/18 1515:00 23:00 07:00 IntakeIntake Total 900 ml 420 ml OutputOutput Total 800 ml 750 ml BalanceBalance 100 ml -330 ml Exam General: no acute distress. answering questions appropriately Neck: supple CVS: S1, S2, regular rate and rhythm, No murmurs Lungs: clear to auscultation bilaterally. no wheezing or rhonchi Abd: soft, nontender, nondistended. no rebound or guarding. bowel sounds present diffusely Ext: moving all extremities. no cyanosis, clubbing, or edema Skin: warm, dry Results Results 24hrs Laboratory Tests Test 10/16/18 05:08 Sodium Level 140 Potassium Level 4.3 Chloride Level 106 Carbon Dioxide Level 27 Anion Gap 7 Blood Urea Nitrogen 20 Creatinine 1.20 Est Glomerular Filtrat Rate mL/min > 60 Glucose Level 116 Calcium Level 8.7 Phosphorus Level 3.2 Magnesium Level 1.8 Medications Medication Current Medications Amlodipine Besylate (Norvasc) 10 mg DAILY PO Last administered on 10/16/18 09:04; Admin Dose 10 MG; Start 10/12/18 at 09:00 Atorvastatin Calcium (Lipitor) 80 mg HS PO Last administered on 10/15/18at 20:53; Admin Dose 80 MG; Start 10/11/18 at 21:00 Buspirone HCl (Buspar) 15 mg BID PO Last administered on 10/16/18 09:04; Admin Dose 15 MG; Start 10/11/18 at 21:00 Duloxetine HCl (Cymbalta) 30 mg BID PO Last administered on 10/16/18 09:04; Admin Dose 30 MG; Start 10/11/18 at 21:00 Pantoprazole (Protonix Tab) 40 mg BID PO Last administered on 10/16/18 09:05; Admin Dose 40 MG; Start 10/11/18 at 21:00 Ticagrelor (Brilinta) 90 mg BID PO Last administered on 10/16/18 09:09; Admin Dose 90 MG; Start 10/11/18 at 21:00 Nitroglycerin (Nitroglycerin (Sl Tab) 0.4 Mg) 1 tab Q5M PRN SL CHEST PAIN; Start 10/11/18 at 13:30 IV Flush (NS 3 ml) 3 ml PER PROTOCOL IV ; Start 10/11/18 at 13:30 Acetaminophen (Tylenol Tab) 650 mg Q6H PRN PO .PAIN 1-3 OR TEMP Last administered on 10/13/18at 00:47; Admin Dose 650 MG; Start 10/11/18 at 13:30 Acetaminophen/ Hydrocodone Bitart ([place] (5/325)) 1 tab Q6H PRN PO .MOD PAIN 4- 6 Last administered on 10/16/18 09:03; Admin Dose 1 TAB; Start 10/11/18 at 13:30 Morphine Sulfate (morphine) 2 mg Q4H PRN IV .SEVERE PAIN 7-10 Last administered on 10/15/18 20:54; Admin Dose 2 MG; Start 10/11/18 at 13:30 Magnesium Hydroxide (Milk Of Mag) 30 ml DAILY PRN PO .CONSTIPATION; Start 10/11/18 at 13:30 Heparin Sodium (Porcine) (Heparin (5000 Units/1ml)) 5,000 unit Q12 SC Last administered on 10/13/18 08:15; Admin Dose 5,000 UNIT; Start 10/11/18 at 21:00; Status Hold Ascorbic Acid (Vitamin C) 500 mg DAILY PO Last administered on 10/16/18 09:05; Admin Dose 500 MG; Start 10/13/18 at 09:00 Multivitamins/ Minerals (Theragran-M) 1 tab DAILY PO Last administered on 10/16/18 09:05; Admin Dose 1 TAB; Start 10/13/18 at 09:00 Zinc Sulfate (Zinc Sulfate) 220 mg DAILY PO Last administered on 10/16/18 09:04; Admin Dose 220 MG; Start 10/13/18 at 09:00; Stop 10/27/18 at 08:59 Metoprolol Tartrate (Lopressor) 50 mg BID PO Last administered on 10/16/18 09:04; Admin Dose 50 MG; Start 10/12/18 at 21:00 Sucralfate (Carafate Susp) 1 gm QID PO Last administered on 10/16/18 09:03; Admin Dose 1 GM; Start 10/12/18 at 17:00 Isosorbide Dinitrate (Isordil) 10 mg TID PO Last administered on 10/16/18 09:05; Admin Dose 10 MG; Start 10/13/18 at 13:00 Acetaminophen (Tylenol Tab) 650 mg Q4H PRN PO PAIN; Start 10/14/18 at 14:30 Oxycodone/ Acetaminophen (Percocet (5/ 325)) 1 tab Q4H PRN PO PAIN; Start 10/14/18 at 14:30 Morphine Sulfate (morphine) 1 mg Q1H PRN IV PAIN; Start 10/14/18 at 14:30 Zolpidem Tartrate (Ambien) 5 mg HS MAY REPEAT X 1 PRN PO INSOMNIA; Start 10/14/18 at 14:30 Al Hydrox/Mg Hydrox/Simethicone (Mag-Al Plus) 30 ml Q4H PRN PO GASTROINTESTINAL UPSET; Start 10/14/18 at 14:30 Ondansetron HCl (Zofran Inj) 4 mg Q4H PRN IV NAUSEA AND/OR VOMITING; Start 10/14/18 at 14:30 CHRISTINE HERRERA MD Oct 16, 2018 11:41
[2018-10-16] MEDS ORDERED: SUCR1TAB56 PO (11:43)
[2018-10-16] MEDS ORDERED: METO-429 PO (11:43)
[2018-10-16] MEDS ORDERED: ISOS10TA2 PO (11:43)
--- NOTE | 2018-10-16 11:48 | PDOCDIS ---
Discharge Instructions DIAGNOSIS Discharge Diagnosis 1. Acute chest pain- resolving 2. CAD s/p multiple PCI- stable 3. Acute renal insufficiency- resolved 4. GI bleed- resolved 5. Essential hypertension. 6. Mood disorder 7. HLD 8. Peptic ulcer disease CONDITION [id number] Patient Condition: [id number] Stable HOME CARE INSTRUCTIONS: [id number] Diet Instructions: [id number] Low Fat /Cholesterol ACTIVITY: [id number] Activity Restrictions: [id number] No Restrictions FOLLOW UP/APPOINTMENTS Follow-up Plan 1. Follow up with your primary care physician in 1-2 weeks 2. Follow up with Dr. Lujan in 1-2 weeks. Please call his office to make an appointment 3. You will need to follow up with GI in 6-8 weeks to ensure healing of ulcers. Call the office to schedule an appointment 4. Take all medications as prescribed. The following changes were made - Metoprolol decreased to 50mg twice a day - STOP Benazepril - Start Isosorbide three times a day - Continue on Pantoprazole twice a day and start taking Carafate with meals for 2 weeks 5. If experiencing any concerning symptoms, please go to the closest emergency department REFERRALS Other Referrals Giana Altamirano MD Specialty: Gastroenterology Comments Office Address [id number] [address] Office Teodoro Lujan MD Specialty: Interventional Cardiology Comments Office Address [id number] [place] [address] Office CHRISTINE HERRERA MD Oct 16, 2018 11:48
--- NOTE | 2018-10-16 18:20 | CONS ---
Assessment/Plan Assessment/Plan Hospital Course (Demo Recall) IMPRESSION: 1. Chest pain. Assess for acute coronary syndrome in a patient with recent severe GI bleed and recent stenting and had holding of his antiplatelet agents. Assess for recurrent acute coronary syndrome, recurrent anemia, and bleeding.- ongoing chest pain. Neg trop>3. ECG with ongoing inferolateral TWI. Now s/[p LHC with patent stents 2. Abnormal electrocardiogram with lateral T-wave inversions. Neg trop x 3. Ongoing inferolateral TWI 3. History of TIRE TESTER and stent placement most recently to LAD, RCA, and circumflex in 2 different settings from 09/17/2018 to 09/18/2018. 4. History of a GI bleed and gastric ulcer. 5. Anemia, mild-mild worsening of anemia 6. Psychiatric disorder with depression. 7. Dyslipidemia. 8. Renal failure-improving 9. Dizziness upon standing-? orthostasis 10. Bradycardia-S gemma mainly to 50's and at times intermittent to 40's 11. HTN-somewhat labile, ? if affected by anxiety or agitation Recc: -Tele -serial ecg's -Follow renal function with renal on case -Folow HGb and contineu brilinta for stent patency of recently placed stents 09/21 -Continue BB -Continue norvasc/oral nitrates -Contineu statin -Contineu PPI -Follow creatnine -OK for d/c from cardiac stndpoint. Consultation Date/Type/Reason Admit Date/Time Oct 13, 2018 at 10:03 Initial Consult Date 10/11/18 Type of Consult Cardiology Reason for Consultation chest pain Requesting Provider: BARBARA JOSEPH NP Date/Time of Note DATE: 10/16/18 TIME: 18:18 Exam/Review of Systems Vital Signs Vitals Vital Signs Date Temp Pulse Resp B/P (MAP) Pulse Ox O2 O2 Flow FiO2 Time Delivery Rate 10/16/18 58 16:00 10/16/18 98.1 20 152/75 97 Room Air 15:30 (100) 10/16/18 2.0 09:15 Intake and Output 10/15/18 10/15/18 10/16/18 1515:00 23:00 07:00 IntakeIntake Total 900 ml 420 ml OutputOutput Total 800 ml 750 ml BalanceBalance 100 ml -330 ml Exam Exam Review of Systems: CONSTITUTIONAL: No fevers, chills. PULMONARY: No sob CARDIOVASCULAR: No chest pain/palpitations GASTROINTESTINAL: No nausea/vomiting. GENITOURINARY: No hematuria/dysuria. MUSCULOSKELETAL: No myagias/arthalgias. PSYCHIATRIC: The patient denies depression. NEUROLOGIC: No weakness Constitutional: alert, oriented Psych: no complaints ENMT: mucosa pink and moist Neck: supple, jvd (9 cm water) Respiratory: diminished breath sounds (at basese/B) Cardiovascular: regular rate and rhythm Gastrointestinal: soft, non-tender Musculoskeletal: muscle tone (normal) Extremities: edema (none) Neurological: other (No focal deficits) Labs Result Diagram: 10/15/18 0512 10/16/18 0508 Results 24hrs Laboratory Tests Test 10/16/18 05:08 Sodium Level 140 Potassium Level 4.3 Chloride Level 106 Carbon Dioxide Level 27 Anion Gap 7 Blood Urea Nitrogen 20 Creatinine 1.20 Est Glomerular Filtrat Rate mL/min > 60 Glucose Level 116 Calcium Level 8.7 Phosphorus Level 3.2 Magnesium Level 1.8 Medications Medications Current Medications Amlodipine Besylate (Norvasc) 10 mg DAILY PO Last administered on 10/16/18at 09:04; Admin Dose 10 MG; Start 10/12/18 at 09:00 Atorvastatin Calcium (Lipitor) 80 mg HS PO Last administered on 10/15/18at 20:53; Admin Dose 80 MG; Start 10/11/18 at 21:00 Buspirone HCl (Buspar) 15 mg BID PO Last administered on 10/16/18 09:04; Admin Dose 15 MG; Start 10/11/18 at 21:00 Duloxetine HCl (Cymbalta) 30 mg BID PO Last administered on 10/16/18 09:04; Admin Dose 30 MG; Start 10/11/18 at 21:00 Pantoprazole (Protonix Tab) 40 mg BID PO Last administered on 10/16/18 09:05; Admin Dose 40 MG; Start 10/11/18 at 21:00 Ticagrelor (Brilinta) 90 mg BID PO Last administered on 10/16/18 09:09; Admin Dose 90 MG; Start 10/11/18 at 21:00 Nitroglycerin (Nitroglycerin (Sl Tab) 0.4 Mg) 1 tab Q5M PRN SL CHEST PAIN; Start 10/11/18 at 13:30 IV Flush (NS 3 ml) 3 ml PER PROTOCOL IV ; Start 10/11/18 at 13:30 Acetaminophen (Tylenol Tab) 650 mg Q6H PRN PO .PAIN 1-3 OR TEMP Last administered on 10/13/18 00:47; Admin Dose 650 MG; Start 10/11/18 at 13:30 Acetaminophen/ Hydrocodone Bitart ([place] (5/325)) 1 tab Q6H PRN PO .MOD PAIN 4- 6 Last administered on 10/16/18 16:44; Admin Dose 1 TAB; Start 10/11/18 at 13:30 Morphine Sulfate (morphine) 2 mg Q4H PRN IV .SEVERE PAIN 7-10 Last administered on 10/15/18 20:54; Admin Dose 2 MG; Start 10/11/18 at 13:30 Magnesium Hydroxide (Milk Of Mag) 30 ml DAILY PRN PO .CONSTIPATION; Start 10/11/18 at 13:30 Heparin Sodium (Porcine) (Heparin (5000 Units/1ml)) 5,000 unit Q12 SC Last administered on 10/13/18 08:15; Admin Dose 5,000 UNIT; Start 10/11/18 at 21:00; Status Hold Ascorbic Acid (Vitamin C) 500 mg DAILY PO Last administered on 10/16/18 09:05; Admin Dose 500 MG; Start 10/13/18 at 09:00 Multivitamins/ Minerals (Theragran-M) 1 tab DAILY PO Last administered on 10/16/18 09:05; Admin Dose 1 TAB; Start 10/13/18 at 09:00 Zinc Sulfate (Zinc Sulfate) 220 mg DAILY PO Last administered on 10/16/18 09:04; Admin Dose 220 MG; Start 10/13/18 at 09:00; Stop 10/27/18 at 08:59 Metoprolol Tartrate (Lopressor) 50 mg BID PO Last administered on 10/16/18 09:04; Admin Dose 50 MG; Start 10/12/18 at 21:00 Sucralfate (Carafate Susp) 1 gm QID PO Last administered on 10/16/18 13:10; Admin Dose 1 GM; Start 10/12/18 at 17:00 Isosorbide Dinitrate (Isordil) 10 mg TID PO Last administered on 6/13/19at 13:1 0; Admin Dose 10 MG; Start 10/13/18 at 13:00 Acetaminophen (Tylenol Tab) 650 mg Q4H PRN PO PAIN; Start 10/14/18 at 14:30 Oxycodone/ Acetaminophen (Percocet (5/ 325)) 1 tab Q4H PRN PO PAIN; Start 03/24 at 14:30 Morphine Sulfate (morphine) 1 mg Q1H PRN IV PAIN; Start 10/14/18 at 14:30 Zolpidem Tartrate (Ambien) 5 mg HS MAY REPEAT X 1 PRN PO INSOMNIA; Start 10/14/18 at 14:30 Al Hydrox/Mg Hydrox/Simethicone (Mag-Al Plus) 30 ml Q4H PRN PO GASTROINTESTINAL UPSET; Start 10/14/18 at 14:30 Ondansetron HCl (Zofran Inj) 4 mg Q4H PRN IV NAUSEA AND/OR VOMITING; Start 10/14/18 at 14:30 RODDY OLSEN Oct 16, 2018 18:20
[2018-10-16] MEDS: ATORVASTATIN 80 MG TAB PO SCH (21:22)
[2018-10-17] VITALS: PULSE 53
[2018-10-17 03:48] VITALS: BP 153/77; PULSE 62; RESP 16
[2018-10-17 04:00] VITALS: PULSE 61
[2018-10-17 07:51] VITALS: BP 173/81; PULSE 62; RESP 18
[2018-10-17] MEDS: ZINC SULFATE 220 MG CAP PO SCH (08:07)
[2018-10-17] MEDS: ASCORBIC ACID 500 MG TAB PO SCH (08:07)
[2018-10-17] MEDS: MULTIVITAMINS/MINERALS TAB PO SCH (08:07)
[2018-10-17 08:09] VITALS: PULSE 62
[2018-10-17] MEDS: BUSPIRONE 10 MG TAB PO SCH (08:09)
[2018-10-17] MEDS: PANTOPRAZOLE (EC) 40 MG TAB PO SCH (08:09)
[2018-10-17] MEDS: SUCRALFATE (100 MG/ML) 10ML CUP PO SCH (08:09)
[2018-10-17] MEDS: DULOXETINE 30 MG CAP DR PO SCH (08:09)
[2018-10-17] MEDS: AMLODIPINE 10 MG TAB PO SCH (08:11)
[2018-10-17] MEDS: ISOSORBIDE DINITRATE 10 MG TAB PO SCH (08:11)
[2018-10-17] MEDS: METOPROLOL 50 MG TAB PO SCH (08:11)
[2018-10-17] MEDS: TICAGRELOR 90 MG TABLET PO SCH (08:18)
--- NOTE | 2018-10-17 08:49 | PN ---
DATE: 10/17/2018 SUBJECTIVE: The patient is stable, no events overnight. OBJECTIVE: VITAL SIGNS: Blood pressure is 173/81, pulse 62, respiration 18, temperature 97.8. HEENT: Head is normocephalic. NECK: Supple. HEART: Regular rate. LUNGS: Show diminished breath sounds at the base. ABDOMEN: Soft, nontender to palpation. No rebound or guarding. EXTREMITIES: Negative for clubbing, cyanosis, no edema. DERMATOLOGIC: No rashes. MUSCULOSKELETAL: No joint effusion. NEUROLOGIC: No change in exam. MEDICATIONS: The patient's medications have been reviewed. LABORATORY DATA: Has been reviewed. ASSESSMENT AND PLAN: 1. Nonoliguric acute kidney injury with previous baseline creatinine 1.2 mg/dL. Etiology of RODRIGO is secondary to hemodynamics. Renal function is improved. Continue to monitor. 2. Anemia. Monitor hemoglobin and hematocrit levels. 3. Mineral bone disorder, monitor calcium and phosphorus levels. 4. Hypertension. Blood pressure remains elevated. Continue current blood pressure regimen. Would consider adding PATITO inhibitor or ARB, unable to be controlled. 5. Chest pain. The patient is status post cardiac catheterization, no significant stenosis. Contin ue medical management. 6. History of peptic ulcer disease. Continue proton pump inhibitor. 7. History of depression. Dictated By: FERNANDO LOYA DO NR/NTS Conf#: [id number] DID#: [id number] CC: CHRISTINE HERRERA MD; RODDY OLSEN MD; ADORE SHAH MD;*End*
[2018-10-17] MEDS ORDERED: TICA90TA PO (09:59)
[2018-10-17] MEDS ORDERED: SUCR1TAB56 PO (09:59)
[2018-10-17] MEDS ORDERED: ISOS10TA2 PO (09:59)
[2018-10-17] MEDS ORDERED: METO-429 PO (09:59)
[2018-10-17] MEDS ORDERED: HYDR-3601 PO (10:02)
--- NOTE | 2018-10-17 10:07 | PN ---
Date/Time of Note Date/Time of Note DATE: 10/17/18 TIME: 09:59 Assessment/Plan VTE Prophylaxis Risk score (from Ns)>0 risk: 2 SCD applied (from Ns): No SCD contraindicated: low risk/ambulating Pharmacological prophylaxis: other Lines/Catheters IV Catheter [facility] (from [facility]): Saline Lock Assessment/Plan Assessment/Plan 1. Acute chest pain- resolved - s/p cardiac cath 10/14 and stents patent. Continue on Brilinta - trops negative - Cardiology on board and appreciate recommendations. Cleared for discharge with outpatient follow up 2. CAD s/p multiple PCI - Continue on Brilinta for now - no GI bleeding appreciated - continue isosorbide and BB as tolerated 3. RODRIGO- resolved - Nephrology on board and appreciate recommendations. 4. GI bleed- resolved - no further episodes noted - H/H stable. no need for transfusions at this time 5. Essential hypertension. - stable 6. Mood disorder - Continue on Cymbalta. 7. HLD - statin on board 8. Peptic ulcer disease - PPI and Carafate - GI on board and recommending repeat EGD in 6-8 weeks to assess healing of ulcer 9. Disposition - Medically stable for discharge home Result Diagram: 10/15/18 0512 10/16/18 0508 Subjective 24 Hr Interval Summary Free Text/Dictation Patient is frustrated about being downgraded yesterday but discussed not an iss ue right now since being discharged home. No acute overnight events. Exam/Review of Systems Exam Vitals Vital Signs Date Temp Pulse Resp B/P (MAP) Pulse Ox O2 O2 Flow FiO2 Time Delivery Rate 10/17/18 62 08:09 10/17/18 Nasal 2.0 07:55 Cannula 10/17/18 97.8 18 173/81 99 07:51 (111) Intake and Output 10/16/18 10/16/18 10/17/18 1515:00 23:00 07:00 IntakeIntake Total 860 ml 600 ml OutputOutput Total 600 ml BalanceBalance 260 ml 600 ml Exam General: no acute distress. answering questions appropriately CVS: S1, S2, regular rate and rhythm, No murmurs Lungs: clear to auscultation bilaterally. no wheezing or rhonchi Abd: soft, nontender, nondistended. no rebound or guarding. bowel sounds present diffusely Ext: moving all extremities. no cyanosis, clubbing, or edema Skin: warm, dry Medications Medication Current Medications Amlodipine Besylate (Norvasc) 10 mg DAILY PO Last administered on 10/17/18 08:11; Admin Dose 10 MG; Start 10/12/18 at 09:00 Atorvastatin Calcium (Lipitor) 80 mg HS PO Last administered on 10/16/18 21:22; Admin Dose 80 MG; Start 10/11/18 at 21:00 Buspirone HCl (Buspar) 15 mg BID PO Last administered on 10/17/18 08:09; Admin Dose 15 MG; Start 10/11/18 at 21:00 Duloxetine HCl (Cymbalta) 30 mg BID PO Last administered on 10/17/18 08:09; Admin Dose 30 MG; Start 10/11/18 at 21:00 Pantoprazole (Protonix Tab) 40 mg BID PO Last administered on 10/17/18 08:09; Admin Dose 40 MG; Start 10/11/18 at 21:00 Ticagrelor (Brilinta) 90 mg BID PO Last administered on 10/17/18 08:18; Admin Dose 90 MG; Start 10/11/18 at 21:00 Nitroglycerin (Nitroglycerin (Sl Tab) 0.4 Mg) 1 tab Q5M PRN SL CHEST PAIN Last administered on 10/16/18 18:47; Admin Dose 1 TAB; Start 10/11/18 at 13:30 IV Flush (NS 3 ml) 3 ml PER PROTOCOL IV ; Start 10/11/18 at 13:30 Acetaminophen (Tylenol Tab) 650 mg Q6H PRN PO .PAIN 1-3 OR TEMP Last administered on 10/13/18 00:47; Admin Dose 650 MG; Start 10/11/18 at 13:30 Acetaminophen/ Hydrocodone Bitart ([place] (5/325)) 1 tab Q6H PRN PO .MOD PAIN 4- 6 Last administered on 10/16/18 16:44; Admin Dose 1 TAB; Start 10/11/18 at 13:30 Morphine Sulfate (morphine) 2 mg Q4H PRN IV .SEVERE PAIN 7-10 Last administered on 10/15/18 20:54; Admin Dose 2 MG; Start 10/11/18 at 13:30 Magnesium Hydroxide (Milk Of Mag) 30 ml DAILY PRN PO .CONSTIPATION; Start 10/11/18 at 13:30 Heparin Sodium (Porcine) (Heparin (5000 Units/1ml)) 5,000 unit Q12 SC Last administered on 10/13/18at 08:15; Admin Dose 5,000 UNIT; Start 10/11/18 at 21:00; Status Hold Ascorbic Acid (Vitamin C) 500 mg DAILY PO Last administered on 10/17/18at 08:07; Admin Dose 500 MG; Start 10/13/18 at 09:00 Multivitamins/ Minerals (Theragran-M) 1 tab DAILY PO Last administered on 10/17/18 08:07; Admin Dose 1 TAB; Start 10/13/18 at 09:00 Zinc Sulfate (Zinc Sulfate) 220 mg DAILY PO Last administered on 10/17/18 08:07; Admin Dose 220 MG; Start 10/13/18 at 09:00; Stop 10/27/18 at 08:59 Metoprolol Tartrate (Lopressor) 50 mg BID PO Last administered on 10/17/18at 08:11; Admin Dose 50 MG; Start 10/12/18 at 21:00 Sucralfate (Carafate Susp) 1 gm QID PO Last administered on 10/17/18at 08:09; Admin Dose 1 GM; Start 10/12/18 at 17:00 Isosorbide Dinitrate (Isordil) 10 mg TID PO Last administered on 10/17/18at 08:11; Admin Dose 10 MG; Start 10/13/18 at 13:00 Acetaminophen (Tylenol Tab) 650 mg Q4H PRN PO PAIN; Start 10/14/18 at 14:30 Oxycodone/ Acetaminophen (Percocet (5/ 325)) 1 tab Q4H PRN PO PAIN; Start 10/14/18 at 14:30 Morphine Sulfate (morphine) 1 mg Q1H PRN IV PAIN; Start 10/14/18 at 14:30 Zolpidem Tartrate (Ambien) 5 mg HS MAY REPEAT X 1 PRN PO INSOMNIA Last administered on 10/16/18at 21:21; Admin Dose 5 MG; Start 10/14/18 at 14:30 Al Hydrox/Mg Hydrox/Simethicone (Mag-Al Plus) 30 ml Q4H PRN PO GASTROINTESTINAL UPSET Last administered on 10/17/18at 03:38; Admin Dose 30 ML; Start 10/14/18 at 14:30 Ondansetron HCl (Zofran Inj) 4 mg Q4H PRN IV NAUSEA AND/OR VOMITING; Start 10/04 05/24 at 14:30 CHRISTINE HERRERA MD Oct 17, 2018 10:07
--- NOTE | 2018-10-17 14:45 | DS ---
Date/Time of Note Date/Time of Note DATE: 10/17/18 TIME: 14:31 Discharge Summary Admission/Discharge Info Admit Date/Time Oct 13, 2018 at 10:03 Discharge Date/Time Oct 17, 2018 at 11:00 Discharge Diagnosis 1. Acute chest pain- resolving 2. CAD s/p multiple PCI- stable 3. Acute renal insufficiency- resolved 4. GI bleed- resolved 5. Essential hypertension. 6. Mood disorder 7. HLD 8. Peptic ulcer disease Patient Condition: Stable Consults Cardiology- Dr. Lujan GI- Dr. Altamirano Nephrology- Dr. Jo Procedures DATE OF PROCEDURE: 10/14/2018 REASON FOR CARDIAC CATHETERIZATION: Chest pain concerning for angina, recent stent placement with gastrointestinal bleed causing holding of antiplatelet agents, assess for thrombosis stenosis. TYPE OF PROCEDURE: 1. Left heart catheterization. 2. Coronary angiography. 3. Measurement of left ventricular end-diastolic pressure. 4. Moderate conscious sedation. Hx of Present Illness This is a 67-year-old male who recently was admitted to the hospital in September this year who recently had PCI for coronary artery disease and had 3 stents to PLB/RCA. Patient reportedly at that time also had severe GI bleed and was seen by GI and was placed on PPI medication. Patient does report that he was compliant with his medicines and was taking Brilinta alone and not aspirin due to life-threatening bleeding previously. He states that he was discharged roughly on 03 Oct 2018. He says that several days prior to this admission he had been having some chest discomfort. This morning when he awoke he had severe chest pain 6 out of 10 that was pressure-like in nature radiating to his left arm. He also noted some increased shortness of breath as well. Yesterday he came to [facility] for further evaluation. First troponin negative. We will evaluate him for the aforementioned issues. Hospital Course Patient was admitted for workup of acute chest pain and Cardiology was consulted. Given recent GI bleed and findings of peptic ulcer disease GI was co nsulted as well. Patient was taken for cardiac catheterization with no findings of occluded stents. Patient was continued on Brilinta, Carafate and PPI. Patients pain improved and was tolerating PO intake. Patients vitals remained stable and was discharged in stable condition. He was encouraged to follow up with PCP, Cardiology and GI as outpatient. Home Meds Active Scripts Hydrocodone Bit-Acetaminophen (Hydrocodone Bit-APAP) 5-325MG Tablet, 1 TAB PO Q6H PRN for .MOD PAIN 4-6 for 7 Days, #30 TAB Prov:CHRISTINE HERRERA MD 10/17/18 Sucralfate* (Carafate*) 1 Gm Tab, 1 GM PO AC MEALS AND BEDTIME for 14 Days, #42 TAB Prov:CHRISTINE HERRERA MD 10/17/18 Isosorbide Dinitrate* (Isordil*) 10 Mg Tablet, 10 MG PO TID for 30 Days, #90 TAB 1 Refill Prov:CHRISTINE HERRERA MD 10/17/18 Metoprolol Tartrate* (Lopressor*) 50 Mg Tab, 50 MG PO BID for 30 Days, #60 TAB 1 Refill Prov:CHRISTINE HERRERA MD 10/17/18 Ticagrelor* (Brilinta*) 90 Mg Tablet, 90 MG PO BID for 30 Days, #60 TAB 1 Refill Prov:CHRISTINE HERRERA MD 10/17/18 Pantoprazole* (Pantoprazole*) 40 Mg Tablet.dr, 40 MG PO BID for 60 Days, #120 TAB 3 Refills Prov:BARTOLO STREETER MD 10/01/18 Amlodipine Besylate* (Amlodipine Besylate*) 10 Mg Tablet, 10 MG PO DAILY for 30 Days, #30 TAB Prov:CHRISTINE HERRERA MD 09/20/18 Atorvastatin* (Atorvastatin*) 80 Mg Tablet, 80 MG PO HS for 30 Days, #30 TAB 1 Refill Prov:CHRISTINE HERRERA MD 09/20/18 Reported Medications Buspirone Hcl* (Buspirone Hcl*) 10 Mg Tab, 15 MG PO BID, TAB 10/11/18 Duloxetine Hcl* (Cymbalta*) 30 Mg Capsule.dr, 30 MG PO BID, CAP 09/26/18 Nitroglycerin* (Nitrostat*) 0.4 Mg Tab.subl, 0.4 MG SL Q5MIN PRN for CHEST PAIN, BOTTLE 09/16/18 Discontinued Reported Medications Metoprolol Tartrate* (Lopressor*) 100 Mg Tablet, 100 MG PO BID, #60 TAB 10/11/18 Metoprolol Tartrate* (Lopressor*) 50 Mg Tab, 50 MG PO BID, #60 TAB 09/26/18 Buspirone Hcl* (Buspirone Hcl*) 10 Mg Tab, 10 MG PO BID, TAB 09/16/18 Discontinued Scripts Benazepril Hcl* (Benazepril Hcl*) 40 Mg Tablet, 40 MG PO DAILY for 30 Days, #30 TAB Prov:CHRISTINE HERRERA MD 09/21/18 Follow-up Plan 1. Follow up with your primary care physician in 1-2 weeks 2. Follow up with Dr. Lujan in 1-2 weeks. Please call his office to make an appointment 3. You will need to follow up with GI in 6-8 weeks to ensure healing of ulcers. Call the office to schedule an appointment 4. Take all medications as prescribed. The following changes were made - Metoprolol decreased to 50mg twice a day - STOP Benazepril - Start Isosorbide three times a day - Continue on Pantoprazole twice a day and start taking Carafate with meals for 2 weeks 5. If experiencing any concerning symptoms, please go to the closest emergency department Primary Care Provider Care Physician No Primary Time spent on discharge: > 30 minutes CHRISTINE HERRERA MD Oct 17, 2018 14:45
== END 2018-10-17 11:00 | disposition home or self-care (01) | DRG 287 ==
LOC: E/R 09:59 → 6WM 11:58 → OBSVTOIN 10-13 10:03
PROVIDERS: ADMIT Internal Medicine; ATTEND Internal Medicine
PROC: B211YZZ Fluoroscopy of Multiple Coronary Arteries using Other Contrast (ICD-10-PCS; 2018-10-14)
PROC: B215YZZ Fluoroscopy of Left Heart using Other Contrast (ICD-10-PCS; 2018-10-14)
PROC: 4A023N7 Measurement of Cardiac Sampling and Pressure, Left Heart, Percutaneous Approach (ICD-10-PCS; principal; 2018-10-14 13:30)
DX: R07.9 Chest pain, unspecified (principal); N17.9 Acute kidney failure, unspecified; I25.10 Atherosclerotic heart disease of native coronary artery without angina pectoris; F32.9 Major depressive disorder, single episode, unspecified; I12.9 Hypertensive chronic kidney disease with stage 1 through stage 4 chronic kidney disease, or unspecified chronic kidney disease; N18.9 Chronic kidney disease, unspecified; R00.1 Bradycardia, unspecified; D64.9 Anemia, unspecified; E78.5 Hyperlipidemia, unspecified; Z87.11 Personal history of peptic ulcer disease; Z95.5 Presence of coronary angioplasty implant and graft
CPT/HCPCS: 36415; 71045; 76775; 80048; 80053; 80061; 81003; 82043; 82550; 82553; 82962; 83036; 83735; 84100; 84155; 84300; 84436; 84443; 84479; 84484; 85025; 93005; 93458; 96374; 96375; 97162; 97165; G0378; C1887; J1644; J2250; J2270; J2405; J3010; J3475; J7030; Q9967

== ENCOUNTER 2018-10-20 11:19 | Emergency (ER) | payer MEDICARE ==
[~2018-10-20] VITALS: Wt 80.1 kg
[~2018-10-20 11:19] MED LIST changes: +HYDR-3601 PO; +ISOS10TA2 PO; +METO-407 PO; +SUCR1TAB56 PO
[2018-10-20 11:24] VITALS: Wt 80.1 kg
--- NOTE | 2018-10-20 11:45 | ERD ---
ER Documentation Chief Complaint Chief Complaint ALOC HPI The patient is a 67-year-old male, presenting to the ER from home because of altered level consciousness. The patient was checked on by his neighbor around 8:30 AM, according to EMS he was normal. The neighbor checked on him again shortly prior to arrival, he was not himself and very slowed response. Therefore 911 was activated and brought him to the hospital. He is awake but very slow to response, he knows his name. He denies headache, neck pain, chest pain. However his history is very limited Past medical history: CAD, hypertension, mood disorder, dyslipidemia, peptic ulcer disease, history of GI bleed Surgical history: Stent PCI ROS All systems reviewed and are negative except as per history of present illness. Medications Home Meds Active Scripts Hydrocodone Bit-Acetaminophen (Hydrocodone Bit-APAP) 5-325MG Tablet, 1 TAB PO Q6H PRN for .MOD PAIN 4-6 for 7 Days, #30 TAB Prov:CHRISTINE HERRERA MD 10/17/18 Sucralfate* (Carafate*) 1 Gm Tab, 1 GM PO AC MEALS AND BEDTIME for 14 Days, #42 TAB Prov:CHRISTINE HERRERA MD 10/17/18 Isosorbide Dinitrate* (Isordil*) 10 Mg Tablet, 10 MG PO TID for 30 Days, #90 TAB 1 Refill Prov:CHRISTINE HERRERA MD 10/17/18 Metoprolol Tartrate* (Lopressor*) 50 Mg Tab, 50 MG PO BID for 30 Days, #60 TAB 1 Refill Prov:CHRISTINE HERRERA MD 10/17/18 Ticagrelor* (Brilinta*) 90 Mg Tablet, 90 MG PO BID for 30 Days, #60 TAB 1 Refill Prov:CHRISTINE HERRERA MD 10/17/18 Pantoprazole* (Pantoprazole*) 40 Mg Tablet.dr, 40 MG PO BID for 60 Days, #120 TAB 3 Refills Prov:BARTOLO STREETER MD 10/01/18 Amlodipine Besylate* (Amlodipine Besylate*) 10 Mg Tablet, 10 MG PO DAILY for 30 Days, #30 TAB Prov:CHRISTINE HERRERA MD 09/20/18 Atorvastatin* (Atorvastatin*) 80 Mg Tablet, 80 MG PO HS for 30 Days, #30 TAB 1 Refill Prov:CHRISTINE HERRERA MD 09/20/18 Reported Medications Buspirone Hcl* (Buspirone Hcl*) 10 Mg Tab, 15 MG PO BID, TAB 10/11/18 Duloxetine Hcl* (Cymbalta*) 30 Mg Capsule.dr, 30 MG PO BID, CAP 09/26/18 Nitroglycerin* (Nitrostat*) 0.4 Mg Tab.subl, 0.4 MG SL Q5MIN PRN for CHEST PAIN, BOTTLE 09/16/18 Discontinued Reported Medications Metoprolol Tartrate* (Lopressor*) 100 Mg Tablet, 100 MG PO BID, #60 TAB 10/11/18 Discontinued Scripts Benazepril Hcl* (Benazepril Hcl*) 40 Mg Tablet, 40 MG PO DAILY for 30 Days, #30 TAB Prov:CHRISTINE HERRERA MD 09/21/18 Allergies Allergies: Coded Allergies: No Known Allergy (Unverified , 10/20/18) PMhx/Soc History of Surgery: Yes (week ago stent placement) Anesthesia Reaction: No Hx Neurological Disorder: No Hx Respiratory Disorders: No Hx Cardiac Disorders: Yes (htn, cad) Hx Psychiatric Problems: No Hx Miscellaneous Medical Probl: Yes (See note) Hx Alcohol Use: No Hx Substance Use: No Hx Tobacco Use: No Smoking Status: Unknown if ever smoked Physical Exam Vitals Vital Signs Date Temp Pulse Resp B/P (MAP) Pulse Ox O2 O2 Flow FiO2 Time Delivery Rate 10/20/18 98.2 75 18 173/84 98 11:24 (113) Physical Exam Const: No acute distress. Head: Atraumatic. Eyes: Normal Conjunctiva. ENT: Normal External Ears, Nose and Mouth. Neck: Full range of motion. No meningismus. Resp: Clear to auscultation bilaterally. Cardio: Regular rate and rhythm. Abd: Soft, non distended, normal bowel sounds, non tender. Skin: No petechiae or rashes. Back: No midline or flank tenderness. Ext: No cyanosis, or edema. Neur: Awake. Left upper extremity 4+. He is unable to raise bilateral lower extremity up against gravity Psych: Limited due to his condition Result Diagram: 10/20/18 1123 10/20/18 1123 Results 24 hrs Laboratory Tests Test 10/20/18 11:23 White Blood Count 6.7 10^3/ul Red Blood Count 4.16 10^6/ul Hemoglobin 12.0 g/dl Hematocrit 36.4 % Mean Corpuscular Volume 87.5 fl Mean Corpuscular Hemoglobin 28.8 pg Mean Corpuscular Hemoglobin Concent 33.0 g/dl Red Cell Distribution Width 16.4 % Platelet Count 369 10^3/UL Mean Platelet Volume 10.2 fl Immature Granulocytes % 1.300 % Neutrophils % 62.4 % Lymphocytes % 22.2 % Monocytes % 9.5 % Eosinophils % 3.7 % Basophils % 0.9 % Nucleated Red Blood Cells % 0.0 /100WBC Immature Granulocytes # 0.090 10^3/ul Neutrophils # 4.2 10^3/ul Lymphocytes # 1.5 10^3/ul Monocytes # 0.6 10^3/ul Eosinophils # 0.3 10^3/ul Basophils # 0.1 10^3/ul Nucleated Red Blood Cells # 0.0 10^3/ul Prothrombin Time 12.8 Sec Prothrombin Time Ratio 1.0 INR International Normalized Ratio 0.95 Activated Partial Thromboplast Time 30.3 Sec Sodium Level 141 mmol/L Potassium Level 4.4 mmol/L Chloride Level 105 mmol/L Carbon Dioxide Level 23 mmol/L Anion Gap 13 Blood Urea Nitrogen 33 mg/dl Creatinine 1.38 mg/dl Est Glomerular Filtrat Rate mL/min 52 mL/min Glucose Level 136 mg/dl Hemoglobin A1c 5.2 % Calcium Level 9.1 mg/dl Creatine Kinase 71 IU/L Creatine Kinase Index 2.7 Creatinine Kinase MB (Mass) 1.92 ng/ml Troponin I < 0.012 ng/ml Triglycerides Level 153 mg/dl Cholesterol Level 119 mg/dl LDL Cholesterol, Calculated 47 mg/dl HDL Cholesterol 41 mg/dl Cholesterol/HDL Ratio 2.9 RATIO Ethyl Alcohol Level < 10.0 mg/dl Current Medications Medications Dose Sig/Allison Start Time Status Last (Trade) Ordered Route PRN Stop Time Admin Dose Reason Admin Sodium 500 ml @ Q1H ONCE 10/20/18 Chloride 500 mls/hr IV 12:30 10/20/18 13:29 Procedures/[place] [id number] Radiology Main Line: [phone] DIAGNOSTIC IMAGING REPORT Patient: TENISHA OLSON : 1950 Age: 67 Sex: M MR #: [id number] DOS: 10/20/18 1123 Ordering MD: MIKE ZARCO MD Location: E/R Room/Bed: PROCEDURE: CT HEAD NON CONTRAST CLINICAL INDICATION: Neurologic deficit, stroke protocol TECHNIQUE: Utilizing the multi-slice spiral CT scanner, multiple images were obtained through the brain without intravenous contrast. Automatic exposure control was utilized as dose lowering technique.DICOM images available One of more of the following dose reduction techniques were utilized: -automatic exposure control.-adjustment of the mA and/or kV according to patient size. -Use of iterative reconstruction technique. Radiation Dose: CTDI is 48.18 mGy. DLP is 921.49 mGy-cm. COMPARISON: 09/05/2018 FINDINGS: Ventricular system and brain parenchyma appear unremarkable. No acute intracranial bleed, midline shift, acute extra-axial collection noted. Mild periventricular low density area in the deep white matter suggestive of ischemic changes. Brain stem, posterior fossa appears unremarkable. No abnormal calcifications noted. Ectasia of the vertebral basilar arteries are seen. Globe, retrobulbar area appears unremarkable. Bony calvarium and overlying soft tissues appear unremarkable. Visualized portions of the paranasal sinuses are clear. Findings are unchanged from prior study. IMPRESSION: NO ACUTE INTRACRANIAL BLEED NOTED. Findings discussed with Dr. Zarco at 11:40 a.m. IF FURTHER WORKUP IS DESIRED, FOLLOW-UP MRI MAY BE HELPFUL. RPTAT: AAOO Physician Tamiko Date Time Electronically viewed and signed by Physician Tamiko on 10/20/2018 11:43 MB/ CC: MIKE ZARCO MD [phone] Chest x-ray radiologist report is pending EKG: Read by emergency physician Rate/Rhythm: Normal sinus rhythm 70 beats/min QRS, ST, T-waves: No ST elevation, no T inversion, LVH, lateral ST abnormality, artifacts Impression: Abnormal EKG UA, UDS Pending Consultation: The patient was evaluated by the stroke neurologist Dr. Pineda. She spoke with me at 12:20 MM and did not recommend TPA but recommended CTA of the brain and the neck for further evaluation and aware of the creatinine MEDICAL MAKING DECISION: The patient is a 67-year-old male, presenting with acute encephalopathy of unclear etiology, strokelike symptoms. He was pretreated with normal saline 500 mL IV prior to the CTA of the neck and the brain I activated the code stroke after evaluated the patient at 11:40 PM The differential diagnoses considered include but are not limited to TIA, impending CVA, metabolic encephalopathy, septic encephalopathy Departure Diagnosis: Primary Impression: Encephalopathy acute Additional Impressions: Renal insufficiency Anemia Condition: Stable Comments I discussed the findings with the patient. I discussed the patient with Dr. Olivia at 12:30 PM, who was made aware of the lab, the treatment, the patient condition. The patient is admitted to [facility] Disclaimer: Inadvertent spelling and grammatical errors are likely due to EHR/dictation software use and do not reflect on the overall quality of patient care. Also, please note that the electronic time recorded on this note does not necessarily reflect the actual time of the patient encounter. MIKE ZARCO MD Oct 20, 2018 11:45
[2018-10-20] MEDS ORDERED: SOD CHLORIDE 0.9% 500 ML IV ONE (12:30)
[2018-10-20] MEDS ORDERED: IOHEXOL 100 ML ONE (13:26)
[2018-10-20] MEDS ORDERED: SOD CHLORIDE 0.9% 100 ML ONE (13:26)
[2018-10-20] MEDS ORDERED: IODIXANOL LOCM 100 ML BTL ONE (13:31)
[2018-10-20 16:14] VITALS: BP 168/83; PULSE 72; RESP 23
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
== END 2018-10-20 17:01 | disposition short-term general hospital (02) ==
LOC: E/R 11:19 → CANRESERV 13:12 → E/R 17:01
DX: G93.40 Encephalopathy, unspecified (principal); I25.10 Atherosclerotic heart disease of native coronary artery without angina pectoris; D64.9 Anemia, unspecified; N18.9 Chronic kidney disease, unspecified; I12.9 Hypertensive chronic kidney disease with stage 1 through stage 4 chronic kidney disease, or unspecified chronic kidney disease
CPT/HCPCS: 36415; 70450; 70496; 70498; 71045; 80048; 80061; 80307; 82550; 82553; 83036; 84484; 85025; 85610; 85730; 93005; 96360; 96361; 99285; J7040; Q9967